=== PATIENT | female | born 1980 | race Caucasian/White ===

== ENCOUNTER 2024-04-17 10:25 | Outpatient (OUT) | payer MEDICARE, SELFPAY ==
--- NOTE | 2024-04-17 | CONS_ITS ---
CONSULTATION DATE: 04/17/2024 CHIEF COMPLAINT: Includes pain in multiple joints; however, she reports most of her pain appears to be in her shoulders bilaterally, markedly worse on the right than the left side, and right wrist pain, despite having undergone right wrist fusion HISTORY OF PRESENT ILLNESS: She rates the pain as between 5-7/10 pain, which she has had for many. Seems to increase with activities such as lifting maneuvers, pushing/pulling maneuvers, as well as cervical extension. She denies any change in bowel or bladder habits or new sensorimotor changes in her upper or lower extremities. CURRENT MEDICATION: Includes Kennedy 10 mg q.i.d. p.r.n., gabapentin 600 mg t.i.d., Topamax 200 b.i.d., Zanaflex 4 mg q. 8 hours. Her KAIT on today?s visit was 43. EXAMINATION: Notable for patient having no clinical radiculopathy or myelopathy involving her upper extremities. However, patient had positive bilateral empty can sign, markedly more significant on the right than the left side. Limited range of motion to shoulder abduction, again limited movement on the right more than the left side, and pain with right shoulder extension, internal rotation and abduction or ?back scratch test?. IMPRESSION: Our impression is patient appears to have chronic pain secondary to rotator cuff strain, impingement type syndrome shoulder bilaterally, right worse than left. RECOMMENDATIONS: I recommend an x-ray of her shoulders bilaterally, MRI of her shoulders bilaterally, physical therapy. I increased the gabapentin from 600 t.i.d. to q.i.d. I am decreasing Kennedy to 10 mg t.i.d. Will continue to wean the Kennedy as tolerated by the patient. I have asked her to maintain her current dose of Topamax and Zanaflex for the time being. Will see the patient back in the office after she undergoes imaging studies. As part of providing excellent, safe, comprehensive care, the following was completed at our patient's visit: 1. A medication reconciliation and review to ensure accurate knowledge of current/active medications, including asking our patients to inform us about any [id number] medications or herbal remedies/nutritional supplements/alternative remedies. 2. A review to specifically ensure our patients have had annual screening for: elevated body mass index (BMI, see intake chart for exact total), tobacco use, screening for depression, and screening for unhealthy alcohol use. When screening is concerning, patients are provided with education and the specific recommendation to discuss the concerning health issue and treatment options with their primary care provider. KATHIA
== END 2024-04-17 10:26 | disposition home or self-care (01) ==
PROVIDERS: PCP Family Medicine; Visit Provider Anesthesiology Pain Medicine
DX: M75.42 Impingement syndrome of left shoulder (principal); M75.41 Impingement syndrome of right shoulder; S46.012A Strain of muscle(s) and tendon(s) of the rotator cuff of left shoulder, initial encounter; S46.011A Strain of muscle(s) and tendon(s) of the rotator cuff of right shoulder, initial encounter; G89.29 Other chronic pain
CPT/HCPCS: G0463

== ENCOUNTER 2024-06-22 09:46 | Outpatient (OUT) | payer MEDICARE, SELFPAY ==
--- NOTE | 2024-06-22 09:53 | MR_ITS ---
[place] [id number] Patient Name: DEMAR BASURTO MRN: [id number] date: 1980 Sex: F Assigned Patient Location: MRI Current Patient Location: MRI Accession/Order Number: [id number] Exam Date: 06/22/2024 10:00 Report Date: 06/24/2024 07:00 At the request of: OZIE SANTANA Procedure: MR shoulder LT wo con EXAMINATION: MR shoulder LT wo con HISTORY: Bilateral Shoulder Pain COMPARISON: No relevant comparison available. TECHNIQUE: A variety of imaging planes and parameters were utilized for visualization of suspected pathology. Imaging was performed without or with contrast as indicated by examination type. FINDINGS: ROTATOR CUFF REGION CUFF TENDONS: Tear of the supraspinous tendon with what appears to be 5 mm separation. CUFF MUSCLES: Edema versus blood products within the subscapularis muscle at the musculotendinous junction without appreciable tear of the tendon. DELTOID: Normal. No significant atrophy or tear. LONG BICEPS TENDON: Normal. No abnormal signal, attrition, or tear. LABRUM/BICEPS ANCHOR SUPERIOR: No visible labral tear or biceps anchor pathology. ANTERIOR/INFERIOR: No visible tear or attrition. POSTERIOR: No posterior labrum abnormality. CAPSULE Normal. No visible capsular laxity or thickening. AC JOINT REGION AC JOINT: Joint space narrowing and large undersurface osteophytes indenting the supraspinatus muscle at the musculotendinous junction. AC LIGAMENTS: Normal acromioclavicular ligament. CC LIGAMENTS: Normal coracoclavicular ligaments. ACROMION: Normal horizontal (Type I) configuration. SUBACROMIAL BURSA: Normal. No significant effusion. HYALINE CARTILAGE: Narrowing of the glenohumeral joints likely due to cartilage thinning. OTHER BONES: Normal proximal humerus, glenoid, and coracoid. OTHER OBSERVATIONS: Negative. No other significant findings or glenohumeral effusion. MR/MR shoulder LT wo con IMPRESSION: 1. Appearance suggests full-thickness tear and 5 mm separation of the supraspinatus tendon. No fluid within the subacromial bursa suggesting this may be long-standing. 2. Degenerative changes of acromioclavicular joint with large undersurface osteophyte which would contribute to the above findings. 3. Suspect strain of the subscapularis muscle at the musculotendinous junction without evidence of edema versus intramuscular blood products. Unremarkable tendon. 4. Cartilage thinning of the glenohumeral joint. Electronically authenticated by: ASHLEIGH YIN Date: 06/24/2024 07:00
--- NOTE | 2024-06-22 09:53 | MR_ITS ---
[place] [id number] Patient Name: DEMAR BASURTO MRN: [id number] date: 1980 Sex: F Assigned Patient Location: MRI Current Patient Location: Accession/Order Number: [id number] Exam Date: 06/22/2024 10:00 Report Date: 06/24/2024 06:47 At the request of: ZOIE SANTANA Procedure: MR shoulder RT wo con EXAMINATION: MR shoulder RT wo con HISTORY: Bilateral Shoulder Pain COMPARISON: No relevant comparison available. TECHNIQUE: A variety of imaging planes and parameters were utilized for visualization of suspected pathology. Imaging was performed without or with contrast as indicated by examination type. FINDINGS: ROTATOR CUFF REGION CUFF TENDONS: Increased T2 signal within supraspinatus tendon without appreciable full-thickness tear. CUFF MUSCLES: Normal appearing muscles. DELTOID: Normal. No significant atrophy or tear. LONG BICEPS TENDON: Normal. No abnormal signal, attrition, or tear. LABRUM/BICEPS ANCHOR SUPERIOR: Suspected tear of the superior and anterior labrum. ANTERIOR/INFERIOR: No visible tear or attrition. POSTERIOR: No posterior labrum abnormality. CAPSULE Normal. No visible capsular laxity or thickening. AC JOINT REGION AC JOINT: Mild osteoarthropathy with mild narrowing of the underlying coracoacromial arch. AC LIGAMENTS: Normal acromioclavicular ligament. CC LIGAMENTS: Normal coracoclavicular ligaments. ACROMION: Normal horizontal (Type I) configuration. SUBACROMIAL BURSA: Small amount of fluid within bursa. HYALINE CARTILAGE: Normal. No visible cartilage narrowing or focal defect. OTHER BONES: Normal proximal humerus, glenoid, and coracoid. OTHER OBSERVATIONS: Negative. No other significant findings or glenohumeral effusion. MR/MR shoulder RT wo con IMPRESSION: 1. Abnormal T2 signal within the supraspinatus tendon suggestive of moderate to high-grade strain. No appreciable full-thickness tear, however, there is fluid within the subacromial bursa which would suggest an occult tear. 2. Suspected tear of the superior and anterior labrum. 3. Mild to moderate degenerative changes of acromioclavicular joints slightly narrowing the coracoacromial arch. Electronically authenticated by: ASHLEIGH YIN Date: 06/24/2024 06:47
== END 2024-06-22 09:47 | disposition home or self-care (01) ==
LOC: MRI 09:49
PROVIDERS: PCP Family Medicine; Visit Provider Anesthesiology Pain Medicine
DX: M25.511 Pain in right shoulder (principal); M25.512 Pain in left shoulder; S46.812A Strain of other muscles, fascia and tendons at shoulder and upper arm level, left arm, initial encounter
CPT/HCPCS: 73221

== ENCOUNTER 2024-07-03 12:25 | Outpatient (OUT) | payer MEDICARE, SELFPAY ==
--- NOTE | 2024-07-03 | CONS_ITS ---
CONSULTATION DATE: 07/03/2024 TO: Robson Robin D.O. CHIEF COMPLAINT: Includes severe bilateral shoulder pain. HISTORY: She rates the pain as being 4-5/10 pain, deep aching in character with a sharp component, increased with activities such as lifting maneuvers, pushing/pulling maneuvers. She feels most comfortable in the semi-recumbent position. Denies any change in bowel and bladder habits or new sensorimotor changes in the upper extremities. CURRENT MEDICATION: Includes gabapentin 600 mg q.i.d., Perham 10 mg t.i.d. with no evidence of acceleration of the use of medication, as well as she does report improvement of symptomatology with the use of Perham. She is also on Zanaflex 4 mg t.i.d. and Topamax 200 b.i.d. Her KAIT on today?s visit is 48%. EXAMINATION: Notable for patient having pain and reduced range of motion to shoulder extension, internal rotation and adduction bilaterally. She also has positive bilateral empty can sign. She has associated myofascial spasm and myalgia of the trapezius and levator scapula occurring bilaterally. IMPRESSION: Our impression is patient with chronic pain secondary to bilateral rotator cuff tear. RECOMMENDATIONS: I have asked her to decrease the use of Perham from 10 mg t.i.d. to 10 t.i.d. p.r.n. and not for around the clock use. I have instructed her to have 75 pills to last her one month?s time. I have increased her Zanaflex 4 mg pills, 1-2 up to t.i.d. as tolerated. Patient does report having Narcan at home immediately available. As part of providing excellent, safe, comprehensive care, the following was completed at our patient's visit: 1. A medication reconciliation and review to ensure accurate knowledge of current/active medications, including asking our patients to inform us about any [id number] medications or herbal remedies/nutritional supplements/alternative remedies. 2. A review to specifically ensure our patients have had annual screening for: elevated body mass index (BMI, see intake chart for exact total), tobacco use, screening for depression, and screening for unhealthy alcohol use. When screening is concerning, patients are provided with education and the specific recommendation to discuss the concerning health issue and treatment options with their primary care provider. KATHIA
--- OUTSIDE RECORDS SUMMARY | 2024-07-03 12:40 | XMS_ITS | CCD ---
Author Organization [facility] Care Team Providers Care Financial Services Consultant Name Role Phone BRETT PEDROZA Unavailable Unavaila ble Reyna Bah Unavailable Saad Vo Unavailable Reyna Bah Primary Care Provider Reyna Bah Unavailable Reyna Bah Primary Care Provider Reyna Bah Primary Care Provider [phone] Reyna Bah Primary Care Provider DR REYNA BAH Primary Care Unavailable KARIE, DR ALEN Matta Attending Unavailnaeem TIWARI, DR ALEN Matta Admitting Unavailnaeem LOPEZ, DR ZHANG Consulting Unavailable Reyna Bah DO Primary Care Provider [phone] ZAPANTA, JOVITA Referring Unavailable ZAPANTA, JOVITA Attending Unavailable REYNA BAH Primary Care Unavailable Reyna Bah Primary Care Provider SHILPI STRONG Attending Unavailable REYNA BAH Referring Unavailable REYNA BAH Primary Care Unavailable SHILPI STRONG Referring Unavailable REYNA BAH Primary Care Unavailable REYNA BAH Primary Care Unavailable LAKSHMIPATHY, NARENDRANATH Referring Unava ilable LAKSHMIPATHY, NARENDRANATH Referring Unava ilable REYNA BAH Primary Care Unavailable LAKSHMIPATHY, NARENDRANATH Referring Unava ilable REYNA BAH R Primary Care Unavailable LAKSHMIPATHY, NARENDRANATH Referring Unava ilable REYNA BAH Primary Care Unavailable GENEVIEVE LOO Attending Unavailable KUNS, REYNA R Referring Unavailable KUNS, REYNA R Primary Care Unavailable LAKSHMIPATHY, NARENDRANATH Referring Unava ilable KUNS, REYNA R Primary Care Unavailable GENEVIEVE LOO Attending Unavailable KUNS, REYNA R Referring Unavailable KUNS, REYNA R Primary Care Unavailable Kuns, Reyna Admitting Unavailable Kuns, Reyna Attending Unavailable Kuns, Reyna Primary Care Unavailable Tristian, Joaquin Attending Unavailab le Tristian, Joaquin Admitting Unavailab le Kuns, Reyna Primary Care Unavailable KUNS, REYNA DAHIANA Primary Care Unavailable KUNS, REYNA DAHIANA Primary Care Unavailable AL-ASHKALA, FEYROUZ Referring Unavailable KUNS, REYNA DAHIANA Primary Care Unavailable AL-ASHKAR, FEYROUZ Attending Unavailable SATHISH, SUDIPA D Attending Unavailable KUNS, REYNA DAHIANA Primary Care Unavailable KUNS, REYNA DAHIANA Primary Care Unavailable AL-NABIL, FEYROUZ Attending Unavailable KUNS, REYNA DAHIANA Primary Care Unavailable SATHISH, SUDIPA D Attending Unavailable Allergies Allergy Classification Reported Allergen(s) Allergy Type Date of Onset Reaction(s) Facility (20 sources) Bacitracin; Translations: [BACITRACIN] Drug Allergy 0 [facility] Other (20 sources) Doxycycline; Translations: [DOXYCYCLINE] Drug Allergy 0 Rash, Itching, Hives [facility] Other (20 sources) traMADol; Translations: [TRAMADOL] Drug Allergy 7 Reading Room [facility] Other (20 sources) Vancomycin; Translations: [VANCOMYCIN] Drug Allergy 2 Hives, Itching, Swelling [facility] (20 sources) Cephalexin; Translations: [CEPHALEXIN] Drug Allergy 5 Itching, rash [facility] Work Phone: (20 sources) ferrous sulfate; Translations: [FERROUS SULFATE] Drug Allergy 6 Anaphylaxis, Vomiting [facility] (20 sources) inFLIXimab; Translations: [INFLIXIMAB] Drug Allergy 4 Other: See Comments [facility] (20 sources) traMADol; Translations: [TRAMADOL HCL] Drug Allergy 7 Hives [facility] Work Phone: (19 sources) Cephalexin; Translations: [Keflex] Drug Allergy 5 rash [facility] Repository (1 source) Bacitracin Drug Allergy 5 [facility] Rep[facility] (1 source) Doxycycline Drug Allergy [facility] Rep[facility] (1 source) traMADol Drug Allergy 5 [facility] Rep[facility] (1 source) Bacitracin Drug Allergy 4 [facility] Repository (1 source) Cephalexin Drug Allergy 4 [facility] Rep[facility] (1 source) Chlorhexidine Drug Allergy 8 [facility] Rep[facility] (1 source) Doxycycline Drug Allergy 4 [facility] Rep[facility] (1 source) Sodium ferric gluconate complex Drug Allergy 8 [facility] Repository (1 source) Sucrose Drug Allergy 7 [facility] Repository (1 source) traMADol Drug Allergy 4 [facility] Repository Medications Current Medications Medication Drug Class(es) Dates Sig (Normalized) Sig (Original) acetaminophen 325 mg / HYDROcodone bitartrate 5 mg oral tablet (20 sources) Opioid Agonist HYDROcodone-acet aminop hen (NORCO) 5-325 mg per tablet Take by mouth every 8 hours as needed. Active HYDROcodone-acet aminophen (NORCO) 5-325 mg per tablet Take by mouth every 6 hours as needed. Active take 1 tablet by sai th every six hours take 1 tablet by sai th three times daily HYDROcodone-acetaminophen (NORCO) 10-325 mg per tablet Take 1 tablet by mouth 3 (three) times a day. 0 Active take 1 tablet by sai th every six hours as needed Megargel 5-325 MG 1 tablet as needed Orally every 6 hrs Active Comment on above: Take by mouth every 6 hours as needed. Aimovig 140 MG/ML (16 sources) inject 1 mL by subcutaneous injection every month Aimovig 140 MG/ML 1 ml Subcutaneous monthly Active Aimovig 140 MG/M L 1 ml Subcutaneous Active azithromycin 250 mg oral tab let (17 sources) Macrolide Antimicrobial Start: 01-18-2023 Start: 11-30-2022 Zithromax Z-Pa k 250 MG as directed Orally Nov, Active Start: 12-28-2021 Zithromax Z-Pa k 250 MG 2 tablet on the first day, then 1 tablet daily for 4 days Orally Once a day for 5 day(s) Dec, Active Start: 08-01-2021 Zithromax Z-Pa k 250 MG 2 tablet on the first day, then 1 tablet daily for 4 days Orally Once a day for 5 day(s) Jul, Active betamethasone 0.5 mg/ml / clotrimazole 10 mg/ml topical cream (5 sources) Azole Antifungal, Corticosteroid Start: 01-18-2023 ciclopirox 7.7 mg/ml topical cream (20 sources) Start: 02-10-2022 Start: 07-16-2021 Ciclopirox 8 % 1 application Externally Once a day Jul, Not-Taking clotrimazole 10 mg oral loze nge (18 sources) Azole Antifungal Start: 04-07-2023 Start: 06-24-2022 Start: 05-28-2021 clotrimazole ( MYCELEX) 10 mg nicole Dissolve 1 tablet (10 mg total) in the mouth. 0 05/28/2021 Active 1 ml erenumab-aooe 140 mg/ml auto-injector (20 sources) Start: 02-22-2024 End: 06-04-2024 inject 1 mL by subcutaneous injection every month erenumab-aooe (AIMOVIG AUTOINJECTOR) 140 mg/mL auto-injector Indications: Intractable chronic migraine without aura and without status migrainosus Inject 1 mL under the skin once every month. Do not shake. 1 mL 06/04/2024 Active Start: 05-28-2021 erenumab-aooe (AIMOVIG AUTOINJECTOR) 70 mg/mL auto-injector Inject 140 mg under the skin. 0 05/28/2021 Active Start: 10-14-2020 End: 11-26-2022 inject 1 mL by subcutaneous injection every month erenumab-aooe (AIMOVIG AUTOINJECTOR) 140 mg/mL auto-injector Inject 1 mL subcutaneously once every month. 1 Pen 5 10/14/2020 01/06/2022 Discontinued Comment on above: Inject 1 mL subcutan eously once every month. ergocalciferol 1.25 mg oral capsule (20 sources) Provitamin D2 Compound Start: take 1 capsule by mouth every week at mealtime ergocalciferol 50,000 unit capsule (VITAMIN D2, DRISDOL) Indications: Vitamin D deficiency Take 1 capsule by mouth one time a week. with a meal and obtain blood test for vitamin D 25-OH as advised. 12 capsule 1 10/27/2022 Active Start: 06-01-2019 End: 10-27-2022 take 1 capsule by mouth two times weekly at mealtime ergocalciferol 50,000 unit capsule (VITAMIN D2, DRISDOL) Indications: Vitamin D deficiency Take 1 capsule by mouth two times a week. with a meal 12 capsule 1 07/09/2020 12/08/2021 Discontinued Comment on above: Take 1 capsule by mo uth two times a week. with a meal and obtain blood test for vitamin D 25-OH as advised. Take 1 capsule by mo uth one time a week. with a meal and obtain blood test for vitamin D 25-OH as advised. 0.5 ml etanercept 50 mg/ml prefilled syringe (20 sources) Tumor Necrosis Factor Eliseo Start: 01-31-20 inject 25 mg by subcutaneous injection two times weekly etanercept (ENBREL) 25 mg/0.5 mL (0.5) Indications: BRISA (juvenile idiopathic arthritis) (HCC) , Inflammatory polyarthropathy (HCC) Inject 25mg (1 syringe) subcutaneously two times a week. Hold during infections 12 mL 3 01/31/2024 Active Start: 03-09-2022 End: 01-31-2024 inject 0.5 mL by subcutaneous injection two times weekly etanercept (ENBREL) 25 mg/0.5 mL injection Indications: BRISA (juvenile idiopathic arthritis) (HCC) , Inflammatory polyarthropathy (HCC) Inject 0.5 mL subcutaneously two times a week. Hold during infections 12 mL 3 01/31/2024 Active Start: 02-26-2021 End: 10-27-2022 inject 0.5 mL by subcutaneous injection two times weekly etanercept (ENBREL) 25 mg/0.5 mL soln Indications: BRISA (juvenile idiopathic arthritis) (HCC) Inject 0.5 mL (25 mg dose) subcutaneously two times a week. 8 mL 3 02/26/2021 03/09/2022 Discontinued Start: 12-08-2020 End: 07-15-2021 etanercept (ENBREL) 25 mg (1 mL) injection Indications: BRISA (juvenile idiopathic arthritis) (HCC) , Inflammatory arthropathy Inject 1 syringe (25mg) subcutaneously two times a week as instructed; Hold during infections 8 Each 11 12/08/2020 07/15/2021 Discontinued (Changing Therapy/Dosage Form) Enbrel 25 MG/0.5 ML as directed Subcutaneous twice per week Not-Taking Enbrel 50 MG/ML as directed Subcutaneous Active Comment on above: Inject 0.5 mL (25 mg dose) subcutaneously two times a week. Inject 1 syringe (25 mg dose) subcutaneously two times a week. fluconazole 100 mg oral tablet (1 source) Azole Antifungal Start: 12-06-19 End: 12-15-19 take 1 tablet by mouth once daily Diflucan 100 mg oral tablet ; 1 tab(s) orally once a day Quantity: 10 Refills: 0 Ordered: 05-Dec-2021 Saad Vo Start: 05-Dec-2021 End: 14-Dec-2021 Generic Substitution Allowed Comments: Do not take this drug if you are .Finish all this medication unless otherwise directed by prescriber. Comment on above: Do not take this lebron g if you are .Finish all this medication unless otherwise directed by prescriber. folic acid 1 mg oral tablet (20 sources) Start: 07-09-20 End: 10-27-19 23 take 1 tablet by mouth once daily folic acid 1 mg tablet Indications: Encounter for monitoring of methotrexate therapy Take 1 tablet by mouth once daily. 100 tablet 3 10/27/2022 Active Comment on above: Take 1 tablet by sai once daily. furosemide 40 mg oral tablet (3 sources) Loop Diuretic Start: 02-07-20 End: 09-20-19 24 take 1 tablet by mouth once daily as needed furosemide (LASIX) 40 mg tablet TAKE ONE TABLET BY MOUTH DAILY NEEDED FOR SWELLING 30 tablet 0 09/20/2023 Active gabapentin 400 mg oral capsule (20 sources) Anti-epileptic Agent Start: 06-01-20 18 gabapentin (NEURONTIN) 400 mg capsule Take 1 capsule (400 mg total) by mouth in the morning and 1 capsule (400 mg total) at noon and 1 capsule (400 mg total) in the evening and 1 capsule (400 mg total) before bedtime. 0 02/10/2018 Active gabapentin (NEUR ONTIN) 300 mg capsule Take 400 mg by mouth four times daily. Active take 1 capsule by mouth twice da la gabapentin (NEURONTIN) 300 mg capsule Take 300 mg by mouth twice daily. 0 Active Comment on above: Take 300 mg by mouth twice daily. methylPREDNISolone 4 mg oral tablet (2 sources) Corticosteroid Start: 023 Medrol 4 MG as directed Orally Nov, Active 24 hr metoprolol succinate 25 mg extended release oral tablet (20 sources) beta-Adrenergic Eliseo Start: 022 take 1 tablet by mouth once daily metoprolol succinate XL (TOPROL XL) 25 mg 24 hr tablet Indications: Inappropriate sinus tachycardia Take 1 tablet (25 mg total) by mouth daily. 90 tablet 3 11/13/2021 Active Start: 05-25-2019 End: 01-06-2022 take 2 tablets by mouth once daily metoprolol succinate ER (TOPROL XL) 50 mg 24 hr tablet Take 2 tablets by mouth once daily. 05/25/2019 01/06/2022 Discontinued (Discontinued by Patient) take 1 tablet by [facility] every twenty-four hours Metoprolol Tartrate 100 MG 1 tablet with food Orally once a day Not-Taking Comment on above: Take 2 tablets by mo [facility] once daily. mupirocin 0.02 mg/mg topical ointment (8 sources) RNA Synthetase Inhibitor Antibacterial Start: 04-28-2023 Start: 11-16-2022 Mupirocin 2 % 1 application Externally three times a day Nov, Active naratriptan 2.5 mg oral tablet (20 sources) Serotonin-1b and Serotonin-1d Receptor Agonist Start: 01-06-2022 End: 06-04-2024 naratriptan (AMERGE) 2.5 mg tablet Indications: Intractable chronic migraine without aura and without status migrainosus Take 1 tablet (2.5 mg) by mouth as needed for migraine headache (see administration instructions). TAKE ONE(1) TABLET AT THE ONSET OF HEADACHE. MAY REPEAT DOSE AFTER 4 HOURS. NO MORE THAN 2 TABS IN 24 HRS. 9 tablet 11 06/04/2024 Active Comment on above: Take 1 tablet by sai th as needed for migraine headache (see administration instructions). TAKE ONE(1) TABLET AT THE ONSET OF HEADACHE; IF HEADACHE RETURNS OR DOES NOT FULLY RESOLVE, THE DOSE MAY BE REPEATED AFTER 4 HOURS; DO NOT EXCEED FIVE(5) MG IN 24 HOURS. ondansetron 4 mg oral tablet (20 sources) Serotonin-3 Receptor Antagonist Start: 05-28-2021 take 1 tablet by mouth every six hours as needed Start: 05-28-2021 take 1 tablet by sai th every twenty-four hours Ondansetron HCl 4 MG 1 tablet Orally Once a day for 30 day(s) Aug, Active pantoprazole 40 mg delayed release oral tablet (20 sources) Proton Pump Inhibitor take 1 tablet by mouth twice daily pantoprazole DR (PROTONIX) 40 mg tablet Take 40 mg by mouth twice daily. Active Comment on above: Take 40 mg by mouth twice daily. rivaroxaban 10 mg oral tablet (20 sources) Factor Xa Inhibitor Start: take 1 tablet by mouth once daily XARELTO 10 mg tablet Indications: History of DVT (deep vein thrombosis) , May-Thurner syndrome TAKE ONE TABLET BY MOUTH DAILY 90 tablet 3 02/01/2023 Active Start: 12-14-2017 XARELTO 20 mg tablet 1 12/14/2017 Active sulfamethoxazole 800 mg / trimethoprim 160 mg oral tablet (20 sources) Dihydrofolate Reductase Inhibitor Antibacterial, Sulfonamide Antimicrobial Start: 08-18-2021 End: 12-14-2021 take 2 tablets by mouth twice daily Bactrim DS 800 mg-160 mg oral tablet ; 2 tab(s) orally 2 times a day Quantity: 40 Refills: 0 Ordered: 05-Dec-2021 Saad Vo Start: 05-Dec-2021 End: 14-Dec-2021 Generic Substitution Allowed Comments: Avoid prolonged or excessive exposure to direct and/or artificial sunlight while taking this medication.Finish all this medication unless otherwise directed by prescriber.Medication should be taken with plenty of water. Comment on above: Avoid prolonged or e xcessive exposure to direct and/or artificial sunlight while taking this medication.Finish all this medication unless otherwise directed by prescriber.Medication should be taken with plenty of water. Take 1 tablet by sai th twice daily. Syringe with Needle, Disp, (BD TUBERCULIN SYRINGE) 1 mL 27 x 1/2 (20 sources) Start: 10-28-2022 Syringe with Needle, Disp, (BD TUBERCULIN SYRINGE) 1 mL 27 x 1/2 Indications: Encounter for monitoring of etanercept therapy use to draw up & inject enbrel 8 Each 12 10/28/2022 Active Start: 07-15-2021 End: 10-28-2022 Syringe with Needle, Disp, ( BD TUBERCULIN SYRINGE) 1 mL 27 x 1/2 use to draw up & inject enbrel 8 Each 3 07/15/2021 10/28/2022 Discontinued Start: 07-15-2021 Syringe with N eedle, Disp, (BD TUBERCULIN SYRINGE) 1 mL 27 x 1/2 use to draw up & inject enbrel 8 Each 3 07/15/2021 Active Start: 02-27-2021 End: 07-15-2021 Syringe with Needle, Disp, ( BD TUBERCULIN SYRINGE) 1 mL 27 x 1/2 use to draw up & inject enbrel 8 Each 3 02/27/2021 07/15/2021 Discontinued Comment on above: use to draw up & inj ect enbrel terbinafine 250 mg oral tablet (5 sources) Allylamine Antifungal Start: 2 take 1 tablet by mouth every twenty-four hours Terbinafine HCl 250 MG 1 tablet Orally Once a day for 5 days Feb, Active tiZANidine 4 mg oral tablet (20 sources) Central alpha-2 Adrenergic Agonist Start: 4 End: take 1 tablet by mouth every eight hours as needed tiZANidine (ZANAFLEX) 4 mg tablet Indications: Cervicogenic headache , Intractable chronic migraine without aura and without status migrainosus TAKE 0.5 TO ONE TABLET BY MOUTH EVERY 8 HOURS NEEDED. 90 tablet 5 06/04/2024 Active Start: 05-29-2021 End: 02-22-2024 take 1 tablet by mouth three times daily as needed tiZANidine (ZANAFLEX) 4 mg tablet Indications: Cervicogenic headache TAKE ONE TO TWO TABLETS BY MOUTH EVERY 8 HOURS NEEDED. Up to 3 times a day. 180 tablet 5 01/05/2022 07/09/2022 Discontinued Start: 03-27-2020 tiZANidine (ZA NAFLEX) 4 mg tablet Taking 2 tablets three times a day as needed 0 03/27/2020 Active take 1 tablet by sai th every twelve hours Zanaflex 4 MG 1 tablet as needed Orally bid Active Comment on above: TAKE ONE TO TWO TABL ETS BY MOUTH EVERY 8 HOURS NEEDED. Up to 3 times a day. topiramate 200 mg oral tablet (20 sources) Start: 02-22-2024 End: 06-04-2024 take 1 tablet by mouth twice daily topiramate (TOPAMAX) 200 mg tablet Indications: Cervicogenic headache Take 1 tablet by mouth two times a day. 60 tablet 5 06/04/2024 Active Start: 02-08-2024 End: 02-22-2024 topiramate (TOPAMAX) 200 mg tablet Indications: Cervicogenic headache Take 1 tablet in the AM, 0.5 tablets in the afternoon, and 1 tablet at bedtime for 2 weeks, then take 1 tablet twice daily 67 tablet 3 02/22/2024 Active Start: 09-01-2012 End: 02-04-2024 take 1 tablet by mouth three times daily topiramate (TOPAMAX) 200 mg tablet TAKE ONE TABLET BY MOUTH THREE TIMES A DAY 90 tablet 2 05/07/2021 07/15/2021 Discontinued Comment on above: Take 1 tablet by sai three times daily. Completed/Discontinued Medications Medication Drug Class(es) Dates Sig (Normalized) Sig (Original) acetaminophen 325 mg oral tablet (6 sources) Start: 11-19-2021 End: 01-06-2022 take 3 tablets by mouth every six hours as needed acetaminophen (TYLENOL) 325 mg tablet Take 3 tablets by mouth every 6 hours as needed for pain. Take Tylenol (acetaminophen) for pain and take it simultaneously with oxycodone every 6 hours. After 3 hours of these medications can also take Toradol tablet every 6 hours and intercalate with tylenol+oxycodone to provide pain control every 3 hours. 90 tablet 11/19/2021 01/06/2022 Discontinued (Course of therapy completed) Comment on above: Take 3 tablets by mo [facility] every 6 hours as needed for pain. Take Tylenol (acetaminophen) for pain and take it simultaneously with oxycodone every 6 hours. After 3 hours of these medications can also take Toradol tablet every 6 hours and intercalate with tylenol+oxycodone to provide pain control every 3 hours. [id number] 200 actuat albuterol 0.09 mg/actuat metered dose inhaler (11 sources) beta2-Adrenergic Agonist Start: 08-01-2021 take 1 puff(s) by inhalation every four hours as needed Ventolin HFA 108 (90 Base) MCG/ACT 1 puff as needed Inhalation every 4 hrs Jul, Not-Taking Albuterol Sulfate (2.5 MG/ 3 ML) 2.5 MG/3ML 0.083% Nebulization Solution (11 sources) Start: 08-04-2021 Albuterol Sulfate (2.5 MG/ 3 ML) 2.5 MG/3ML 0.083% Nebulization Solution 3ml Inhalation 4 times a day Jul, Not-Taking Start: 08-04-2021 Albuterol Sulf ate (2.5 MG/ 3 ML) 2.5 MG/3ML 0.083% Nebulization Solution 3ml Inhalation 4 times a day Jul, Active aspirin 81 mg delayed release oral tablet (20 sources) Platelet Aggregation Inhibitor, Nonsteroidal Anti-inflammatory Drug End: 01-06-2022 take 1 tablet by mouth once daily aspirin, enteric coated (ASPIRIN, ENTERIC COATED) 81 mg EC tablet Take 81 mg by mouth once daily. 01/06/2022 Discontinued (Discontinued by another Health Care Provider) take 1 tablet by mouth once destinee y Aspirin 81 MG 1 tablet Orally Once a day Active Comment on above: Take 81 mg by mouth once daily. Calcium Carbonate (13 sources) Tums Not-Taking Tums Active clindamycin 300 mg oral capsule (1 source) Lincosamide Antibacterial Start: 12-01-2021 End: 12-08-2021 take 1 capsule by mouth every eight hours clindamycin (CLEOCIN) 300 mg capsule Take 1 capsule by mouth every 8 hours for 7 days. 21 capsule 12/01/2021 12/08/2021 efinaconazole 100 mg/ml topical solution (20 sources) Azole Antifungal Start: 10-01-2021 End: 06-04-2024 efinaconazole (JUBLIA) 10 % [place] Apply to affected area once daily. 4 mL 2 10/01/2021 06/04/2024 Discontinued Comment on above: Apply to affected ar ea once daily. eletriptan 40 mg oral tablet (6 sources) Serotonin-1b and Serotonin-1d Receptor Agonist Start: 07-15-2021 End: 01-06-2022 take 1 tablet by mouth every two hours as needed eletriptan (RELPAX) 40 mg tablet Indications: Cervicogenic headache Take 1 tablet by mouth as needed. may repeat in 2 hours if necessary 12 tablet 5 07/15/2021 01/06/2022 Discontinued (Side Effects) Comment on above: Take 1 tablet by sai as needed. may repeat in 2 hours if necessary ketorolac tromethamine 10 mg oral tablet (20 sources) Nonsteroidal Anti-inflammatory Drug, Cyclooxygenase Inhibitor Start: 12-01-2021 End: 01-06-2022 take 1 tablet by mouth every six hours as needed keTORolac (TORADOL) 10 mg tablet Take 1 tablet by mouth every 6 hours as needed for pain (moderate pain). Take 3 hours after tylenol every 6 hours 20 tablet 12/01/2021 01/06/2022 Discontinued (Course of therapy completed) Start: 03-06-2020 Toradol per 15 mg Feb, 2 cc Start: 12-19-2012 Toradol per 15 mg Dec, 2ml Comment on above: Take 1 tablet by sai every 6 hours as needed for pain (moderate pain). Take 3 hours after tylenol every 6 hours methotrexate 2.5 mg oral tablet (20 sources) Folate Analog Metabolic Inhibitor Start: 0 End: 3 take 4 tablets by mouth every week methotrexate 2.5 mg tablet Indications: BRISA (juvenile idiopathic arthritis) (HCC) , Inflammatory arthropathy take 4 tablets by mouth ONCE EACH WEEK AND HOLD DURING INFECTIONS 48 tablet 1 07/09/2020 12/08/2021 Discontinued Methotrexate 2.5 MG as directed Orally Active Comment on above: take 4 tablets by mo [facility] ONCE EACH WEEK AND HOLD DURING INFECTIONS oxyCODONE hydrochloride 5 mg oral tablet (6 sources) Opioid Agonist Start: End: take 1 tablet by mouth every six hours as needed for pain oxyCODONE IR (ROXICODONE) 5 mg immediate release tablet Indications: Postoperative pain Take 1 tablet by mouth every 6 hours as needed for pain. Take simultaneously with tylenol 21 tablet 11/19/2021 01/06/2022 Discontinued (Course of therapy completed) Comment on above: Take 1 tablet by sai th every 6 hours as needed for pain. Take simultaneously with tylenol rizatriptan 10 mg oral tablet (1 source) Serotonin-1b and Serotonin-1d Receptor Agonist Start: End: take 1 tablet by mouth every two hours as needed for headache rizatriptan (MAXALT) 10 mg tablet Take 1 tablet by mouth as needed for Migraine Headache (see administration instructions). May repeat in 2 hours if needed 10 tablet 5 10/14/2020 07/15/2021 Discontinued sucralfate 1000 mg oral tablet (13 sources) Aluminum Complex Start: take 1 tablet by mouth every twelve hours Sucralfate 1 GM 1 tablet on an empty stomach Orally Twice a day Jul, Not-Taking Triamcinolone (20 sources) Corticosteroid Start: KENALOG - 10 mg Apr, 40 mg Problems Active Problems Problem Classification Problem Date Documented Da te Episodic/Chronic Adjustment disorders (1 source) Adjustment disorder with depressed mood; Translations: [Adjustment disorder with depressed mood] Onset: 4 Chronic Administrative/social admission (6 sources) Follow-up status; Translations: [Person consulting for explanation of examination or test findings] Episodic Allergic reactions (20 sources) Eczema; Translations: [Dermatitis, unspecified] Episodic Anxiety disorders (2 sources) Posttraumatic stress disorder; Translations: [Post-traumatic stress disorder, unspecified] Onset: 9 10-30-2018 Chronic Cardiac dysrhythmias (2 sources) Inappropriate sinus tachycardia; Translations: [Inappropriate sinus tachycardia] Onset: 1 11-13-2021 Chronic Coagulation and hemorrhagic disorders (20 sources) Disorder of hemostatic system; Translations: [Coagulation defect, unspecified] 09-07-2021 Chronic Complications of surgical procedures or medical care (20 sources) Difficult intubation; Translations: [Failed or difficult intubation, initial encounter] 11-19-2021 Episodic Deficiency and other anemia (2 sources) Iron deficiency anemia due to blood loss; Translations: [Iron deficiency anemia secondary to blood loss (chronic)] Onset: 0 Resolved: 1 01-09-2021 Chronic Deficiency and other anemia (20 sources) Iron deficiency anemia; Translations: [Iron deficiency anemia, unspecified] Episodic Disorders of lipid metabolism (20 sources) Hyperlipidemia; Translations: [Hyperlipidemia, unspecified] Onset: 1 Resolved: 1 Chronic Esophageal disorders (20 sources) Gastroesophageal reflux disease; Translations: [Gastro-esophageal reflux disease without esophagitis] Onset: 1 Resolved: 2 07-14-2015 Chronic Fluid and electrolyte disorders (1 source) Hypokalemia; Translations: [Hypokalemia] Onset: 8 Episodic Headache; including migraine (20 sources) Migraine; Translations: [Migraine, unspecified, not intractable, without status migrainosus] 07-14-2015 Chronic Headache; including migraine (12 sources) Cervicogenic headache; Translations: [Cervicogenic headache] Episodic Immunity disorders (20 sources) Patient immunocompromised; Translations: [Immunodeficiency, unspecified] Chronic Immunizations and screening for infectious disease (20 sources) Culture positive for methicillin resistant Staphylococcus aureus; Translations: [Carrier or suspected carrier of Methicillin resistant Staphylococcus aureus] Onset: 1 Resolved: 1 Episodic Lymphadenitis (12 sources) Lymphadenopathy; Translations: [Enlarged lymph nodes, unspecified] Episodic Menstrual disorders (20 sources) Menometrorrhagia; Translations: [Excessive and frequent menstruation with irregular cycle] Chronic Mycoses (3 sources) Tinea unguium; Translations: [Pityriasis versicolor] Onset: 1 Resolved: 2 Episodic Nutritional deficiencies (20 sources) Vitamin D deficiency; Translations: [Vitamin D deficiency, unspecified] Onset: 8 12-20-2017 Chronic Other aftercare (20 sources) Taking high risk medication; Translations: [Other long term care phlebotomist (current) drug therapy] Episodic Other aftercare (8 sources) Patient encounter status; Translations: [Encounter for therapeutic drug level monitoring] Episodic Other aftercare (1 source) Long-term current use of drug therapy; Translations: [Encounter for therapeutic drug level monitoring] 05-23-2024 Episodic Other aftercare (1 source) Encounter for therapeutic drug level monitoring; Translations: [Encounter for monitoring of etanercept therapy] Onset: 4 Episodic Other and unspecified benign neoplasm (20 sources) History of polyp of colon; Translations: [Personal history of colonic polyps] Episodic Other connective tissue disease (20 sources) History of implantation of joint prosthesis into wrist joint; Translations: [Presence of unspecified artificial wrist joint] Onset: 5 09-09-2015 Chronic Other connective tissue disease (1 source) Presence of unspecified artificial wrist joint; Translations: [PRESENCE UNS ARTIFICIAL WRIST JOINT] Onset: 3 Chronic Other connective tissue disease (4 sources) Pain in finger of right hand; Translations: [Pain in right finger(s)] 03-31-2022 Episodic Other female genital disorders (20 sources) Dysfunctional uterine bleeding; Translations: [Other specified abnormal uterine and vaginal bleeding] Chronic Other gastrointestinal disorders (20 sources) Dysphagia; Translations: [Dysphagia, unspecified] Episodic Other injuries and conditions due to external causes (20 sources) Injury of ulnar nerve at wrist and hand level; Translations: [Injury of ulnar nerve at wrist and hand level of unspecified arm, initial encounter] 05-30-2019 Episodic Other liver diseases (20 sources) Elevated liver enzymes level; Translations: [Abnormal levels of other serum enzymes] 05-23-2024 Episodic Other lower respiratory disease (20 sources) Multiple nodules of lung; Translations: [Other nonspecific abnormal finding of lung field] 12-14-2016 Episodic Other lower respiratory disease (1 source) Snoring; Translations: [Snoring] Episodic Other nervous system disorders (20 sources) 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; Translations: [Lesion of ulnar nerve, right upper limb] Onset: 6 09-02-2016 Chronic Other non-traumatic joint disorders (1 source) Pain in left shoulder; Translations: [Pain in left shoulder] Onset: 4 Episodic Other non-traumatic joint disorders (1 source) Pain in right shoulder; Translations: [Pain in right shoulder] Onset: 4 Episodic Other nutritional; endocrine; and metabolic disorders (20 sources) Obese class I; Translations: [Obesity, unspecified] Onset: 8 12-20-2017 Chronic Other screening for suspected conditions (not mental disorders or infectious disease) (20 sources) Mammography abnormal; Translations: [Other abnormal and inconclusive findings on diagnostic imaging of breast] Episodic Other skin disorders (4 sources) Disorder of the skin and subcutaneous tissue, unspecified; Translations: [DISORDER SKIN AND SUBQ TISSUE UNS] Onset: 3 Episodic Other upper respiratory infections (7 sources) Acute pharyngitis, unspecified; Translations: [Pain in throat] Episodic Pneumonia (except that caused by tuberculosis or sexually transmitted disease) (20 sources) Infective pneumonia; Translations: [Pneumonia, unspecified organism] Onset: 1 Resolved: 1 Episodic Residual codes; unclassified (3 sources) Postoperative state; Translations: [Other specified postprocedural states] Episodic Residual codes; unclassified (1 source) Insomnia; Translations: [Insomnia, unspecified] Episodic Residual codes; unclassified (1 source) Middle insomnia; Translations: [Insomnia, unspecified] Episodic Residual codes; unclassified (1 source) Family history of other diseases of the musculoskeletal system and connective tissue; Translations: [Family history of other diseases of the musculoskeletal system and connective tissue] Onset: 4 Episodic Residual codes; unclassified (1 source) Pain; Translations: [Pain, unspecified] 06-10-2021 Episodic Rheumatoid arthritis and related disease (20 sources) Juvenile idiopathic arthritis; 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, unspecified site] Onset: 0 Resolved: 1 08-20-2010 Chronic Skin and subcutaneous tissue infections (11 sources) Cellulitis; Translations: [Cellulitis and abscess of unspecified sites] 12-05-2021 Episodic Spondylosis; intervertebral disc disorders; other back problems (20 sources) Neck pain; Translations: [Cervicalgia] Onset: 1 Resolved: 1 Episodic Thyroid disorders (20 sources) Thyroid nodule; Translations: [Nontoxic single thyroid nodule] 09-07-2021 Chronic Unclassified (2 sources) POSS INFECTED SURGICAL SITE 12-05-2021 Comment on above: POSS INFECTED SURGIC AL SITE Unclassified (1 source) history of blood clots Onset: 4 Unclassified (1 source) Encounter for monitoring of etanercept therapy; Translations: [Encounter for monitoring of etanercept therapy] Onset: 4 Viral infection (6 sources) Other specified viral diseases; Translations: [RSV infection] Episodic Past or Other Problems Problem Classification Problem Date Documented Da te Episodic/Chronic Cardiac dysrhythmias (4 sources) Palpitations; Translations: [Tachycardia, unspecified] Onset: 02-16-2018 Resolved: 11-13-2021 Episodic Diabetes mellitus without complication (1 source) Hyperglycemia, unspecified; Translations: [Hyperglycemia, unspecified] Onset: 10-06-2023 Episodic Gastrointestinal hemorrhage (1 source) Melena Onset: 07-16-2021 Resolved: 07-16-2021 Episodic Joint disorders and dislocations; trauma-related (20 sources) Tear of lateral meniscus of knee; Translations: [Complex tear of lateral meniscus, current injury, left knee, initial encounter] Onset: 01-17-2018 01-17-2018 Episodic Nonspecific chest pain (3 sources) Other chest pain; Translations: [Chest pain] Onset: 02-16-2018 Resolved: 11-13-2021 11-13-2021 Episodic Osteoarthritis (20 sources) Localized, primary osteoarthritis of the wrist; Translations: [Primary osteoarthritis, unspecified wrist] Onset: 07-03-2015 Resolved: 09-09-2015 09-09-2015 Chronic Other acquired deformities (20 sources) [place]-neck deformity of finger of right hand; Translations: [[place]-neck deformity of right finger(s)] Onset: 06-12-2019 06-12-2019 Episodic Other acquired deformities (20 sources) Boutonniere deformity of finger of right hand; Translations: [Boutonniere deformity of right finger(s)] Onset: 06-12-2019 06-12-2019 Episodic Other acquired deformities (1 source) [place]-neck deformity of right finger(s) Onset: 11-11-2021 Resolved: 11-11-2021 Episodic Other aftercare (2 sources) Other prison (current) drug therapy; Translations: [[facility] CURRENT DRUG [facility]ERAPY] Onset: 10-25-2022 Episodic Other connective tissue disease (20 sources) Pain in limb; Translations: [Pain in unspecified limb] Onset: 10-26-2007 10-26-2007 Episodic Other connective tissue disease (20 sources) Pain in right hand; Translations: [Pain in right hand] Onset: 10-28-2015 06-12-2019 Episodic Other connective tissue disease (20 sources) Biceps tendinitis; Translations: [Bicipital tendinitis, unspecified shoulder] Onset: 01-04-2011 Resolved: 09-09-2015 09-09-2015 Episodic Other connective tissue disease (20 sources) Triggering of digit; Translations: [Trigger finger, right ring finger] Onset: 10-14-2015 Resolved: 01-06-2016 01-06-2016 Episodic Other diseases of veins and lymphatics (20 sources) Iliac vein compression syndrome; Translations: [Compression of vein] Onset: 01-06-2016 01-06-2016 Episodic Other diseases of veins and lymphatics (2 sources) Compression of vein; Translations: [Compression of vein] Onset: 11-13-2021 Episodic Other gastrointestinal disorders (2 sources) Malabsorption - iron; Translations: [Intestinal malabsorption, unspecified] Onset: 07-08-2020 Resolved: 01-09-2021 01-09-2021 Chronic Other gastrointestinal disorders (2 sources) Dysphagia, unspecified Onset: 07-28-2021 Resolved: 08-20-2021 Episodic Other hematologic conditions (20 sources) H/O: blood disorder; Translations: [Personal history of diseases of the blood and blood-forming organs and certain disorders involving the immune mechanism] Onset: 12-12-2015 12-14-2016 Episodic Other liver diseases (2 sources) Abnormal levels of other serum enzymes; Translations: [Abnormal levels of other serum enzymes] Onset: 10-06-2023 Episodic Other lower respiratory disease (1 source) Hypoxemia Onset: 07-16-2021 Resolved: 07-16-2021 Episodic Other lower respiratory disease (1 source) Shortness of breath Onset: 07-16-2021 Resolved: 07-16-2021 Episodic Other lower respiratory disease (2 sources) Dyspnea; Translations: [Shortness of breath] Onset: 07-21-2021 Resolved: 11-13-2021 11-13-2021 Episodic Other non-traumatic joint disorders (20 sources) 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; Translations: [Other specified joint disorders, left hip] Onset: 07-20-2012 07-20-2012 Episodic Other non-traumatic joint disorders (1 source) Pain in left ankle and joints of left foot; Translations: [Acute left ankle pain] Onset: 08-30-2023 Episodic Other nutritional; endocrine; and metabolic disorders (2 sources) History of iron deficiency; Translations: [Personal history of other endocrine, nutritional and metabolic disease] Onset: 01-09-2021 01-09-2021 Episodic Other nutritional; endocrine; and metabolic disorders (1 source) Personal history of other endocrine, nutritional and metabolic disease; Translations: [Personal history of other endocrine, nutritional and metabolic disease] Onset: 01-09-2021 Episodic Other skin disorders (20 sources) Eruption; Translations: [Rash and other nonspecific skin eruption] Onset: 01-31-2013 01-31-2013 Episodic Other skin disorders (1 source) Disorder of pigmentation, unspecified Onset: 07-16-2021 Resolved: 07-16-2021 Episodic Other upper respiratory disease (1 source) Nasal congestion Onset: 09-15-2021 Resolved: 09-15-2021 Episodic Phlebitis; thrombophlebitis and thromboembolism (20 sources) Deep venous thrombosis; Translations: [Acute embolism and thrombosis of unspecified deep veins of unspecified lower extremity] Onset: 09-09-2017 Resolved: 07-16-2021 Episodic Residual codes; unclassified (20 sources) History of colonoscopy; Translations: [Other specified postprocedural states] Onset: 03-14-2013 03-14-2013 Episodic Residual codes; unclassified (20 sources) H/O: blood transfusion; Translations: [Personal history of other medical treatment] Onset: 12-12-2015 12-14-2016 Episodic Residual codes; unclassified (2 sources) Localized edema; Translations: [Localized edema] Onset: 11-09-2018 11-09-2018 Episodic Residual codes; unclassified (2 sources) Edema, generalized; Translations: [Generalized edema] Onset: 05-01-2018 Resolved: 11-13-2021 11-13-2021 Episodic Unclassified (2 sources) Cough R05.9 Onset: 09-15-2021 Resolved: 09-15-2021 Results Test Name Value Interpretation Reference Range Facility CBC AND AUTO DIFFon 06-11-20 24 ABSOLUTE BASOPHIL 0.2 X10E9/L Normal 0.0-0.2 [facility] Comment on above: Performed By: #### 4 8066-5, CBCA, CMP, FEPR, 2276-4 #### [facility] ([id number]) [address], [address] [place] [address] ABSOLUTE NEUTROPHIL 5.6 X10E9/L Normal 1.5-6.6 [facility] Comment on above: Performed By: #### 4 8066-5, CBCA, CMP, FEPR, 4 #### [facility] ([id number]) [address] [address] Basophils/100 WBC (Bld) 2.0 % Normal [facility] Comment on above: Performed By: #### 4 8066-5, CBCA, CMP, FEPR, 2275-4 #### [facility] ([id number]) [address] [address] Eosinophils (Bld) [#/Vol] 0.4 10*3/uL Normal 0.0-0.4 [facility] Comment on above: Performed By: #### 4 8066-5, CBCA, CMP, FEPR, 2275-12 #### [facility] ([id number]) [address] [address] Eosinophils/100 WBC (Bld) 4.6 % Normal [facility] Comment on above: Performed By: #### 4 8066-5, CBCA, CMP, FEPR, 4 #### [facility] ([id number]) [address] [address] Erythrocyte distribution width (RBC) [Ratio] 13.9 % Normal 11.5-15.0 [facility] Comment on above: Performed By: #### 4 8066-5, CBCA, CMP, FEPR, 2275- #### [facility] ([id number]) [address] [address] Hematocrit (Bld) [Volume fraction] 47.1 % High 35-47 [facility] Comment on above: Performed By: #### 4 8066-5, CBCA, CMP, FEPR, 2275-12 #### [facility] ([id number]) [address] [address] Hemoglobin (Bld) [Mass/Vol] 15.5 g/dL Normal 11.7-15.5 [facility] Comment on above: Performed By: #### 4 8066-5, CBCA, CMP, FEPR, 2275-4 #### [facility] ([id number]) [address] [address] Lymphocytes (Bld) [#/Vol] 2.7 10*3/uL Normal 1.0-3.5 [facility] Comment on above: Performed By: #### 4 8066-5, CBCA, CMP, FEPR, 4 #### [facility] ([id number]) [address] [address] Lymphocytes/100 WBC (Bld) 28.2 % Normal [facility] Comment on above: Performed By: #### 4 8066-5, CBCA, CMP, FEPR, 2275-4 #### [facility] ([id number]) [address] [address] MCH (RBC) [Entitic mass] 28.2 pg Normal 27-34 [facility] Comment on above: Performed By: #### 4 8066-5, CBCA, CMP, FEPR, 4 #### [facility] ([id number]) [address] [place] [address] MCHC (RBC) [Mass/Vol] 32.9 g/dL Normal 32-36 [facility] Comment on above: Performed By: #### 4 8066-5, CBCA, CMP, FEPR, 2275-4 #### [facility] ([id number]) [address] [place] [address] MCV (RBC) [Entitic vol] 86 fL Normal 80-100 [facility] Comment on above: Performed By: #### 4 8066-5, CBCA, CMP, FEPR, 2276-4 #### [facility] ([id number]) [address], [address] [place] [address] Monocytes (Bld) [#/Vol] 0.6 10*3/uL Normal 0-0.9 [facility] Comment on above: Performed By: #### 4 8066-5, CBCA, CMP, FEPR, 2276-4 #### [facility] ([id number]) [address], [address] [place] [address] Monocytes/100 WBC (Bld) 6.5 % Normal [facility] Comment on above: Performed By: #### 4 8066-5, CBCA, CMP, FEPR, 2276-4 #### [facility] ([id number]) [address], [address] [place] [address] Neutrophils/100 WBC (Bld) 58.7 % Normal [facility] Comment on above: Performed By: #### 4 8066-5, CBCA, CMP, FEPR, 2276-4 #### [facility] ([id number]) [address], [address] [place] [address] Platelet mean volume (Bld) [Entitic vol] 7.1 fL Normal 7-12 [facility] Comment on above: Performed By: #### 4 8066-5, CBCA, CMP, FEPR, 2276-4 #### [facility] ([id number]) [address], [address] [place] [address] Platelets (Bld) [#/Vol] 499 10*3/uL High 150-450 [facility] Comment on above: Performed By: #### 4 8066-5, CBCA, CMP, FEPR, 2276-4 #### [facility] ([id number]) [address], [address] [place] [address] RBC COUNT 5.49 X10E12/L High 3.80-5.20 [facility] Comment on above: Performed By: #### 4 8066-5, CBCA, CMP, FEPR, 2276-4 #### [facility] ([id number]) [address], [address] [place] [address] WBC (Bld) [#/Vol] 9.5 10*3/uL Normal 4.0-11.0 [facility] Comment on above: Performed By: #### 4 8066-5, CBCA, CMP, FEPR, 6-4 #### [facility] ([id number]) [address], [address] [place] [address] COMPREHENSIVE METABOLIC PANE Shane 06-11-2024 Albumin [Mass/Vol] 4.8 g/dL Normal 3.2-5.3 [facility] Comment on above: Performed By: #### 4 8066-5, CBCA, CMP, FEPR, 6-4 #### [facility] ([id number]) [address], [address] [place] [address] ALP [Catalytic activity/Vol] 69 U/L Normal 39-130 [facility] Comment on above: Performed By: #### 4 8066-5, CBCA, CMP, FEPR, 6-4 #### [facility] ([id number]) [address], [address] [place] [address] ALT [Catalytic activity/Vol] 28 U/L Normal 0-31 [facility] Comment on above: Performed By: #### 4 8066-5, CBCA, CMP, FEPR, 6-4 #### [facility] ([id number]) [address], [address] [place] [address] Anion gap [Moles/Vol] 15 mmol/L Normal 5-15 [facility] Comment on above: Performed By: #### 4 8066-5, CBCA, CMP, FEPR, 2275-4 #### [facility] ([id number]) [address], [address] [place] [address] AST [Catalytic activity/Vol] 22 U/L Normal 0-41 [facility] Comment on above: Performed By: #### 4 8066-5, CBCA, CMP, FEPR, 2275-4 #### [facility] ([id number]) [address], [address] [place] [address] Bilirubin [Mass/Vol] 0.3 mg/dL Normal 0.3-1.2 [facility] Comment on above: Performed By: #### 4 8066-5, CBCA, CMP, FEPR, 2275-4 #### [facility] ([id number]) [address], [address] [place] [address] Calcium [Mass/Vol] 10.2 mg/dL Normal 8.5-10.5 [facility] Comment on above: Performed By: #### 4 8066-5, CBCA, CMP, FEPR, 2275-4 #### [facility] ([id number]) [address], [address] [place] [address] Chloride [Moles/Vol] 107 mmol/L Normal 98-109 [facility] Comment on above: Performed By: #### 4 8066-5, CBCA, CMP, FEPR, 2275-4 #### [facility] ([id number]) [address], [address] [place] [address] CO2 [Moles/Vol] 17 mmol/L Low 22-32 [facility] Comment on above: Performed By: #### 4 8066-5, CBCA, CMP, FEPR, 2275-4 #### [facility] ([id number]) [address], [address] [place] [address] Creatinine [Mass/Vol] 0.58 mg/dL Normal 0.40-1.00 [facility] Comment on above: Result Comment: METH OD TRACEABLE TO IDMS STANDARD Performed By: #### 4 8066-5, CBCA, CMP, FEPR, 6-4 #### [facility] ([id number]) [address], [address] [place] [address] eGFR (CKD-EPI) NON-RACE DEPENDENT >90 Normal >59 [facility] Comment on above: Result Comment: Reported eGFR is based on the CKD-EPI 2020 equation that does not use a race coefficient. Performed By: #### 4 8066-5, CBCA, CMP, FEPR, 6-4 #### [facility] ([id number]) [address], [address] [place] [address] Glucose [Mass/Vol] 109 mg/dL High 65-99 [facility] Comment on above: Performed By: #### 4 8066-5, CBCA, CMP, FEPR, 2275-4 #### [facility] ([id number]) [address], [address] [place] [address] Potassium [Moles/Vol] 4.1 mmol/L Normal 3.5-5.0 [facility] Comment on above: Performed By: #### 4 8066-5, CBCA, CMP, FEPR, 6-4 #### [facility] ([id number]) [address], [address] [place] [address] Protein [Mass/Vol] 8.4 g/dL High 6.0-8.0 [facility] Comment on above: Performed By: #### 4 8066-5, CBCA, CMP, FEPR, 6-4 #### [facility] ([id number]) [address], [address] [place] [address] Sodium [Moles/Vol] 139 mmol/L Normal 134-146 [facility] Comment on above: Performed By: #### 4 8066-5, CBCA, CMP, FEPR, 2275-4 #### [facility] ([id number]) [address], [address] [place] [address] Urea nitrogen [Mass/Vol] 13 mg/dL Normal 5-23 [facility] Comment on above: Performed By: #### 4 8066-5, CBCA, CMP, FEPR, 2275-4 #### [facility] ([id number]) [address], [address] [address] FERRITINon 06-11-2024 Ferritin [Mass/Vol] 55 ng/mL Normal 11-307 [facility] Comment on above: Performed By: #### 4 8066-5, CBCA, CMP, FEPR, 2275-4 #### [facility] ([id number]) [address] [address] Fibrin D-dimer DDU (PPP) [Ma ss/Vol]on 06-11-2024 D DIMER 270 ng/mL DDU High <255 [facility] Comment on above: Result Comment: Results >=255ng/mL DDU: Results may be indicative of the presence of VTE. The use of the Wells score and further diagnostic tests should be considered. Elevated D-Dimer levels can also be associated with DIC, neoplasm, , trauma and liver disease. Elevated levels of rheumatoid factor may lead to an overestimation of the D-Dimer level. Performed By: #### 4 8066-5, CBCA, CMP, FEPR, 2275-4 #### [facility] ([id number]) [address], [address] [place] [address] IRON PROFILEon 06-11-2024 Iron [Mass/Vol] 81 ug/dL Normal 50-170 [facility] Comment on above: Performed By: #### 4 8066-5, CBCA, CMP, FEPR, 2275-4 #### [facility] ([id number]) [address] [address] [place] [address] IRON BINDING 410 ug/dL Normal 250-425 [facility] Comment on above: Performed By: #### 4 8066-5, CBCA, CMP, FEPR, 2276-4 #### [facility] ([id number]) [address], [address] [place] [address] IRON SATURATION 20 % SATURATION Normal 15-50 [facility] Comment on above: Performed By: #### 4 8066-5, CBCA, CMP, FEPR, 2276-4 #### [facility] ([id number]) [address], [address] [place] [address] XR SHOULDER LT MIN 2 VWSon 0 05-03-2024 XR SHOULDER LT MIN 2 VWS XR SHOULDER LT MIN 2 VWS History: Pain Exam/Technique: AP Grashey and scapular Y views of the left shoulder were obtained. Comparison: 09/15/2021 Findings: There are osteoarthritic changes in the acromioclavicular joint. There is no evidence for an acute osseous abnormality. No dislocation is demonstrated. 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 Otherwise normal left shoulder. Finalized by Solomon Thao MD on 05/03/2024 12:44 PM Normal [facility] XR SHOULDER RT MIN 2 VWSon 0 05-03-2024 XR SHOULDER RT MIN 2 VWS XR SHOULDER RT MIN 2 VWS History: Pain Exam/Technique: AP Grashey and scapular Y views of the right shoulder were obtained. Comparison: 09/15/2021 Findings: There is no evidence for an acute osseous abnormalities. No significant degenerative changes are seen. No dislocation is demonstrated. IMPRESSION: Normal right shoulder. Finalized by Solomon Thao MD on 05/03/2024 12:31 PM Normal [facility]) DEMAR BALL ([id number]) 1980 F Date Time Provider Department 02/08/24 [facility] [place] During your visit today, we recorded the following information about you: Sweetie Duarte 02/08/2024 3:23 PM Signed Demar is calling Samy Mansfield MD today to request appointment with Dr. Bernal. No appointments with Dr. Mansfield until 09/2024. Patient has been identified by name and birthdate. Duration of symptoms: N/A Person calling: self Call patient at: on cell [phone] (home) [phone] (cell) Was an appointment scheduled: No Closing statement: Results or non-symptom based questions: Thank you for calling [facility], your call will be returned within the next business day. Perla Cornejo LPN 02/09/2024 10:22 AM Signed May check with BOOKB[employer]ER CHIEF Diana Maier 02/09/2024 1:[address] Mansfield and Chelsea Allison I spoke with Ms. Ball and she declined scheduling an appointment with anyone but Dr. Mansfiedl. She stated she needs to see you right away. I'm unaware of this patients typical demeanor, etc, but she seemed very off to me. She told me her son was recently diagnosed with ALS and she needs to speak with you about a lot of issues going on with her at this time. Are one of you or our clinical team able to reach out to her for a well-check call? I'm concerned about her mental and physical well-being after our conversation. Her speech seemed slurred and she seemed to have a lack of energy, emotion, etc. Almost lethargic like? Please advise as to how you would like to proceed. Thank you, Diana ALMENDAREZ February 09, 2024 1:33 PM Samy Mansfield MD 02/09/2024 2:17 PM Signed Agree with having Rheum Nurse call patient to ensure she is well. I hope she is well. She may need to see her Primary care physician. In terms of ALS, this is not in my field of expertise. If she has questions on that, would recommend discussing with Neurology. In terms of her BRISA/RA follow up, if I have no openings, please advise patient that I recommend she schedules with one of our Rheum BOOKBINDER CHIEF or PA for now, since I am fully booked. If her RA is fine, she can wait till her apt with me. Please offer 04/03/2024 apt with me at 11:40 am at [place]. thank you kindly, Diana Hicks 02/09/2024 2:37 PM Signed Ms. Ball has been scheduled as requested for 04/03/24. I spoke with patient and she is aware of all of the appointment details. She shared with me her son is 12 years old and needs to be lifted at times with his recent diagnosis of ALS. She stated this is making her arthritis flare up more often. I let her know one of our nurses will be calling to speak with her. She stated understanding and thanked me. Diana ALMENDAREZ February 09, 2024 2:35 PM Luci Ho, RN 02/10/2024 3:51 PM Signed Called and spoke at length with Demar. She did say that she was happy with her appointment with Dr Mansfield in March. She just did not want to wait till June to see her. She stated that she was sorry that she missed her previous appointment and explained she was at the hospital with her son. Reminded patient that Chelsea Mackey CNP was available if needed to be seen before her appointment with Dr Mansfield. She denied need at this time but will call or message if that changes. Reassurance and support given. Samy Mansfield MD 02/13/2024 8:05 AM Signed Thank you very much for calling and your kind support to patient. She has been through a lot and we are here for her if there is anything we can do to help her. Allergies As of Date: 02/08/2024 Noted Allergy Reaction VANCOMYCIN 12/07/2021 4 - Hives 9 - Itching 7 - Swelling BACITRACIN 03/03/2010 4 - Hives DOXYCYCLINE 06/26/2010 2 - Rash 9 - Itching FERROUS SULFATE 01/06/2016 10 - Anaphylaxis 11 - Vomiting Comments: Reaction happened with IV iron KEFLEX (CEPHALEXIN) 08/04/2015 9 - Itching REMICADE (INFLIXIMAB) 05/15/2014 14 - Other: See Comments Comments: Confusion, hypotension 10/20/2015 Patient states that she did have this reaction but that she has had this medication since and has not suffered any allergy ULTRAM (TRAMADOL HCL) 03/16/2007 4 - Hives Date Reviewed: 08/30/2023 Reviewed by: Bryon Sandoval MA - Fully Assessed Reason for Visit: Appointment [[id number]] Prescriptions as of 02/13/2024 - topiramate (TOPAMAX) 200 mg tablet Take 1 tablet by mouth three times a day. - etanercept (ENBREL) 25 mg/0.5 mL (0.5) Inject 25mg (1 syringe) subcutaneously two times a week. Hold during infections - tiZANidine (ZANAFLEX) 4 mg tablet TAKE ONE TO TWO TABLETS BY MOUTH EVERY 8 HOURS NEEDED. Up to 3 times a day. - naratriptan (AMERGE) 2.5 mg tablet Take 1 tablet by mouth as needed for migraine headache (see administration instructions). TAKE ONE(1) TABLET AT THE ONSET OF HEADACHE; IF H (more content not included)... Normal [facility] Lab Reporton 12-20-2023 Report Normal [facility] Comment on above: Performed By: #### R GSPAR #### Performed at [facility], [address] [place] [address] A1C with Estimated Average [facility] 10-06-2023 Glucose [Mass/Vol] 131 mg/dL Normal [facility] Comment on above: Order Comment: Reaso n for Exam Hyperglycemia Result Comment: PERF ORMED BY: [place] [address] PATHOLOGIST NUT DEHYDRATOR OPERATOR FLASH KRUSE M.D. Performed By: #### A 1C WT eA, TSH3, LIPID, CMP #### [address] HbA1c (Bld) [Mass fraction] 6.2 % High 4.3-5.6 [facility] Comment on above: Order Comment: Reaso n for Exam Hyperglycemia Result Comment: Incr eased risk for diabetes: 5.7 - 6.4 diabetes: >6.4 glycemic control for adults with diabetes: <7.0 Performed By: #### A 1C WT eA, TSH3, LIPID, CMP #### [address] Complete Blood Count Auto Di ffon 10-06-2023 Basophils (Bld) [#/Vol] 0.1 10*3/uL Normal 0.0-0.2 [facility] Comment on above: Order Comment: Reaso n for Exam Hyperlipidemia, unspecified hyperlipidemia type;Elevated jazmín Result Comment: PERF ORMED BY: [place] [address] PATHOLOGIST NUT DEHYDRATOR OPERATOR FLASH KRUSE M.D. Performed By: #### C BC #### [address] Basophils/100 WBC (Bld) 1.0 % Normal . [facility] Comment on above: Order Comment: Reaso n for Exam Hyperlipidemia, unspecified hyperlipidemia type;Elevated jazmín Performed By: #### C BC #### [address] Eosinophils (Bld) [#/Vol] 0.2 10*3/uL Normal 0.0-0.45 [facility] Comment on above: Order Comment: Reaso n for Exam Hyperlipidemia, unspecified hyperlipidemia type;Elevated jazmín Performed By: #### C BC #### [address] Eosinophils/100 WBC (Bld) 2.1 % Normal . [facility] Comment on above: Order Comment: Reaso n for Exam Hyperlipidemia, unspecified hyperlipidemia type;Elevated jazmín Performed By: #### C BC #### [address] Erythrocyte distribution width (RBC) [Ratio] 13.7 % Normal 11.9-15.3 [facility] Comment on above: Order Comment: Reaso n for Exam Hyperlipidemia, unspecified hyperlipidemia type;Elevated jazmín Performed By: #### C BC #### [address] Hematocrit (Bld) [Volume fraction] 43.6 % Normal 34.0-46.4 [facility] Comment on above: Order Comment: Reaso n for Exam Hyperlipidemia, unspecified hyperlipidemia type;Elevated jazmín Performed By: #### C BC #### [address] Hemoglobin (Bld) [Mass/Vol] 14.6 g/dL Normal 11.8-15.4 [facility] Comment on above: Order Comment: Reaso n for Exam Hyperlipidemia, unspecified hyperlipidemia type;Elevated jazmín Performed By: #### C BC #### [address] Lymphocytes (Bld) [#/Vol] 2.7 10*3/uL Normal 1.00-4.8 [facility] Comment on above: Order Comment: Reaso n for Exam Hyperlipidemia, unspecified hyperlipidemia type;Elevated jazmín Performed By: #### C BC #### [address] Lymphocytes/100 WBC (Bld) 24.9 % Normal . [facility] Comment on above: Order Comment: Reaso n for Exam Hyperlipidemia, unspecified hyperlipidemia type;Elevated jazmín Performed By: #### C BC #### [address] MCH (RBC) [Entitic mass] 28.1 pg Normal 24.7-34.3 [facility] Comment on above: Order Comment: Reaso n for Exam Hyperlipidemia, unspecified hyperlipidemia type;Elevated jazmín Performed By: #### C BC #### [address] MCV (RBC) [Entitic vol] 83.7 fL Normal 80-100 [facility] Comment on above: Order Comment: Reaso n for Exam Hyperlipidemia, unspecified hyperlipidemia type;Elevated jazmín Performed By: #### C BC #### [address] Mean Corpuscular HGB Conc 33.5 g/dL Normal 32.0-35.0 [facility] Comment on above: Order Comment: Reaso n for Exam Hyperlipidemia, unspecified hyperlipidemia type;Elevated jazmín Performed By: #### C BC #### [place] [address] [place] Monocytes (Bld) [#/Vol] 0.7 10*3/uL Normal 0.0-0.8 [facility] Comment on above: Order Comment: Reaso n for Exam Hyperlipidemia, unspecified hyperlipidemia type;Elevated jazmín Performed By: #### C BC #### [address] Monocytes/100 WBC (Bld) 6.3 % Normal . [facility] Comment on above: Order Comment: Reaso n for Exam Hyperlipidemia, unspecified hyperlipidemia type;Elevated jazmín Performed By: #### C BC #### [address] Neutrophils (Bld) [#/Vol] 7.1 10*3/uL Normal 1.8-7.7 [facility] Comment on above: Order Comment: Reaso n for Exam Hyperlipidemia, unspecified hyperlipidemia type;Elevated jazmín Performed By: #### C BC #### [address] Neutrophils/100 WBC (Bld) 65.7 % Normal . [facility] Comment on above: Order Comment: Reaso n for Exam Hyperlipidemia, unspecified hyperlipidemia type;Elevated jazmín Performed By: #### C BC #### [place] [address] [place] NRBC% 0.1 /100{WBC} Normal 0-0.5 [facility] Comment on above: Order Comment: Reaso n for Exam Hyperlipidemia, unspecified hyperlipidemia type;Elevated jazmín Performed By: #### C BC #### [address] Platelet mean volume (Bld) [Entitic vol] 6.8 fL Normal 6.3-10.7 [facility] Comment on above: Order Comment: Reaso n for Exam Hyperlipidemia, unspecified hyperlipidemia type;Elevated jazmín Performed By: #### C BC #### [place] [id number] [place] Platelets (Bld) [#/Vol] 494 10*3/uL High 150-450 [facility] Comment on above: Order Comment: Reaso n for Exam Hyperlipidemia, unspecified hyperlipidemia type;Elevated jazmín Performed By: #### C BC #### [facility] [address] RBC (Bld) [#/Vol] 5.21 10*6/uL High 3.60-5.00 [facility] Comment on above: Order Comment: Reaso n for Exam Hyperlipidemia, unspecified hyperlipidemia type;Elevated jazmín Performed By: #### C BC #### [facility] [address] WBC (Bld) [#/Vol] 10.9 10*3/uL Normal 3.8-11.6 [facility] Comment on above: Order Comment: Reaso n for Exam Hyperlipidemia, unspecified hyperlipidemia type;Elevated jazmín Performed By: #### C BC #### [address] Comprehensive Metabolic Pane shane 10-06-2023 Albumin [Mass/Vol] 4.7 g/dL Normal 3.5-5.7 [facility] Comment on above: Order Comment: Reaso n for Exam Elevated liver enzymes;High risk medication use;Hyperlipidem Reason for Exam Hyperlipidemia, unspecified hyperlipidemia type;Elevated jazmín Performed By: #### A 1C WT eA, TSH3, LIPID, CMP #### [facility] [address] Albumin/Globulin [Mass ratio] 1.3 {ratio} Normal [facility] Comment on above: Order Comment: Reaso n for Exam Elevated liver enzymes;High risk medication use;Hyperlipidem Reason for Exam Hyperlipidemia, unspecified hyperlipidemia type;Elevated jazmín Performed By: #### A 1C WTH eA, TSH3, LIPID, CMP #### [facility] [address] ALP [Catalytic activity/Vol] 76 U/L Normal 34-104 [facility] Comment on above: Order Comment: Reaso n for Exam Elevated liver enzymes;High risk medication use;Hyperlipidem Reason for Exam Hyperlipidemia, unspecified hyperlipidemia type;Elevated jazmín Performed By: #### A 1C WTH eA, TSH3, LIPID, CMP #### [facility] [address] [place] [address] [place] ALT [Catalytic activity/Vol] 64 U/L High 7-52 [facility] Comment on above: Order Comment: Reaso n for Exam Elevated liver enzymes;High risk medication use;Hyperlipidem Reason for Exam Hyperlipidemia, unspecified hyperlipidemia type;Elevated jazmín Performed By: #### A 1C WTH eA, TSH3, LIPID, CMP #### [facility] [address] [place] [id number] [place] Anion gap [Moles/Vol] 15.4 mmol/L High 6.0-15.0 [facility] Comment on above: Order Comment: Reaso n for Exam Elevated liver enzymes;High risk medication use;Hyperlipidem Reason for Exam Hyperlipidemia, unspecified hyperlipidemia type;Elevated jazmín Performed By: #### A 1C WTH eA, TSH3, LIPID, CMP #### [facility] [address] [place] [id number] [place] AST [Catalytic activity/Vol] 44 U/L High 13-39 [facility] Comment on above: Order Comment: Reaso n for Exam Elevated liver enzymes;High risk medication use;Hyperlipidem Reason for Exam Hyperlipidemia, unspecified hyperlipidemia type;Elevated jazmín Performed By: #### A 1C WTH eA, TSH3, LIPID, CMP #### [facility] [address] [place] [id number] [place] Bilirubin [Mass/Vol] 0.5 mg/dL Normal 0.3-1.0 [facility] Comment on above: Order Comment: Reaso n for Exam Elevated liver enzymes;High risk medication use;Hyperlipidem Reason for Exam Hyperlipidemia, unspecified hyperlipidemia type;Elevated jazmín Performed By: #### A 1C WTH eA, TSH3, LIPID, CMP #### [facility] [address] [place] [id number] [place] Calcium [Mass/Vol] 10.0 mg/dL Normal 8.6-10.3 [facility] Comment on above: Order Comment: Reaso n for Exam Elevated liver enzymes;High risk medication use;Hyperlipidem Reason for Exam Hyperlipidemia, unspecified hyperlipidemia type;Elevated jazmín Performed By: #### A 1C WT eA, TSH3, LIPID, CMP #### [facility] [address] Chloride [Moles/Vol] 106 mmol/L Normal 98-107 [facility] Comment on above: Order Comment: Reaso n for Exam Elevated liver enzymes;High risk medication use;Hyperlipidem Reason for Exam Hyperlipidemia, unspecified hyperlipidemia type;Elevated jazmín Performed By: #### A 1C WTH eA, TSH3, LIPID, CMP #### [facility] [address] CO2 [Moles/Vol] 22.6 mmol/L Normal 21.0-31.0 [facility] Comment on above: Order Comment: Reaso n for Exam Elevated liver enzymes;High risk medication use;Hyperlipidem Reason for Exam Hyperlipidemia, unspecified hyperlipidemia type;Elevated jazmín Performed By: #### A 1C WT eA, TSH3, LIPID, CMP #### [address] Creatinine [Mass/Vol] 0.49 mg/dL Low 0.60-1.20 [facility] Comment on above: Order Comment: Reaso n for Exam Elevated liver enzymes;High risk medication use;Hyperlipidem Reason for Exam Hyperlipidemia, unspecified hyperlipidemia type;Elevated jazmín Performed By: #### A 1C WT eA, TSH3, LIPID, CMP #### [address] GFR/1.73 sq M.predicted MDRD (S/P/Bld) [Vol rate/Area] mL/min/{1.73_m2} Normal [facility] Comment on above: Order Comment: Reaso n for Exam Elevated liver enzymes;High risk medication use;Hyperlipidem Reason for Exam Hyperlipidemia, unspecified hyperlipidemia type;Elevated jazmín Performed By: #### A 1C WTH eA, TSH3, LIPID, CMP #### [address] Globulin (S) [Mass/Vol] 3.5 g/dL Normal [facility] Comment on above: Order Comment: Reaso n for Exam Elevated liver enzymes;High risk medication use;Hyperlipidem Reason for Exam Hyperlipidemia, unspecified hyperlipidemia type;Elevated jazmín Performed By: #### A 1C WTH eA, TSH3, LIPID, CMP #### [facility] [address] Glucose [Mass/Vol] 105 mg/dL High 70-100 [facility] Comment on above: Order Comment: Reaso n for Exam Elevated liver enzymes;High risk medication use;Hyperlipidem Reason for Exam Hyperlipidemia, unspecified hyperlipidemia type;Elevated jazmní Result Comment: [facility] Glucose Reference Range is dependent on time and content of last meal. Glucose of more than 200 mg/dL in a nonstressed, ambulatory subject supports the diagnosis of Diabetes Mellitus. ADA recommended reference range Performed By: #### A 1C WTH eA, TSH3, LIPID, CMP #### [facility] [address] [place] [address] [place] Potassium [Moles/Vol] 4.0 mmol/L Normal 3.5-5.1 [facility] Comment on above: Order Comment: Reaso n for Exam Elevated liver enzymes;High risk medication use;Hyperlipidem Reason for Exam Hyperlipidemia, unspecified hyperlipidemia type;Elevated jazmín Performed By: #### A 1C WTH eA, TSH3, LIPID, CMP #### [facility] [address] Protein [Mass/Vol] 8.2 g/dL Normal 6.4-8.9 [facility] Comment on above: Order Comment: Reaso n for Exam Elevated liver enzymes;High risk medication use;Hyperlipidem Reason for Exam Hyperlipidemia, unspecified hyperlipidemia type;Elevated jazmín Performed By: #### A 1C WTH eA, TSH3, LIPID, CMP #### [facility] [address] [place] [id number] [place] Sodium [Moles/Vol] 140 mmol/L Normal 136-145 [facility] Comment on above: Order Comment: Reaso n for Exam Elevated liver enzymes;High risk medication use;Hyperlipidem Reason for Exam Hyperlipidemia, unspecified hyperlipidemia type;Elevated jamzín Performed By: #### A 1C WTH eA, TSH3, LIPID, CMP #### [facility] [address] [place] [id number] [facility] [[email or web address]] Urea nitrogen [Mass/Vol] 15 mg/dL Normal 7-25 [facility] Comment on above: Order Comment: Reaso n for Exam Elevated liver enzymes;High risk medication use;Hyperlipidem Reason for Exam Hyperlipidemia, unspecified hyperlipidemia type;Elevated jazmín Performed By: #### A 1C WTH eA, TSH3, LIPID, CMP #### [facility] [address] Lipid Panelon 10-06-2023 Cholesterol [Mass/Vol] 139 mg/dL Low 140-200 [facility] Comment on above: Order Comment: Reaso n for Exam Elevated liver enzymes;High risk medication use;Hyperlipidem Reason for Exam Hyperlipidemia, unspecified hyperlipidemia type;Elevated jazmín Result Comment: Chol less than 200 mg/dl low risk Chol 201-239 mg/dl borderline risk Chol 240 mg/dl and greater high risk Performed By: #### A 1C WT eA, TSH3, LIPID, CMP #### [address] Cholesterol in HDL [Mass/Vol] 49 mg/dL Normal 23-92 [facility] Comment on above: Order Comment: Reaso n for Exam Elevated liver enzymes;High risk medication use;Hyperlipidem Reason for Exam Hyperlipidemia, unspecified hyperlipidemia type;Elevated jazmín Result Comment: HDL CHOL ATP-III CLASSIFICATION Cardiovascular Risk HDL > or equal to 60 mg/dL LOW HDL < 40 mg/dL HIGH Performed By: #### A 1C WT eA, TSH3, LIPID, CMP #### [facility] [address] Cholesterol.total/ Cholesterol in HDL [Mass ratio] 2.8 {ratio} Normal <5.0 [facility] Comment on above: Order Comment: Reaso n for Exam Elevated liver enzymes;High risk medication use;Hyperlipidem Reason for Exam Hyperlipidemia, unspecified hyperlipidemia type;Elevated jazmín Performed By: #### A 1C WTH eA, TSH3, LIPID, CMP #### [facility] [address] [place] [id number] [facility] [[email or web address]] LDL Cholesterol,Calcul ated 77 mg/dL Normal 0-100 [facility] Comment on above: Order Comment: Reaso n for Exam Elevated liver enzymes;High risk medication use;Hyperlipidem Reason for Exam Hyperlipidemia, unspecified hyperlipidemia type;Elevated jazmín Result Comment: LDL ATP III CLASSIFICATION LDL less than 100 mg/dL Optimal LDL 100-129 mg/dL Near or above optimal LDL 130-159 mg/dL Borderline high LDL 160-189 mg/dL High LDL greater than 189 mg/dL Very high Performed By: #### A 1C WT eA, TSH3, LIPID, CMP #### [facility] [address] Triglyceride w/Reflex 66 mg/dL Normal 0-149 [facility] Comment on above: Order Comment: Reaso n for Exam Elevated liver enzymes;High risk medication use;Hyperlipidem Reason for Exam Hyperlipidemia, unspecified hyperlipidemia type;Elevated jazmín Result Comment: TRIG ATP III CLASSIFICATION TRIG less than 150 mg/dL Normal TRIG 150-199 mg/dL Borderline high TRIG 200-500 mg/dL High TRIG greater than 500 mg/dL Very high Standard traceable to the Center for Disease Conrtrol and Prevention (CDC) test method. Performed By: #### A 1C [facility] eA, TSH3, LIPID, CMP #### [facility] [address] VLDL CHOLESTEROL 13 mg/dL Normal [facility] Comment on above: Order Comment: Reaso n for Exam Elevated liver enzymes;High risk medication use;Hyperlipidem Reason for Exam Hyperlipidemia, unspecified hyperlipidemia type;Elevated jazmín Performed By: #### A 1C [facility] eA, TSH3, LIPID, CMP #### [facility] [address] Thyroid Stimulating Hormoneo n 10-06-2023 TSH Qn 0.94 m[IU]/L Normal 0.45-5.[address] [facility] Comment on above: Order Comment: Reaso n for Exam Elevated liver enzymes;High risk medication use;Hyperlipidem Reason for Exam Hyperlipidemia, unspecified hyperlipidemia type;Elevated jazmín Result Comment: PERF ORMED BY: [place] [address] PATHOLOGIST NUT DEHYDRATOR OPERATOR FLASH KRUSE M.D. Performed By: #### A 1C [facility] eA, TSH3, LIPID, CMP #### [facility] [address] [place] 08-30-2023 CNOV Office Visit (KRISTOPHER ) DEMAR BALL ([id number]) 1980 F Date Time Provider Department 08/30/23 10:00 AM SAMY MANSFIELD During your visit today, we recorded the following information about you: Pulse Blood pressure Weight 78/minute 138/78 91.6 kg Samy Mansfield MD 09/10/2023 8:09 PM Signed FOLLOW UP VISIT Ms. Demar Ball is a very nice 43 year old female seen for BRISA. Additional details per last visit note HISTORY REVIEWED (electronic chart updated): CC: left ankle pain since michael inj by Pain Mgt Subjective: Sates her foot was not hurting before the injections States her Pain Mgt made me chose a joint that was hurting the most and she chose her ankle, left States he gave her one injection, 08/17/2023 and states the pain has been worse since the injection. States it hurts going down the steps and walking. States cannot walk on it without pain States it is not swollen at all We have advised her to f/u with her Pain Mgt specialist who performed the procedure. States she called and spoke to his audio visual secretary and states they did not address that. No erythema, swelling Denies infections or fevers States doing well States the scalp abscess has healed and hair is growing back. She had elevated liver transaminases at time was on antibiotics, denies being on methotrexate at the time. Denies alcohol consumption We called and advised her to hold her methotrexate, but she was not taking. She has been taking methotrexate and Enbrel Well tolerated Denies current fevers or infections Vitamin D: states has been taking 5000 international units once daily with meals Answers submitted by the patient for this visit: Review of Systems Rheumatology (Submitted on 12/14/2022) Fever : No Recent Unintentional Weight Change: No Eye Pain: No Eye Redness: No Vision Disturbance: No Eye Dryness: No Nose Bleeds: No Sores in your Mouth: No Trouble Swallowing: No Dry Mouth: No Chest Pain: No Leg Swelling: No A Cough: Yes- as above Blood when you Cough: No Shortness of Breath: No Heartburn: No Abdominal Pain: No Diarrhea: No Black Tarry Stools: No Blood in Urine: No Pain or Burning with Urination: No Joint Pain or Stiffness: Yes- hands little bit Muscle Weakness: No Joint Swelling: No Morning Stiffness in Joints: No A Rash: No Skin Color Changes: No Hair Loss: No Nail Changes: No Headaches: No Numbness: No Memory Loss: No Swollen Glands: No Previously 10/27/2022 About a wk ago, had a swelling in the scalp and had horrible headache and states this goose egg appeared , states few days later it opened up like a bloody sore and drained clear went to ER and was told she has an abscess States the bed sheet was yellow; They cultured it, results in process. Had low grade fever . She is not aware of any triggering factors. is staying at the [facility] and may have bumped her head on a board, but does not recall. She also had a hair cut on Tuesday prior to that. She washed her hair and her daughter str'nd for her with a flat iron. She was prescribed antibiotics States she feels achy a little all over , the head ache is much better; Overall better since was started on Bactrim Denies fevers currently She held her methotrexate and Enbrel States will be on antibiotics for 10 days She has an apt with her PCP tomorrow. 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 She was advised that she needs to have it immobilized for 12 wks, till 02/19/2022. States had edema after surgery, feels had fluid retention States her wt has been stable otherwise Advised can resume Enbrel and methotrexate once cleared by her surgeon Vitamin D: 1000 international units once daily with meals Has not had 50,000 international units for some time. I have ordered vitamin D and we faxed orders She will get it done tomorrow at her local hospital S/p hysterectomy, without ooph She does not know if she is menopausal States the rt hand infection is better, since on antibiotics and swelling has gone down States her BRISA has been ok States the left hand is a little bit swollen because it has been doing everything (more content not included)... Normal [facility] XR ANKLE 3V AP/LAT/OBL LTon 08-30-2023 XR ANKLE 3V AP/LAT/OBL LT * * *Final Report* * * DATE OF EXAM: Aug 30 2023 12:16PM [id number] [id number] - XR ANKLE 3V AP/LAT/OBL LT / PROCEDURE REASON: Acute left ankle pain * * * * Physician Interpretation * * * * Left ankle radiographs HISTORY: Acute left ankle pain TECHNIQUE: 3 views of the left ankle COMPARISON: 01/19/2019 FINDINGS: No acute fracture, erosions or avascular necrosis. Mild tibiotalar osteophytes. Subtalar joint space narrowing and osteophytes and moderate dorsal osteophytes at the talonavicular joint. IMPRESSION: 1. No acute osseous abnormality 2. Degenerative changes about the left ankle is slightly progressed since the prior exam Medical Billing Associate: [facility] Transcribe Date/Time: Aug 30 2023 1:56P Dictated by : CHIDI SINGH MD This examination was interpreted and the report reviewed and electronically signed by: CHIDI SINGH MD on Aug 30 2023 1:58PM EST [id number] Normal [facility] Eloise 08-25-2023 CNPN Telephone (MAGALIEULN) DEMAR BALL ([id number]) 1980 F Date Time Provider Department 08/25/23 SAMY MANSFIELD During your visit today, we recorded the following information about you: Jolynn Grace RN 08/25/2023 8:46 AM Signed Patient calling in with update. States she got a steroid injection in the left ankle over a week ago through pain mgmt team in [place]. States that ever since getting this, she has had a terrible flareup of arthritis in that ankle joint. Pain level currently 7/10-constant dull ache but stepping on it make it much worse. She is asking for recommendations or if something can be called in for her. Please advise. Last VV- 12/14/22 Next VV- 02/03/24 Pharmacy- [facility] in [facility] Quita Brooks MA 08/25/2023 9:16 AM Signed Spoke with patient advised her to contact Dr Kendrick whom injected her ankle -- since she is having a possible reaction amongst other possible reasons for her worsening of pain - she states that she has some swelling and redness at injection site -- advised pt that she needs to contact him now and inform him that she is having a possible reaction to the injection she received . Pt states that she has received several injections in other joints with him in the past -- had a reaction to the elbow in the past . Pt states that he was supposed to inject her shoulder and decided to inject her ankle , she states that he injected too much in the joint and she advised him to stop, however he continued to inject the steroid. Advised her that she needs to contact him and staff due to possible reaction , ankle needs to assessed - pt verbalized understanding will call his office now. instructed pt to follow up with our office once she follows up with him - pt wants a sooner appt with Dr. Mansfield -scheduled for VV 02/03/24 Diana Maier 08/25/2023 9:27 AM Signed Ms. Ball has been scheduled for a sooner appointment as requested for this coming 08/30/23. I spoke with patient and she is aware of all of the appointment details. She stated she is very thankful for this timely appointment. Diana Calvillo PSS August 25, 2023 9:27 AM Allergies As of Date: 08/25/2023 Noted Allergy Reaction VANCOMYCIN 12/07/2021 4 - Hives 9 - Itching 7 - Swelling BACITRACIN 03/03/2010 4 - Hives DOXYCYCLINE 06/26/2010 2 - Rash 9 - Itching FERROUS SULFATE 01/06/2016 10 - Anaphylaxis 11 - Vomiting Comments: Reaction happened with IV iron KEFLEX (CEPHALEXIN) 08/04/2015 9 - Itching REMICADE (INFLIXIMAB) 05/15/2014 14 - Other: See Comments Comments: Confusion, hypotension 10/20/2015 Patient states that she did have this reaction but that she has had this medication since and has not suffered any allergy ULTRAM (TRAMADOL HCL) 03/16/2007 4 - Hives Date Reviewed: 03/09/2023 Reviewed by: Yamileth Veloz LPN - Fully Assessed Reason for Visit: Patient Question [1477] Prescriptions as of 08/25/2023 - erenumab-aooe (AIMOVIG AUTOINJECTOR) 140 mg/mL auto-injector Inject 1 mL subcutaneously once every month. - tiZANidine (ZANAFLEX) 4 mg tablet TAKE ONE TO TWO TABLETS BY MOUTH EVERY 8 HOURS NEEDED. Up to 3 times a day. - naratriptan (AMERGE) 2.5 mg tablet Take 1 tablet by mouth as needed for migraine headache (see administration instructions). TAKE ONE(1) TABLET AT THE ONSET OF HEADACHE; IF HEADACHE RETURNS OR DOES NOT FULLY RESOLVE, THE DOSE MAY BE REPEATED AFTER 4 HOURS; DO NOT EXCEED FIVE(5) MG IN 24 HOURS. - topiramate (TOPAMAX) 200 mg tablet Take 1 tablet by mouth three times daily. - sulfamethoxazole-trimethopri m (BACTRIM DS) 800-160 mg per tablet Take 1 tablet by mouth twice daily. - Syringe with Needle, Disp, (BD TUBERCULIN SYRINGE) 1 mL 27 x 1/2 use to draw up AND inject enbrel - folic acid 1 mg tablet Take 1 tablet by mouth once daily. - ergocalciferol 50,000 unit capsule (VITAMIN D2, DRISDOL) Take 1 capsule by mouth one time a week. with a meal and obtain blood test for vitamin D 25-OH as advised. - etanercept (ENBREL) 25 mg/0.5 mL injection Inject 1 syringe (25 mg dose) subcutaneously two times a week. - efinaconazole (JUBLIA) 10 % [place] Apply to affected area once daily. - Needle, Disp, 27 G (BD DISPOSABLE NEEDLES) 27 gauge x 1/2 ndle use to draw up AND inject enbrel - HYDROcodone-acetaminophen (NORCO) 5-325 mg per tablet Take by mouth every 6 hours as needed. - XARELTO 20 mg tablet - gabapentin (NEURONTIN) 300 mg capsule Take 300 mg by mouth twice daily. - pantoprazole DR (PROTONIX) 40 mg tablet Take 40 mg by mouth twice daily. Meds Comments as of 12/14/2016: Cleocin- for current dental infection/abcess - will be finished on 12/20/16- having tooth pulled at that time. Kinjal León, ENVIRONMENTAL LAW PROFESSOR 12/14/2016 Problem List As Of Date 08/25/2023 Noted Resolved PAIN IN LIMB [M79.609] 10/26/2007 BRISA (juvenile idiopathic arthritis) [M (more content not included)... Normal [facility] COVID + FLU Quick Testingon 01-18-2023 SARS-CoV-2 (COVID-19) RNA BRIAN+probe Ql (Unsp spec) Negative [employer] Other COVID + FLU Quick Testing Negative [employer] Other Quick Strepon 01-18-2023 S. pyogenes Org specific cx Ql (Throat) Negative [employer] Other Quick Strep [employer] Other XR chest 2V*on 12-02-2022 XR chest 2V* [employer] Other CULTURE WOUNDon 10-27-2022 CULTURE WOUND Culture Observations : METHICILLIN RESISTANT STAPH AUREUS ISOLATED. PLEASE FOLLOW APPROPRIATE ISOLATION PROCEDURES. Culture Observations: AGNES TO FOLLOW. Isolate 1 Staphylococcus aureus Heavy growth of Isolate 2 Streptococcus agalactiae Heavy growth of ORGANISM 1 Staphylococcus aureus ANTIBIOTIC M.I.C RX STATUS Beta-Lactamase Pos POS P Cefoxitin Screen Pos POS P Benzylpenicillin >=0.5 R P Oxacillin >=4 R P Ciprofloxacin >=8 R P Levofloxacin >=8 R P Inducible Clindamycin Resistance Pos POS P Erythromycin >=8 R P Clindamycin <=0.25 R P Quinupristin/Dalfopristin <=0.25 S P Linezolid 1 S P Vancomycin <=0.5 S P Tetracycline <=1 S P Rifampicin <=0.5 S P Trimethoprim/Sulfamethoxazol e <=10 S P Normal [facility] Comment on above: Performed By: #### W OUNDCX #### [facility] [address] [place] [address] Dr. Savana Lovelace XR Finger - right AP and Lat eral and obliqueon 03-31-2022 IMPRESSION: 1. Stable postsurgical changes of the proximal interphalangeal joint of the RIGHT second digit. Medical Billing Associate: [facility] Transcribe Date/Time: Mar 31 2022 12:49P Dictated by : MARYANN CUELLAR MD This examination was interpreted and the report reviewed and electronically signed by: MARYANN CUELLAR MD on Mar 31 2022 12:51PM EST [email or web address]_NOT_US E_DIVISION OF RADIOLOGY * * *Final Report* * * DATE OF EXAM: Mar 31 2022 10:46AM STX [id number] - XR DIGIT 3V FRONTAL/LAT/OBL RT / PROCEDURE REASON: Pain of finger of right hand * * * * Physician Interpretation * * * * RIGHT finger x-rays: HISTORY: Pain TECHNIQUE: 4 views of the RIGHT index finger are reviewed. COMPARISON: 02/02/2022 RESULT: There has been little significant interval change. The patient is status post K wire and cerclage wire arthrodesis of the proximal interphalangeal joint of the second digit. No definite bridging bone is demonstrated. Fusion hardware appears intact. Previous arthrodesis of the RIGHT carpus and the RIGHT first interphalangeal joint are again noted. ZZZ_DO_NOT_US E_DIVISION OF RADIOLOGY Provider, Tan Georgeellie [facility] - 03/31/2022 * * *Final Report* * * DATE OF EXAM: Mar 31 2022 10:46AM STX [id number] - XR DIGIT 3V FRONTAL/LAT/OBL RT / PROCEDURE REASON: Pain of finger of right hand * * * * Physician Interpretation * * * * RIGHT finger x-rays: HISTORY: Pain TECHNIQUE: 4 views of the RIGHT index finger are reviewed. COMPARISON: 02/02/2022 RESULT: There has been little significant interval change. The patient is status post K wire and cerclage wire arthrodesis of the proximal interphalangeal joint of the second digit. No definite bridging bone is demonstrated. Fusion hardware appears intact. Previous arthrodesis of the RIGHT carpus and the RIGHT first interphalangeal joint are again noted. IMPRESSION IMPRESSION: 1. Stable postsurgical changes of the proximal interphalangeal joint of the RIGHT second digit. Medical Billing Associate: [facility] Transcribe Date/Time: Mar 31 2022 12:49P Dictated by : MARYANN CUELLAR MD This examination was interpreted and the report reviewed and electronically signed by: MARYANN CUELLAR MD on Mar 31 2022 12:51PM EST [facility] Radiology Study observation (narrative) [facility] XR Finger - right AP and Lat eral and obliqueOrdered By: Cc Provider on 03-31-2022 [facility] XR Finger - right AP and Lat eral and obliqueon 02-02-2022 IMPRESSION: 1. Postsurgical changes at the index finger at the proximal interphalangeal joint appears relatively unchanged 2. Soft tissue swelling of the index finger slightly less prominent than on the prior study Medical Billing Associate: [facility] Transcribe Date/Time: Feb 02 2022 4:05P Dictated by : CHIDI SINGH MD This examination was interpreted and the report reviewed and electronically signed by: CHIDI SINGH MD on Feb 02 2022 4:07PM EST ZZZ_DO_NOT_US E_DIVISION OF RADIOLOGY * * *Final Report* * * DATE OF EXAM: Feb 02 2022 10:51AM STX [id number] - XR DIGIT 3V FRONTAL/LAT/OBL RT / PROCEDURE REASON: Pain of finger of right hand * * * * Physician Interpretation * * * * Right index finger radiographs HISTORY: Finger pain TECHNIQUE: 3 views of the right index finger COMPARISON: 12/22/2021 FINDINGS: Soft tissue swelling is noted at the index finger. There is prior surgery with K wires and cerclage wire about the proximal interphalangeal joint. Joint space remains visible with no bone fusion. Slight joint space narrowing is noted at the distal interphalangeal joint. Minimal osteophytes noted at the metacarpophalangeal joint. Chronic postsurgical changes noted about the wrist with fixation hardware and screw across the interphalangeal joint of the thumb. ZZZ_DO_NOT_US E_DIVISION OF RADIOLOGY Provider, [facility] Jcarlos Bronson [facility] - 02/02/2022 * * *Final Report* * * DATE OF EXAM: Feb 02 2022 10:51AM STX [id number] - XR DIGIT 3V FRONTAL/LAT/OBL RT / PROCEDURE REASON: Pain of finger of right hand * * * * Physician Interpretation * * * * Right index finger radiographs HISTORY: Finger pain TECHNIQUE: 3 views of the right index finger COMPARISON: 12/22/2021 FINDINGS: Soft tissue swelling is noted at the index finger. There is prior surgery with K wires and cerclage wire about the proximal interphalangeal joint. Joint space remains visible with no bone fusion. Slight joint space narrowing is noted at the distal interphalangeal joint. Minimal osteophytes noted at the metacarpophalangeal joint. Chronic postsurgical changes noted about the wrist with fixation hardware and screw across the interphalangeal joint of the thumb. IMPRESSION IMPRESSION: 1. Postsurgical changes at the index finger at the proximal interphalangeal joint appears relatively unchanged 2. Soft tissue swelling of the index finger slightly less prominent than on the prior study Medical Billing Associate: [facility] Transcribe Date/Time: Feb 02 2022 4:05P Dictated by : CHIDI SINGH MD This examination was interpreted and the report reviewed and electronically signed by: CHIDI SINGH MD on Feb 02 2022 4:07PM EST [facility] Radiology Study observation (narrative) [facility] XR Finger - right AP and Lat eral and obliqueOrdered By: Ccf Provider on 02-02-2022 [facility] XR Finger - right AP and Lat eral and obliqueon 12-22-2021 IMPRESSION: Postoperative changes of second PIP, first IP, and wrist arthrodeses, as detailed in the result. Medical Billing Associate: PSCGladis Transcribe Date/Time: Dec 22 2021 11:40A Dictated by : TRINITY RIVAS MD This examination was interpreted and the report reviewed and electronically signed by: TRINITY RIVAS MD on Dec 22 2021 11:46AM EST ZZZ_DO_NOT_US E_DIVISION OF RADIOLOGY * * *Final Report* * * DATE OF EXAM: Dec 22 2021 11:07AM STX [id number] - XR DIGIT 3V FRONTAL/LAT/OBL RT / PROCEDURE REASON: Pain of finger of right hand * * * * Physician Interpretation * * * * HISTORY: Pain of finger of right hand . S/P INDEX FINGER FUSION TECHNIQUE: XR DIGIT 3V FRONTAL/LAT/OBL RT Laterality: RIGHT Number of different views (projections): 3 COMPARISON: 12/01/2021 RESULT: Again seen are postoperative changes of right second PIP arthrodesis with K wires and cerclage wire. Hardware is intact and similar to prior. Second DIP joint space remains visualized without evidence of osseous fusion. Alignment and positioning are unchanged. Slight flexion deformity about the second PIP joint. Again seen are postoperative changes of first IP joint arthrodesis with retrograde screw and solid osseous fusion. Hardware is intact. Tiny first CMC and MCP joint osteophytes. Partially imaged postoperative changes of right wrist arthrodesis with dorsal plate and screw device and apparent solid osseous fusion, similar to prior. Distal ulna resection. Osteopenia. No acute fracture or dislocation. Soft tissue swelling about the index finger, hand, and wrist. ZZZ_DO_NOT_US E_DIVISION OF RADIOLOGY Provider, [facility] - 12/23/2021 * * *Final Report* * * DATE OF EXAM: Dec 22 2021 11:07AM STX 5319 - XR DIGIT 3V FRONTAL/LAT/OBL RT / PROCEDURE REASON: Pain of finger of right hand * * * * Physician Interpretation * * * * HISTORY: Pain of finger of right hand . S/P INDEX FINGER FUSION TECHNIQUE: XR DIGIT 3V FRONTAL/LAT/OBL RT Laterality: RIGHT Number of different views (projections): 3 COMPARISON: 12/01/2021 RESULT: Again seen are postoperative changes of right second PIP arthrodesis with K wires and cerclage wire. Hardware is intact and similar to prior. Second DIP joint space remains visualized without evidence of osseous fusion. Alignment and positioning are unchanged. Slight flexion deformity about the second PIP joint. Again seen are postoperative changes of first IP joint arthrodesis with retrograde screw and solid osseous fusion. Hardware is intact. Tiny first CMC and MCP joint osteophytes. Partially imaged postoperative changes of right wrist arthrodesis with dorsal plate and screw device and apparent solid osseous fusion, similar to prior. Distal ulna resection. Osteopenia. No acute fracture or dislocation. Soft tissue swelling about the index finger, hand, and wrist. IMPRESSION IMPRESSION: Postoperative changes of second PIP, first IP, and wrist arthrodeses, as detailed in the result. Medical Billing Associate: [facility] Transcribe Date/Time: Dec 22 2021 11:40A Dictated by : TRINITY RIVAS MD This examination was interpreted and the report reviewed and electronically signed by: TRINITY RIVAS MD on Dec 22 2021 11:46AM EST [facility] Radiology Study observation (narrative) [facility] XR Finger - right AP and Lat eral and obliqueOrdered By: Ccf Provider on 12-22-2021 [facility] CBC AND DIFFERENTIALon 12-05 % AUTOMATED IMMATURE GRAN 0.9 % Normal 0.0 - 0.9 [facility] Comment on above: Result Comment: Kate ture Granulocyte Count (IG) includes promyelocytes, myelocytes and metamyelocytes but does not include bands. Percent differential counts (%) should be interpreted in the context of the absolute cell counts (cells/L). Performed By: #### C BCDF #### [address] [address] Basophils (Bld) [#/Vol] 0.07 10*3/uL Normal 0.00 - 0.10 [facility] Comment on above: Performed By: #### C BCDF #### [address] [address] Basophils/100 WBC (Bld) 1.0 % Normal 0.0 - 2.0 [facility] Comment on above: Performed By: #### C BCDF #### [address] [address] Eosinophils (Bld) [#/Vol] 0.43 10*3/uL Normal 0.00 - 0.70 [facility] Comment on above: Performed By: #### C BCDF #### [address] [address] Eosinophils/100 WBC (Bld) 6.3 % Normal 0.0 - 6.0 [facility] Comment on above: Performed By: #### C BCDF #### [address] [address] Erythrocyte distribution width (RBC) [Ratio] 13.2 % Normal 11.5 - 14.5 [facility] Comment on above: Performed By: #### C BCDF #### [address] [address] Hematocrit (Bld) [Volume fraction] 41.9 % Normal 36.0 - 46.0 [facility] Comment on above: Performed By: #### C BCDF #### [address] [address] Hemoglobin (Bld) [Mass/Vol] 13.5 g/dL Normal 12.0 - 16.0 [facility] Comment on above: Performed By: #### C BCDF #### [address] [address] Lymphocytes (Bld) [#/Vol] 2.03 10*3/uL Normal 1.20 - 4.80 [facility] Comment on above: Performed By: #### C BCDF #### [address] [address] Lymphocytes/100 WBC (Bld) 29.9 % Normal 13.0 - 44.0 [facility] Comment on above: Performed By: #### C BCDF #### [address] [address] MCHC (RBC) [Mass/Vol] 32.2 g/dL Normal 32.0 - 36.0 [facility] Comment on above: Performed By: #### C BCDF #### [address] [address] MCV (RBC) [Entitic vol] 88 fL Normal 80 - 100 [facility] Comment on above: Performed By: #### C BCDF #### [address] [address] Monocytes (Bld) [#/Vol] 0.46 10*3/uL Normal 0.10 - 1.00 [facility] Comment on above: Performed By: #### C BCDF #### [address] [address] Monocytes/100 WBC (Bld) 6.8 % Normal 2.0 - 10.0 [facility] Comment on above: Performed By: #### C BCDF #### [address] [address] Neutrophils (Bld) [#/Vol] 3.73 10*3/uL Normal 1.20 - 7.70 [facility] Comment on above: Performed By: #### C BCDF #### [address] [address] Neutrophils/100 WBC (Bld) 55.1 % Normal 40.0 - 80.0 [facility] Comment on above: Performed By: #### C BCDF #### [address] [address] NUCLEATED RBC 0.0 /100 WBC Normal 0.0 - 0.0 [facility] Comment on above: Performed By: #### C BCDF #### [address] [address] Platelets (Bld) [#/Vol] 323 10*3/uL Normal 150 - 450 [facility] Comment on above: Performed By: #### C BCDF #### [address] [address] RBC 4.76 x10E12/L Normal 4.00 - 5.20 [facility] Comment on above: Performed By: #### C BCDF #### [address] [address] WBC (Bld) [#/Vol] 6.8 10*3/uL Normal 4.4 - 11.3 [facility] Comment on above: Performed By: #### C BCDF #### [address] [address] COMPREHENSIVE PANELon 2021 Albumin [Mass/Vol] 4.3 g/dL Normal 3.4 - 5.0 [facility] Comment on above: Performed By: #### C MP #### [address] [address] ALP [Catalytic activity/Vol] 65 U/L Normal 33 - 110 [facility] Comment on above: Performed By: #### C MP #### [address] [address] ALT [Catalytic activity/Vol] 32 U/L Normal 7 - 45 [facility] Comment on above: Result Comment: Ofelia ents treated with Sulfasalazine may generate falsely decreased results for ALT. Performed By: #### C MP #### [address] [address] Anion gap [Moles/Vol] 12 mmol/L Normal 10 - 20 [facility] Comment on above: Performed By: #### C MP #### [address] [address] AST [Catalytic activity/Vol] 23 U/L Normal 9 - 39 [facility] Comment on above: Performed By: #### C MP #### [address] [address] Bilirubin [Mass/Vol] 0.3 mg/dL Normal 0.0 - 1.2 [facility] Comment on above: Performed By: #### C MP #### [address] [address] Calcium [Mass/Vol] 9.0 mg/dL Normal 8.6 - 10.3 [facility] Comment on above: Performed By: #### C MP #### [address] [address] Chloride [Moles/Vol] 110 mmol/L High 98 - 107 [facility] Comment on above: Performed By: #### C MP #### [address] [address] Creatinine [Mass/Vol] 0.57 mg/dL Normal 0.50 - 1.05 [facility] Comment on above: Performed By: #### C MP #### [address] [address] eGFR FEMALE >90 Normal >90 [facility] Comment on above: Result Comment: CALC ULATIONS OF ESTIMATED GFR ARE PERFORMED USING THE 2020 CKD-EPI STUDY REFIT EQUATION WITHOUT THE RACE VARIABLE FOR THE IDMS-TRACEABLE CREATININE METHODS. https://jasn.asnjournals.org/content/early//ASN.[email or web address] 8 Performed By: #### C MP #### [address] [address] Glucose [Mass/Vol] 110 mg/dL High 74 - 99 [facility] Comment on above: Performed By: #### C MP #### [address] [address] HCO3 (Bld) [Moles/Vol] 20 mmol/L Low 21 - 32 [facility] Comment on above: Performed By: #### C MP #### [address] [address] Potassium [Moles/Vol] 3.6 mmol/L Normal 3.5 - 5.3 [facility] Comment on above: Performed By: #### C MP #### [address] [address] Protein [Mass/Vol] 7.1 g/dL Normal 6.4 - 8.2 [facility] Comment on above: Performed By: #### C MP #### [address] [address] Sodium [Moles/Vol] 138 mmol/L Normal 136 - 145 [facility] Comment on above: Performed By: #### C MP #### [address] [place] [address] Urea nitrogen [Mass/Vol] 14 mg/dL Normal 6 - 23 [facility] Comment on above: Performed By: #### C MP #### [address] [place] [address] LACTATEon 12-05-2021 Lactate [Moles/Vol] 1.1 mmol/L Normal 0.4 - 2.0 [facility] Comment on above: Result Comment: Aminata puncture immediately after or during the administration of Metamizole may lead to falsely low results. Testing should be performed immediately prior to Metamizole dosing. Performed By: #### L ACT #### [address] [place] [address] Provider Note - ED v3on 11-11 Provider Note - ED v3 Provider Note: Chart Review: ED NOTES ED NOTES: HPI: Patient is a 41-year-old female who presents to the ED for concern of infection at a surgical site. Patient had fusion of her second digit on her right hand due to a swan deformity. Surgery was completed on November 19. Patient was given clindamycin prophylactically after the surgery. She noticed worsening of redness and swelling around the finger as well as pain. When the resident remove the stitches she said yellow purulent fluid came out. She saw the resident on Tuesday of this week. They prescribed her another dose of clindamycin. Patient says since starting the clindamycin she continues to have worsening pain swelling and redness of that area. She says it also feels warm to the touch. Patient is concerned as she is also had MRSA infections in the past. the original surgery was done by Dr. Marinelli [facility]. - Allergies: Doxycycline, tramadol, bacitracin - Medications: Megargel, Eliquis, DMARD, Methotrexate - PMH: DVT, RA, MRSA infections - PSH: bone transplant right wrist, fusion of the first and second digit right hand, hysterectomy - FM: reviewed and noncontributory -Social History: patient denies alcohol, tobacco, recreational drugs ROS: - Constitutional: Denies fever, chills - Neuro: numbness of the finger, denies tingling, weakness, headache - HEENT: Denies sore throat, change in vision, change in taste - Cardio: Denies chest pain, palpitations - Pulm: Denies shortness of breath, cough - GI: Denies abdominal pain, N/V/D/C - : Denies change in urination - MSK: redness, swelling, heat, tenderness to palpation of the second digit right hand - Skin: signs of infection - Endocrine: Denies appetite change, weight change - Heme: on blood thinner -- Physical Exam: Vitals: I have reviewed the triage vital signs - General: WDWN, alert adult in no acute distress - Neuro: A&O to person, place, time. Moves all extremities. Face is symmetric and expressive. no sensation distal to the surgical site on that second digit right hand - HENT: Normocephalic, atraumatic. Hearing grossly intact. Oral mucosa membranes moist with no visible lesions. - Cardio: RRR, S1/S2, no murmurs/rubs, radial pulses 2+ bilaterally, cap refill 1 second - Pulm: CTA bilaterally, no wheezes, rales, ronchi, no conversational dyspnea - GI/: obese, non tender, soft - Extremities: no lower extremity edema - Skin: 2 cm surgical scar over the DIP on the second digit right hand, erythema, no fluctuance, tenderness to palpation - Psych: mood, affect and interaction is appropriate to the setting. -- MDM / ED Course: patient is a 41-year-old female who presents to the ED for possible infection of a surgical site. Patient's surgical site does look to be erythematous no fluctuance at this time or any purulent drainage. Patient has been on clindamycin for antibiotic treatment. Patient has had MRSA infections before. Lab work-up for possible infection ordered including lactate and x-ray of the hand. Labs shows normal white count with a negative lactate. X-ray shows extensive tissue swelling indicative of cellulitis but no evidence of osteo but that is skewed by the hardware in the finger. Patient will be started on Bactrim. First dose of Bactrim will be given here in the ED and 1 dose of vancomycin IV. Patient has a follow-up appointment with her surgeon on Tuesday. Continue the Bactrim antibiotics and can keep her follow-up appointment with him. Patient is not septic at this time and does not require admission for IV antibiotics. Case discussed with attending, Demar Armstrong DO EM Resident, PGY-1 HISTORY OF PRESENTING ILLNESS DEMAR is a 41 year old Female and was seen by me at 05-Dec-2021 16:09 for a chief complaint of wound check . Triage Information: Most recent Vital Sign Value Date Temp (F): 99.3 12-05-2021 16:06 Temp (C): 37.4 12-05-2021 16:06 Heart Rate (beats/min): 118 12-05-2021 16:06 Respirations (breaths/min): 20 12-05-2021 16:06 SpO2 (%): 98 12-05-2021 16:06 BP Systolic (mm Hg): 134 12-05-2021 16:06 BP Diastolic (mm Hg): 60 12-05-2021 16:06 PAST MEDICAL HISTORY ALLERGIES/INTOLERANCES: Allergy Allergen: doxycycline Type: Drug Reaction: Rash Allergen: vancomycin Type: Drug Reaction: Rash (Moderate) Itching (Severe) Swelling/Edema (Mild) Hives/Urticaria (Moderate) Allergen: tramadol Type: Drug Reaction: Unknown Allergen: bacitracin Type: Drug Reaction: Unknown HEALTH HISTORY: No documented data. OUTPATIENT MEDICATIONS: Home Medications Review Status for Reconciliation: Not Done Med Status: Patient Currently Takes Medications Drug Name: Bactrim DS 800 mg-160 mg oral tablet I (more content not included)... Normal [facility] Risk Screen - Adult Emergenc yon 12-05-2021 Risk Screen - Adult Emergency Preferred Language: Preferred Language: Preferred Language for Discussing Health Care (patient/designee)Mauritanian Advanced Directives: Advance Directive/DNRno Family Violence Adult: Abuse Screen: Are you or have you been threatened or abused physically, emotionally, or sexually by anyoneno Learning Assessment (Patient): Learning Assessment (Patient): Patient is Able to be Assessed for Learningyes Factors Influencing Readiness to Learnpain Factors that Impact Ability to Learnnone Devices/Methods Used to Communicatenone Learning Preferencesverbal instruction Cultural Considerationsnone Developmental Considerationsnone Spiritism Considerationsnone Learning Assessment (Other Learner): Learning Assessment (Other Learner): Other learner availableno Pressure Injury/TB/Substance: Pressure Injury: Do you have a coughno Smoking Statusnever smoker Alcohol Usedenies Drug Usedenies Drug 2 Usedenies Admission Risk Screen: Significant IndicatorsComplete CAGE: CAGE: Is this an injured patient [place] a Tra[place] Center [place]/[place] no Electronic Signatures: Batsheva Kovacs (WES) (Signed 05-Dec-2021 16:16) Authored: Preferred Language, Advanced Directives, Family Violence Adult, Learning Assessment (Patient), Learning Assessment (Other Learner), Pressure Injury/TB/Substance, Pressure Injury, CAGE Last Updated: 05-Dec-2021 16:16 by Batsheva Kovacs) Normal [facility] Triage - EDon 12-05-2021 Triage - ED Quick Triage: Are You no Have You Given In The Last 6 Weeksno Are You Currently Breastfeedingno Chart Review: ARRIVAL INFORMATION Mode of Arrival: private vehicle CHIEF COMPLAINT DEMAR BALL is a Female patient with a chief complaint of wound check. Triage Date/Time: 05-Dec-2021 16:06 TAMAR: 3V Pain Rating (0-10): 4 = Moderate Vital Signs: Temperature: 99.3F ( 37.4C) taken temporal Blood Pressure: 134/60 Mean: Heart Rate: 118 Respiratory Rate: 20 Pulse Oximetry: 98% Height: 5 feet 5.00 inches. 165.1 CM Weight: 198.4 pounds. Calculated 90.0 kg. Calculated BMI (kg/m2): 33.017 Calculated BSA (m2) 2.03 Jessica Coma Scale: Best Eye Response: (E4) spontaneous Best Motor Response: (M6) obeys commands Best Verbal Response: (V5) oriented Jessica Score: 15 Allergies: yes Patient has homicidal thoughts: no Risk Screens Suicide Risk Screen In the Past Month: Have you wished you were or wished you could go to sleep and not wake up no In the Past Month: Have you had any actual thoughts of killing yourself no In Your Lifetime: Have you ever done anything, started to do anything, or prepared to do anything to end your life no Interventions: [place] Fall Interventions: LOW INTERVENTIONS: *patient oriented to surroundings and call system, * patient/family falls education completed and documented, *patients fall status communicated during bedside handoff, *whiteboard updated, *mode of toileting discussed with patient, *bed in low position with brakes locked, *call light in reach, * non-skid footwear TRAVEL HISTORY Travel History Coronavirus Screening: no exposure or symptoms Travel Exposure History: NO travel to International locations in the past 30 days PAIN Pain Scale Used: JULIÁN Pain Rating (0-10): 4 = Moderate Past Medical History: Past Medical History Reviewedyes Electronic Signatures: Batsheva Kovacs (WES) (Signed 05-Dec-2021 16:10) Entered: Risk Screens, Pain, Travel History, Chart Review, Scores, Past Medical History Authored: Quick Triage, Risk Screens, Pain, Travel History, Chart Review, Scores, Past Medical History Last Updated: 05-Dec-2021 16:10 by Batsheva Kovacs) [facility] XR Finger - right AP and Lat eral and obliqueon 12-02-2021 IMPRESSION: Postoperative changes, with interval second PIP joint arthrodesis as detailed in the result. Medical Billing Associate: PSCB Transcribe Date/Time: Dec 02 2021 8:49A Dictated by : TRINITY RIVAS MD This examination was interpreted and the report reviewed and electronically signed by: TRINITY RIVAS MD on Dec 02 2021 8:54AM [facility] DIVISION OF RADIOLOGY * * *Final Report* * * DATE OF EXAM: Dec 01 2021 12:45PM STX 5319 - XR DIGIT 3V FRONTAL/LAT/OBL RT / PROCEDURE REASON: Pain of finger of right hand * * * * Physician Interpretation * * * * HISTORY: Pain of finger of right hand . post op follow up right index TECHNIQUE: XR DIGIT 3V FRONTAL/LAT/OBL RT Laterality: RIGHT Number of different views (projections): 3 COMPARISON: Right digit radiographs 06/10/2021 RESULT: Interval postoperative changes of right second PIP joint arthrodesis with two longitudinally oriented K wires and adjacent cerclage wires involving the second proximal middle phalanges. Joint line remain subtly visualized on oblique view, with equivocal osseous fusion centrally. Hardware is intact. Slight flexion deformity at the second PIP joint. Soft tissue swelling about the index finger. Osteopenia. No visualized acute fracture or dislocation. Again seen are postoperative changes of first IP joint arthrodesis with longitudinally oriented retrograde partially threaded screw, which is intact, and with solid osseous fusion. Tiny first and second MCP joint, and first CMC joint osteophytes. Also again seen are postoperative changes of right wrist arthrodesis with dorsal plate and screw device, and the included hardware appears intact and similar to prior, with solid osseous fusion again noted. No other significant abnormality. DIVISION OF RADIOLOGY Provider, [facility] - 12/02/2021 * * *Final Report* * * DATE OF EXAM: Dec 01 2021 12:45PM STX 5319 - XR DIGIT 3V FRONTAL/LAT/OBL RT / PROCEDURE REASON: Pain of finger of right hand * * * * Physician Interpretation * * * * HISTORY: Pain of finger of right hand . post op follow up right index TECHNIQUE: XR DIGIT 3V FRONTAL/LAT/OBL RT Laterality: RIGHT Number of different views (projections): 3 COMPARISON: Right digit radiographs 06/10/2021 RESULT: Interval postoperative changes of right second PIP joint arthrodesis with two longitudinally oriented K wires and adjacent cerclage wires involving the second proximal middle phalanges. Joint line remain subtly visualized on oblique view, with equivocal osseous fusion centrally. Hardware is intact. Slight flexion deformity at the second PIP joint. Soft tissue swelling about the index finger. Osteopenia. No visualized acute fracture or dislocation. Again seen are postoperative changes of first IP joint arthrodesis with longitudinally oriented retrograde partially threaded screw, which is intact, and with solid osseous fusion. Tiny first and second MCP joint, and first CMC joint osteophytes. Also again seen are postoperative changes of right wrist arthrodesis with dorsal plate and screw device, and the included hardware appears intact and similar to prior, with solid osseous fusion again noted. No other significant abnormality. IMPRESSION IMPRESSION: Postoperative changes, with interval second PIP joint arthrodesis as detailed in the result. Medical Billing Associate: PSCB Transcribe Date/Time: Dec 02 2021 8:49A Dictated by : TRINITY RIVAS MD This examination was interpreted and the report reviewed and electronically signed by: TRINITY RIVAS MD on Dec 02 2021 8:54AM EST [facility] XR Finger - right AP and Lat eral and obliqueOrdered By: [facility] Provider on 12-02-2021 [facility] XR Finger - right AP and Lat eral and obliqueon 12-01-2021 Radiology Study observation (narrative) [facility] ANES POSTPROC EVALon 022 ANES POSTPROC EVAL HNO ID: [id number] Author: John Vasquez MD Service: ? Author Type: Physician Type: Anesthesia Postprocedure Evaluation Filed: 11/19/2021 11:48 AM Note Text: POST ANESTHESIA EVALUATION NOTE : 1980 Procedure Summary Date: 11/19/21 Room / Location: OR03 / AV OR Anesthesia Start: 732 Anesthesia Stop: 940 Procedure: ARTHRODESIS INTERPHALANGEAL JOINT (Right Hand) Diagnosis: Pain of finger of right hand Surgeons: Gustavo Blanco MD Responsible Provider: John Vasquez MD Anesthesia Type: regional, MAC ASA Status: 3 Anesthesia Type: regional, MAC Last Vitals Vitals Value Taken Time BP 115/73 11/19/21 1030 Temp 36.1 ?C (97 ?F) 11/19/21 0946 Pulse 93 11/19/21 1039 Resp 18 11/19/21 1039 SpO2 99 % 11/19/21 1039 Vitals shown include unvalidated device data. Post Anesthesia Patient Status Patient Evaluation: PACU. PACU/ICU Patient Condition: stable. Anticipated Disposition: phase 2 then home. Neurological Status: aware and responsive. Pulmonary Status: breathing comfortably on room air Airway Control: returned to baseline unsupported. Cardiovascular Status: stable. Pain Management: clinically adequate - multimodal analgesia pain management approach Postoperative Hydration: acceptable. Intraoperative Events: no significant anesthesia events Recommendation: continue current plan of care. Anesthesia Observations No Documentation SIGNATURE: John Vasquez MD PATIENT NAME: Demar Ball DATE: November 19, 2021 TIME: 11:48 AM CSN: [id number] [facility] ANES PRE-OPon 11-19-2021 ANES PRE-OP HNO ID: [id number] Author: John Vasquez MD Service: ? Author Type: Physician Type: Anesthesia Preprocedure Evaluation Filed: 11/19/2021 7:13 AM Note Text: ANESTHESIOLOGY DAY OF SURGERY NOTE : 1980 Procedure Information Date/Time: 11/19/21729 Procedure: ARTHRODESIS INTERPHALANGEAL JOINT (Right Hand) Location: AV OR03 / AV OR Surgeons: Gustavo Blanco MD Estimated body mass index is 35.07 kg/m? as calculated from the following: Height as of 06/10/21: 160 cm (5' 3 ). Weight as of this encounter: 89.8 kg (198 lb). Most recent hematocrit and potassium results: Hematocrit 45.4 11/17/2021 Potassium 3.9 11/17/2021 Relevant Problems ANESTHESIA (+) Difficult intubation CARDIO (+) May-Thurner syndrome (+) Migraines GI (+) GERD (gastroesophageal reflux disease) NEURO-PSYCH (+) History of blood clotting disorder (+) Migraines Other (+) BRISA (juvenile idiopathic arthritis) ([facility]) (+) RA (rheumatoid arthritis) ([facility]) I - PHYSICAL EVALUATION AIRWAY Patient intubated: No. Tracheostomy tube not present Mallampati: IV. TM distance: <3 FB. Neck ROM: full ROM without neurological symptoms. Mouth opening: non-adequate. Short neck: no. Thick neck: no DENTAL Dental findings: teeth intact. Additional exam findings: yes. II - ANESTHESIA PLAN ASA Score: 3 Anesthetic Plan: regional and MAC NPO Status: adequate Monitoring plan: Standard ASA. Anesthetic plan additional comments: Short tmd. Postoperative analgesic plan: parenteral or oral opioids, peripheral nerve block and multimodal analgesia. Informed Consent Anesthetic risks, benefits, alternatives, personnel and consent discussed: yes. Patient / Responsible Libertarian agrees to proceed: yes Patient / Surrogate agrees to blood products: yes DNR status not reviewed with patient and/or family prior to surgery. Significant changes in the patient condition since the History and Physical, not otherwise documented in primary service progress note: no. Potential Anesthesia issues that may suggest increased risk of complications or contraindication to planned procedure: none. Vitals Value Taken Time BP 147/89 11/19/21657 Pulse 100 11/19/21657 Resp Temp 36.7 ?C (98 ?F) 11/19/21657 SpO2 97 % 11/19/21657 Facility-Administered Medications as of 11/19/2021 Medication Dose Route Frequency - acetaminophen 1,000 mg tab(s) (TYLENOL) 1,000 mg ORAL Pre-Op Once - promethazine 12.5 mg tab(s) (PHENERGAN) 12.5 mg ORAL Pre-Op Once - scopolamine 1 mg over 3 days 1 Patch (TRANSDERM-SCOP) 1 Patch TRANSDERMAL ONCE - scopolamine - REMOVE PATCH OTHER ONCE - lidocaine 10 mg/mL (1 %) 1-2 mg injection (XYLOCAINE) 0.1-0.2 mL INTRADERMAL PRN - lactated ringers iv infusion 5-30 mL/hr INTRAVENOUS CONTINUOUS - clindamycin iv piggyback 900 mg in D5W 50 mL (CLEOCIN) 900 mg INTRAVENOUS Pre-Op Once Outpatient Medications as of 11/19/2021 Medication Sig - aspirin, enteric coated (ASPIRIN, ENTERIC COATED) 81 mg EC tablet Take 81 mg by mouth once daily. - tiZANidine (ZANAFLEX) 4 mg tablet TAKE ONE TO TWO TABLETS BY MOUTH EVERY 8 HOURS NEEDED. Up to 3 times a day. - topiramate (TOPAMAX) 200 mg tablet Take 1 tablet by mouth three times daily. - metoprolol succinate ER (TOPROL XL) 50 mg 24 hr tablet Take 2 tablets by mouth once daily. - pantoprazole DR (PROTONIX) 40 mg tablet Take 40 mg by mouth twice daily. - efinaconazole (JUBLIA) 10 % [place] Apply to affected area once daily. - eletriptan (RELPAX) 40 mg tablet Take 1 tablet by mouth as needed. may repeat in 2 hours if necessary (Patient not taking: Reported on 10/20/2021 ) - Syringe with Needle, Disp, (BD TUBERCULIN SYRINGE) 1 mL 27 x 1/2 use to draw up AND inject enbrel - Needle, Disp, 27 G (BD DISPOSABLE NEEDLES) 27 gauge x 1/2 ndle use to draw up AND inject enbrel - etanercept (ENBREL) 25 mg/0.5 mL soln Inject 0.5 mL (25 mg dose) subcutaneously two times a week. - erenumab-aooe (AIMOVIG AUTOINJECTOR) 140 mg/mL auto-injector Inject 1 mL subcutaneously once every month. - ergocalciferol 50,000 unit capsule (VITAMIN D2, DRISDOL) Take 1 capsule by mouth two times a week. with a meal - methotrexate 2.5 mg tablet take 4 tablets by mouth ONCE EACH WEEK AND HOLD DURING INFECTIONS - folic acid 1 mg tablet Take 1 tablet by mouth once daily. - HYDROcodone-acetaminophen (NORCO) 5-325 mg per tablet Take by mouth every 6 hours as needed. - XARELTO 20 mg tablet - gabapentin (NEURONTIN) 300 mg capsule Take 300 mg by mouth twice daily. I have interviewed and examined the patient. I have reviewed the medical record and/or the pre-anesthesia evaluation, pertinent labs, and test results. This contains updated information obtained within 48 hours of Surgery/Procedure. SIGNATURE: John Vasquez MD PATIENT NAME: Demar Ball DATE: November 19, 2021 TIME: 7:11 AM CSN: [id number] [facility] BRIEF OP NOTon 11-19-2021 BRIEF OP NOT HNO ID: [id number] Author: Jet Montgomery MD Service: Plastic Surgery Author Type: Resident Type: Brief Op Note Filed: 11/19/2021 9:44 AM Note Text: BRIEF OPERATIVE NOTE PLASTIC AND RECONSTRUCTIVE SURGERY LOG ID: [id number] Surgery/Procedure Date: 11/19/2021 Incision/Procedure Start Time: 8:02 AM Incision Close/Procedure End Time: 9:35 AM Surgeon(s)/Proceduralist(s) and Shoemaking Finisher(s): Surgeon(s) and Role: * Gustavo Blanco MD - Primary * Jet Montgomery MD - Resident - Assisting No Additional Staff Procedure(s): Right index PIP joint arthrodesis Implants: * No implants in log * Anesthesia: Block Regional - Extremity Upper Findings: Right index PIP arthritis Estimated Blood Loss: 5 mL IV Fluids: 700 mL crystalloid Urine Output: Not Measured Tubes/Drains: None Specimens: None Complications: None Pre-Procedure Diagnosis: Right index PIP arthritis Post-Procedure Diagnosis: Same as Preop Post-Op Plan / Disposition: Discharge home SIGNATURE: Jet Montgomery MD PATIENT NAME: Demar Ball DATE: November 19, 2021 TIME: 9:42 AM PAGER/CONTACT #: [phone] After 6PM AND on weekends, please page [phone] (Plastic Surgery on-call), otherwise contact above provider Normal [facility] NURSING PROGon 11-19-2021 NURSING PROG HNO ID: [id number] Author: Sirisha Jones RN Service: ? Author Type: Registered Nurse Type: Nursing Progress Note Filed: 11/19/2021 11:12 AM Note Text: Nursing Progress Note Patient Name: Demar Ball Patient Location: AV Surgery/AV Surgery Daily Note: Pt arrived to post op sedated, VSS. Right arm dressing D/I. Arm elevated on pillows. Cap refill to right hand < 3 seconds. 1010 - Pt waking, denies pain at this time. 1030 - Pt up to the restroom with steady gait. Pt able to void. 1045 - Discharge criteria met This note was completed by: Sirisha Schmitz [facility] OPERATIVE NOon 11-19-2021 OPERATIVE NO HNO ID: [id number] Author: Gustavo Blanco MD Service: Plastic Surgery Author Type: Physician Type: Operative Report Filed: 12/30/2021 9:15 AM Note Text: [facility] - Operative Report DEMAR BALL : 1980 AGE: 41. SEX: F PATIENT TYPE: A HOSP SVC: PLAS LOCATION: [id number] ATTENDING PHYSICIAN: Gustavo Blanco M.D.,PhD CSN NUMBER: [id number] DATE OF SURGERY/PROCEDURE: 11/19/2021 INCISION/PROCEDURE START TIME: 8:02. INCISION CLOSE/PROCEDURE END TIME: 9:35. 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 SURGEON: Gustavo Blanco M.D.,PhD GROUNDHAND: Jet Montgomery. SURGERY/PROCEDURE: Right index finger PIP joint arthrodesis, Radiesse filler injection to chin. ANESTHESIA: Sedation plus brachial plexus block. OPERATIVE INDICATION: This is a 41-year-old female with a history of severe rheumatoid arthritis. The patient developed swan-neck deformity of the right index finger and there was crepitus at the level of the joint. She was in excessive pain. Therefore, she wanted to have a fusion at the level of the PIP joint of the right index finger. She was informed about the possible risks and complications of the surgery. She wanted to go ahead with the procedure. 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 OPERATIVE FINDINGS: Microgenia with retrogenia and severe osteoarthritis of the right PIP joint of the right index finger. DESCRIPTION OF PROCEDURE: The patient was brought to the OR, placed supine on the OR table. Upon administration of sedation, the right upper extremity was prepped and draped in the usual sterile fashion. The tourniquet was inflated at 250 mmHg. The skin incision was marked and made over the PIP joint of the right index finger. The skin was divided with a #15 knife. The subcutaneous tissue was spread. The central slit was taken off the base of P2. At this point, we removed the cartilage of the PIP joint with the oscillating saw. After this was performed, the fixation was performed with two 0.035 K-wires from proximal to distal. We used also a 26- gauge wire through the dorsal cortex distally and around the piece to perform compression. After this was performed, the pins were bent back and there was stability of the joint. At this point, the tourniquet was let down, hemostasis was checked. The extensor tendon was brought together and the skin was closed with 4-0 chromic suture. At this point, we injected 1.5 mL of Radiesse filler at the level of the chin. This was performed without problems. After this was performed, a radial gutter splint was applied. The patient at this point was stable. She was then sent to the recovery in good condition. The primary surgeon completed the procedure with assistance. ESTIMATED BLOOD LOSS: Minimal. DRAINS: None. SPECIMENS: None. COMPLICATIONS: None. COUNTS: Correct at the end of the procedure. Gustavo Blanco M.D.,PhD AR:[id number] /[id number] [facility] Postoperative Documentson Postoperative Documents [id number]:127 Normal [facility] IntraOperative Documentson 1 09-15-2020 IntraOperative Documents [id number]:127 Normal [facility] Coding Summary.on 07-08-2021 Coding Summary. CD:[id number] Gh0bWw+P GhlYWQ+AI6DSQJjF12teNLukQ5QL 0uVGD7OMIPSTOGJZG9TLK9stPZ8B HxfZ0CemxXc XzjmwIHuMG20RWp0XRO1nEbfVEuw mT6uyCYoN3l6JxFpOU57mD88UFol VCYtZqX7NmVbsrihiVCs C1kjVeEdpHYsUfi+PHRhYmxlIHdp BXAsFEvcMFTtXoGjsYubKW0hVh1g ZGVyLWNvbGxhcHNlOiBj v6itTVXvBGntMT8ekKhgU8JqiSY4 PAMrg2h9Gq47gTQ+ZXBiWEL7dKmh AKxfy285JnSkk3bvRIL8 yTKyYHywQGD5H48uu1U2LBNzCXZy XGD5tQL9jQ3hxJtebbqkK6UgpSZl AjC5OCZ5hAFaiK3llCos bumpeF7vToo+A59WJJ7ETLYZLM4W Ckf9L4HxXhsuoEK+VS20TGLyHQ51 uJTdiFYuz5kpdDy9TsSq XFGdZIL2uTudRDtpg0WmLCAjR71f zBYkl5F7RUEsbCvwqHPeKtNdjGM3 zC4eXLbkenazc2dmqdef Wmkiy4lbwf53pI68E48zXTppWYCf EOU1UTKiNSPjnQtoky5lqF7lEm0+ RJgss6jpa3wanUl5KbYg VZNybxMelYtcNRQ4o3BqAl02E2De dClqh6DkEtx2kh71wAWaa2D2fVW6 AQndBIQkgS5gWBwuGgR3 PYJeGaPpvV52iAMgXVxiTj3dbXma tJajOM7ySSZdwzarBDBkmU4aSVKr aWIrvGfcUM5mUMGsmshz n490GmFjNRI5HXKjtPGoC4VwfE8g HbXjVWWvXWFnN9XlqDKbLZcxB791 WSzuJkK1QLQiouRyV6De ROLzwReaLlL9k5Z7Td0Ik1Ppzrjt HJB7UNxrWFKjPvP7BnEvEnQ8F3Aw Gsu4TUZrgMgpGW4mP8Cn KNDamevhlpxikNW8ZLCjZAIlaB17 cEHsWYbtMd3pw3D4l240PUKuWTTi zU07Oj4bgNgzKTNtxCAT oB9wqreyj7zjnulmFmFfVYBdHZb0 VTg4WKKdjZwcZlDhGUR7OnN6NLO8 jGZoeB6bzKngeapklB6f Oyc+D43ckU1dWXD4BYC2sruwHMJt flOlDL20UP37B8TaMharmUXtzMZ+ QPFuqpEkpLesNL7vIlDh e8fjc0ExAOwvX8UiWXRgGIdiHak6 VNRkPPR0yLT3pZ0wPVSfFMjhq6J7 iIQ2E9IfgbQlsa9im2if TCXxNAacN48eqKXps3T9NPCubQM9 QVNsaHoxClFrkH56Yoe+PGNvbGdy b3BdYsexu9lkj1ewqWi7 XpPmAJRdnnMurBzmCVL5k9SbMs81 L92gJZiyIKHxQBXrDPWsVGWjcErf ul5emQ9lQw4+PGNvbCB3 zPW0jE5lVYDqSeD1ZBnpZ353LhKo cFBjCpoje7njc2rysGi6QnNnQWHj phLiuEofZMW6a3EfXs71 M53nWUtlNTJwVSIsPGSdQLAvtOao vp9oeR4zUm5+LX0ve7wojz44fX65 dHI+VOYbWVW5nNvtWJwu QLVvyC4eFOovFpM5FDGgDqThoQ88 aQWeLSeiLd7llUlmcXfmXE1mWLQh oylid953BrEfz9ksNFPo pKJeIJktUOU9L44qi4M0SEPjUECz VIK9gUW5lJ2lrMqfvfjrwHUqoFxs yaBdiNtgKAcmUFfjZ028 IHRvcDsnPlBhdGllbnQgTmFtZTo8 S1KrZfb5TKHmdKvtLI0ynLJlRRfx Zu1msOpzjNxuAX9ySOVh bbxez650VlJqo6iqLAOcwFGcHSib NMJ5B78jh4A9SOIlBOXtWDE8hEN1 sQ5dnUhubagmjPSmuKmv mpWifLraPXaqASneF278VZBqgYae BfFyrvBuIUHqnEN8KU89PX18uSRj a2P5wKS7L3JsETWiasol fpkgjHV6MSPdRCTfuG10Wx7srMuk Zt5zSZPnPTK8MRKxsSAhO0UckA9x XgUmSZKkNPQiW0TbmCDi EXurG328XJluEiA6PWLogjVnJ8Dv RPVocUhfFiP2g2N6Bl3DA1W2WH41 JM26eLJlg8H0jRK7P6Di ZMYxiaemqlsthEV7QZJzALSxvN36 Zk4dkWvpBb7mYWUuLNA9DQAqqPHl O8ZtqD7nAqAzIWDlGUOg K9NpbCQtMOpkF708KCukSsR3IDSy cxDqH4XrUQJhuJwmReT3w8Y0Ft8Z BGe2VF94GA60nFZgk3N0 iEN2W4MpINCbgfaictuckMC9WNIk OOStxC00Nd7lkLoqKc8yPOFvQEO8 OWWioBTuX3RlsP4vUfCz LKTkZCXtS0SouRFkUDcqQ593MNgw HqU0VBGyrcTxH2OcLJXxuDqbNcN2 g1Y5Do9HEIPwMW98LNM5 iIH8TP26CK44J4QzIqsxrRKuyCC+ PHRhYmxlIHdpZHRoPScxMDAlJyBz iRavXO4aOo0zCLKmCIWi cHqwrSOsOqSli1zbGYTeQLmmKM2c hRnvU7BciDC0BBCtr5u9Sw94M94x P0PfrGR+RFYaaCS6wWR7 gP3eWuHoAqI2XUzuR701DrDopCEq Kgecz9pit2hhdWm5JxR0QHUlwnPo fCydWWB0q2HfEd28B27l PGpnYVFuTOHlUTWsIUWkgLgbee9k nU7hDd4+XBMxbUV9kMY9xX3rSvEx BwN2CHwiI635VcHfvIBe Hwkhy9gri1psfYg3LsJhCKHrvmMg vIalTOT3u9PdNu75H8TysGumf8Hf Wsl6lw47tEFsd2A0qRM4 C7DvCSWxmhfyxPEkuSrzCK3kASHw tdlhTHCztL4iHHGvL4h5KhCcGoM6 GFolN7KrwdG8TGYksBTf CIkcIYJ8D72pk8R4BEVrEKSnWWW3 aIU6mB9pvCpeglffnANzcWyztcTx rIedKDygBTitR853METj zEdvIGUvsV5lBDIefOOwbIgnDP7w EDIiwqdpLlKWRxfPZHavK4wKCe5Y InMHOL21NE55xVUvj3Q0 vAH3K1QdRUBtgtcalezxnVY5FWPn UZLbxS08vGQwGSfoVu8jl8T6r064 SVDwFYSzjD75Oo9wqMhl HYBgxVSHpF4otyjft2vqgxfoWzAs OQCeHSk0YYc7BOHcpJisKmSoIPN5 GjK9WEK2pFXqzX1yzBlo ueopvF8yJmu+PFNnZGfnNMo5VXus dGQ+XRQqOVK0pFklHWomQJXnwZ6q VJZhK8y9KgLpKqV2OSqp N9WlSEApauxxUp82mG5oOlJyUmR0 MOnqE9QhqqA9YNCuaVUlMOydNXG3 R16na0M8GMDpWCMwIRZ5 sUY4iO2vbYmjapdjmHHriSidqgFo aMkdBXjsGHauZ469HVEhpRhzFdJj HSmbWRYnGY50LF49aKWs m7V7yLM6P5XzHRGygxjxrsimfBG0 TXPcIWNeeB81lSMaSNlnSm3ln2E7 e875SCMhDVKdeK62Jw8j jJnrKKPxeSTUcA8lbhcgf5mwujkq ZiXgENCsVTw4IUv2XJEzcEnhIgBg UET7PcU6XBC4yAAxkH2n uYpyqkvgxW9sWzc+FtDhZUenOG04 ZA96jQXwb6M9sAE2L8OpHYOkdspe gllqgHO5YKCfVOWwuW01 cAPdGTyeMz2jj5M8x507CKUkZLJi qJ43Tm1dtWvxNLHbsCISvN1bkcgw y9cynearWqMdMJOnZAt0 JZo7LTPvvUbhVcMlKVV0WhV5RKV8 wHEywA0unKnfxnjbrW5gOhg+T3V0 oTR6wFPnsEosrCT+PC90 tg91G5RzWmgvKxp0MZSgEBA4hUK4 nK2aVFBqWGmja4U2wTT9A5YlaaId xz0bg4mzALMwXSyiG26u yJQvk0H9UXArbIN5RSHloPydKxTu zI80Iuw+PRFcvRmwr0YyTdhgt8xn w4snqWc4IfKlNOHjpyQb jZatKVF2q2AjTn97X59yGLvjTISs ELYqYVKgUUSezKbdnn8duW9aVi2+ WVAcvYE9bNE1rF2uFeVk HgZ0OMbxQ913ZpRmkCAtOepvh4wt q7puhFj7LzRgBQZkahZvvEhgFFF5 n3KtCx66R3PltWedk5Nq Khn6ys46uGVrl9G5nTH7X0KbLIGw rieweHCifBqoDX2yRZMfdzavCSBf yH1xIRAoN5x8DoKpFpN0 SNnxB2HhjhV9FUBwqUKkQSMajJXD iO5pohkoj1deugujEyMjHTQnWAr0 RNj0SLRcsXesUgDeKYP2 MjI3HDI4tBKibA1dqEydabefkW3o Oyc+KTj6n6hkfCVaWA6lpVJ4XA58 FV31cTSmk1X2hZL5Z6Yg LJIgsctgndlgdOJ3FZKvZRXgjY95 Iv7yqFdvLk3uIWAlWTN1MNUpgIUv J6GxcU1kJzLxGWMuZAHp H5KgnHHzNVveS893IDkgOcT8SEQw arTwJ7YuMNBeiFvcMqS9a4T3Tn9Z PU67VY11SL57qCFwg2U9 eFV7X6ZdFNTpuvirchvefHR2LDKj EUXlgI93Fp8vpCtzSg8fUKZvLHC8 MWDkfUMtN9KxqD3qKwJx VDNcSLDwA6SdpLOtWUhzQ979TDjl IfR5YHZebgBgG8AjLTMwmPiqXbF2 a1W0Hv7EKc05XA80KA38 qSZbo9C8wOK4D9WxYYVyhhishadu gRL6BKZhGERsjI59Hu3kmGepIv5g XCSmPDP9IDWpmRKhS5Mr qF7vCaXvYMFpPZNpY6ZbsLUmIIlk G129QHvkYyD7ISHefaTqV3PnRITt lXcbHnU2e0Z2Dw8CPJqu fee9Y3JiUnosyGX+NA36QKHtFD48 aTHjhXRng6prbKi3IyLrVQGlLRW7 sXksWJdvh3MoPQFrC07h bGFw (more content not included)... Normal [facility] [place] 07-06-2021 Consent [id number]:127 Normal [facility] Discharge Instructionson Discharge Instructions [id number]#[id number]:127 Normal [facility] IntraOperative Documentson 1 IntraOperative Documents [id number]#1.00CD:127 Normal [facility] IntraOperative Documents [id number]#[id number]:127 Normal [facility] Main OR Intraoperative Recor don 07-06-2021 Main OR Intraoperative Record IntraOp Document Type FT Summary Primary Physician: Slick Yeh MD Finalized Date/Time: 07/06/21 11:18:03 Pt. Name: DEMAR BALL /Sex: 1980 Female Med Rec #: [id number] Physician: Slick Yeh MD Financial #: [id number] Pt. Type: O Room/Bed: / Admit/Disch: 07/03/21 09:07:20 - 07/03/21 23:59:59 Institution: Case Times FT Entry 1 Patient Times In Room 07/03/21 11:01:00 Out Room 07/03/21 11:34:00 Procedure Times Start 07/03/21 11:12:00 Stop 07/03/21 11:30:00 Anesthesia Times Start 07/03/21 11:01:00 Stop 07/03/21 11:34:00 Time at [place] 07/03/21 11:20:00 Last Modified By: Sonia Funez RN 07/03/21 11:34:38 General Comments: 1125 Colonoscopy completed. RHRN 1127 EGD Attempted. EGD Aborted due to Airway trouble. RN 07/02/21 Chart opened to review and send charges Timo MOORE Case Attendance FT Entry 1 Entry 2 Entry 3 Case Attendee Brooklyn Aguirre MD, Slick Funez RN, Sonia Role Performed Anesthesiologist Surgeon - Primary Culinary Instructor - Primary Shoemaking Finisher Time In 07/03/21 11:01:00 07/03/21 11:01:00 07/03/21 11:01:00 Time Out 07/03/21 11:34:00 07/03/21 11:34:00 07/03/21 11:34:00 Procedure EGD AND COLONOSCOPY(.) EGD AND COLONOSCOPY(.) EGD AND COLONOSCOPY(.) Comments Last Modified By: Dee Dee HARVEY, Sonia Funez RN, Sonia Funez RN, Sonia 07/03/21 11:34:41 07/03/21 11:34:41 07/03/21 11:34:41 Entry 4 Entry 5 Case Attendee Andrew Lara Kirstyn K Role Performed Scrub - Primary Scrub - Primary Time In 07/03/21 11:01:00 07/03/21 11:01:00 Time Out 07/03/21 11:34:00 07/03/21 11:34:00 Procedure EGD AND COLONOSCOPY(.) EGD AND COLONOSCOPY(.) Comments EGD Colonoscopy Last Modified By: Sonia Funez RN, RN, Renee 07/03/21 11:36:41 07/03/21 11:34:41 Perioperative Protocols FT Pre-Care Text: Implements protective measures prior to operative or invasive procedure, confirms identity before the operative or invasive procedure, verifies operative procedure, surgical site, and laterality Entry 1 Procedure(s) EGD AND COLONOSCOPY(.) Patient Identity Birthday, ID Band Verified (select at Check, Patient least 2): Participation Consents / H and P Anesthesia Consent, Operative Site N/A Verified HandP, Surgery/Procedure Marking Verified Consent Surgical Site No Laterality Verified n/a Verified Procedure Verified Yes Correct Patient Yes Position Verified Availability Equipment, Medication Prep Dry n/a Verified (If Applicable) PreOp Antibiotic No Time Out Slick Yeh MD, Given Participants Sonia Funez RN, Stahon CAA, Katharine E., Miles, Kirstyn K Time Out Complete 07/03/21 11:04:00 Outcomes Met? Yes Last Modified By: Sonia Funez RN 07/03/21 11:04:47 Post-Care Text: The patient is free from signs and symptoms of injury caused by extraneous objects Allergy Information FT Pre-Care Text: Verifies allergies Entry 1 Allergies Reviewed? Yes Allergies Reviewed Self/Patient With Outcomes Met? Yes Last Modified By: Sonia Funez RN 07/03/21 07:44:42 Post-Care Text: The patient received appropriate medication(s) safely administered during the perioperative period Surgical Procedures FT Entry 1 Procedure Description Procedure EGD AND COLONOSCOPY Modifiers . Surgeon Description EGD Colonoscopy Primary Procedure Yes Primary Surgeon Slick Yeh MD Start 07/03/21 11:12:00 Stop 07/03/21 11:30:00 Anesthesia Type General Surgical Service General Wound Class 2 - Clean-Contaminated Last Modified By: Sonia Funez RN 07/03/21 11:34:54 General Case Data FT Pre-Care Text: Classifies surgical wound, implements aseptic technique, initiates traffic control Entry 1 Case Information OR ENDO 1 FT Case Level Level 2 Wound Class 2 - Clean-Contaminated Specialty General ASA Class 2 Preop Diagnosis RECTAL BLEEDING, HX OF Postop Same As Preop No COLON POLYPS, GERD Postop Diagnosis Normal colonoscopy Outcomes Met? Yes Last Modified By: Sonia Funez RN 07/03/21 11:35:46 Post-Care Text: The patient is free from signs and symptoms of infection Skin Assessment (Pre Procedure) FT Pre-Care Text: Implements protective measures to prevent skin/ tissue injury due to thermal or mechanical sources Evaluates for signs and symptoms of physical injury to skin and tissue Entry 1 Skin Integrity Dry, Warm Skin Abnormality No Outcomes Met? Yes Last Modified By: Sonia Funez RN 07/03/21 07:45:04 Post-Care Text: The patient is free from signs and symptoms of injury caused by extraneous objects Patient Positioning FT Pre-Care Text: Identifies physical alterations that require additional precautions for procedure-specific positioning, verifies presence of prosthetics or corrective devices, positions the patient, evaluates the patient for signs and symptoms of injury as a result of positioning Entry 1 Procedure EGD AND COLONOSCOPY(.) Body P (more content not included)... Normal [facility] Main OR PACU I Recordon 06-13 Main OR PACU I Record PACU Phase I Document Type FT Summary Primary Physician: Slick Yeh MD Finalized Date/Time: 07/06/21 10:52:01 Pt. Name: DEMAR BALL/Sex: 1980 Female Med Rec #: [id number] Physician: Slick Yeh MD Financial #: [id number] Pt. Type: O Room/Bed: / Admit/Disch: 07/03/21 09:07:20 - 07/03/21 23:59:59 Institution: Case Times PACU I FT Pre-Care Text: Identifies barriers to communication and implements measures to provide psychological support Develops individualized plan of care, and ensures continuity of care Maintains patient's dignity and privacy, and maintains patient confidentiality Identifies and reports philosophical, cultural, and spiritual beliefs and values Identifies individual values and wishes concerning care Implements aseptic technique, and administers prescribed antibiotic therapy and immunizing agents as ordered Evaluates postoperative tissue perfusion Implements thermoregulation measures, and monitors body temperature Evaluates postoperative respiratory status Evaluates postoperative cardiac status Evaluates postoperative neurological status Assesses pain control, collaborated in initiating patient-controlled analgesia and implements alternative methods of pain control Verifies allergies, administers prescribed medications and solutions, evaluates response to medications Entry 1 In PACU I 07/03/21 11:36:00 Discharge from PACU 07/03/21 12:06:00 I Outcomes Met? Yes Last Modified By: ORTIZ BOLAÑOS RN 07/03/21 12:10:35 Post-Care Text: The patient demonstrates knowledge of the expected response to the operative or invasive procedure The patient's care is consistent with the individualized perioperative plan of care The patient's right to privacy is maintained The patient's value system, lifestyle, ethnicity, and culture are considered, respected, and incorporated into the perioperative plan of care The patient participates in decisions affecting his or her perioperative plan of care The patient is free from signs and symptoms of infection The patient has wound/tissue perfusion consistent with or improved from baseline levels established preoperatively The patient is at or returning to normothermia at the conclusion of the immediate postoperative period The patient's respiratory function is consistent with or improved from baseline levels established preoperatively The patient's cardiovascular status is consistent with or improved from baseline levels established preoperatively The patient's cardiovascular status is consistent with or improved from baseline levels established preoperatively The patient demonstrates and/or reports adequate pain control throughout the perioperative period The patient received appropriate medication(s), safely administered during the perioperative period Acuity Level PACU I FT Entry 1 Start Time 07/03/21 11:36:00 Stop Time 07/03/21 12:06:00 Acuity Level Acuity Level I Last Modified By: ORTIZ BOLAÑOS RN 07/03/21 12:10:44 Finalized By: Radha Westfall RN Document Signatures Signed By: Radha Westfall RN 07/06/21 10:52 [facility] H&P Updateon 07-03-2021 H&P Update CD:[id number] amowPms0ustl9hVT9lVoDoxsTuDG stPv1ex2okXX40ol1jVfDjAg0+Cj nvVZ3HJQtWCVRg yV4eXDJGWraEVyNoOQ9gRePHOv3I NHLlFKsMAMmrBK9vLNV2cuhghR0o RD7uWZKwpNOqOh8lm4j9 SnhrBj1dAp4GUh88bWYaoXXqUZYV Y3wczO0iHY9brYDlO5NgREViQy6N TZb0sMtbtM9fihY6Wev4 vHH7Ma81a4pmicIza1GtVcE2TLlj dLw7oClaNWdtmU8xJdYiKNNUzG0p tXolXJ1xjH5yygBsaHkv biI+IolyNPRoLhl4qUKaDY89T9Qo iEomTea2iXY3JUJgkMWvTLRarFx1 PSJYLVVBLUNvbXBhdGli eONxJFUdzjIurhD7FhdMCOTaWyEg Wnm0X6cbVOO+Zxava5U1Dhv0LRa2 QWW9hYsrDDHhn417LFAy bVlqrQrbiQWwj25lRQHjlAZmGgCt h204JRGsjhT7XPatqKndXbm4fRMc uTDkg5brzGg8PqIuBYIl FbjXGEHvfFwst0QxHcmTTEiql6wo aaEoyCaqVWG5b7IbRGymRYTpTVR7 NiUiIC8+CgkJPGNvbCB2 CSjaK535DcBmiUDmd3twwVs9WnX9 WQSvCb0QALfyP84eC6IyuDO+Cgk8 dGJvZHk+CgkJPHRyPgoJ NGi0oGEzt1E5nCO2KlXtjaYcx0m7 BYwmUYR8BdU0PXB6yGIuoM4lgXfn ihbemK4wTmB+CgkJCTxk nAShA2squ5S2XwXbh8TtjAaagiSu QDUlXtIhc3giUiyoXMWalO8pFGD3 VkEoRMZtuIPyFXJbRL7d hxWqxOZmNKFpUpDuR2Zmz46ii9Pc GPJOB4aEJzCxLYN3WH7tYkMmDY7h R4XiKWUdTFTaKXMpFjXc QUOlJk3xCMW2HWEbEuCvMYU8HKG5 RJVjc1R0zXU8QzHlGYIimtk9DBOs eDsiPjxzcGFuIGNsYXNz WXLnNFNoL1Cok64phLGpmSY7Tq54 t9XjifWsbTqsMV7xXs7frO96DYzn lPA7UHSalXK0UFPjyNUh AUAki0HeuTtjaravxW6hYLXkyX5m OyI+IKahzQ2lxACxdrHlXFt2j4mi XGehIOUdKSLgLE9jaJGw Ondsr6Dznz6HTAvDBIRhpxViwBGr mb4aUZRgrXAqd737TZ11FbCmYRqw k19dPBR6DNPBOElqFUVi NeSnznGomzJ2qBDvXWWQQ8ZzE12D JTUdXHN3bcKrAWSnccUjcKZtGH2i AHOuRDQ5QhjwPrHcBe77 ANUgWKiiPWPbPAG9HQX5INhGUQg7 QsLtGE6vYne6HtFcFfM0JGN8APSt TUCwGd17ZgMiHZj9QIdj OCA5LyMkHUU+IcmNWTavoXScD2ic t1L1NgMhEI1pS40hoPWeuUa3YO8a WNZiAaAjswLmujY6bJUt AKCYUYJDHAGVP57AMITnXPWpIrOs jSp5zGlrPSCmNrWmJRnpwpSlrFq3 PCKtoP4qGTZtAqDgSE2v P7TqOyb7PLD8FCUlIrIeRQF9BW84 KoX3PLVoSWT3U0AtJRZ5YnD+CgkJ RDmedSExK0tmt2T4FwMm X89rzN8rZK98CgCzFFbmvrVmvRe8 VJc9rDetQW2wauVmsAv2txIhUtNh LI3hFnJ8CKV1UuHjLQR0 SqBaXAGoMh6sRyJ9ZZIiBED3UZH7 MqL0QGL+CizYVMnevVSjA8wtr4F3 ImRkZnJlZXRleHQgZGRy ZU8ltjLblTHuCNMnFrK3stLex7R8 tI4dz2O4eHG5VeDdsK3vnWdlmOSz iGR4Ke93PyLiY7CrOu5l A7UiZAHqIxSaDUBfUC9kEgPeDOV6 VQG1KYusKorwsPEiXTWbLPLfWZGr zL9gt7Fijl7bfSJfKYMd jVZiCwluMJ5oU9QkPrT1uXM4VFXr HHHzzVdefmElr2HcxpYvqjEdDAvf bWluZWQsIGFwcHJvcHJp RZBdMLZqsvWkeRDclaIaRWJ4qixw ifezDAXMVCLfh5vmrd6jV13wjNu7 C5GyCJ6+EO3poAI+CgkJ FBruOVw1GsbCJXx2I9Nxha8MKDrQ UU9ppWX+SiiCMLerZLy5FxaBCUq6 V7QqKviFHDp3eCXql6U2 qTV8RfJepaFjg2u9GBqxVWL7CtA3 SXM3ySOjnS2siVbkfjiceW9kSxU+ UbtZLYlpxYXwN8rwv8I7 LrNer2LxwDbuasTcWQQhAcCra4vd BkpsTEDtzI4uUMP4ZoGkQIUhtDNy BBHeCZ8qbgCtaFWgVYAs LsWoS7Lsr64nj0JaGXOJF1uQWsEw FDD1OG39YmXiOX4tAzBdBzZuGcUd ZDS2SSSuKFS5MG7jDZJo GOBmIrMxOBZ9GOT1UcMxa0J9rNW4 ZkLaGHClpcd9SJJrmFjmUujwsBEl VEZhLVGmQFJfAMOdV7Gr u74scRUyyAL9Cq83t2RnjgYmzAdo LR7hVo7bwI84SLqdnXV8JAVxxLT4 FWJiwYBvMOGct9HuvVxc qxrypQ5lCECyoC9nZqV+UHJvYmxl yTACrYY2A1Sbm2KkONNtbKZvkPYC gOP3b8K3YM2cpTXtYuwe w7Gihr4WVBgFCVFgoyPugLMokk9u XFAzmUKbl755RL66XcIfPZtli268 KH08wPivUD6hGHMYJigU EYYbVTPsAkKvUlNpTO3kSYH0vWA6 QcOdMqF4K1I4NNEhWMUyGCX7BC6O BExcGST1XaXdK6RFLNQ6 JeKqwNL9Uu2aPrP0PLTlUq5oFFmi NKFyOkcaGXWdIX2qByu3IGW1BTy4 IeezGenZMUo7KSp2IIWa DFGdSZKvMWjvd2GmUZJmCTBoYO1l heAkhELxIXRjIwV8eyDnq6F1kJ7j o3L5iRP7SsXsoM4lkOuz oBUueKQ4Ct23AAY4FTZsGU02J8Ah ZZQpHlBhPNB5QE1uHBStUyK6TfU4 DDKxJFU7bSejYHSfLJQa jR2aqCAdaPqlPLNjSlQabP7adhF1 XZP7DqC9faChmDFGj7Q6eSVdtHI8 eQ1hFf44g4TstvTlfStm JL8teYG0tQ0pGORebhO7eD6zLfL6 pkEgqpcdogZ2Ui9LdrlxfM2hXO8d jRIbObeZXLo5RQr1ZMFh YXNzPSJkZGVtcmNvbnRlbnRpdGVt KLIekxLgp0IbUtbzKbArNHqqu390 EN31sTbmTS8dUOEOZarA HDXyONGrGtFlyDi6vVngMLG8BUI8 NQG2JmZrwHI1Td7nFGG3ZpL9HF4h ZDceSLD0XoLtTJkgIv21 WQL3YKl0Sle5SlAgMAV1eEqeWZOw VKVqjB7amORmpEwsBMRlKhQ+QW50 tDNvIFz2zYU3ESM4U7Tx yb4LMpuJUJckyDAoL8ggv6Z2KgYg YN6sP32mlFCbfLk7AT6jAVNlOG0p dmFibGUiIGRkOmNvbnRl xiY7fIAaKIRPUd4RIMSBBiQoXYB5 LQ35vIN6vDS9Uhn6FrgrGyp2SvIm EX2qMuunTol2LhL2CPrp CXLeWZXiFD90NdHcTPY2NHbpNxOs JATlJLCtp9Q1sGJ0Bb5yfxmnip3u GSH8XqFqEG96Ld4PSYDC NJsnRSJ8jz9qk62ngMEwLVStEUYo Atv6oUFcnFMkOWFpPLfgMVj1WqzE YRxYJQPdjbUkhVMayp2v DAXzyGNud686LM36cKUxwEZyRKQj bI62JTRuNPUiZZP6W42wyQTbzDS9 wKB1GhRQW6NYHA5BGtUc NUrjuqOmzAohSZ5oUOskGpx9RoPs JMwyZEIyQwN6WHHsTTCtCSjnBu59 NTVkLWJmOGMtNmJiYjdh VxK5E7QcUrEgrLefIR9dtSDwT4em TPqeHfX7HRVyqHggSmsbu7Tgqzdh c2XhL85ys75wsE2sgCRp QT8iyDQ+UorDNIe2LYm5BDKuDIOw PSJkZGVtcmNvbnRlbnRpdGVtIGRk rjEan2VqYvfvHiXeMTlt f263JC82yPsbDD8gCHTHHziXMIKu ELBpOjRccWy2kRtqODB6WUq1CJs6 UyBmpGG9Cc42GRR6Lro6 Jd2dTwQiMTWbGMGlUxKjKj6gWJLx ShUbQPEkDhGaWJX1kNfvZNZyPXAy kG8kgFGhzHvfBCRcLgJ+ PJowpL0rsHEqYbRLRiXso6CdoQ21 BGLmFCg3qpIlhUE4ZG0ymMC+CgoJ BEq2IQw8PQVfZQVcXTZm ZGVtcmNvbnRlbnRpdGVtIGRkcmVt t4XoBfadVaLaMEbaf660CR08rBpu OZ7kHVYHSztUNKDtCSDq IoJhbTu5nSwqPGF0EEj7ZBHeHODr yPP1My9mFZCjLOV4JK4mDrp6WSX3 XHYaALLsWI7fHsSaPKZz KAg2Y3IkRMT6zJvqVBIcPFJocA7i bGVmdDogMWVtOyI+SXJvbiBkZWZp S4ddwoT3URYsLJ1cOSed PMx0QqoLONnNTZNbatJecDAqnf0q VIUvuXDjc163FG23wJAzuPBjDUGo nM83GORxEJEwCUS9T33s zLBjcVV3fUF0TxKBM2PSSC2SItYy BAsdyjVtvIkjHY0bHOp0Zcl6Rbyg UYifSZWmZAm9LSM7CMVb NxQvMY36XVTpUQCbXYfbMwiyBJVb VPQ6MTM5KwLmpGqmOU1tjKZaT9vd VHhoIzX3DZIuiJnxBt4n hP8FyEFysjAeWML1yvPzp64nVC0j aXY+OioOTFl1UIs9AOMzFLGsWRMk ZGVtcmNvbnRlbnRpdGVt KVWqdfAeh6WhIiocDzSiPHnyu934 UK56oWvxOU7pXSKKFzkNUPIzQZOp KjArxLt7tVrrIEA5PSp7 O (more content not included)... Normal [facility] Inpatient Patient Summaryon 07-03-2021 Inpatient Patient Summary [place] [id number] [facility] Clinical Discharge Instructions PERSON INFORMATION Name: [facility] Admitting Physician: Slick Yeh MD Attending Physician: Slick Yeh MD PCP: REYNA BAH DO Discharge Diagnosis: Comment: PATIENT EDUCATION INFORMATION Instructions: Colonoscopy, Adult, Care After Medication Leaflets: Follow up: With: Address: When: Slick Yeh [address] [place], [place] [id number] [phone] [employer] (1) In 5 years 07/03/2026 MEDICATION LIST Medications to Continue with No Changes Other Medications acetaminophen-hydrocodone (Megargel 325 mg-5 mg oral tablet) 1 Tablets By Mouth every 6 hours as needed pain. albuterol (albuterol HFA 90 mcg/inh MDI) 2 Puffs Inhalation every 4 hours as needed Shortness of breath or wheezing. aspirin (aspirin 81 mg Oral EC Tab) 1 Tablets By Mouth every day. clotrimazole (clotrimazole 10 mg Yuliya) 1 Lozenges By Mouth every 2 hours. erenumab (Aimovig SureClick 70 mg/mL subcutaneous solution) 140 Milligram Subcutaneous once a month. ergocalciferol (Vitamin D 50,000 intl units (1.25 mg) oral capsule) 1 Capsules By Mouth 2 times a week. etanercept (Enbrel SureClick 50 mg/mL subcutaneous solution) fluconazole 200 Milligram By Mouth every day. as needed for thrush. fluconazole (Diflucan 100 mg Tab) as needed Other (see comment)., prn thrush folic acid (folic acid 1 mg Tab) 1 Tablets By Mouth every day. gabapentin (gabapentin 400 mg Cap) 1 Capsules By Mouth 4 times a day. methotrexate (methotrexate 2.5 mg Tab) 1 Tablets By Mouth every 7 days. ondansetron (Zofran 4 mg Tab) 1 Tablets By Mouth every day as needed Nausea/Vomiting. rivaroxaban (Xarelto 10 mg oral tablet) 1 Tablets By Mouth every day. rivaroxaban (Xarelto 20 mg oral tablet) 1 Tablets By Mouth every day. tizanidine (Zanaflex 4 mg oral capsule) 1 Capsules By Mouth every day as needed Spasm. tizanidine (Zanaflex 4 mg oral capsule) 1 Capsules By Mouth 3 times a day. topiramate (Topamax 200 mg Tab) 1 Tablets By Mouth 3 times a day. Comment: Normal [facility] Main OR Preoperative Recordo n 07-03-2021 Main OR Preoperative Record Holding Area Document Type FT Summary Primary Physician: Slick Yeh MD Finalized Date/Time: 07/03/21 09:46:43 Pt. Name: VIOLETDanielDEMAR/Sex: 1980 Female Med Rec #: [id number] Physician: Slick Yeh MD Financial #: [id number] Pt. Type: O Room/Bed: / Admit/Disch: 07/03/21 09:07:20 - Institution: Case Times Holding FT Pre-Care Text: Verifies consent for planned procedure, identifies individual values and wishes concerning care, includes family members in perioperative teaching Secures patient's records' belongings, and valuables, maintains patient's dignity and privacy, and maintains patient confidentiality Entry 1 In Holding 07/03/21 09:12:00 Outcomes Met? Yes Last Modified By: Jeni Tineo RN 07/03/21 09:12:56 Post-Care Text: The patient participates in decisions affecting his or her perioperative plan of care The patient's right to privacy is maintained Surgery Checklist FT Entry 1 Patient Birthday, ID Band Procedure History and Physical, Identification: Check, Patient Verification: Surgical Consent, With Participation Patient NPO after Midnight: Yes Results Reviewed n/a Comments: Personal Items: Jewelry Personal Items Ring, watch, metal to Comment: jaw, L groin, R wrist Pain Comment: 01/19 generalized Availability Equipment Verified: Does Patient Smoke No Patient states Yes Comment - Adult Mom postop adult Supervision supervision available Case Cancelled in No Holding Area see comments below for reason Last Modified By: Jeni Tineo RN 07/03/21 09:22:32 General Comments: Pt completed prep yesterday and remained nPO since midnight/[id number] Finalized By: Jeni Tineo RN Document Signatures Signed By: Jeni Tineo RN 07/03/21 09:46 Normal [facility] Monitor Recordon 07-03-2021 Monitor Record [id number]#[id number]:127 Normal [facility] Monitor Record [id number]#[id number]:127 [facility] Center Operative Reporton Operative Report Patient: DEB BALL Age: 41 years Sex: Female : 1980 Associated Diagnoses: None Author: Slick Yeh MD Pre-Procedure Procedure Date 07/03/2021 11:36:00 . Procedure Type: Colonoscopy. Procedure provider Performed by Slick Yeh MD. Current history and physical EGD - Esophagogastroduodenoscopy ([id number]) on 07/13/2017 at 37 Years. Colonoscopy ([id number]) on 09/12/2015 at 35 Years. Arthroscopy of hip ([id number]) on 12/11/2013 at 33 Years. Comments: 05/28/2021 14:18 Misty Henao LPN left Arthroscopy of hip ([id number]) on 11/05/2013 at 33 Years. Comments: 05/28/2021 14:18 Misty Henao LPN right done at [facility] Colonoscopy ([id number]) on 06/12/2012 at 31 Years. Hysterectomy ([id number]). Bunionectomy (66051145). Comments: 06/03/2021 12:34 Becky Falcon 8 mariposa hammertoeectomy Arthroplasty of the hip ([id number]). Comments: 05/28/2021 14:02 Misty Henao LPN bilateral Correction of hammer toe (063859060). Comments: 05/28/2021 14:02 Misty Henao LPN x 8 Fusion of joint ([id number]). Comments: 05/28/2021 14:03 Misty Henao LPN right wrist Cholecystectomy (46715672). Mandible (585438224). Cystoscopy (64799623). Tubal ligation (284132584). section (89116999). Rhinoplasty (6080968022). Pisiform bone of hand ([id number]). Comments: 05/28/2021 14:23 Misty Henao LPN right wrist Procedure on wrist ([id number]). Comments: 06/03/2021 12:36 Becky Falcon partial fusion, pisifleorm, Arthroscopy of hip (926618159). Hand ([id number]). Comments: 06/03/2021 12:40 Becky Falcon x 2. Past Medical History Resolved Diverticulosis ([id number] [id number]): Resolved. mass on the thyroid: Resolved. Arthritis (716.90): Resolved. Fatty liver ([id number]): Resolved.. Family History Breast cancer Aunt Hypertension Mother Diabetes mellitus type 2 Mother Osteoporosis Grandparent Heart disease Grandparent HTN Grandparent . Procedure History EGD - Esophagogastroduodenoscopy ([id number]) on 07/13/2017 at 37 Years. Colonoscopy ([id number]) on 09/12/2015 at 35 Years. Arthroscopy of hip ([id number]) on 12/11/2013 at 33 Years. Comments: 05/28/2021 14:18 Josephine Henao LPNa N left Arthroscopy of hip ([id number]) on 11/05/2013 at 33 Years. Comments: 05/28/2021 14:18 AYSE Calloway LPN Misty Ferguson right done at [facility] Colonoscopy ([id number]) on 06/12/2012 at 31 Years. Hysterectomy ([id number]). Bunionectomy ([id number]). Comments: 06/03/2021 12:34 Becky Falcon 8 mariposa hammertoeectomy Arthroplasty of the hip (104551389). Comments: 05/28/2021 14:02 Misty Henao LPN bilateral Correction of hammer toe (368925539). Comments: 05/28/2021 14:02 Misty Henao LPN x 8 Fusion of joint ([id number]). Comments: 05/28/2021 14:03 Misty Henao LPN right wrist Cholecystectomy (79831756). Mandible (791462215). Cystoscopy (33702169). Tubal ligation (049303983). section (73325302). Rhinoplasty (4853553267). Pisiform bone of hand ([id number]). Comments: 05/28/2021 14:23 Misty Henao LPN right wrist Procedure on wrist ([id number]). Comments: 06/03/2021 12:36 Becky Falcon partial fusion, pisifleorm, Arthroscopy of hip (561365400). Hand (353310960). Comments: 06/03/2021 12:40 Becky Falcon x 2. Colorectal neoplasm risk assessment High risk History of colon adenoma Personal history. . . Informed Consent After discussing the rationale, risks and benefits, and alternatives to this procedure, the patient provided signed consent for the procedure. Pre-procedure diagnosis: Rectal bleeding. Surveillance. Medications (Selected) Inpatient Medications Ordered Lactated Ringers IV Radha 1000 mL 1,000 mL: 1,000 mL, IV, 100 mL/hr, Routine, Start date 07/03/21 8:39:00 EDT, 10 hour(s), Total volume (mL): 1,000, 92.2 kg, 2.03, m2 Sodium Chloride 0.9% IV Radha 1000 mL 1,000 mL: 1,000 mL, IV, 20 mL/hr, Routine, Start date 07/03/21 9:11:00 EDT, 50 hour(s), Total volume (mL): 1,000, 92.2 kg, 2.03, m2 Documented Medications Documented Aimovig SureClick 70 mg/mL subcutaneous solution: 140 mg, SubCutaneous, qMonth, Refills(s) 0 Diflucan 100 mg Tab: See Instructions, PRN Other (see comment), Refills(s) 0 Enbrel SureClick 50 mg/mL subcutaneous solution: Refills(s) 0, Arthritis Megargel 325 mg-5 mg oral tablet: 1 tab(s), Oral, q6hr pain, Refill(s) 0 Topamax 200 mg Tab: 200 mg = 1 tab(s), Oral, TID, Refills(s) 0, Headache Vitamin D 50,000 intl units (1.25 mg) oral capsule: 50,000 International_Unit = 1 cap(s), Oral, 2x/Wk, Prophylaxis Xarelto 10 mg oral tablet: 10 mg = 1 tab(s), Oral, Daily, Refills(s) 0, Blood Thinner Xarelto 20 mg oral tablet: 20 mg = 1 tab(s), Oral, Daily, Refills(s) 0, Blood Thinner Zanaflex 4 m (more content not included)... Normal [facility] Comment on above: Result Comment: Elec tronically Signed By: Slick Yeh MD\.br\Date and Time Signed: 07/03/21 11:39 EDT Outpatient Surgery Discharge Instructionon 07-03-2021 Outpatient Surgery Discharge Instruction [address] [address] Patient Discharge Instructions PERSON INFORMATION Name: DEMAR BALL Date of : 1980 Current Date: 07/03/2021 11:35:58 PHYSICIANS Admitting Physician: Slick Yeh MD Discharge Diagnosis: DEMAR BALL has been given the following list of follow-up instructions, prescriptions, and patient education materials: PATIENT FOLLOW-UP INFORMATION Diet: Regular Discharge Activity: Resume normal activities in 24 hours, Expect mild pain, Expect minimal amount of drainage and/or bleeding Discharge Restrictions: No driving for 24 hrs, Do not make important decisions for 24 hours, Do not drink alcoholic beverages for 24 hours Call Your Doctor For: Persistent or heavy bleeding, Temperature above 101.5 degrees, Redness, swelling, or pus at operative site, Severe pain at the operative site, Persistent vomiting IF UNABLE TO CONTACT YOUR PHYSICIAN AND YOU FEEL IT IS AN EMERGENCY, GO TO THE NEAREST EMERGENCY ROOM OR CALL 911 QUIN[address] Jennings SHANNON M, have received the attached patient education materials/instructions and have verbalized understanding: May we do a follow up call? Yes No I was present when discharge instructions were given __ Patient Signature Date Clinican/Nurse Signature Date Follow up: With: Address: When: Slick Yeh [address] [place] [address], [address] [address] [phone] Business (1) In 5 years 07/03/2026 Pharmacy Information: You may receive a survey from [employer] asking you to rate your care experience. Your feedback is important and will help us understand what we do well and how we can improve the quality of care we provide to you, your loved ones and our community. It?s an honor to serve you. Thank you for choosing [facility] HERE ARE THE MEDICATION CHANGES THAT OCCURRED DURING YOUR HOSPITAL STAY Medications to Continue with No Changes Other Medications acetaminophen-hydrocodone (Megargel 325 mg-5 mg oral tablet) 1 Tablets By Mouth every 6 hours as needed pain. albuterol (albuterol HFA 90 mcg/inh MDI) 2 Puffs Inhalation every 4 hours as needed Shortness of breath or wheezing. aspirin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 Lung Nodules History of Blood Clotting Disorder Transfusion History Obesity, Class I, BMI 30-34.9 E66.9 Vitamin D Deficiency Complex Tear of Lat Mensc, Current Injury, Left Knee, Init Ra (Rheumatoid Arthritis) ([facility]) Injury of Ulnar Nerve At Wrist PAST MEDICAL HISTORY Diagnosis Date - Abnormal heart rhythm 2005 Normal sinus tachycardia- was on atenolol,no longer taking - Clotting disorder (HCC) NTHFR clotting disorder - Difficult airway for intubation - Entrapment of right ulnar nerve - GERD (gastroesophageal reflux disease) - GI bleed 2012 Internal hemorrhoids - History of blood clotting disorder 12/2015 [facility]-Dr. Solomon Serrano- clot abdomen to hip- hositalized, had clot busting surgery with filter/then removed - Injury of ulnar nerve at wrist - Lung nodules Dr. Pike - Migraines - Neuropathy (HCC) - Polyarticular juvenile idiopathic arthritis (HCC) - RA (rheumatoid arthritis) (HCC) right wrist - Thyroid nodule Biopsy done approx 2012 - Transfusion history 12/2015 after surgery for clot in abdomen/hip PAST SURGICAL HISTORY Procedure Laterality Date - BIOPSY THYROID - COLONOSCOPY Polypectomy - PAST SURGICAL HISTORY OF Uterine septum removed - PAST SURGICAL HISTORY OF [place] teeth extraction - PAST SURGICAL HISTORY OF 03/2015 Nasal fracture repair - PAST SURGICAL HISTORY OF Bunionectomy x2 - PAST SURGICAL HISTORY OF 1998 Jaw surgery with manipulation - PAST SURGICAL HISTORY OF Right wrist surgery x2, partial fusion and repair - PAST SURGICAL HISTORY OF 2012 Arthroscopy on bilateral hips - 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 Serrano - [facility] - PAST SURGICAL HISTORY OF [place] - PAST SURGICAL HISTORY OF [facility] - TUBAL LIGATION HX 03/15/2011 FAMILY HISTORY Problem Relation Age of Onset - Diabetes Mother - Hypertension Mother - Hypertension Father Social History: Social History Tobacco Use - Smoking status: Never Smoker - Smokeless tobacco: Never Used Substance Use Topics - Alcohol use: No - Drug use: No No current facility-administered medications on file prior to encounter. Current Outpatient Medications on File Prior to Encounter: methotrexate 2.5 mg tablet take 4 tablets by mouth ONCE EACH WEEK AND HOLD DURING INFECTIONS (Patient not taking: Reported on 05/25/2019) erenumab-aooe 70 mg/mL AutoInjector Inject 70 mg subcutaneously every 4 weeks. diclofenac sodium (VOLTAREN) 1 % topical gel Apply 2 g to affected area four times daily. folic acid 1 mg tablet take 1 tablet by mouth once daily etanercept (ENBREL) 25 mg (1 mL) injection Inject 25 mg subcutaneously twice a week. as instructed; Hold during infections (Patient not taking: Reported on 05/25/2019 ) ferrous sulfate 325 mg (65 mg iron) EC tablet Take 325 mg by mouth. HYDROcodone-Acetaminophen (NORCO) 10-325 mg per tablet prescribed by Dr. Stone, Neurologist XARELTO 20 mg tablet gabapentin (NEURONTIN) 300 mg capsule Take 300 mg by mouth twice daily. zolpidem (AMBIEN) 10 mg tab Take 1 tablet by mouth at bedtime as needed. FOR INSOMNIA pantoprazole DR (PROTONIX) 40 mg tablet Take 40 mg by mouth twice daily. promethazine (PHENERGAN) 25 mg tablet Take 25 mg by mouth every 8 hours as needed for Nausea/Vomiting. OXcarbazepine (TRILEPTAL) 150 mg tablet Take 150 mg by mouth three times daily. topiramate (TOPAMAX) 50 mg tablet Take 200 mg by mouth three times daily. Current Facility-Administered Medications Medication Dose Route Frequency Provider Last Rate Last Dose - clindamycin iv piggyback 600 mg in D5W 50 mL (CLEOCIN) 600 mg INTRAVENOUS ONCE Scott Tapia) Pitcher - HYDROcodone 5 mg - acetaminophen 325 mg tablet (NORCO) 1-2 tablet ORAL q 6 H PRN Scott Tapia) Pitcher Allergies: ALLERGIES Allergen Reactions - Bacitracin Hives - Doxycycline Rash, Itching - Ferrous Sulfate Anaphylaxis, Vomiting Reaction happened with IV iron - Keflex [Cephalexin] Itching - Remicade [Inflixima* Other: See Comments Confusion, hypotension 10/20/2015 Patient states that she did have this reaction but that she has had this medication since and has not suffered any allergy - Ultram [Tramadol Hc* Hives DOS EXAM: Adequate NPO status: Yes Anesthetic risks, benefits, alternatives, personnel and consent discussed: Yes Patient agrees to proceed: Yes Previous Anesthesia: No history of adverse event. Airway Assessment: MP 2; Neck ROM: Full ROM without neurologic symptoms; Airway Evaluation: No significant abnormalities Symptoms of Sleep Apnea: None Dentition: Teeth intact Additional Physical Exam: Lungs: Patient health status unchanged since recent history and physical. See history and physical for exam findings. Cardiac: Patient health status unchanged since recent history and physical. See history and physical for exam findings. Additional Pertinent Findings: N/A Blood Products: Not anticipated for this procedure. Anesthetic Plan: General, Standard ASA Monitors and Block with Sedation Pain Management Plan: Parenteral or Oral ASA Class: 3 Other Medical Problems: None Chronic Beta Eliseo medication administered within 24 hours: Yes I have interviewed and examined the patient. I have reviewed the medical record and/or the pre-anesthesia evaluation, pertinent labs, and test results. Significant changes in the patient's condition since the History and Physical, not otherwise documented in primary service progress notes: No This contains updated information obtained within 48 hours of Surgery/Procedure. SIGNATURE: Nakul Almendarez MD PATIENT NAME: Dmear Ball DATE: June 04, 2019 TIME: 6:50 AM CSN: [id number] [facility] BRIEF OP NOTon 06-04-2019 BRIEF OP NOT HNO ID: [id number] Author: Scott Tapia) Elena Service: ? Author Type: Physician Type: Brief Op Note Filed: 06/04/2019 9:37 AM Note Text: BRIEF OP NOTE LOG ID: [id number] Surgery/Procedure Date: 06/04/2019 Incision/Procedure Start Time: 8:26 AM Incision Close/Procedure End Time: 9:27 AM Surgeon(s)/Proceduralist(s) and Shoemaking Finisher(s): Surgeon(s) and Role: * Ilia Cannon - Primary * Scott Tapia) Elena - Fellow Procedure(s): Right hand thumb IP joint arthrodesis, index finger PIP volar plate plication Anesthesia: Monitored Anesthesia Care Findings: See OP report Estimated Blood Loss: 3 mls Specimens: None Complications: None Pre-Op/Pre-Procedure Diagnosis: Rheumatoid arthritis involving right thumb IP joint and index finger PIP joints Post-Op/Post-Procedure Diagnosis: Rheumatoid arthritis involving right wrist, unspecified rheumatoid factor presence ([facility]) [M06.9]Injury of ulnar nerve at wrist, unspecified laterality, initial encounter [S64.00XA] SIGNATURE: Scott Parker MD PATIENT NAME: Demar Ball DATE: June 04, 2019 TIME: 9:37 AM PAGER/CONTACT #: [facility] NURSING PROGon 06-04-2019 NURSING PROG HNO ID: [id number] Author: Jerri WorthingtonRn) WES Flores Service: ? Author Type: Registered Nurse Type: Nursing Progress Note Filed: 06/07/2019 3:30 PM Note Text: Using ice and pain meds for pain as needed. No questions or concerns. Normal [facility] OPERATIVE NOon 06-04-2019 OPERATIVE NO HNO ID: [id number] Author: Ilia Cannon Service: Hand Surgery Author Type: Physician Type: Operative Report Filed: 06/05/2019 11:01 AM Note Text: [facility] - Operative Report DEMAR BALL : 1980 AGE: 38. SEX: F PATIENT TYPE: A HOSP SVC: OROR LOCATION: [facility] ATTENDING PHYSICIAN: Ilia Cannon MD CSN NUMBER: [id number] DATE OF SURGERY/PROCEDURE: 06/04/2019 INCISION/PROCEDURE START TIME: 8:26 AM INCISION CLOSE/PROCEDURE END TIME: 9:27 AM PREOPERATIVE DIAGNOSIS: 1. Right hand Boutonniere thumb deformity. 2. Right hand swan-neck deformity, index finger. 3. Rheumatoid arthritis. POSTOPERATIVE DIAGNOSIS: 1. Right hand Boutonniere thumb deformity. 2. Right hand swan-neck deformity, index finger. 3. Rheumatoid arthritis. SURGEON: Ilia Cannon MD GROUNDHAND: Dr. Scott Dubon. SURGERY/PROCEDURE: 1. Right thumb IP joint arthrodesis. 2. Right index finger swan-neck correction with volar capsulodesis, PIP joint. ANESTHESIA: Regional block and MAC. ESTIMATED BLOOD LOSS: None. SPECIMENS: None. DESCRIPTION OF PROCEDURE: This patient was brought to the operating room, placed on the table in supine position, underwent supraclavicular block. No complication. Arm was prepped and draped in usual manner. Tourniquet elevated to 250 mmHg. An H incision was made over the IP joint of the thumb. Skin flaps were elevated. A tenotomy made. Joint hyperflexed. The oscillating saw used to freshen up the articular surfaces. Interfragmentary screw, headless utilized under fluoroscopic guidance to get excellent fixation. Wounds were well irrigated. Closed with interrupted 4-0 Prolene sutures for skin, tendon, and capsule repair. The index finger was approached through a volar Aarti incision. Skin flaps were elevated. There was attritional loss of the cruciate pulleys over the volar PIP joints. Window was made in these and the FDP and FDS tendons were subluxated. The volar plate was incised with a distally based central flap. This was advanced proximally and sewn to the checkrein ligaments on either side with 4-0 Ethibond suture creating a 25-degree flexion deformity. Wounds were well irrigated. Closed with interrupted 4-0 Prolene sutures. The wounds were dressed with Xeroform, sterile gauze, plaster reinforced, extension block splint of the index and long finger at the PIP joint of about 30 degrees and thumb spica splint component. Patient returned to recovery room in good condition. The operation performed by myself and my office clerk assistant with my direct supervision and assistance throughout. Ilia Cannon MD PE:[id number] /[id number] cc: [facility] NURSING PROGon 05-31-2019 NURSING PROG HNO ID: [id number] Author: Erica (Rn) WES Berry Service: ? Author Type: Registered Nurse Type: Nursing Progress Note Filed: 05/31/2019 3:38 PM Note Text: PACC Nurse Progress Note History AND Physical: PACC Visit Date: 05/30/19 Original HANDP Date: N/A ED visit Date: N/A Outside HANDP Scanned Date: N/A Labs Within Last 6 Months: CBC: Date 05/30/19-(Platelets-452) BMP/CMP: Date 05/30/19-within acceptable limits PT, PTT: Date 05/30/19-within normal limits Imaging Within Last 12 Months: Chest X-ray- done 10/12/18-see care eveywhere S-ipp-sezbjibaz hand Date of test: 11/21/18 See chart Cardiac Testing: EKG in last 12 Months: 09/30/18, Comment: external EKG scanned in chart ECHO Date:09/11/18, Comment: (LV-normal, LVEF-55-60%)-see care everywhere under other tests Last Menstrual Period: LMP Date: N/A Postmenopausal >1yr: Yes, S/P Hysterectomy: Yes BMI Percentile (PEDS): N/A Risk Assessment: N/A Anesthesia Review: N/A Narrative: Per HPI: Rheumatoid arthritis; GERD; Migraines; 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 Strong Pre-op Considerations: Anticoagulation: Per vascular-Dr. Strong-telephone encounter: 05/03/19-hold her rRvaroxaban for 2 days prior to her surgery. Expected last dose- 06/01/19. She will then plan to resume rivaroxaban 24 hr after the surgery Chart Check: COMPLETED Erica Berry RN May 31, 2019 3:25 PM [facility] HOSPon 05-11-2019 HOSP Patient:Lara Ball on M MRN: Height:5' 3.5 (1.613 m) Weight:175 lb (79.379 kg) Outpatient Medications as of 06/04/19: HYDROcodone-Acetaminophen (NORCO) 10-325 mg per tablet ergocalciferol 50,000 unit capsule (VITAMIN D2, DRISDOL) metoprolol succinate ER (TOPROL XL) 50 mg 24 hr tablet erenumab-aooe 140 mg/mL subcutaneous auto-injector (AIMOVIG) methotrexate 2.5 mg tablet erenumab-aooe 70 mg/mL AutoInjector diclofenac sodium (VOLTAREN) 1 % topical gel folic acid 1 mg tablet etanercept (ENBREL) 25 mg (1 mL) injection ferrous sulfate 325 mg (65 mg iron) EC tablet XARELTO 20 mg tablet gabapentin (NEURONTIN) 300 mg capsule zolpidem (AMBIEN) [address] (PROTONIX) 40 mg tablet promethazine (PHENERGAN) 25 mg tablet OXcarbazepine (TRILEPTAL) 150 mg tablet topiramate (TOPAMAX) 50 mg tablet Admission/Clinic Administered Medications as of 06/04/19: lactated ringers infusion HYDROcodone 5 mg - acetaminophen 325 mg tablet (NORCO) clindamycin iv piggyback 900 mg in D5W 50 mL (CLEOCIN) Problem List: Pain in limb [M79.609] BRISA (juvenile idiopathic arthritis) (HCC) [M08.90] Femoroacetabular impingement of left hip [M25.852] Rash [R21] H/O colonoscopy with polypectomy [Z98.890, Z86.010] Thyroid nodule [E04.1] Clotting disorder (HCC) [D68.9] GERD (gastroesophageal reflux disease) [K21.9] Migraines [G43.909] Difficult airway for intubation [T88.4XXA] 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] 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] 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1] Lung nodules [R91.8] History of blood clotting disorder [Z86.2] Transfusion history [Z92.89] Obesity, Class I, BMI 30-34.9 E66.9 [E66.9] Vitamin D deficiency [E55.9] Complex tear of lat mensc, current injury, left knee, init [S83.272A] RA (rheumatoid arthritis) ([facility]) [M06.9] Injury of ulnar nerve at wrist [S64.00XA] Allergies: Bacitracin Doxycycline Ferrous Sulfate Keflex [Cephalexin] Remicade [Infliximab] Ultram [Tramadol Hcl] Date Verified: 06/04/19 Lab Values Lab Value Units Date High Low POTA* 4.3 mmol/L 05/30/2019 5.1 3.7 BRENNEN* 41.4 % 05/30/2019 46.0 36.0 Progress Notes ([facility]): Domingo Italia PSS 05/30/2019 4:22 PM Signed Patient states she has received three missed calls from office. She was returning the call. Thank you. Sai Love 06/01/2019 9:55 AM Signed ORTHO CARE COORDINATION QUICK NOTE Patient has been identified by name and date of : Yes I wanted to see if she would change her surgery date but no need thanks Sai Love Progress Notes [facility] Harper Ponce APRN.CLERICAL METHODS ANALYST 05/30/2019 12:27 PM Signed HISTORY AND PHYSICAL EXAMINATION SERVICE DATE: 05/30/2019 SERVICE TIME: 11:04 AM PRIMARY CARE PHYSICIAN: Reyna Bah DO REASON FOR VISIT: Demar Ball is a 38 year old female who is scheduled for ARTHRODESIS, INTERPHALANGEAL JOINT, WITH INTERNAL FIXATION Right:REPAIR AND RECONSTRUCTION, FINGER, VOLAR PLATE, INTERPHALANGEAL JOINT Right at the request of Dr. Ilia Cannon for consultation. My final recommendation will be communicated back to the requesting physician by way of shared medical record or letter. 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 She cannot extend the thumb, or right index finger.On pain scale, 3/10 aching pain HPI: H/O 38 year old female stated she cannot extent her right thumb or right index finger.This has gone on for the last year. On pain scale, 3/[address] Cannon. After exam, Xray Right Hand, Dx with Rheumatoid Arhtritis Involving Right Wrist:Injury Ulnar Nerve Left Wrist PAST MEDICAL HISTORY Diagnosis Date - Abnormal heart rhythm 2005 Normal sinus tachycardia- was on atenolol,no longer taking - Clotting disorder (HCC) NTHFR clotting disorder - Difficult airway for intubation - Entrapment of right ulnar nerve - GERD (gastroesophageal reflux disease) - GI bleed 2012 Internal hemorrhoids - History of blood clotting disorder 12/2015 [place]-Dr. Solomon Serrano- clot abdomen to hip- hositalized, had clot busting surgery with filter/then removed - Injury of ulnar nerve at wrist - Lung nodules Dr. Pike - Migraines - Neuropathy (HCC) - Polyarticular juvenile idiopathic arthritis (HCC) - RA (rheumatoid arthritis) (HCC) right wrist - Thyroid nodule Biopsy done approx 2012 - Transfusion history 12/2015 after surgery for clot in abdomen/hip PAST SURGICAL HISTORY Procedure Laterality Date - BIOPSY THYROID - COLONOSCOPY Polypectomy - PAST SURGICAL HISTORY OF Uterine septum removed - PAST SURGICAL HISTORY OF [place] teeth extraction - PAST SURGICAL HISTORY OF 03/2015 Nasal fracture repair - PAST SURGICAL HISTORY OF Bunionectomy x2 - PAST SURGICAL HISTORY OF 1998 Jaw surgery with manipulation - PAST SURGICAL HISTORY OF Right wrist surgery x2, partial fusion and repair - PAST SURGICAL HISTORY OF 2012 Arthroscopy on bilateral hips - 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 Serrano - [facility] - TUBAL LIGATION HX 03/15/2011 FAMILY HISTORY Problem Relation Age of Onset - Diabetes Mother - Hypertension Mother - Hypertension Father SOCIAL HISTORY: Social History Socioeconomic History Marital status: Spouse name: Not on file Number of children: Not on file Years of education: Not on file Highest education level: Not on file Occupational History Not on file Social Needs Financial resource strain: Not on file Food insecurity: Worry: Not on file Inability: Not on file Transportation needs: Medical: Not on file Non-medical: Not on file Tobacco Use Smoking status: Never Smoker Smokeless tobacco: Never Used Substance and Sexual Activity Alcohol use: No Drug use: No Sexual activity: Not on file Lifestyle Physical activity: Days per week: Not on file Minutes per session: Not on file Stress: Not on file Relationships Social connections: Talks on phone: Not on file Gets together: Not on file Attends amish service: Not on file Active member of club or organization: Not on file Attends meetings of clubs or organizations: Not on file Relationship status: Not on file Intimate partner violence: Fear of current or ex partner: Not on file Emotionally abused: Not on file Physically abused: Not on file Forced sexual activity: Not on file Other Topics Concerns: Not on file Social History Narrative Not on file Prior to Admission medications as of 05/30/19 1114 Medication Sig Last Dose Taking metoprolol succinate ER (TOPROL XL) 50 mg 24 hr tablet Take 2 tablets by mouth once daily. Yes erenumab-aooe 140 mg/mL subcutaneous auto-injector (AIMOVIG) Inject 1 Syringe subcutaneously once every month. Yes diclofenac sodium (VOLTAREN) 1 % topical gel Apply 2 g to affected area four times daily. Yes folic acid 1 mg tablet take 1 tablet by mouth once daily Yes ferrous sulfate 325 mg (65 mg iron) EC tablet Take 325 mg by mouth. Yes HYDROcodone-Acetaminophen (NORCO) 10-325 mg per tablet prescribed by Dr. Stone, Neurologist Yes XARELTO 20 mg tablet Yes gabapentin (NEURONTIN) 300 mg capsule Take 300 mg by mouth twice daily. Yes zolpidem (AMBIEN) 10 mg tab Take 1 tablet by mouth at bedtime as needed. FOR INSOMNIA Yes pantoprazole DR (PROTONIX) 40 mg tablet Take 40 mg by mouth twice daily. Yes OXcarbazepine (TRILEPTAL) 150 mg tablet Take 150 mg by mouth three times daily. Yes topiramate (TOPAMAX) 50 mg tablet Take 200 mg by mouth three times daily. Yes methotrexate 2.5 mg tablet take 4 tablets by mouth ONCE EACH WEEK AND HOLD DURING INFECTIONS Patient not taking: Reported on 05/25/2019 05/09/2019 erenumab-aooe 70 mg/mL AutoInjector Inject 70 mg subcutaneously every 4 weeks. Not Taking etanercept (ENBREL) 25 mg (1 mL) injection Inject 25 mg subcutaneously twice a week. as instructed; Hold during infections Patient not taking: Reported on 05/25/2019 promethazine (PHENERGAN) 25 mg tablet Take 25 mg by mouth every 8 hours as needed for Nausea/Vomiting. Medication Comments documented by Kijnal León on 12/14/2016 at 1116. Cleocin- for current dental infection/abcess - will be finished on 12/20/16- having tooth pulled at that time. Kinjal León CNP 12/14/2016 ALLERGIES Allergen Reactions - Bacitracin Hives - Doxycycline Rash, Itching - Ferrous Sulfate Anaphylaxis, Vomiting Reaction happened with IV iron - Keflex [Cephalexin] Itching - Remicade [Inflixima* Other: See Comments Confusion, hypotension 10/20/2015 Patient states that she did have this reaction but that she has had this medication since and has not suffered any allergy - Ultram [Tramadol Hc* Hives REVIEW OF SYSTEMS: PAIN ASSESSMENT: General: No weight loss, malaise or fevers. BMI 30.5 Neuro: No history of TIA's, stroke, CLERICAL METHODS ANALYST tumor, impaired sensorium, hemiplegia, paraplegia or quadraplegia. No neurological symptoms or problems., numbness/ tingling both hands often /migraines occasionally Respiratory: No history of current cough or dyspnea, or pneumonia in the past 6 weeks. No history of respiratory/pulmonary symptoms or problems., H/O Lung Nodule monitored Cardiovascular: No history of HTN requiring medication, no history of angina, CHF, [place], cardiac surgery or stents. Denies rest pain, gangrene or revascularization/amputation for PVD. 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 : N/A, Patient's last menstrual period was 11/30/2016 (approximate). DEENA Endocrine: No history of diabetes. Has not taken steroids within the past 30 days. 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 Has not lost 10% of body wt in 6 months. No history of oncological symptoms or problems. Psych: No history of psychiatric symptoms or problems. Musculoskeletal: Rheumatoid Arthritis; on injections H/O Juvenile Idiopathic Arthritis Chronic joint pain all jonts Skin: Negative for lesions, rash and itching. Objective PHYSICAL EXAM: VITALS: BP 106/73 Pulse 98 Temp (Src) 98.2 (Temporal) Resp 18 Ht 5' 3.5 (1.61m) Wt 175 lb (79.4kg) SpO2 99% LMP 11/30/2016 BMI 30.51 kg/(m2). General: Alert and oriented Skin: Normal color, no rash, no lesions. HEENT: EOM, pupils equal, round and reactive.partial upper denture Cardiovascular: Normal S1 AND S2, no rubs, murmurs or gallops. No JVD. Pulse regular. Lungs: Normal breath sounds, no wheezes or crackles. Abdomen: Soft, non-tender, no rigidity., DEENA, Lap Genesis scars intact Extremities: No deformity, no edema or tenderness, no joint swelling or clubbing. Neurological: Normal cognition and motor skills. Pulses: Carotid and radial pulses normal +2. Diagnostic tests reviewed for today's visit: Lab Value Units Date High Low HB 12.8 g/dL 01/03/2019 15.5 11.5 HCT 38.7 % 01/03/2019 46.0 36.0 WBC 8.28 k/uL 01/03/2019 11.00 3.70 PLT 408 k/uL 01/03/2019 400 150 NA 136 mmol/L 01/03/2019 144 136 K 3.2 mmol/L 01/03/2019 5.1 3.7 GLUC 109 mg/dL 01/03/2019 99 74 BUN 18 mg/dL 01/03/2019 21 7 CREAT 0.57 mg/dL 01/03/2019 0.96 0.58 PTSEC No results within date range. INR No results within date range. APTT No results within date range. ALT 26 U/L 01/03/2019 38 7 AST 21 U/L 01/03/2019 35 13 TBILI 0.2 mg/dL 01/03/2019 1.3 0.2 TSH No results within date range. Lab Value Units Date High Low HCGQT No results within date range. UHCG No results within date range. HCG, BODY* No results within date range. Lab Value Units Date High Low ABORHD No results within date range. ABSCREEN No results within date range. No results found for: HBA1C Most recent labs Most recent EKG: of 09/30/18 Scanned in [facility] with read Sinus Tachycardia:Abnormal R WaveProgression,Early Transition :Otherwise Normal EKG Most recent Echo Most recent stress test ECHO results in Care Everywhere of 08/24/18 ventricular end-diastolic dimension. Normal left ventricular wall thickness. The estimated left ventricular ejection fraction is 55 - 60%. Normal left ventricular ejection fraction. No regional wall motion abnormalities. ? Normal size right ventricle. Normal right ventricular systolic function. ? Left atrium is normal in size. Right atrium is normal in size. Intact atrial septum. ? The mitral valve leaflets appear to be thickened. No mitral valve stenosis. No mitral regurgitation. ? The tricuspid valve structure is normal. No tricuspid valve stenosis. No tricuspid valve regurgitation. ? The aortic valve is normal in structure and function. No aortic stenosis. No aortic valve regurgitation. Stress Test results of 08/24/18 in Care Everywhere There is no ST segment deviation noted during stress. There were no arrhythmias during stress. ? Overall, the patient's functional capacity was average. The stress ECG was negative. ? The calculated Cobb Treadmill Score of 6.5 represents a low risk only with regards to the exercise findings. Assessment/Plan BRISA (juvenile idiopathic arthritis) Assessment: is on injections for control, ,moniotred Per PCP corrina stable Thyroid nodule Assessment: Biopsy done in 2012,monitored Per PCP ,stable Clotting disorder (HCC) Assessment: has NTHFR monitored Per PCPcorrina stable GERD (gastroesophageal reflux disease) Assessment: On med for control,currenlty stable Lung nodules Assessment: monitored per PCP Obesity, Class I, BMI 30-34.9 E66.9 Assessment: BMI 30.5 METS: Participate in moderate recreational activities, such as golf, bowling, dancing, doubles tennis, or throwing a baseball or football (6.00 METs) Patient denies any chest pain or undue shortness of breath with the above physical activity. ASA Class: 3 ANESTHESIA FINDINGS: Intubation History: No history of difficult intubation Significant Anesthesia Considerations: Postop nausea/vomiting Airway Exam: General: Normal appearance and BMI 30.5 Mallampati Score is CLASS II ULBT: Class I - Lower incisors can bite the upper lip above the jackie line Neck: Normal appearance and function, Distance from hyoid to mentum during neck extension is at least 3 finger breaths Mouth: Normal tongue size Dentition: Partial Upper denture Airway History: No abnormal airway history STOP BANG Score: Criteria: Neck circumference > 15.75 inches Score = 1 PLAN This patient is optimally prepared for surgery pending LABS and labs ordered per surgeon CBCD, BMP .and PT,PTT CONSULTS: Patient does not require consults for optimization at this time. The Following Tests/Procedures Have Been Initiated: Orders Placed This Encounter PROTHROMBIN TIME/PT ACTIVATED PTT Lab tersts ordered per surgeon (CBCD Planned Anesthetic: Per anesthesia choice Instructions Given to Patient: Instructions located in the after visit summary. Patient given verbal and written preop instructions and voices comprehension and compliance. SIGNATURE: Harper Ponce APRN.JIMMY PATIENT NAME: Demar Ball DATE: May 30, 2019 TIME: 11:04 AM PAGER/CONTACT #: Nel Cochran LPN, MOR 05/30/2019 11:18 AM Signed Advance Directives discussed with patient: patient declined at this time no info given. Nel Cochran LPN May 30, 2019 11:17 AM Harper Ponce APRN.JIMMY 05/30/2019 11:42 AM Signed PATIENT PREOPERATIVE INSTRUCTIONS Ilia Cannon MD has scheduled you for your procedure at this surgery center: [facility]: [phone] --[phone] [place] [address]. Please read below carefully for your personalized instructions. Blood Thinning Medications: - Stop NSAIDS (Ibuprofen, Advil, Aleve, Motrin, Celebrex, Mobic, etc.) 7 days before surgery, as directed by your surgeon. - Stop Aspirin 7 days before surgery, as directed by your surgeon. - Stop Vitamin E, ALL multi-vitamins, herbals and dietary supplements 7 days before surgery. - You may take Tylenol (Acetaminophen) or any of your pain medications that do not contain aspirin or NSAIDS as needed. PATIENT INSTRUCTED TO STOP XERALTO 06/02/19 FOR PRE OP Dietary Restrictions: - No solid food after midnight. - You may have clear liquids (water, clear juices such as apple juice or gatorade, carbonated beverages, clear tea, black coffee, jello) until 2 hours before scheduled arrival at facility. Medications: Approved medications to take the morning of surgery with a sip of water: METOPROLOL, GABAPANTIN PROTONIX - Please continue your current pain medications. - No diabetic medication the morning of surgery. If you start any new medications after today's visit, please contact the surgeon's office. Important Reminders: - If you use CPAP/BIPAP, bring the machine with you to the surgery center. - Candy, mints, and tobacco products are NOT permitted the morning of surgery. - Hearing aids, dentures and glasses may be worn the morning of surgery. - NO jewelry, body piercings, makeup, hairpins or contacts are to be worn the day of surgery. If you develop symptoms such as a fever, cold, or flu, or have other changes to your health within TWO DAYS of scheduled surgery or the morning of surgery, please contact the surgery center above. Personal Belongings: -Please have photo ID and insurance cards. -If you do not have a copy of advance directives on file with us, please bring a copy with you on the day of surgery. - Leave ALL valuables and money at home or with family members. For Outpatient Procedures: - YOU MUST HAVE A RESPONSIBLE FRUIT TRIMMER TAKE YOU HOME. A BEHAVIORAL HEALTH THERAPIST OR LINOTYPE MECHANIC CANNOT BE MADE A RESPONSIBLE FRUIT TRIMMER. - We recommend that a responsible person stays with you overnight to take care of you. - You cannot stay in a hotel alone after outpatient surgery. You will not be permitted to have your surgery, if you do not have someone to take care of you. Arrival Time for Surgery: - The Surgery Center or hospital where you are having surgery will call the afternoon before surgery (or Tuesday for Tuesday surgery) with a scheduled arrival time. - If you have not heard by 4 pm, please contact the surgery center above. Please be aware that emergency situations arise, which may delay or change your surgical time. If this happens, we will notify you as soon as possible and regret any inconvenience. Harper Ponce APRN.CLERICAL METHODS ANALYST Nel Cochran LPN, MANAGER OF HEALTH 05/30/2019 11:50 AM Signed Waiting for EKG from Dr Ball office Harper Ponce APRN.CLERICAL METHODS ANALYST 05/30/2019 12:20 PM Written Assessment: is on injections for control, ,moniotred Per PCP corrina APRN.CLERICAL METHODS ANALYST 05/30/2019 12:21 PM Written Assessment: Biopsy done in 2012,monitored Per PCP shakeel APRN.CLERICAL METHODS ANALYST 05/30/2019 12:22 PM Written Assessment: has NTHFR monitored Per PCPcorrina APRN.CLERICAL METHODS ANALYST 05/30/2019 12:22 PM Written Assessment: On med for control,corrina Ponce APRN.CNS 05/30/2019 12:23 PM Written Assessment: monitored per PCP Harper Ponce APRN.CLERICAL METHODS ANALYST 05/30/2019 12:23 PM Written Assessment: BMI 30.5 [facility] CBC with Diffon 02-17-2018 Abs. Basophil 0.10 k/uL Normal 0.0-0.2 [facility] Comment on above: Result Comment: Perf ormed at [facility] [address] [place] [address] Performed By: #### C DP, DIME, CP, MG, TROPI, TSH ####[facility] [place] [phone] Abs.Neutrophil (Seg) 4.10 k/uL Normal 2.5-7.0 [facility] Comment on above: Performed By: #### C DP, DIME, CP, MG, TROPI, TSH ####[facility] [place] [address] Auto Diff Performed YES [facility] Comment on above: Performed By: #### C DP, DIME, CP, MG, TROPI, TSH ####[facility] [place] [address] Basophils/100 WBC Auto (Bld) 1 % Normal 0-2 [facility] Comment on above: Performed By: #### C DP, DIME, CP, MG, TROPI, TSH ####[place] [address] [place] [address] Eosinophils 0.10 10*3/uL Normal 0.0-0.4 [facility] Comment on above: Performed By: #### C DP, DIME, CP, MG, TROPI, TSH ####[place] [address] [place] [address] Eosinophils/100 leukocytes 2 % Normal 0-5 [facility] Comment on above: Performed By: #### C DP, DIME, CP, MG, TROPI, TSH ####[place] [address] [place] [address] [address] Erythrocyte distribution width Auto Ratio (RBC) 17.8 % High 12.1-15.2 [facility] Comment on above: Performed By: #### C DP, DIME, CP, MG, TROPI, TSH ####[place] [address] [place] [address] Erythrocytes (RBC) 5.09 10*6/uL Normal 4.0-5.2 [facility] Comment on above: Performed By: #### C DP, DIME, CP, MG, TROPI, TSH ####[place] [address] [place] [address] Hematocrit (HCT) 37.3 % Normal 36-46 [facility] Comment on above: Performed By: #### C DP, DIME, CP, MG, TROPI, TSH ####[place] [address] [place] [address] Hemoglobin mass conc (Bld) 12.0 g/dL Normal 12.0-16.0 [facility] Comment on above: Performed By: #### C DP, DIME, CP, MG, TROPI, TSH ####[place] [address] [place] [address] Lymphocytes 1.90 10*3/uL Normal 1.0-4.8 [facility] Comment on above: Performed By: #### C DP, DIME, CP, MG, TROPI, TSH ####[place] [address] [place] [address] Lymphocytes/100 leukocytes 28 % Normal 15-40 [facility] Comment on above: Performed By: #### C DP, DIME, CP, MG, TROPI, TSH ####[place] [address] [place] [address] MCH 23.6 pg Low 26-34 [facility] Comment on above: Performed By: #### C DP, DIME, CP, MG, TROPI, TSH ####[place] [address] [place] [address] MCHC mass conc (RBC) 32.3 g/dL Normal 31-37 [facility] Comment on above: Performed By: #### C DP, DIME, CP, MG, TROPI, TSH ####[address] [place] [address] MCV 73.2 fL Low 80-100 [facility] Comment on above: Performed By: #### C DP, DIME, CP, MG, TROPI, TSH ####[place] [address] [place] [address] Monocytes 0.60 10*3/uL Normal 0.0-1.0 [facility] Comment on above: Performed By: #### C DP, DIME, CP, MG, TROPI, TSH ####[facility] [place] [address] Monocytes/100 leukocytes 9 % High 4-8 [facility] Comment on above: Performed By: #### C DP, DIME, CP, MG, TROPI, TSH ####[facility] [place] [address] Neutrophil (Seg) 60 % Normal 47-75 [facility] Comment on above: Performed By: #### C DP, DIME, CP, MG, TROPI, TSH ####[facility] [place] [address] Platelets 538 10*3/uL High 140-450 [facility] Comment on above: Performed By: #### C DP, DIME, CP, MG, TROPI, TSH ####[facility] [place] [address] WBC (Leukocytes) 6.9 10*3/uL Normal 3.5-11.0 [facility] Comment on above: Performed By: #### C DP, DIME, CP, MG, TROPI, TSH ####[facility] [place] [address] CTA CHEST W CONTRASTon 02-17 CTA CHEST W CONTRAST EXAM: CTA CHEST W CONTRAST CLINICAL STATEMENT: 37-year-old female with provided history of chest pain. COMPARISON: Correlation is made with previous CTA chest 08/27/2016. TECHNIQUE: CT angiography of the pulmonary arteries following the administration of 100 mL Isovue-370 intravenous contrast. Coronal and sagittal MIP (maximum intensity projection) images were performed. Dose reduction techniques were achieved by using automated exposure control and/or adjustment of mA and/or kV according to patient size and/or use of iterative reconstruction technique. FINDINGS: There is adequate contrast opacification of the pulmonary arteries. No pulmonary embolism is identified. Heart and great vessels demonstrate an unremarkable contrasted appearance. Mediastinal and hilar structures are normal. Esophagus is normal in caliber and course. Visualized chest wall is unremarkable. Majority of the breast tissue has been excluded from the xthbb-ak-czar. Bones appear unremarkable. Lungs are free of active infiltrate. There is no pleural effusion or pneumothorax. Limited assessment of the upper abdomen is unremarkable. There has been prior cholecystectomy.IMPRESSION: Negative CTA chest. There is no evidence for pulmonary embolism. No acute process is identified at the chest.Interpreted by:RITCHIE Antonioigned by:Abhishek Franks MD02/17/18Final result Normal [facility] Comp Metabolic Profon 2017 (cont.) Normal [facility] Comment on above: Result Comment: Aver age GFR for 30-39 years old: 107 mL/min/1.73sq mChronic Kidney Disease: <60 mL/min/1.73sq mKidney failure: <15 mL/min/1.73sq meGFR calculated using average adult body mass. Additional eGFR calculator available at:[email or web address]_[email or web address] at [facility] [address] [place] [address] Performed By: #### C DP, DIME, CP, MG, TROPI, TSH ####[address] [place] [address] Alanine aminotransferase (ALT) 22 U/L Normal 5-33 [facility] Comment on above: Performed By: #### C DP, DIME, CP, MG, TROPI, TSH ####[address] [place] [address] Albumin 4.8 g/dL Normal 3.5-5.2 [facility] Comment on above: Performed By: #### C DP, DIME, CP, MG, TROPI, TSH ####[address] [place] [address] Alkaline Phos 101 U/L Normal 35-104 [facility] Comment on above: Performed By: #### C DP, DIME, CP, MG, TROPI, TSH ####[address] [place] [address] Anion gap 17 mmol/L Normal 9-17 [facility] Comment on above: Performed By: #### C DP, DIME, CP, MG, TROPI, TSH ####[facility] [facility] [place] [address] Aspartate aminotransferase (AST) 20 U/L Normal <32 [facility] Comment on above: Performed By: #### C DP, DIME, CP, MG, TROPI, TSH ####[facility] [facility] [place] [address] Bilirubin Ql (U) 0.20 mg/dL Low 0.30-1.20 [facility] Comment on above: Performed By: #### C DP, DIME, CP, MG, TROPI, TSH ####[place] [address] [place] [address] BUN/CRE Ratio 14 Normal 9-20 [facility] Comment on above: Performed By: #### C DP, DIME, CP, MG, TROPI, TSH ####[address] [place] [address] Calcium 10.3 mg/dL Normal 8.6-10.4 [facility] Comment on above: Performed By: #### C DP, DIME, CP, MG, TROPI, TSH ####[address] [place] [address] Chloride 96 mmol/L Low 98-107 [facility] Comment on above: Performed By: #### C DP, DIME, CP, MG, TROPI, TSH ####[place] [address] [facility] [place] [address] CO2 24 mmol/L Normal 20-31 [facility] Comment on above: Performed By: #### C DP, DIME, CP, MG, TROPI, TSH ####[facility] [place] [address] Creatinine 0.56 mg/dL Normal 0.50-0.90 [facility] Comment on above: Performed By: #### C DP, DIME, CP, MG, TROPI, TSH ####[facility] [place] [address] eGFR (non-black) mL/min/{1.73_m2} Normal >60 [facility] Comment on above: Performed By: #### C DP, DIME, CP, MG, TROPI, TSH ####[place] [address] [facility] [place] [address] Glucose mass conc 139 mg/dL High 70-99 [facility] Comment on above: Performed By: #### C DP, DIME, CP, MG, TROPI, TSH ####[address] [place] [address] Potassium molar conc 3.2 mmol/L Low 3.7-5.3 [facility] Comment on above: Performed By: #### C DP, DIME, CP, MG, TROPI, TSH ####[address] [place] [address] Protein 8.1 g/dL Normal 6.4-8.3 [facility] Comment on above: Performed By: #### C DP, DIME, CP, MG, TROPI, TSH ####[address] [place] [address] Sodium 137 mmol/L Normal 135-144 [facility] Comment on above: Performed By: #### C DP, DIME, CP, MG, TROPI, TSH ####[place] [address] [facility] [place] [address] Urea nitrogen 8 mg/dL Normal 6-20 [facility] Comment on above: Performed By: #### C DP, DIME, CP, MG, TROPI, TSH ####[address] [address] D-Dimer Teston 02-17-2018 D-Dimer Test 1.61 mg/L FEU High 0.00-0.50 [facility] Comment on above: Result Comment: Elev ated levels of D dimer can be seen in any state of coagulation activation including DVT, PE, arterial thrombosis, DIC, inflamatory disease, trauma, malignancy, sepsis, infection, hematoma, liver disease, post surgical state, , atherosclerosis, old age.When combined with a low clinical probability, a D dimer value of <0.50 mg/L is considered negative for DVT and PE (negative predictive value of 98%).Performed at [address] [address] ([phone] Performed By: #### C DP, DIME, CP, MG, TROPI, TSH ####[address] [address] Magnesiumon 02-17-2018 Magnesium 2.0 mg/dL Normal 1.6-2.6 [facility] Comment on above: Result Comment: Perf ormed at [facility] [address] [place] [address] ([phone] Performed By: #### C DP, DIME, CP, MG, TROPI, TSH ####[place] [id number] Thyroid Stim. Horm.on 2017 Thyroid stimulating hormone (TSH) 1.82 m[IU]/L Normal 0.30-5.00 [facility] Comment on above: Result Comment: Perf ormed at [facility] [address] [place] [address] ([phone] Performed By: #### C DP, DIME, CP, MG, TROPI, TSH ####[place] [id number] Troponinon 02-17-2018 Troponin I.cardiac mass conc Normal [facility] Comment on above: Result Comment: Refe rence Range: <0.03 Within reference range. 0.03-0.09 Possible myocardial damage.Repeat at appropriate intervals to rule out chronic elevation. >= 0.10 Indicative of myocardial damage.Patients with high levels of Biotin oral intake (i.e >5mg/day) may have falsely decreased Troponin T levels. Samples collected within 8 hours of biotin intake may require additional information for diagnosis.Performed at [facility] [address] [facility] [place] [address] Performed By: #### C DP, DIME, CP, MG, TROPI, TSH ####[place] [address] [facility] [place] [address] Troponin T.cardiac mass conc ug/L Normal <0.03 [facility] Comment on above: Result Comment: Trop onin T results cannot be compared to Troponin-I results. Performed By: #### C DP, DIME, CP, MG, TROPI, TSH ####[place] [address] [facility], [place] [phone] Urinalysis, Routineon 2018 Acetaminophen mass conc TRACE Abnormal NEG [facility] Comment on above: Performed By: #### U A ####[place] [address] [facility] [place] [address] Bilirubin (direct) Negative Normal NEG [facility] Comment on above: Performed By: #### U A ####[address] [place] [address] Comment Normal [facility] Comment on above: Result Comment: Perf ormed at [facility] [address] [facility] [place], [place] [phone] Performed By: #### U A ####[address] [place] [address] Hemoglobin mass conc (Bld) Negative Normal NEG [facility] Comment on above: Performed By: #### U A ####[facility] [place] [address] Nitrite,Ur Negative Normal NEG [facility] Comment on above: Performed By: #### U A ####[facility] [place] [address] Turbidity CLEAR Normal CLEAR [facility] Comment on above: Performed By: #### U A ####[facility] [place] [address] Urine, color YELLOW Normal YEL [facility] Comment on above: Performed By: #### U A ####[place] [address] [place] [address] Urine, glucose presence Negative Normal NEG [facility] Comment on above: Performed By: #### U A ####[place] [address] [place] [address] Urine, leukocyte esterase presence Negative Normal NEG [facility] Comment on above: Performed By: #### U A ####[place] [address] [place] [address] Urine, pH 7.0 [pH] Normal 5.0-8.0 [facility] Comment on above: Performed By: #### U A ####[place] [address] [place] [address] Urine, protein presence Negative Normal NEG [facility] Comment on above: Performed By: #### U A ####[facility] [place] [address] Urine, specific gravity 1.010 Normal 1.005-1.030 [facility] Comment on above: Performed By: #### U A ####[place] [address] [place] [address] Urobilinogen,Ur Normal Normal NORM [facility] Comment on above: Performed By: #### U A ####[facility] [facility] [place] [address] XR CHEST (2 VW)on 02-17-2018 XR CHEST (2 VW) TWO-VIEW CHESTCOMPAR KOLE: Two-view chest from 12/30/2015.REASON FOR STUDY: Chest pain and dizziness.REPORT: Trachea, mediastinum, heart size, diaphragm and bony elements are intact. The lungs show good aeration with slight chronic changes. No effusion, nodule, or pneumothorax is noted. The bony elements are unremarkable.IMPRESSION: Nonacute two-view chest.Interpreted by:fEren Dodson, DOSigned by:Efren Dodson, DO02/16/18Final result Normal [facility] CBC with Diffon 02-16-2018 Erythrocyte morphology NOT REPORTED Normal [facility] Comment on above: Performed By: #### C DP, DIME, CP, MG, TROPI, TSH ####[place] [address] [place] [address] Erythrocytes (RBC) NOT REPORTED Normal [facility] Comment on above: Performed By: #### C DP, DIME, CP, MG, TROPI, TSH ####[facility] [place] [place] [address] Granulocytes/100 WBC (Bld) NOT REPORTED Normal 0.00-0.30 [facility] Comment on above: Performed By: #### C DP, DIME, CP, MG, TROPI, TSH ####[facility] [place] [address] Immature granulocytes #/vol (Bld) NOT REPORTED Normal 0 [facility] Comment on above: Performed By: #### C DP, DIME, CP, MG, TROPI, TSH ####[facility] [place] [place] [address] Platelet mean volume (PMV) NOT REPORTED Normal 6.0-12.0 [facility] Comment on above: Performed By: #### C DP, DIME, CP, MG, TROPI, TSH ####[facility] [place] [address] Platelets NOT REPORTED Normal [facility] Comment on above: Performed By: #### C DP, DIME, CP, MG, TROPI, TSH ####[facility] [place] [address] WBC Morphology NOT REPORTED Normal [facility] Comment on above: Performed By: #### C DP, DIME, CP, MG, TROPI, TSH ####[facility] [place] [address] Comp Metabolic Profon 2017 Albumin/Globulin Ratio NOT REPORTED Normal 1.0-2.5 [facility] Comment on above: Performed By: #### C DP, DIME, CP, MG, TROPI, TSH ####[facility] [place] [address] Staging: NOT REPORTED Normal [facility] Comment on above: Performed By: #### C DP, DIME, CP, MG, TROPI, TSH ####[facility] [place] [address] ED Provider Noteon 8 HIM IP Note OR Rn Maternal Child Normal [facility] Vital Signs Date Time Vital Sign Value Performing Clinician Facility 10-06-2023 10:15-0500 Body height 160.02 cm Reyna Bah Other [facility] Other 10-06-2023 10:15-0500 Body mass index (BMI) [Ratio] 32.77 kg/m2 Reyna POPS [employer] Other [facility] Other 10-06-2023 10:15-0500 Body weight 83.92 kg Reyna Kuns Other [facility] Other 10-06-2023 10:15-0500 Diastolic blood pressure 100 mm[Hg] Reyna Kuns Other [facility] Other 10-06-2023 10:15-0500 Respiratory rate 16 /min Reyna Kuns Other [facility] Other 10-06-2023 10:15-0500 SaO2% (BldA) [Mass fraction] 96 % Reyna Kuns Other [facility] Other 10-06-2023 10:15-0500 Systolic blood pressure 126 mm[Hg] Reyna Kuns Other [facility] Other 01-18-2023 09:45-0400 Body height 160.02 cm Reyna Kuns Other [facility] Other 01-18-2023 09:45-0400 Body mass index (BMI) [Ratio] 34.89 kg/m2 Reyna Kuns Other [facility] Other 01-18-2023 09:45-0400 Body weight 89.36 kg Reyna Kuns Other [facility] Other 01-18-2023 09:45-0400 Diastolic blood pressure 82 mm[Hg] Reyna Kuns Other [facility] Other 01-18-2023 09:45-0400 Respiratory rate 18 /min Reyna Kuns Other [facility] Other 01-18-2023 09:45-0400 SaO2% (BldA) [Mass fraction] 96 % Reyna Kuns Other [facility] Other 01-18-2023 09:45-0400 Systolic blood pressure 122 mm[Hg] Reyna Kuns Other [facility] Other 11-16-2022 09:30-0500 Body height 160.02 cm Reyna Kuns Other [facility] Other 10-28-2022 13:45-0500 Body height 160.02 cm Reyna Kuns Other [facility] Other 02-10-2022 13:30-0400 Body height 160.02 cm Reyna Kuns Other [facility] Other 02-10-2022 13:30-0400 Body mass index (BMI) [Ratio] 34.01 kg/m2 Reyna Kuns Other [facility] Other 02-10-2022 13:30-0400 Body weight 87.09 kg Reyna Kuns Other [facility] Other 02-10-2022 13:30-0400 Diastolic blood pressure 80 mm[Hg] Reyna Kuns Other [facility] Other 02-10-2022 13:30-0400 Respiratory rate 18 /min Reyna Kuns Other [facility] Other 02-10-2022 13:30-0400 SaO2% (BldA) [Mass fraction] 97 % Reyna Kuns Other [facility] Other 02-10-2022 13:30-0400 Systolic blood pressure 135 mm[Hg] Reyna Kuns Other [facility] Other 12-06-2021 00:53-0400 Diastolic blood pressure 68 mm[Hg] Reyna Kuns Other Phone: [facility] 12-06-2021 00:53-0400 Heart rate 96 /min Reyna Kuns Other Phone: [facility] 12-06-2021 00:53-0400 Respiratory rate 16 /min Reyna Kuns Other Phone: [facility] 12-06-2021 00:53-0400 SaO2% (BldA) [Mass fraction] 98 % Reyna Kuns Other Phone: [facility] 12-06-2021 00:53-0400 Systolic blood pressure 146 mm[Hg] Reyna Kuns Other Phone: [facility] 12-05-2021 18:06-0400 Body height 165.1 cm Reyna Kuns Other Phone: [facility] 12-05-2021 18:06-0400 Body temperature 99.32 [degF] Reyna Kuns Other Phone: [facility] 12-05-2021 18:06-0400 Body weight 90 kg Reyna Kuns Other Phone: [facility] 11-11-2021 15:00-0500 Body height 160.02 cm Reyna Kuns Other [facility] Other 11-11-2021 15:00-0500 Body mass index (BMI) [Ratio] 35.25 kg/m2 Reyna Kuns Other [facility] Other 11-11-2021 15:00-0500 Body weight 90.27 kg Reyna Kuns Other [facility] Other 11-11-2021 15:00-0500 Diastolic blood pressure 84 mm[Hg] Reyna Kuns Other [facility] Other 11-11-2021 15:00-0500 Respiratory rate 16 /min Reyna Kuns Other [facility] Other 11-11-2021 15:00-0500 SaO2% (BldA) [Mass fraction] 98 % Reyna Kuns Other [facility] Other 11-11-2021 15:00-0500 Systolic blood pressure 104 mm[Hg] Reyna Kuns Other [facility] Other 08-20-2021 11:45-0500 Body height 160.02 cm Reyna Kuns Other [facility] Other 08-20-2021 11:45-0500 Body mass index (BMI) [Ratio] 35.42 kg/m2 Reyna Kuns Other [facility] Other 08-20-2021 11:45-0500 Body weight 90.72 kg Reyna Kuns Other [facility] Other 08-20-2021 11:45-0500 Diastolic blood pressure 96 mm[Hg] Reyna Kuns Other [facility] Other 08-20-2021 11:45-0500 Respiratory rate 16 /min Reyna Kuns Other [facility] Other 08-20-2021 11:45-0500 SaO2% (BldA) [Mass fraction] 99 % Reyna Kuns Other [facility] Other 08-20-2021 11:45-0500 Systolic blood pressure 140 mm[Hg] Reyna Kuns Other [facility] Other 07-16-2021 13:30-0400 Body height 160.02 cm Reyna Kuns Other [facility] Other 07-16-2021 13:30-0400 Body mass index (BMI) [Ratio] 36.31 kg/m2 Reyna Kuns Other [facility] Other 07-16-2021 13:30-0400 Body weight 92.99 kg Reyna Kuns Other [facility] Other 07-16-2021 13:30-0400 Diastolic blood pressure 74 mm[Hg] Reyna Kuns Other [facility] Other 07-16-2021 13:30-0400 Respiratory rate 18 /min Reyna Ejs Other [facility] Other 07-16-2021 13:30-0400 SaO2% (BldA) [Mass fraction] 98 % Reyna Ejs Other [facility] Other 07-16-2021 13:30-0400 Systolic blood pressure 122 mm[Hg] Reyna Kuns Other [facility] Other Encounters Encounter Date Encounter Type Care Provider Facility Start: 06-28-2024 End: 06-28-2024 ambulatory No Pcp [facility] Start: 06-28-2024 End: 06-28-2024 Patient encounter procedure No Pcp [facility] Appointment [facility] Start: 06-25-2024 End: 06-25-[address] [facility] Start: 06-22-2024 End: 06-22-2024 [facility] Comment on above: SPP Inflammatory Con ditions - Medication Refill (Enbrel) Start: 06-14-2024 ambulatory [facility] Start: 06-11-2024 End: 06-11-2024 ambulatory [facility] Start: 06-04-2024 End: 06-04-2024 ambulatory Richelle Atkins MD Work Phone: Neurology Comment on above: Intractable chronic migraine without aura and without status migrainosus (Primary Dx); Cervicogenic headache Start: 06-04-2024 End: 06-04-2024 Telemedicine consultation with patient Richelle Atkins MD Work Phone: Neurology Start: 05-25-2024 End: 05-25-2024 Specialty Pharmacy Gracy Osborne [facility] Comment on above: SPP Inflammatory Con ditions - Medication Refill (Enbrel) Start: 05-24-2024 End: 05-24-2024 ambulatory GENEVIEVE LOO [facility] Start: 05-23-2024 End: 05-23-2024 ambulatory REYNA BAH Facility:[facility] Start: 05-23-2024 End: 05-23-2024 Office outpatient visit 25 minutes Samy Mansfield MD Work Phone: Rheumatology Comment on above: BRISA (juvenile idiopa thic arthritis) (HCC) (Primary Dx); Seronegative rheumatoid arthritis (HCC); Inflammatory polyarthropathy (HCC); Encounter for monitoring of etanercept therapy; Vitamin D deficiency-chronic; Counseling on health promotion and disease prevention; Medication monitoring encounter; Elevated liver enzymes Start: 05-16-2024 [facility] Start: 05-02-2024 End: 05-02-2024 Specialty Pharmacy Gracy Osborne [facility] Comment on above: SPP Inflammatory Con ditions - Medication Refill (Enbrel) Start: 04-25-2024 End: 05-13-2024 ambulatory REYNA BAH [facility] Start: 04-17-2024 ambulatory Gracy Osborne [facility] Start: 04-17-2024 Follow-up encounter Gracy Osborne [facility] Comment on above: SPP Inflammatory Con ditions - Follow-up (Enbrel); Insurance Authorization ([place] Submitted) Start: 03-26-2024 ambulatory Kelsie Todd RN NURSE SENIOR WRITER Comment on above: Patient Question Start: 02-22-2024 End: 02-22-2024 ambulatory Richelle Atkins MD Work Phone: Neurology Comment on above: Intractable chronic migraine without aura and without status migrainosus (Primary Dx); Cervicogenic headache; Chronic daily headache SPP Inflammatory Con ditions - Medication Refill (Enbrel - N[facility] 01/2025) Start: 02-22-2024 End: 02-22-2024 Telemedicine consultation with patient Richelle Atkins MD Work Phone: Neurology Start: 02-08-2024 Telephone encounter Samy Cheatham MD Work Phone: Rheumatology Comment on above: Appointment Start: 02-01-2024 Specialty Pharmacy [facility] Comment on above: SPP Inflammatory Con ditions - Medication Refill (Enbrel (NCA 01/2025)) Start: 01-31-2024 Refill Samy krishna MD Work Phone: Rheumatology Comment on above: Refill Request Start: 01-05-2024 Refill [facility] Provider Neurology Comment on above: Refill Request Start: 12-20-2023 End: 12-21-20[facility] Start: 12-14-2023 Refill Rehana jon MD Work Phone: Neurology Comment on above: Refill Request Start: 10-06-2023 Office outpatient vi sit 25 minutes Reyna Bah [facility] [place] Start: 10-06-2023 End: 10-06-2023 ambulatory [address] [facility] [place] Other Start: 09-20-2023 Telephone encounter Ortiz Vizcarra RN [facility] Start: 09-02-2023 End: 09-02-2023 ambulatory REYNA BAH Facility:[facility] Start: 08-30-2023 End: 08-30-2023 ambulatory Krystal Ramos RT(R) Radiology Comment on above: Radiology XR Start: 08-30-2023 Patient encounter procedure Krystal Ramos RT(R) [facility] Start: 08-05-2023 Specialty Pharmacy [facility] Comment on above: SPP Inflammatory Con ditions - Medication Refill (Enbrel) Start: 07-19-2023 End: 07-19-2023 ambulatory Reyna Bah Other [facility] Other Start: 07-19-2023 Telephone encounter Reyna Bah [facility] Start: 07-11-2023 Specialty Pharmacy Gr[facility] Osborne [facility] Comment on above: SPP Inflammatory Con ditions - Medication Refill (Enbrel ) Start: 04-29-2023 Specialty Pharmacy [facility] Comment on above: SPP Inflammatory Con ditions - Medication Refill (Enbrel) Start: 04-28-2023 End: 04-28-2023 ambulatory Reyna Bah Other [facility] Other Start: 04-28-2023 Telephone encounter Reyna Bah [facility] Start: 04-22-2023 Refill Samy krishna MD Work Phone: Rheumatology Comment on above: Refill Request Start: 04-07-2023 End: 04-07-2023 ambulatory Reyna Bah Other [facility] Other Start: 04-07-2023 Telephone encounter Reyna Bah [facility] Start: 03-30-2023 Specialty Pharmacy [facility] Comment on above: SPP Inflammatory Con ditions - Medication Refill (Enbrel) Start: 03-09-2023 Telephone encounter Rehana Knutson MD Work Phone: Neurology Comment on above: appointment question s Start: 03-09-2023 End: 03-09-2023 ambulatory Rehana Knutson MD Work Phone: Neurology Comment on above: Intractable chronic migraine without aura and without status migrainosus (Primary Dx) Start: 03-09-2023 End: 03-09-2023 Telemedicine consultation with patient Rehana Knutson MD Work Phone: [facility] Start: 03-02-2023 Specialty Pharmacy [facility] Comment on above: SPP Inflammatory Con ditions - Medication Refill (Enbrel) Start: 01-18-2023 End: 01-18-2023 ambulatory Reyna Bah Other [facility] Other Start: 01-18-2023 Office outpatient vi sit 25 minutes Reyna Bah [facility] Start: 12-14-2022 End: 12-14-2022 ambulatory Samy Mansfield MD Work Phone: Rheumatology Comment on above: BRISA (juvenile idiopa thic arthritis) (HCC) (Primary Dx); Inflammatory polyarthropathy (HCC); Encounter for monitoring of etanercept therapy; Encounter for monitoring of methotrexate therapy Start: 12-14-2022 End: 12-14-2022 Telemedicine consultation with patient Samy Mansfield MD Work Phone: [facility] Start: 12-09-2022 Telephone encounter Samy Cheatham MD Work Phone: Internal Medicine [place] Comment on above: Outside Lab Results; Results; Medication Problem Start: 12-02-2022 End: 12-02-2022 ambulatory Reyna Bah Other [facility] Other Start: 12-02-2022 Telephone encounter Reyna Bah [facility] Start: 11-30-2022 End: 11-30-2022 ambulatory Reyna Bah Other [facility] Other Start: 11-30-2022 Telephone encounter Reyna Bah [facility] [address] Start: 11-26-2022 End: 11-26-2022 ambulatory Rehana Knutson MD Work Phone: Neurology Comment on above: Intractable chronic migraine without aura and without status migrainosus (Primary Dx); Cervicogenic headache Start: 11-26-2022 End: 11-26-2022 Telemedicine consultation with patient Rehana Knutson MD Work Phone: [facility] Start: 11-22-2022 Specialty Pharmacy Gracy Osborne [facility] Comment on above: SPP Inflammatory Con ditions - Medication Refill (Enbrel) Start: 11-16-2022 End: 11-16-2022 ambulatory Reyna Bah Other [facility] Other Start: 11-16-2022 Office outpatient vi sit 25 minutes Reyna Bah [facility] Start: 11-12-2022 End: 11-12-2022 ambulatory Reyna Bah Other [facility] Other Start: 11-12-2022 Telephone encounter Reyna Bah [facility] Start: 10-28-2022 Office outpatient vi sit 15 minutes Reyna Bah [facility] Start: 10-28-2022 End: 10-28-2022 Refill Samy Mansfield MD Work Phone: [facility] Comment on above: Refill Request Start: 10-27-2022 End: 10-27-2022 ambulatory Samy Mansfield MD Work Phone: Rheumatology Comment on above: BRISA (juvenile idiopa thic arthritis) (HCC) (Primary Dx); Inflammatory polyarthropathy (HCC); Encounter for monitoring of etanercept therapy; Encounter for monitoring of methotrexate therapy; Abscess of scalp, improving with Bactrim; Vitamin D deficiency-chronic; Encounter to discuss test results; Encounter for medication review and counseling; Rheumatoid arthritis involving right wrist, unspecified whether rheumatoid factor present ([facility]) Abcess Start: 10-27-2022 End: 10-27-2022 Telemedicine consultation with patient Samy Mansfield MD Work Phone: [facility] Start: 10-25-2022 Telephone encounter Samy Cheatham MD Work Phone: [address] [place] [address] Comment on above: Patient Update Start: 10-24-2022 End: 10-24-[address] REYNA BAH Facility: Start: 09-14-2022 Refill Barbi mejia SUBSTATION SUPERINTENDENT.ENVIRONMENTAL LAW PROFESSOR Work Phone: Neurology Comment on above: Refill Request Start: 09-03-2022 Specialty Pharmacy [facility] Comment on above: SPP Inflammatory Con ditions - Medication Refill (Enbrel vials) Start: 08-27-2022 End: 08-27-2022 ambulatory Reyna Bah Other [facility] Other Start: 08-27-2022 Telephone encounter Reyna Bah [facility] Start: 08-11-2022 End: 08-11-2022 ambulatory Barbi Hassan APRN.ENVIRONMENTAL LAW PROFESSOR Work Phone: [facility] [employer] [facility] Other Comment on above: Refill Request Start: 08-11-2022 Telephone encounter Reyna Bah [facility] Start: 07-13-2022 Specialty Pharmacy Gr[facility] Osborne [facility] Comment on above: SPP Inflammatory Con ditions - Medication Refill (Enbrel) Start: 07-09-2022 Refill Barbi mejia SUBSTATION SUPERINTENDENT.ENVIRONMENTAL LAW PROFESSOR Work Phone: Neurology Comment on above: Refill Request Start: 06-15-2022 Specialty Pharmacy Gr[facility] Osborne [facility] Comment on above: SPP Inflammatory Con ditions - Medication Refill (Enbrel) Start: 05-18-2022 Specialty Pharmacy Gracy Osborne [facility] Comment on above: SPP Inflammatory Con ditions - Medication Refill (Enbrel) Start: 04-26-2022 End: 04-26-2022 ambulatory Reyna Bah Other [facility] Other Start: 04-26-2022 Telephone encounter Reyna GASPAR Museum Curator Start: 04-16-2022 Specialty Pharmacy Gr[facility] Osborne [facility] Comment on above: SPP Inflammatory Con ditions - Medication Refill (Enbrel) Start: 03-31-2022 End: 03-31-2022 Patient encounter procedure Gustavo Blanco MD Work Phone: Plastic Surgery Comment on above: Post-operative state (Primary Dx) Start: 03-31-2022 End: 03-31-2022 Subsequent hospital visit by physician Angela [facility] Work Phone: Radiology Comment on above: Pain of finger of ri ght hand [M79.644] Start: 03-30-2022 Telephone encounter Chelsea powell APRN.ENVIRONMENTAL LAW PROFESSOR Work Phone: Rheumatology Comment on above: Appointment Start: 03-29-2022 End: 03-29-2022 ambulatory Chelsea Mackey APRN.ENVIRONMENTAL LAW PROFESSOR Work Phone: Rheumatology Comment on above: BRISA (juvenile idiopa thic arthritis) ([facility]) (Primary Dx); Encounter for monitoring of etanercept therapy; Encounter for monitoring of methotrexate therapy; Encounter for screening for osteoporosis; Vitamin D deficiency-chronic; Encounter to discuss test results; Encounter for medication review and counseling; Counseling on health promotion and disease prevention Start: 03-29-2022 End: 03-29-2022 Telemedicine consultation with patient Chelsea Mackey APRN.ENVIRONMENTAL LAW PROFESSOR Work Phone: [facility] Start: 03-26-2022 End: 03-26-2022 ambulatory Reyna Bah Other [facility] Other Start: 03-26-2022 Telephone encounter Reyna GASPAR Museum Curator Start: 03-12-2022 Specialty Pharmacy Gr[facility] Osborne [facility] Comment on above: SPP Inflammatory Con ditions - Medication Refill (Enbrel) Start: 03-09-2022 Refill Chelsea Mackey APRN.ENVIRONMENTAL LAW PROFESSOR Work Phone: Rheumatology Comment on above: Refill Request Start: 02-23-2022 End: 02-23-2022 Specialty Pharmacy [facility] Os[facility] Comment on above: SPP Inflammatory Con ditions - Medication Refill (Enbrel) Start: 02-23-2022 Telephone encounter Reyna Bah [facility] Start: 02-10-2022 End: 02-10-2022 ambulatory Reyna Bah Other [employer] Other Start: 02-10-2022 Office outpatient vi sit 25 minutes Reynakerri Bah [facility] Start: 02-02-2022 End: 02-02-2022 Subsequent hospital visit by physician Xr [facility] Work Phone: Radiology Comment on above: Pain of finger of ri ght hand [M79.644] Start: 02-02-2022 End: 02-02-2022 Patient encounter procedure Gustavo Blanco MD Work Phone: Plastic Surgery Comment on above: Post-operative state (Primary Dx) Start: 01-14-2022 End: 01-14-2022 ambulatory Reyna Bah Other [employer] Other Start: 01-14-2022 Telephone encounter Reyna Ejs [facility] Start: 01-12-2022 End: 01-12-2022 ambulatory Reyna Ejs Other [employer] Other Start: 01-12-2022 Telephone encounter Reyna Ejs [facility] Start: 01-06-2022 End: 01-06-2022 ambulatory Barbi Hassan APRN.ENVIRONMENTAL LAW PROFESSOR Work Phone: Neurology Comment on above: Cervicogenic headach e (Primary Dx); Intractable chronic migraine without aura and without status migrainosus; Cervicalgia; Insomnia, unspecified type; Trouble staying asleep; Snoring Start: 01-06-2022 End: 01-06-2022 Telemedicine consultation with patient Barbi Hassan APRN.ENVIRONMENTAL LAW PROFESSOR Work Phone: [facility] Start: 01-04-2022 Refill Rehana jon MD Work Phone: Neurology Comment on above: Refill Request Start: 12-28-2021 End: 12-28-2021 ambulatory [employer] [facility] Other [employer] Other Start: 12-28-2021 Telephone encounter Reyna Bah [facility] Start: 12-22-2021 End: 12-22-2021 Patient encounter procedure Gustavo Blanco MD Work Phone: Plastic Surgery Comment on above: Post-operative state (Primary Dx) Start: 12-22-2021 End: 12-22-2021 Subsequent hospital visit by physician Xr [facility] Work Phone: Radiology Comment on above: Pain of finger of ri ght hand [M79.644] Start: 12-10-2021 Telephone encounter Samy Cheatham MD Work Phone: Rheumatology Comment on above: Appointment (Follow up appointments ) Start: 12-05-2021 End: 12-06-2021 Emergency department patient visit [facility] Start: 12-01-2021 End: 12-01-2021 Subsequent hospital visit by physician Xr [facility] Work Phone: Radiology Comment on above: Pain of finger of ri ght hand [M79.644] Start: 11-14-2021 End: 11-14-2021 ambulatory Reyna Lobito Other [employer] Other Start: 11-14-2021 Telephone encounter Reyna Bah [facility] Start: 11-13-2021 Preoperative state Ortiz Parker RN [facility] Start: 11-11-2021 End: 11-11-2021 ambulatory Reyna Kuns Other [employer] Other Start: 11-11-2021 Encounter for other preprocedural examination Reyna Kuns [facility] [place] Start: 11-11-2021 Office outpatient vi sit 25 minutes Reyna Kuns [facility] [place] Start: 10-28-2021 End: 10-28-2021 ambulatory Reyna Kuns Other [employer] Other Start: 10-28-2021 Telephone encounter Reyna Kuns [facility] [place] Start: 09-15-2021 End: 09-15-2021 ambulatory Reyna Kuns Other [employer] Other Start: 09-15-2021 Telephone encounter Reyna Kuns [facility] [place] Start: 08-20-2021 End: 08-20-2021 ambulatory Reyna Kuns Other [employer] Other Start: 08-20-2021 Office outpatient vi sit 25 minutes Reyna Kuns [facility] [place] Start: 08-18-2021 End: 08-18-2021 ambulatory Reyna Kuns Other [employer] Other Start: 08-18-2021 Telephone encounter Reyna Kuns [facility] [place] Start: 08-17-2021 End: 08-17-2021 ambulatory Reyna Kuns Other [employer] Other Start: 08-17-2021 Telephone encounter Reyna Kuns [facility] Start: 08-04-2021 End: 08-04-2021 ambulatory Reyna Kuns Other [employer] Other Start: 08-04-2021 Telephone encounter Reyna Bah [facility] [place] Start: 07-28-2021 End: 07-28-2021 ambulatory Reyna Bah Other [employer] Other Start: 07-28-2021 Telephone encounter Reyna Bah [facility] Start: 07-16-2021 End: 07-16-2021 ambulatory Reyna Bah Other [employer] Other Start: 07-16-2021 Office outpatient vi sit 25 minutes Reynakerri Bah [facility] Start: 06-10-2021 End: 06-10-2021 Subsequent hospital visit by physician Xr [facility] Work Phone: Radiology Comment on above: Pain [R52] Start: 05-14-2021 Annual wellness visit Reyna dickerson Other [employer] Other Start: 02-16-2018 End: 02-17-2018 Emergency department patient visit BRETT [facility] Procedures Date Procedure Procedure Detail Performing Clinician Start: 03-31-2022 Radex fingr minimum 2 views Nedra Womack APRN.CIERRA Work Phone: Start: 02-02-2022 Radex fingr minimum 2 views Nedra Womack SUBSTATION SUPERINTENDENT.ENVIRONMENTAL LAW PROFESSOR Work Phone: Start: 01-06-2022 Adult depression screening assessment Barbi Hassan SUBSTATION SUPERINTENDENT.ENVIRONMENTAL LAW PROFESSOR Work Phone: Start: 12-22-2021 Radex fingr minimum 2 views Nedra Womack SUBSTATION SUPERINTENDENT.ENVIRONMENTAL LAW PROFESSOR Work Phone: Start: 12-08-2021 Adult depression screening assessment Gustavo Blanco MD Work Phone: Start: 12-01-2021 Radex fingr minimum 2 views Nedra Womack SUBSTATION SUPERINTENDENT.ENVIRONMENTAL LAW PROFESSOR Work Phone: Start: 06-10-2021 Radex fingr minimum 2 views Gustavo Blanco MD Work Phone: Start: 02-17-2018 Ct angiography chest w/contrast/noncontrast BRETT [facility] Start: 02-17-2018 Urnls dip stick/tablet rgnt auto w/o microscopy BRETT [facility] Start: 02-17-2018 Radiologic exam chest 2 views BRETT [facility] Start: 02-16-2018 Assay of magnesium BRETT [facility] Start: 02-16-2018 Assay of thyroid stimulating hormone tsh BRETT [facility] Start: 02-16-2018 Blood count complete auto&auto difrntl wbc BRETT [facility] Start: 02-16-2018 Comprehensive metabolic panel BRETT [facility] Start: 02-16-2018 D-DIMER, QUANTITATIVE BRETT [facility] Start: 02-16-2018 TROPONIN BRETT [facility] Start: 02-16-2018 EKG 12-LEAD BRETT [facility] Start: 09-09-2015 H/O: artificial joint Wrist joint replacement status Gustavo Blanco MD Work Phone: Plan of Treatment Date Care Activity Detail Author Start: 11-14-2024 End: 11-14-2024 ambulatory 11/14/2024 9:20 AM EST [facility] Rhe[facility]ology [address] [place] [address] Samy Mansfield MD [address] [facility] [place] [address] f/u for RA Rheumatology Comment on above: f/u for RA Start: 10-09-2024 End: 10-09-2024 Patient encounter procedure 10/09/2024 3:20 PM EST Office Visit Rheumatology [address] [place] [address] Samy Mansfield MD [address] [place] [address] Follow up apt with me: Early 2024 for BRISA. This needs to be in person visit. Ok to use office visit only slot or virtual visit slot. Rheumatology Comment on above: Follow up apt with me: Early 2024 for JI A. This needs to be in person visit. Ok to use office visit only slot or virtual visit slot. Start: 09-06-2024 End: 09-06-2024 ambulatory 09/06/2024 8:00 AM [facility] Neurology [address] [place] [address] Barbi Hassan APRN.ENVIRONMENTAL LAW PROFESSOR [address] [place] [address] Cervicogenic headache [G44.86] Neurology Comment on above: Cervicogenic headache [G44.86] Start: 07-02-2024 End: 07-02-2024 Specialty Pharmacy 07/02/2024 7:15 AM EDT Specialty Pharmacy [facility] [address] [place] [address] Pharmacist, [facility] [address] [place] [address] [place] [address] REFILL Enbrel - PAx 04/30/25 - 07/03 (Tue & Shanna) - Ready for refill? see 06/22 [facility] encounter [facility] Comment on above: REFILL Enbrel - PAx 04/30/25 - ND 07/03 ( Tue & Shanna) - Ready for refill? see 06/22 [facility] encounter Start: 06-27-2024 End: 06-27-2024 Specialty Pharmacy 06/27/2024 7:00 AM EDT Specialty Pharmacy [facility] [address] [place] [address] Pharmacist, [facility] [address] [place] [id number] REFILL Enbrel - PAx 04/30/25 - ND 07/03 (Tue & Shanna) - Ready for refill? see 06/22 [facility] encounter [facility] Comment on above: REFILL Enbrel - PAx 04/30/25 - ND 07/03 ( Tue & Shanna) - Ready for refill? see 06/22 [facility] encounter Start: 06-22-2024 End: 06-22-2024 Specialty Pharmacy 06/22/2024 7:00 AM EDT Specialty Pharmacy [facility] [address] [place] [address] Pharmacist, [facility] [address] [place] [address] [place] [address] REFILL Enbrel - PAx 04/30/25 - 07/03 (Tue & Shanna) [facility] Comment on above: REFILL Enbrel - PAx 04/30/25 - 07/03 ( Tue & Shanna) Start: 05-25-2024 End: 05-25-2024 Specialty Pharmacy 05/25/2024 7:00 AM EDT Specialty Pharmacy [facility] [address] [place] [address] Pharmacist, [facility] [address] [place] [address] [place] [address] REFILL Enbrel - PAx 04/30/25 - 06/05? (Tue & Shanna) [facility] Comment on above: REFILL Enbrel - PAx 04/30/25 - 06/05? ( Tue & Shanna) Start: 05-24-2024 End: 05-24-2024 Follow-up encounter 05/24/2024 9:00 AM EDT [facility] Neurology [address] [place] [address] Richelle Atkins MD [address] [place] [address] FOLLOW UP Neurology Comment on above: FOLLOW UP Start: 05-23-2024 End: 08-22-2024 25-hydroxyvitamin D3 [Mass/volume] in Serum or Plasma VITAMIN D 25 HYDROXY Lab Routine BRISA (juvenile idiopathic arthritis) (HCC) Seronegative rheumatoid arthritis (HCC) Inflammatory polyarthropathy (HCC) Vitamin D deficiency-chronic Medication monitoring encounter Expected: 05/23/2024, Expires: 08/22/2024 [facility] Comment on above: Expected: 05/23/2024, Expires: Start: 05-23-2024 End: 08-22-2024 C reactive protein [Mass/volume] in Serum or Plasma C-REACTIVE PROTEIN Lab Routine BRISA (juvenile idiopathic arthritis) (HCC) Seronegative rheumatoid arthritis (HCC) Inflammatory polyarthropathy (HCC) Medication monitoring encounter Expected: 05/23/2024, Expires: 08/22/2024 [facility] Comment on above: Expected: 05/23/2024, Expires: Start: 05-23-2024 End: 08-22-2024 CBC W Auto Differential panel - Blood COMPLETE BLOOD COUNT AND DIFFERENTIAL Lab Routine BRISA (juvenile idiopathic arthritis) (HCC) Seronegative rheumatoid arthritis (HCC) Inflammatory polyarthropathy (HCC) Encounter for monitoring of etanercept therapy Medication monitoring encounter Expected: 05/23/2024, Expires: 08/22/2024 [facility] Work Phone: Comment on above: Expected: 05/23/2024, Expires: Start: 05-23-2024 End: 08-22-2024 Chronic hepatitis differentiation between hepatitis B and C virus panel - Serum or Plasma HEP REMOTE PANEL BL Lab Routine BRISA (juvenile idiopathic arthritis) (HCC) Seronegative rheumatoid arthritis (HCC) Inflammatory polyarthropathy (HCC) Encounter for monitoring of etanercept therapy Medication monitoring encounter Elevated liver enzymes Expected: 05/23/2024, Expires: 08/22/2024 [facility] Comment on above: Expected: 05/23/2024, Expires: Start: 05-23-2024 End: 08-22-2024 Comprehensive metabolic 2000 panel - Serum or Plasma COMPREHENSIVE METABOLIC PANEL Lab Routine BRISA (juvenile idiopathic arthritis) (HCC) Seronegative rheumatoid arthritis (HCC) Inflammatory polyarthropathy (HCC) Encounter for monitoring of etanercept therapy Medication monitoring encounter Elevated liver enzymes Expected: 05/23/2024, Expires: 08/22/2024 [facility] Comment on above: Expected: 05/23/2024, Expires: Start: 05-13-2024 Covid-19 Vaccine () Covid-19 Vaccine () [facility] Start: 05-13-2024 Covid-19 Vaccine () Covid-19 Vaccine ( season) [facility] Start: 05-13-2024 Influenza vaccination Influenza Vaccine (#1) [facility] Start: 05-04-2024 End: 05-04-2024 Specialty Pharmacy 05/04/2024 7:00 AM EDT Specialty Pharmacy [facility] [address] [place] [address] Pharmacist, [facility] [address] [place] [address] [place] [address] REFILL Enbrel - PAx 04/30/25 - ND ? (Tue & Shanna) - full 05/02 [facility] Comment on above: REFILL Enbrel - PAx 04/30/25 - ND ? (Tue & Shanna) - full 05/02 Start: 04-19-2024 End: 04-19-2024 Specialty Pharmacy 04/19/2024 7:00 AM EDT Specialty Pharmacy [facility] [address] [place] [address] Pharmacist, [facility] [address] [place] [address] [place] [address] REFILL Enbrel - PAx 03/29/24, sub 04/17 - ND 04/24 (Tue & Shanna) [facility] Comment on above: REFILL Enbrel - PAx 03/29/24, sub 04/17 - N D 04/24 (Tue & Shanna) Start: 04-16-2024 End: 04-16-2024 Specialty Pharmacy 04/16/2024 7:00 AM EDT Specialty Pharmacy [facility] [address] [place] [address] Pharmacist, [facility] [address] [place] [address] [address] [place], [place] [id number] REFILL Enbrel - PAx 03/29/24 - ND 04/24 (Tue & Shanna) [facility] Comment on above: REFILL Enbrel - PAx 03/29/24 - ND 04/24 (T ue & Shanna) Start: 04-04-2024 Adult BMI Screening Adult BMI Screening [facility] Start: 04-04-2024 Tobacco Screening Tobacco Screening [facility] Start: 04-03-2024 End: 04-03-2024 Patient encounter procedure 04/03/2024 11:40 AM EDT Office Visit Rheumatology [address] [facility] [address] [place] [address] Samy Mansfield MD [address] [place] [address] Please offer 04/03/2024 apt with me at 11:40 am at [place]. Rheumatology Comment on above: Please offer 04/03/2024 apt with me at 11 :40 am at [place]. Start: 03-19-2024 End: 03-19-2024 Specialty Pharmacy 03/19/2024 7:00 AM EDT Specialty Pharmacy [facility] [address] [place] [address] Pharmacist, Specialty[address] [place] [address] REFILL Enbrel - PAx 03/29/24 - 03/27 (Tue & Shanna) [facility] Comment on above: REFILL Enbrel - PAx 03/29/24 - ND 03/27 (T ue & Shanna) Start: 02-22-2024 End: 02-22-2024 ambulatory 02/22/2024 9:30 AM EDT [facility] [address] [facility] [place] [id number] Richelle Atkins MD [address] [place] [phone] Re establish care. Previous pt of Neurology Comment on above: Re establish care. Previous pt of Dr.Bam vidal Start: 02-21-2024 End: 02-21-2024 Specialty Pharmacy 02/21/2024 7:00 AM EDT Specialty Pharmacy [facility] [address] [place] [address] Pharmacist, [facility] [address] [place] [address] [place] [address] REFILL -Enbrel (tues/thur) PA exp 03/29/24 [facility] Comment on above: REFILL -Enbrel (tues/thur) PA exp 4 Start: 02-03-2024 End: 02-03-2024 Follow-up encounter 02/03/2024 3:40 PM EDT [facility] Rhe[facility] [address] [address] Samy Mansfield MD [address] [facility] [address] [place], [place] [id number] Follow up apt with me 05/03/2023 at 2:40 pm for BRISA Rheumatology Comment on above: Follow up apt with me 05/03/2023 at 2:40 pm for BRISA Start: 09-23-2023 Covid-19 Vaccine ( season) Covid-19 Vaccine ( season) [facility] Start: 09-12-2023 Behavioral Health Screening Behavioral Health Screening [facility] Start: 05-13-2023 Covid-19 Vaccine ( season) Covid-19 Vaccine ( season) [facility] Start: 05-13-2023 Influenza vaccination [facility] Start: 01-06-2023 Adult depression screening assessment DEPRESSION SCREENING [facility] Start: 12-08-2022 Adult depression screening assessment DEPRESSION SCREENING [facility] Start: 09-21-2022 COVID-19 VACCINE (6 - Moderna risk series) COVID-19 VACCINE (6 - Moderna risk series) [facility] Start: 09-12-2022 DEPRESSION ASSESSMENT DEPRESSION ASSESSMENT [facility] Start: 05-13-2022 Influenza vaccination INFLUENZA (#1) [facility] Start: 05-08-2022 COVID-19 VACCINE (5 - Booster for Moderna series) COVID-19 VACCINE (5 - Booster for Moderna series) [facility] Start: 03-29-2022 End: 05-29-2022 25-hydroxyvitamin D3 [Mass/volume] in Serum or Plasma VITAMIN D 25 HYDROXY Lab Routine BRISA (juvenile idiopathic arthritis) ([facility]) Vitamin D deficiency-chronic Expected: 03/29/2022, Expires: 05/29/2022 [facility] Work Phone: Comment on above: Expected: 03/29/2022, Expires: 2 Start: 03-29-2022 End: 05-29-2022 CBC W Auto Differential panel - Blood CBC + DIFF Lab Routine BRISA (juvenile idiopathic arthritis) (HCC) Expected: 03/29/2022, Expires: 05/29/2022 [facility] Work Phone: Comment on above: Expected: 03/29/2022, Expires: 2 Start: 03-29-2022 End: 05-29-2022 Comprehensive metabolic 2000 panel - Serum or Plasma COMP METABOLIC PANEL Lab Routine BRISA (juvenile idiopathic arthritis) ([facility]) Expected: 03/29/2022, Expires: 05/29/2022 [facility] Work Phone: Comment on above: Expected: 03/29/2022, Expires: 2 Start: 03-03-2022 COVID-19 VACCINE (5 - Booster for Moderna series) COVID-19 VACCINE (5 - Booster for Moderna series) [facility] Start: 10-19-2021 COVID-19 VACCINE (4 - Booster for Moderna series) COVID-19 VACCINE (4 - Booster for Moderna series) [facility] Start: 09-12-2021 DEPRESSION ASSESSMENT DEPRESSION ASSESSMENT [facility] Start: 2020 Mammography [facility] Start: 2020 Screening for malignant neoplasm of breast Mammogram Screening [facility] Start: 2010 HPV TESTING HPV TESTING [facility] Start: 2010 Screening for malignant neoplasm of cervix HPV Testing [facility] Start: 2001 PAP TESTING PAP TESTING [facility] Start: 2001 Screening for malignant neoplasm of cervix Pap Testing [facility] Start: 1999 DTaP,Tdap and Td Vaccines (1 - Tdap) DTaP,Tdap and Td Vaccines (1 - Tdap) [facility] [employer] [facility] Start: 1999 Hepatitis B Vaccine (1 of 3 - 19+ 3-dose series) Hepatitis B Vaccine (1 of 3 - 19+ 3-dose series) [facility] Start: 1999 SHINGRIX VACCINE (1 of 2) SHINGRIX VACCINE (1 of 2) [facility] Start: 1999 Urine microalbumin profile [facility] Start: 1998 Adult BMI Follow Up Plan Adult BMI Follow Up Plan [facility] Start: 1998 Anxiety Screening Anxiety Screening [facility] Start: 1998 Depression Screening Depression Screening [facility] Start: 1998 HEPATITIS C SCREENING HEPATITIS C SCREENING [facility] Start: 1998 Hepatitis C screening Hepatitis C Screening [facility] Start: 1998 HIV SCREENING HIV SCREENING [facility] Start: 1998 HIV screening HIV Screening [facility] Start: 1992 Depression Screening Depression Screening [facility] Start: 1991 Screening for malignant neoplasm of cervix Cervical Cancer Screening [facility] Start: 1986 PNEUMOCOCCAL (1 - PCV) PNEUMOCOCCAL (1 - PCV) [facility] Start: 1986 Pneumococcal vaccination Pneumococcal Vaccine (1 - PCV) [facility] Start: 1980 HEPATITIS B (1 of 3 - 3-dose series) HEPATITIS B (1 of 3 - 3-dose series) [facility] Start: 1980 Hepatitis B Vaccine (1 of 3 - 3-dose series) Hepatitis B Vaccine (1 of 3 - 3-dose series) [facility] End: 03-31-2023 XR HAND GENERAL 3V PA/LAT/OBL RIGHT XR HAND GENERAL 3V PA/LAT/OBL RIGHT Radiology Routine Post-operative state Once per week for 10 Occurrences starting 03/31/2022 until 03/31/2023 [facility] Work Phone: Comment on above: Once per week for 10 Occurrences startin g 03/31/2022 until 03/31/2023 [facility] c [facility] Immunizations Immunization Date Immunization Notes Care Provider Barbara guerrero 07-29-2023 influenza virus vaccine, unspecified formulation Kelsie Todd RN [facility] 07-27-2022 Influenza, injectable, Madin Tammy Canine Kidney, preservative free, quadrivalent Krystal Rachel RT(R) [facility] 07-27-2022 influenza virus vaccine, unspecified formulation Gracy Osborne [facility] 01-06-2022 COVID-19 original vaccine, full dose, monovalent (MODERNA) Krystal Rachel RT(R) [facility] 07-19-2021 COVID-19 original vaccine, full dose, monovalent (MODERNA) Krystal Rachel RT(R) [facility] 07-19-2021 influenza, injectable, quadrivalent, preservative free Krystal Rachel RT(R) [facility] 12-11-2020 COVID-19 Vaccine Moderna - Documentation Purposes Only Reyna Kuns Other [facility] 11-13-2020 COVID-19 Vaccine Moderna - Documentation Purposes Only Reyna Kuns Other [facility] 07-03-2020 influenza, injectable, quadrivalent, preservative free Reyna Kuns Other [facility] 06-28-2019 influenza, injectable, quadrivalent, preservative free Reyna Kuns Other [facility] 06-12-2019 influenza, seasonal, injectable, preservative free Reyna Kuns Other [facility] 07-03-2018 influenza, injectable, quadrivalent, preservative free Reyna Kuns Other [facility] 09-22-2017 influenza, injectable, quadrivalent, contains preservative Reyna Lobito Other [facility] 07-10-2009 novel [id number], preservative-free, injectable Krystal Ramos RT(R) [facility] NEGATED: Highlighted row has not occurred! 9 influenza, seasonal, injectable Patient Objection Reynakerri Bah Other [employer] Other NEGATED: Highlighted row has not occurred! 7 influenza, injectable,quadriva lent, preservative free, pediatric Patient Objection Reyna Bah Other [employer] Other Payers Date Payer Category Payer Self-pay 2019 Medicaid [id number] 2019 Medicare [id number] 2018 Medicare ANTHEM MEDICARE ANTHEM MEDICARE ADVANTAGE [id number] 2018-Present [phone] [address] [place] [id number] 2018 Unknown [facility] ANTHEM MEDIBLUE O [id number] 2018-Present [phone] [address] [place] [address] [facility] [id number] 2014 Medicare [id number] 2008 Unknown 1980 Unknown [id number] 1980 Unknown [id number] 1980 Unknown [id number] [id number] 1980 Unknown [id number] [id number] 1980 Unknown [id number] 2.16.840.1.272769.3.579.2.1286 1980 Unknown [id number] 2.16.840.1.487926.3.579.2.1286 1980 Unknown [id number] 2.16.840.1.572284.3.579.2.1286 1980 Unknown [id number] 2.16.840.1.175471.3.579.2.1286 1980 Unknown [id number] 2.16.840.1.848435.3.579.2.1286 1980 Unknown [id number] 2.16.840.1.128485.3.579.2.1286 1980 Unknown [id number] 1959 Medicare [id number] Unknown [id number] [id number] Unknown [id number] Social History Date Type Detail Facility [employer] Other Tobacco smoking consumption unknown [facility] Start: 04-04-2023 Tobacco smoking status NHIS Never smoked tobacco [facility] Start: 12-07-2021 End: 06-04-2024 Alcohol intake Current non-drinker of alcohol (finding) [facility] Start: 1980 Sex Assigned At Not on file [facility] Start: 05-11-2021 End: 03-31-2022 Exposure to SARS-CoV-2 (event) Not sure [facility] Start: 03-31-2022 End: 01-26-2023 Sex Assigned At [facility] Start: 1980 Sex Assigned At Female [facility] Start: 02-27-2022 End: 03-09-2022 Exposure to SARS-CoV-2 (event) Unable to assess [facility] Start: 03-31-2022 End: 01-26-2023 History of Social function [facility] Adult Depression Screening Assessment 0 [facility] Start: 03-04-2022 Gender identity Identifies as female gender (finding) [facility] Start: 03-04-2022 Sexual orientation Heterosexual (finding) [facility] Start: 04-04-2023 Tobacco use and exposure Smokeless tobacco non-user [employer] (formerly [employer]) Medical Equipment Procedure Code Equipment Code Equipment Origin al Text Equipment Identifier Dates Yvj-Oj-Q-Kind Implant - [id number] Start: 07-21-2015 Comment on above: Description: CARPAL COMPONENT Fjp-Jp-D-Kind Implant - [id number]_[facility] Start: 07-21-2015 Comment on above: Description: CARPAL BALL Cge-Iw-K-Kind Implant - [id number]_[facility] Start: 07-21-2015 Comment on above: Description: CARPAL SCREW Bib-Fd-P-Kind Implant - [id number]_[facility] Start: 07-21-2015 Comment on above: Description: DISTAL RADIAL Medartis 2.2 Cannulated Compression Screw, 30mm [id number] Start: 06-04-2019 Comment on above: Description: CANNULA GRACY SCREW Radiesse Lidocai ne Injectable Implant 1.5cc [id number] Start: 11-19-2021 Screw Wrist Sbi 30mm - [id number] Start: 07-21-2015 Comment on above: Description: CARPAL SCREW Anchr Sut 2.3mm 1 2 - [id number]_[facility] Start: 11-05-2013 Comment on above: Description: OSTEORA PTOR SUTURE ANCHOR Anchr Sut 2.3mm 1 2 Ulbrd - [id number]_[facility] Start: 11-05-2013 Comment on above: Description: OSTEORA PTOR SUTURE ANCHOR Anchr Sut 2.3mm 1 2 - [id number]_[facility] Start: 01-04-2014 Comment on above: Description: OSTEORA PTOR SUTURE ANCHOR Anchr Sut 2.3mm 1 2 - [id number] Start: 01-04-2014 Comment on above: Description: OSTEORA PTOR SUTURE ANCHOR Suture Piffard 2. 3 Mm Cobraid Blue - [id number] Start: 01-04-2014 Comment on above: Description: OSTEORA PTOR SUTURE ANCHOR Suture Piffard 2. 3 Mm Cobraid Blue - [id number] Start: 01-04-2014 Comment on above: Description: OSTEORA PTOR SUTURE ANCHOR Wire Busa Yusra ner .035in Stainless Steel 4in Fixation 2 Trocar Smooth - [id number] Start: 11-19-2021 Wire Busa Yusra ner .035in Stainless Steel 4in Fixation 2 Trocar Smooth - [id number] Start: 11-19-2021 Wire Busa Yusra ner .035in Stainless Steel 4in Fixation 2 Trocar Smooth - [id number] Start: 11-19-2021 Wire Busa Yusra ner .035in Stainless Steel 4in Fixation 2 Trocar Smooth - [id number] Start: 11-19-2021 Wire Busa Yusra ner .035in Stainless Steel 4in Fixation 2 Trocar Smooth - [id number] Start: 11-19-2021 use to draw up & inject enbrel [id number] Start: 02-27-2021 End: 07-15-2021 Comment on above: use to draw up & inj ect enbrel Clinical Notes 04-23-2012 to 06-28-2024 Nayely Heredia - 06/28/2024 11:52 AM EDTPatient Richelle Potter MD - 06/04/2024 2:00 PM Jany Oconnor - 05/25/2024 11:51 AM EDTPatient InstructionsPatient Instructions Note Date & Type Note Facility 06-28-2024 Note HNO ID: [id number] Author: ?, ?, ? Service: ? Author Type: ? Type: Progress Notes Filed: 06/28/2024 11:53 Note Text: POPULATION HEALTH NAVIGATION OUTREACH Action/FYI RP Patient Outreach: Spoke with patient to schedule Provider ordered Neurology Headache follow up. Pt scheduled Neurology follow up. Reason for Outreach Care Gap/HCC or Scheduling Wellness Visits Care Gaps due: Follow-up Appointment Patient Contacted: Spoke to patient/parent/or legal guardian Patient identified by name and : Yes Care Gap/HCC/Scheduling Wellness actions taken: Patient scheduled/pended orders: Follow-up Appointment Navigation Signature: Nayely Rome Miguel Almendarez June 28, 2024 11:53 AM [facility] 06-28-2024 History of Present illness Narrative POPULATION HEALTH NAVIGATION OUTREACH Action/I RP Patient Outreach: Spoke with patient to schedule Provider ordered Neurology Headache follow up. Pt scheduled Neurology follow up. Reason for Outreach Care Gap/HCC or Scheduling Wellness Visits Care Gaps due: Follow-up Appointment Patient Contacted: Spoke to patient/parent/or legal guardian Patient identified by name and : Yes Care Gap/HCC/Scheduling Wellness actions taken: Patient scheduled/pended orders: Follow-up Appointment Navigation Signature: Nayely Almendarez June 28, 2024 11:53 AM documented in this encounter [facility] 06-28-2024 Note Patient Outreach (AC ) DEMAR BALL ([id number]) 1980 F Date Time Provider Department 06/28/24 NO PCP [facility] During your visit today, we recorded the following information about you: Miguel Almendarez Nayelyshereen Rome 06/28/2024 11:53 AM Signed POPULATION HEALTH NAVIGATION OUTREACH Action/FYI RP Patient Outreach: Spoke with patient to schedule Provider ordered Neurology Headache follow up. Pt scheduled Neurology follow up. Reason for Outreach Care Gap/HCC or Scheduling Wellness Visits Care Gaps due: Follow-up Appointment Patient Contacted: Spoke to patient/parent/or legal guardian Patient identified by name and : Yes Care Gap/HCC/Scheduling Wellness actions taken: Patient scheduled/pended orders: Follow-up Appointment Navigation Signature: Nayely Rivera Pss June 28, 2024 11:53 AM Allergies As of Date: 06/28/2024 Noted Allergy Reaction VANCOMYCIN 12/07/2021 4 - Hives 9 - Itching 7 - Swelling BACITRACIN 03/03/2010 4 - Hives DOXYCYCLINE 06/26/2010 2 - Rash 9 - Itching FERROUS SULFATE 01/06/2016 10 - Anaphylaxis 11 - Vomiting Comments: Reaction happened with IV iron KEFLEX (CEPHALEXIN) 08/04/2015 9 - Itching REMICADE (INFLIXIMAB) 05/15/2014 14 - Other: See Comments Comments: Confusion, hypotension 10/20/2015 Patient states that she did have this reaction but that she has had this medication since and has not suffered any allergy ULTRAM (TRAMADOL HCL) 03/16/2007 4 - Hives Date Reviewed: 06/04/2024 Reviewed by: Richelle Atkins MD - Fully Assessed Prescriptions as of 06/28/2024 - topiramate (TOPAMAX) 200 mg tablet Take 1 tablet by mouth two times a day. - tiZANidine (ZANAFLEX) 4 mg tablet TAKE 0.5 TO ONE TABLET BY MOUTH EVERY 8 HOURS NEEDED. - naratriptan (AMERGE) 2.5 mg tablet Take 1 tablet (2.5 mg) by mouth as needed for migraine headache (see administration instructions). TAKE ONE(1) TABLET AT THE ONSET OF HEADACHE. MAY REPEAT DOSE AFTER 4 HOURS. NO MORE THAN 2 TABS IN 24 HRS. - erenumab-aooe (AIMOVIG AUTOINJECTOR) 140 mg/mL auto-injector Inject 1 mL under the skin once every month. Do not shake. - etanercept (ENBREL) 25 mg/0.5 mL (0.5) Inject 25mg (1 syringe) subcutaneously two times a week. Hold during infections - Syringe with Needle, Disp, (BD TUBERCULIN SYRINGE) 1 mL 27 x 1/2 use to draw up AND inject enbrel - folic acid 1 mg tablet Take 1 tablet by mouth once daily. - ergocalciferol 50,000 unit capsule (VITAMIN D2, DRISDOL) Take 1 capsule by mouth one time a week. with a meal and obtain blood test for vitamin D 25-OH as advised. - Needle, Disp, 27 G (BD DISPOSABLE NEEDLES) 27 gauge x 1/2 ndle use to draw up AND inject enbrel - HYDROcodone-acetaminophen (NORCO) 5-325 mg per tablet Take by mouth every 8 hours as needed. - XARELTO 20 mg tablet - gabapentin (NEURONTIN) 400 mg capsule Take 400 mg by mouth four times daily. - pantoprazole DR (PROTONIX) 40 mg tablet Take 40 mg by mouth twice daily. Meds Comments as of 12/14/2016: Cleocin- for current dental infection/abcess - will be finished on 12/20/16- having tooth pulled at that time. 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 09/09/2015 Thyroid nodule [E04.1] Clotting disorder (HCC) [D68.9] GERD (gastroesophageal reflux disease) [K21.9] Migraines [G43.909] Difficult intubation [T88.4XXA] 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] 09/09/2015 Trigger ring finger of right hand [M65.341] 10/14/2015 01/06/2016 Right hand pain [M79.641] 10/28/2015 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] 01/06/2016 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*09/02/2016 Lung nodules [R91.8] History of blood clotting disorder [Z86.2] 12/12/2015 Transfusion history [Z92.89] 12/12/2015 Obesity, Class I, BMI 30-34.9 E66.9 [E66.811] 12/20/2017 Vitamin D deficiency [E55.9] 12/20/2017 Complex tear of lat mensc, current injury, left*01/17/2018 RA (rheumatoid arthritis) ([facility]) [M06.9] Injury of ulnar nerve at wrist [S64.00XA] [place]-neck deformity of finger of right hand [M2*06/12/2019 Boutonniere deformity of finger of right hand [*06/12/2019 Encounter Status:Closed by NAYELY HEREDIA on 06/28/24 [facility] 06-04-2024 Instructions Richelle Atkins MD - 06/04/2024 2:16 PM EDT IMPRESSION Chronic Migraine without Aura Cervicogenic Headache RECOMMENDATIONS Preventive Therapy: Restart Aimovig 140mg once monthly injection This was sent to the [facility] and requires insurance authorization Please visit [email or web address] to sign up for copay card Continue topiramate 200mg twice daily Abortive (As Needed) Therapy: Continue tizanidine 2-4mg every 8 hours as needed for muscle pain/neck pain Continue naratriptan 2.5mg as needed for severe migraine. Take 1 tablet at onset of migraine. If no improvement after 4 hours, may repeat dose. No more than 2 tablets in 24 hours and no more than 2-3 days per week or 10 days per month Follow-up: 3 months documented in this encounter [facility] 06-04-2024 History of Present illness Narrative Images from the original note were not included. [facility] [place] Patient's headache clinic evaluation was scheduled as a virtual visit using the following platform: Zoom I have communicated my name and active licensure. The patient's identity and physical location were verified at the time of this visit. Either the patient or their legal sales donor recruitment representative has been informed of the risks and benefits of -- and alternatives to -- treatment through a remote evaluation and consents to proceed with the evaluation remotely. Based on this evaluation it may be necessary for them to schedule a follow up evaluation with me or other neurologists for formal physical examination and if necessary, other studies. 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 Patient previously followed with Dr. Knutson. Patient reports worsening of migraine frequency/severity since being off Aimovig for several months. Given prior benefit without side effects, will plan to restart Aimovig. Will plan to wean topiramate dosing over time to appropriate migraine prevention dosing. PLAN: Preventive: Restart Aimovig 140mg once monthly, decrease topiramate to 200/100/200mg TID x 2 weeks, then 200mg BID Abortive: Continue tizanidine 2-4mg TID PRN, naratriptan 2.5mg PRN Next steps: Decrease topiramate further to 100mg BID. Consider Ajovy/Emgality, Qulipta. Interval History: Since last visit, patient states she never started the Aimovig due to not receiving the medication. She decreased topiramate to 200mg BID dosing. Currently reports ~22 MMD and 5 MHD. Patient has been under a lot of stress and emotional which has worsened her migraine frequency. Her son recently from [facility] on 04/09. She started to see a counselor. Migraine days per month: 22 Headache days per month: 5 Headache free days per month: 3 From Last Visit: Migraine days per month: 30 Headache days per month: 0 Headache free days per month: 0 Current Headache Regimen: Preventive: Topiramate 200mg BID, gabapentin 400mg QID Abortive: Naratriptan 2.5mg, tizanidine 2-4mg TID PRN, Megargel Prior Therapies Duration of Use Dose Side effect Analgesic Hydrocodone/Acetaminophen (Vicodin, Megargel) Anti-Convulsant Gabapentin (Neurontin) Oxcarbazepine (Trileptal) Topiramate (Topamax, Trokendi XL, Qudexy) Anti-Migraine Eletriptan (Relpax) Tired, seeing weird colors Naratriptan (Amerge) Rizatriptan (Maxalt) Side effects Blood Pressure Metoprolol (Lopressor,Toprol XL) MABs Erenumab (Aimovig) Muscle Relaxer Tizanidine (Zanaflex) HEADACHE SCORES: 11/26/2022 12/09/2023 02/22/2024 Headache Questions ER visits since last office visit: 0 0 0 Hospital stays since last office visit 0 0 0 Limited ADLs in the last month: 7 4 1 Days missed from work or school in the last month: 0 14 0 Days headache pain free in the last month: 20 11 6 Days per month with ALL of the following symptoms - decreased productivity, light sensitivity and nausea: 11 13 0 Initial improvement of headache after botox injection at last visit: Not applicable, I did not have a botox injection at my last visit Not applicable, I did not have a botox injection at my last visit Not applicable, I did not have a botox injection at my last visit PRN medication usage in the last month: 18 15 Patient impression of improvement since last visit: Minimally worse No change Minimally worse 11/26/2022 12/09/2023 02/22/2024 HIT-6 HIT-6 61 (Severe impact) 63 (Severe impact) 61 (Severe impact) 11/26/2022 12/09/2023 02/22/2024 KAY - 2/7 SCORES KAY-2 Score 0 0 0 11/26/2022 12/09/2023 02/22/2024 Migraine Specific QOL - Higher scores indicate better HRQL Role Function-Restrictive Transformed Score (range: 0-100) 60 60 77.14 Role Function-Preventive Transformed Score (range: 0-100) 60 60 75 Emotional Function Transformed Score (range: 0-100) 46.67 60 73.33 01/06/2022 11/26/2022 02/22/2024 PHQ-9 Score 3 2 3 Answers submitted by the patient for this visit: Headache Questionnaire (Submitted on 06/04/2024) How many days of work or school have you missed due to headaches in the last month? : 0 In the last month, how many headache days did you experience ALL of the following symptoms: decreased productivity, light sensitivity and nausea?: 15 How many days have you been completely free of headache pain in the last month? : 3 Physical Exam: Vital Signs: LMP 11/30/2016 (Approximate) GENERAL: well appearing, in no acute distress, alert NEUROLOGICAL: Mental Status: Alert, oriented to person, place and time, Follows commands, Speech fluent and appropriate. Cranial Nerves: EOMI, face symmetric, no dysarthria, hearing grossly intact, tongue protrudes midline Motor: Moves all extremities equally. Gait: Deferred. 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 Patient previously followed with Dr. Knutson. Patient reports worsening of migraine frequency/severity since being off Aimovig for several months. She did not restart Aimovig after last visit due to not receiving medication. Given prior benefit without side effects, will plan to restart Aimovig and continue all other medications as is. PLAN: Preventive: Restart Aimovig 140mg once monthly, continue topiramate 200mg BID Abortive: Continue tizanidine 2-4mg TID PRN, naratriptan 2.5mg PRN Next steps: Decrease topiramate further to 100mg BID. Consider Ajovy/Emgality, Qulipta. Follow-Up: 3 months We will request precertification for Calcitonin Gene Related Peptide Monoclonal Antibody, Erenumab. This patient meets ICHD-3 criteria for treatment with CGRP MAB, She has Chronic Migraine Headache (CM), Chronic Migraine without aura, without mention of intractable migraine without mention of status migrainosus which occurs at least 15 days per month for at least 4 hours per day. The FDA has approved CGRP MAB for prevention of migraine. Specifically, the patient has 22 migraines per month, lasting 4 or more hours/d associated with photophobia, phonophobia, nausea for three or more months. Medication overuse headache has been ruled out. Patient is not currently taking a Gepant for acute treatment of her migraine. The following preventative medications have been tried for 3 or more months without benefit or discontinued due and/or side effects. Anti-Convulsant Gabapentin (Neurontin) Oxcarbazepine (Trileptal) Topiramate (Topamax, Trokendi XL, Qudexy) Blood Pressure Metoprolol (Lopressor,Toprol XL) MABs Erenumab (Aimovig) The following abortive medications have been tried but require high frequency use which can lead to Medication Overuse Headache: Analgesic Hydrocodone/Acetaminophen (Vicodin, Megargel) Anti-Migraine Eletriptan (Relpax) Tired, seeing weird colors Naratriptan (Amerge) Rizatriptan (Maxalt) Side effects Total time in minutes spent with patient: 45 minutes, with more than 50% of the time spent in patient education/counselling/coordinatin g care with the patient and/or family. Medical decision making was high complexity due to patient's multiple symptoms including Headache and pain, and counseling about diet, medications, and prison implications. Richelle Atkins MD Staff Neurologist [facility] documented in this encounter [facility] 06-04-2024 Note HNO ID: [id number] Author: RICHELLE ATKINS MD Service: ? Author Type: Physician Type: Progress Notes Filed: 06/04/2024 14:36 Note Text: [facility] [place] [facility] Patient's headache clinic evaluation was scheduled as a virtual visit using the following platform: Zoom I have communicated my name and active licensure. The patient's identity and physical location were verified at the time of this visit. Either the patient or their legal sales donor recruitment representative has been informed of the risks and benefits of -- and alternatives to -- treatment through a remote evaluation and consents to proceed with the evaluation remotely. Based on this evaluation it may be necessary for them to schedule a follow up evaluation with me or other neurologists for formal physical examination and if necessary, other studies. 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 Patient previously followed with Dr. Knutson. Patient reports worsening of migraine frequency/severity since being off Aimovig for several months. Given prior benefit without side effects, will plan to restart Aimovig. Will plan to wean topiramate dosing over time to appropriate migraine prevention dosing. PLAN: Preventive: Restart Aimovig 140mg once monthly, decrease topiramate to 200/100/200mg TID x 2 weeks, then 200mg BID Abortive: Continue tizanidine 2-4mg TID PRN, naratriptan 2.5mg PRN Next steps: Decrease topiramate further to 100mg BID. Consider Ajovy/Emgality, Qulipta. Interval History: Since last visit, patient states she never started the Aimovig due to not receiving the medication. She decreased topiramate to 200mg BID dosing. Currently reports ~22 MMD and 5 MHD. Patient has been under a lot of stress and emotional which has worsened her migraine frequency. Her son recently from juvenile ALS on 04/09. She started to see a counselor. Migraine days per month: 22 Headache days per month: 5 Headache free days per month: 3 From Last Visit: Migraine days per month: 30 Headache days per month: 0 Headache free days per month: 0 Current Headache Regimen: Preventive: Topiramate 200mg BID, gabapentin 400mg QID Abortive: Naratriptan 2.5mg, tizanidine 2-4mg TID PRN, Megargel Prior Therapies Duration of Use Dose Side effect Analgesic Hydrocodone/Acetaminophen (Vicodin, Megargel) Anti-Convulsant Gabapentin (Neurontin) Oxcarbazepine (Trileptal) Topiramate (Topamax, Trokendi XL, Qudexy) Anti-Migraine Eletriptan (Relpax) Tired, seeing weird colors Naratriptan (Amerge) Rizatriptan (Maxalt) Side effects Blood Pressure Metoprolol (Lopressor,Toprol XL) MABs Erenumab (Aimovig) Muscle Relaxer Tizanidine (Zanaflex) HEADACHE SCORES: 11/26/2022 12/09/2023 02/22/2024 Headache Questions ER visits since last office visit: 0 0 0 Hospital stays since last office visit 0 0 0 Limited ADLs in the last month: 7 4 1 Days missed from work or school in the last month: 0 14 0 Days headache pain free in the last month: 20 11 6 Days per month with ALL of the following symptoms - decreased productivity, light sensitivity and nausea: 11 13 0 Initial improvement of headache after botox injection at last visit: Not applicable, I did not have a botox injection at my last visit Not applicable, I did not have a botox injection at my last visit Not applicable, I did not have a botox injection at my last visit PRN medication usage in the last month: 18 15 Patient impression of improvement since last visit: Minimally worse No change Minimally worse 11/26/2022 12/09/2023 02/22/2024 HIT-6 HIT-6 61 (Severe impact) 63 (Severe impact) 61 (Severe impact) 11/26/2022 12/09/2023 02/22/2024 KAY - 2/7 SCORES KAY-2 Score 0 0 0 11/26/2022 12/09/2023 02/22/2024 Migraine Specific QOL - Higher scores indicate better HRQL Role Function-Restrictive Transformed Score (range: 0-100) 60 60 77.14 Role Function-Preventive Transformed Score (range: 0-100) 60 60 75 Emotional Function Transformed Score (range: 0-100) 46.67 60 73.33 01/06/2022 11/26/2022 02/22/2024 PHQ-9 Score 3 2 3 Answers submitted by the patient for this visit: Headache Questionnaire (Submitted on 06/04/2024) How many days of work or school have you missed due to headaches in the last month? : 0 In the last month, how many headache days did you experience ALL of the following symptoms: decreased productivity, light sensitivity and nausea?: 15 How many days have you been completely free of headache pain in the last month? : 3 Physical Exam: Vital Signs: LMP 11/30/2016 (Approximate) GEN (more content not included)... [facility] 05-25-2024 History of Present illness Narrative [facility] Refill Assessment Medication(s): Enbrel Patient's current medication list and adherence status to current therapy were reviewed by Specialty Pharmacy clinical pharmacist to identify any new drug interactions or non-compliance to therapy. Therapy continues to be appropriate for disease, patient response, and medical condition. Verification of therapeutic benefit and effectiveness with current therapy was completed. Adverse events, barriers in adherence, and side effects were assessed and addressed if applicable. Will proceed with refill with no changes in therapy - patient progressing towards achieving therapeutic goals based on medication-specific laboratory parameters, disease state markers and outcomes. Office/provider notes have been reviewed prior to dispensing the medication. PDC 60%. Falsely lowered because patient took several months off of Enbrel. MPR since she resumed in January is 99%. Marilyn Garza, SimeonD Clinical Pharmacist, [employer] [facility] ; Pool: P [facility] [facility] Pool #: [id number] Console Operator Assessment Patient confirmed: Yes Med/dose confirmed: Yes Supplies needed: No supplies needed Missed doses: No Estimated days supply on hand: 7 Copay amount: 0 Payment confirmed: Yes Delivery method: FedEx Signature required: Waived on patient request Delivery address: [address] [place] [address] Delivery date: 05/29/24 Questions or concerns for the pharmacist?: No Did you have any side effects believed to be related to this medication, that resulted in hospitalization?: No Current Outpatient Medications on File Prior to Visit Medication Sig naratriptan (AMERGE) 2.5 mg tablet Take 1 tablet (2.5 mg) by mouth as needed for migraine headache (see administration instructions). TAKE ONE(1) TABLET AT THE ONSET OF HEADACHE. MAY REPEAT DOSE AFTER 4 HOURS. NO MORE THAN 2 TABS IN 24 HRS. tiZANidine (ZANAFLEX) 4 mg tablet TAKE 0.5 TO ONE TABLET BY MOUTH EVERY 8 HOURS NEEDED. topiramate (TOPAMAX) 200 mg tablet Take 1 tablet in the AM, 0.5 tablets in the afternoon, and 1 tablet at bedtime for 2 weeks, then take 1 tablet twice daily erenumab-aooe (AIMOVIG AUTOINJECTOR) 140 mg/mL auto-injector Inject 1 mL under the skin once every month. Do not shake. etanercept (ENBREL) 25 mg/0.5 mL (0.5) Inject 25mg (1 syringe) subcutaneously two times a week. Hold during infections Syringe with Needle, Disp, (BD TUBERCULIN SYRINGE) 1 mL 27 x 1/2 use to draw up & inject enbrel folic acid 1 mg tablet Take 1 tablet by mouth once daily. ergocalciferol 50,000 unit capsule (VITAMIN D2, DRISDOL) Take 1 capsule by mouth one time a week. with a meal and obtain blood test for vitamin D 25-OH as advised. efinaconazole (JUBLIA) 10 % charlotte Apply to affected area once daily. (Patient not taking: Reported on 02/22/2024) Needle, Disp, 27 G (BD DISPOSABLE NEEDLES) 27 gauge x 1/2 ndle use to draw up & inject enbrel HYDROcodone-acetaminophen (NORCO) 5-325 mg per tablet Take by mouth every 6 hours as needed. XARELTO 20 mg tablet gabapentin (NEURONTIN) 300 mg capsule Take 400 mg by mouth four times daily. pantoprazole DR (PROTONIX) 40 mg tablet Take 40 mg by mouth twice daily. No current facility-administered medications on file prior to visit. [facility] SPECIALTY CLINICAL ASSESSMENT - INFLAMMATORY CONDITIONS V6: Ivent complete: No Assessment to use: Refill Assessment of injection issues: Yes Infection screening, including annual TB assessment when applicable to medication: Yes Current medication list (including drug interaction assessment): Yes Experience of adverse reactions to the medication: Yes Date of influenza vaccination reminder: 06/16/2023 Date of most recent vaccination assessment: 06/16/2023 Treatment Plan Information: Enbrel Inject 1 syringe (25 mg dose) subcutaneously two times a week. Est. Tx Plan Start Date: No information available Estimated Start Date Info: Established on therapy Est. Estimated Treatment Duration: Until lack of efficacy Jany Coleman ([facility]) [facility] FAX: documented in this encounter [facility] 05-25-2024 Note HNO ID: [id number] Author: TAYLOR GARZA RPh Service: ? Author Type: ? Type: Progress Notes Filed: 05/25/2024 14:59 Note Text: [facility] Specialty Refill Assessment Medication(s): Enbrel Patient's current medication list and adherence status to current therapy were reviewed by Specialty Pharmacy clinical pharmacist to identify any new drug interactions or non-compliance to therapy. Therapy continues to be appropriate for disease, patient response, and medical condition. Verification of therapeutic benefit and effectiveness with current therapy was completed. Adverse events, barriers in adherence, and side effects were assessed and addressed if applicable. Will proceed with refill with no changes in therapy - patient progressing towards achieving therapeutic goals based on medication-specific laboratory parameters, disease state markers and outcomes. Office/provider notes have been reviewed prior to dispensing the medication. PDC 60%. Falsely lowered because patient took several months off of Enbrel. MPR since she resumed in January is 99%. Marilyn Garza, SimeonD Clinical Pharmacist, [employer] [facility] ; Pool: P [facility] Pool #: [id number] Console Operator Assessment Patient confirmed: Yes Med/dose confirmed: Yes Supplies needed: No supplies needed Missed doses: No Estimated days supply on hand: 7 Copay amount: 0 Payment confirmed: Yes Delivery method: FedEx Signature required: Waived on patient request Delivery address: [address] [place] [address] Delivery date: 05/29/24 Questions or concerns for the pharmacist?: No Did you have any side effects believed to be related to this medication, that resulted in hospitalization?: No Current Outpatient Medications on File Prior to Visit Medication Sig naratriptan (AMERGE) 2.5 mg tablet Take 1 tablet (2.5 mg) by mouth as needed for migraine headache (see administration instructions). TAKE ONE(1) TABLET AT THE ONSET OF HEADACHE. MAY REPEAT DOSE AFTER 4 HOURS. NO MORE THAN 2 TABS IN 24 HRS. tiZANidine (ZANAFLEX) 4 mg tablet TAKE 0.5 TO ONE TABLET BY MOUTH EVERY 8 HOURS NEEDED. topiramate (TOPAMAX) 200 mg tablet Take 1 tablet in the AM, 0.5 tablets in the afternoon, and 1 tablet at bedtime for 2 weeks, then take 1 tablet twice daily erenumab-aooe (AIMOVIG AUTOINJECTOR) 140 mg/mL auto-injector Inject 1 mL under the skin once every month. Do not shake. etanercept (ENBREL) 25 mg/0.5 mL (0.5) Inject 25mg (1 syringe) subcutaneously two times a week. Hold during infections Syringe with Needle, Disp, (BD TUBERCULIN SYRINGE) 1 mL 27 x 1/2 use to draw up AND inject enbrel folic acid 1 mg tablet Take 1 tablet by mouth once daily. ergocalciferol 50,000 unit capsule (VITAMIN D2, DRISDOL) Take 1 capsule by mouth one time a week. with a meal and obtain blood test for vitamin D 25-OH as advised. efinaconazole (JUBLIA) 10 % charlotte Apply to affected area once daily. (Patient not taking: Reported on 02/22/2024) Needle, Disp, 27 G (BD DISPOSABLE NEEDLES) 27 gauge x 1/2 ndle use to draw up AND inject enbrel HYDROcodone-acetaminophen (NORCO) 5-325 mg per tablet Take by mouth every 6 hours as needed. XARELTO 20 mg tablet gabapentin (NEURONTIN) 300 mg capsule Take 400 mg by mouth four times daily. pantoprazole DR (PROTONIX) 40 mg tablet Take 40 mg by mouth twice daily. No current facility-administered medications on file prior to visit. [facility] SPECIALTY CLINICAL ASSESSMENT - INFLAMMATORY CONDITIONS V6: Ivent complete: No Assessment to use: Refill Assessment of injection issues: Yes Infection screening, including annual TB assessment when applicable to medication: Yes Current medication list (including drug interaction assessment): Yes Experience of adverse reactions to the medication: Yes Date of influenza vaccination reminder: 06/16/2023 Date of most recent vaccination assessment: 06/16/2023 Treatment Plan Information: Enbrel Inject 1 syringe (25 mg dose) subcutaneously two times a week. Est. Tx Plan Start Date: No information available Estimated Start Date Info: Established on therapy Est. Estimated Treatment Duration: Until lack of efficacy Jany Coleman ([facility]) [facility] FAX: [facility] 05-23-2024 Instructions Samy Mansfield MD - 05/23/2024 9:18 PM EDT -PLEASE NOTE THAT WE REVIEW ALL YOUR TEST RESULTS AT YOUR NEXT FOLLOW UP VISIT WITH YOU. IF ANY ABNORMAL LAB REQUIRES SOONER ATTENTION, WE WILL CONTACT YOU. -If you have signed up on [employer], we will release your test results through [employer]. I wish you the best of health and wellness. -Please take care and stay safe and healthy. Consume a healthy diet, stay well hydrated, sleep well, be happy, improve stress (include meditation and regular exercise), ensure adequate vitamin D. Spend some time in nature, around trees and beck (forest bathing). Spend time outdoors next to greenery on a Carlo day to benefit from the healing benefits of the Near Infra Red light of the sun that reflects on greenery (research showing benefits to cellular healing and benefits against covid-19 infection). These have been shown to help with overall health and wellbeing, stress, inflammation and in promoting a healthy immune system. -Continuous follow up with Primary care physician, for cardiovascular disease prevention, for age appropriate cancer screening and routine health maintenance and wellness, and infection precautions and age appropriate immunization, is recommended. - It was very nice to see you today at your video visit. I am deeply sorry for the loss of your beloved son. Please accept my heartfelt condolences. My prayers and thoughts are with you and your family. I hope you will be able to read The Power of Now and The Unteathered Soul and listen to these spiritual teachers on youtube. -The Power of Now by Enma Herrera -The Unteathered Soul, by Gary Martini If you have difficulty getting the books, message me and I will send them to you. - I ordered lab work that you can complete as soon as you are able to. I asked our team to mail you the lab orders. - Please continue follow up with your Primary care physician or Dramatic Arts Historian for your liver enzymes and for monitoring for liver disease. Please remain off the methotrexate - Continue on Enbrel: 25 mg subcutaneous injection twice a week Hold Enbrel during infections - Please continue with infection precautions - You can take a magnesium supplement at bedtime. For example magnesium glycinate, one pill at bedtime. Magnesium can help relax the muscles and help with better sleep. It is also healthy for the bones and heart. - Please continue on your vitamin D supplement: 5000 international units once daily with meals. - Maintaining good vitamin D blood levels is important for bone health and overall health. Please see additional information on vitamin D below. A vitamin D blood test, called vitamin D 25-hydroxy (OH) is obtained to assess vitamin D level. If the vitamin D is low, you will need to take a vitamin D supplement. If you are already on a vitamin D supplement, then the dose will need to be adjusted. Also you multivitamin may contain vitamin D. Vitamin D is a fat soluble vitamin that requires it be taken with good fat to be absorbed. Examples of healthy fat include nuts, seeds, avocados, olives and for the most part the meal of the day. Spending up to 30 minutes in the sun during Summer and late Spring can provide natural vitamin D to the uncovered skin (arms, legs) - Your calcium can be sufficient in your diet. Healthy food that are rich in calcium include: nuts, seeds, legumes/beans, peas, dark green leafy vegetables, plant based milk Additional calcium rich foods listed below - Soaking Almonds overnight in the fridge with drinking water, can help with softening the almonds and improved absorption of the almonds. Please be careful not to break a tooth with dry raw almonds, or other hard nuts or seeds. If your lab work shows insufficient calcium or you are unable to consume sufficient foods rich in calcium, then a calcium supplement is recommended, such as calcium citrate. - You can track your nutrition and calcium intake on www.Renew Fibre This provides macro and micronutrient intake and requirements. - You can track your calcium intake on [employer] or any other calcium tracker of your choice. If you are not getting about 1200 mg of calcium daily, you will need to add a calcium supplement, such as calcium citrate to supplement you daily calcium so you can achieve your total 1200 mg daily See additional information below on calcium. - I recommend following a healthy lifestyle. You can find additional information below. I recommend this to all my patients, as I have seen convincing scientific evidence, and seen the results in my practice, of the benefits of this healthy lifestyle to overall health and wellness. I hope you will find this beneficial as well. A whole plant based diet and healthy lifestyle have been reported to be optimal for health in general, anti-inflammatory diet, prevention of common chronic diseases, healthy weight management, memory and brain healthy, bone health. - You can track your nutrition and calcium intake on www.Ren[employer] This provides macro and micronutrient intake and requirements. Recommendations for healthy lifestyle include: Healthy nutritious diet, anti-inflammatory diet, appropriate exercise, good sleep hygiene, stress management, supplementing vital deficiencies and maintaining healthy weight. with BMI that does not exceed 25 to 26 . 5 points to remember to improve your health and continue on a healthy path: 1- Optimal nutritious food, such as a Whole Plant Based diet You can watch the documentary movie that features the Whole Plant Based diet, Mancos over knives (see video online and visit website). Another movie that was recently released is: Eating You Alive (you can find it at TagCash) and The Game Changers movie Dr. Carrol Vanegas is a [facility] physician who is an expert in Whole Plant based diet. His website is [employer]. His research highlights the benefits of the Whole food plant based diet in reversing and preventing heart disease. Mrs. Vanegas (his ) has a cookbook with many recipes on whole plant based food: The Prevent and Reverse Heart Disease cookbook. You can also consider reading his son, Seven Vanegas's book: The Engine 2 cookbook Seven is a retired merry go round operator who has helped many people get healthier by following the whole food plant based diet. Dr. Ridge Spicer, has a website and free gatito to help get started on a whole plant based diet, at www.pcrHYGIEIA.org and you can log on for free for his 21-Day Kickstart with meals and recipes to follow for 21 days. There is also a free gatito for that. He has multiple free videos and YouTube, for example: https://Evident Health.be/bqiRhaoU7a8 , https://Evident Health.be/XvZKYawnu8q He has written multiple books, including Power Food for the Brain, The Cheese Trap, Dr. Ridge Spicer's Program for Reversing Diabetes, Your Body in Balance You can also watch YouTube channel : The Doc & Gas Golf Cart Repairer Dr. Slick Onofre has shown the benefit of a starch based whole food plant based diet to his Rheumatoid Arthritis patients, as well as patient with diabetes II, hypertension, obesity, multiple sclerosis, heart disease, acne, and other, his website: www.олегSafeAwakebreezy.Scaleform Dr. George Colbert is a renowned forestry scientist, who has studied and researched the benefits of the Whole plant based diet. He has also researched the adverse effects of animal proteins on health. He presents many of his research findings in his book The [place] study. Dr. John Pino has completed many research trials proving the reversal of diseases, such as heart disease and early prostate cancer, with healthy lifestyle and the Whole Plant based diet. Dr. John Pino website is: www.reyes.Scaleform His new book: Undo It, has evidence based information and guide to following this healthy lifestyle. Dr. Gary Branch has dedicated a website and additional time to reviewing all food related articles and research and presents them in his power point presentation and on his website at: nutritionfacts.org which is all free. Dr. Branch has multiple free videos and YouTube, for example https://youGame Play Network.be/aSgNkhgVtks and https://youGame Play Network.be/lXXXygDRyBU. He has written multiple books including: How Not To and How Not To Diet He is now working on his next book: How Not To Age Dr. Rea Hair (from the [facility]), has articles on the following website: App [employer]. For additional ideas on recipes, you could find additional information on practical to follow recipes by reading or watching online and YouTube such as: Gas Golf Cart Repairer AJ, Cooking With Plants, The Vegan Corner (recipes from an [place] Gas Golf Cart Repairer), The Whole Foods Plant Based Cooking Show and visiting the provided websites for additional information on the whole plant based benefit and cooking recipes. You can also consider watching the vlogs of some of the plant based Athletes such as Chan Jain Derek on [employer]. You can find very good recipes for making easy tasty whole plant based foods and for free at the following YouTube channels: - Yokasta Christine (is a nurse RN) - The Whole Food Plant Based Cooking Show - Well Your World - Chew on Vegan (is a nurse RN) -The Jaroudi Family - A Plant Based (is a nurse RN) - HealthyVeganEating - Epic Mint Leaves (simple few ingredient meals) - Broccoli Mum - PB with J - Dr. Narinder Aguilera Lifestyle Medicine (is a Manual Winder and Lifestyle Medicine Physician) -Sometimes it helps to start with a simple diet of potatoes, that Dr. Onofre calls Radha's Mini. You can learn more about that in his website: www.gomez.Scaleform This is the website for Radha's Mini pdf : https://www.[facility].com/wp-co ntent/uploads//Radha-Mini_ Website_Print_Version-1.pdf You can also read more on Dr. Onofre's website - When you goal is to lose weight, it is important to listen to your hunger cues. Don't eat until you are stuffed. As soon as you feel you are no longer hungry, stop eating. There is a Peruvian saying that says Rhonda Vela, meaning eat until you are 80% full. I say avoid eating past 80% of your stomach fullness. This originated from the city of [facility], which is one of the sites reported in the Animal Cell [employer]rapies book, one of the highest cities in the world for having the most centenarians. Remember your stomach needs space and capacity for proper digestion of your food. Like a prepared foods production team member or a asphalt blender, they have a limit for proper function, and should not be filled to the top. You can read more about that from the [facility] article Don t Eat Until You re Full ? Instead, Mind Your Rhonda Vela Point , at https://health.[facility].or g/udjr-ndo-govir-jiyrm-hwub-imjid uf-fqxr-piiz-lzko-stgng-oo-point/ Dr. Courtney Ness (a psychiatrist who suffered with lupus) has helped reverse her Systemic Lupus Erythematosus and helps many patients with their auto-immune diseases, based on her recommendations of the whole food plant based diet and the green smoothies. She has a facebook and website, and on youtube her channel is: Goodbye Lupus Some people have adverse effect or intolerance to gluten. Certain patients with auto-immune disease, including auto-immune thyroid disease, need to avoid gluten. If you suspect you are gluten sensitive or intolerant, you will need to consult with a billing clinician to have further evaluation to exclude Celiac disease. If Celiac disease is excluded, but you are gluten intolerant, then you can follow a gluten free diet. Gluten could lead to increased inflammation in the bowels and body in certain patients. Not all your food has to be organ if you cannot afford or find them. Consider organic and non-GMO products when shopping for your food, when possible. GMO are genetically modified food that may have adverse impact on our health. If you are unable to purchase organic of non-GMO, you can wash your produce with white vinegar or soak in baking soda and water (see details from Dr. Sales's website nutritionfacts.org) and rinse well with water. 2- Regular Exercise, such as beginner yoga, barber chi, stretching, cardio, gradual strengthening, pool therapy, physical therapy Come As You Are: YOGA - Gentle Yoga Anyone Can Do Anywhere www.NICE.Scaleform/y oga Also on youtube: yoga with Sia 3- Good Sleep (poor sleep impacts everything, recommended sleep is 7 to 8 hrs. a night). Certain people may need more sleep, depending on their age and other conditions. Meditation and relaxation techniques have shown to help with improving sleep. Try to be consistent with your sleep. 4- Stress management, be happy, laugh often (it is a great medicine), practice gratitude and spiritual awareness Following steps 1-3 (above) will help with this as well. You are an amazing spiritual being with infinite happiness and infinite intelligence. By calming the mind and remembering to be in the awareness of the present moment, you will be in touch with your powerful spiritual being. Meditation, practicing breathing techniques and reading the books I have listed below can help you achieve this. Find time to relax and meditate. This is important, even if you only have 10 minutes a day. You can start your day with a 10 minute meditation. Try to Meditation once daily to twice daily 10 to 15 minutes each. If you have more time you can go longer. If you are new to meditation, it is good to start with a guided meditation. There are many Apps that help with guided Meditation and several are free or have free options such as: Calm Insight Timer Meditation Stress Free Now ([facility]) There are many free youtube videos on guided meditation as well For Breathing techniques: You can watch Triston Dela Cruz and learn the breathing technique and its benefits by watching the following YouTube: https://youtu.be/7Ah2P-ULa69?si=- [email or web address]. Learning about your awareness/spiritual being, is very empowering and helps with stress, anxiety, mental clarity and wellbeing. I recommend 2 books to start learning about that from well renown spiritual teachers: -The Power of Now by Enma Herrera -The Unteathered Soul, by Gary Martini You can buy these books or borrow them from your local Library They both have many youtube videos and podcasts that you can listen to, and are free. If needed, you can work with a psychotherapist or behavioral health dramatic coach. When having a psychiatric condition, it is important to follow with a professional on the optimal management of depression, anxiety and any other psychiatric illnesses. You can discuss that further with your Primary care physician/provider. 5- Supplements Supplementing necessary vitamins and minerals, correcting any deficiencies, i.e. Vitamin D, B12, omega-3 fatty acids etc... Go natural when possible -Important notice: If you are following a Whole plant based diet, it is recommended to take Vitamin B12, sublingual, dissolve under the tongue, take once daily. Vitamin B12 is available over the counter, dose could be 2500 mcg, and can be taken once a week, and if your blood levels are low, you may need to take it once daily or a higher dose. Raw: Garlic, Cilantro, Milmay nuts, Pumpkin seeds, [place] seeds and Flax seed powder have been reported to help with certain metal detoxification such as mercury. Bowdon-3 plant based rich foods are good anti-inflammatory sources such as : mari seeds, flax seed (needs to be ground), walnuts, hemp seeds, dark green leafy vegetables. It is important to avoid refined oils as much as possible especially that many have too much omega-6 that is pro-inflammatory (lead to inflammation as well as concern for heart and vascular disease). Turmeric can be found natural, used as the spice powder or the root with your food. This is also available as a capsule. If you are on a blood thinner, you will need to discuss with your pharmacist or physician before taking Turmeric If you have gall bladder disease or gall bladder stones, it is recommended to avoid turmeric capsules. Sweet cherries (raw cleaned or frozen), Turmeric , pineapple (contains bromelain), omega-rich foods, have anti-inflammatory benefit Start reviewing the Whole Plant Based Diet, by watching Mancos over Finomial movie and then review website. There are many other resources and educational information on the Whole plant based diet on the Internet and documentaries. There are other resources for wellness that you can also benefit from, such as the [facility] Wellness website, [facility]org and includes Plant based and Mediterranean diet, yoga and meditation. Please avoid all dairy products. You could use non-dairy milk such as Flax milk, Cashew milk, Zahl milk, Rice milk, Oat milk or Hemp milk, instead. It is very important to avoid all: refined sugars (including high fructose syrup), refined carbohydrates, any artificial sweeteners and artificial preservatives, and soda and heavily processed food. Insure adequate hydration; drink at least 6 to 8 cups of water daily, certain people need less or more. - You don't have to drink smoothies, but if you have a sweet tooth or enjoy a desert or something sweet every day, a smoothie can help satisfy that and would help you avoid eating refined foods and added sugars or snacking on unhealthy foods. Also smoothies can help you get a lot of green leafy vegetables in your system, especially if you have a busy schedule and don't have time to eat a lot of greens. You can start your day with a smoothie, especially if you are busy and don't have time to eat your oatmeal or veggies and fruits in the morning. Examples of Smoothies: You can try many of the healthy natural anti-inflammatory smoothies listed below, just add the ingredients to your asphalt blender and blend: - Probably the healthiest smoothie is one that contains mostly green leafy vegetables (especially containing kale), some berries, flax seed and water. This might not automatic glove turner and former to be sweet. You can add one or two pitted dates or a frozen banana for natural sweetness. Examples of healthy green smoothies, pack your asphalt blender (at least half way to 3/) with a mix of green leafy veggies, then top your asphalt blender with fruits (such as banana or frozen millie or pineapple, peaches, apricots, apples, grapes), a tablespoon of flax or mari seeds, then add water or unsweetened coconut water and blend until smooth. You can also add turmeric in this recipe. Do not only use spinach as they tend to be high in oxalates and can be risk for kidney stones. The same with israeli chards and beet leaves. If you don't like the taste of green leafy veggies in your smoothie, start gradually with one handful and add fruits to help with the taste. Another smoothie can be: - Fresh or frozen berries (such as frozen sweet cherries, blueberries, strawberries), a peeled frozen banana, green leafy vegetables (mixed greens or kale, not just spinach), 1 tablespoon of flax seed or mari seeds or a few walnuts, for liquid you can add water or an unsweetened plant based milk (can be soy, flax milk, almond milk), blend and enjoy. For anti-inflammatory boost add: Turmeric: half a root of turmeric (1 to 2 inches) or 1/4 dried turmeric powder along with a sprinkle of black pepper. This might change the flavor. You could add a quarter or half an avocado if you like it smoother and for a low fat option and less calories you can add instead a well cooked peeled sweet potato. -Tips on smoothies: To keep your green smoothies vibrant green, and not turn brown, keep the fruits that are yellow or orange in color only. Adding a cooked sweet potato can add sweetness and smooth texture to your smoothie. Adding beets to your smoothies can add sweetness and boost your nitric oxide. Beets are healthy for the heart, and they can bring blood pressure down. Beets have been reported to help with sports performance. For extra natural plant based proteins, you can add half a block of tofu or cooked chickpeas (or cannellini beans). Black beans can be added, they will turn your smoothie darker. If you do not tolerate walnuts, you can use flax seeds, mari seeds or hemp seeds instead. If you do not like plant based milk, you can use coconut water or plain water instead. Avoid coconut milk and cream as it is high in saturated fat. You can add 1/4 to 1/2 cup of oats in your smoothies if you need more calories and need it to sustain you for longer. The dominguez with smoothies is to drink (sip) them slowly, over an hour. - Prunes have been reported to help with bone density and inflammation, and are also beneficial for the gut microbiome and constipation. -The Prune Study article: Hutchison, Aroldo KEITH, Hector NI, Erickson H, Geno KJ, Zen Owens, Rodolfo MG, Pradip CH, Bethany C. Prunes preserve hip bone mineral density in a 12-month randomized controlled trial in postmenopausal women: the Prune Study. Am J Clin Nutr. 2021 6;116(4):897-910. doi: 10.1093/ajcn/ubic367. PMID: 77717661. -Benefit to bone density and inflammation: Ed SANTANA, Hutchison, Alda CRISOSTOMO, Aroldo KEITH, Zen GAYTAN. The Role of Prunes in Modulating Inflammatory Pathways to Improve Bone Health in Postmenopausal Women. Adv Nutr. 2021Jun 13;13(5):0127-4569. doi: 10.1093/advances/wtuj323. PMID: 87043706; PMCID: [id number]. GENERAL INFORMATION ON BONE HEALTH : -Bone Density testing (DXA scan) as recommended. -Vitamin D supplementation is recommended, unless blood levels are sufficient. Recommended daily dose of 1000 to 2000 IU total a day, or the dose necessary to achieve a Vitamin D 25-OH blood level of >31 and preferably closer to 40-60 ng/mL. Vitamin D pills are available over the counter. -Recommended daily dose of calcium: 1200mg total a day in divided doses. Calcium is usually sufficient in our regular diet, also available in multivitamins. Patients on certain dietary restrictions or those unable to meet their daily calcium by diety alone, may require calcium supplements. For patient with history of calcium kidney stones, Calcium Citrate would be the recommended supplement. It is recommended to avoid caclium carbonate supplement in this case, as these may increase risk of calcium kidney stones. The after visit summary has information on dietary calcium and instructions on reading calcium label and converting the %DV to mg. When you read a food label and you see calcium reported as DV %, add a zero and this will provide you with the approximate mg value of the calcium content in this food. For example, if a glass of almond milk is labeled as 40% calcium DV, then this contains 400 mg of calcium. For additional information, please see references provided. -Regular weight-bearing and muscle-strengthening exercise -Avoidance of tobacco smoking, excessive alcohol intake and excessive caffeine intake. -Fall and fracture precautions -It is recommend to continue regular follow up visits with your dentist every 6 months, and continue with good oral hygiene. Calcium: If your diet is sufficient in Calcium rich food, you will not need calcium supplement. Calcium Citrate is the preferred calcium if you have had kidney stones. Daily recommended calcium dose: 600mg twice a day with meals. Adequate calcium ingestion is essential for maintaining healthy bones. The recommended dose daily intake of calcium varies depending on individual needs but is usually between 1200 and 1500mg daily, preferably around 1200mg a day in divided dose (not all taken at once). This is equivalent to about five 8oz glasses of milk per day. Many foods are rich in calcium and they include: - Plant based, non-dairy, calcium rich products, include nuts, almond milk, beans, lentils - Vegetables and Fruit: bok-mandel, turnips, broccoli, kale, collards, - Dairy products: milk, cheese, yogurt, ice-cream - Fish products: canned salmon, sardines and shrimp - Cereals and nuts: almonds, sesame seeds, fortified cereals and oatmeal - Other foods: fortified orange-juice, figs, soybeans, other beans and eggs. If you have a low calcium diet and cannot tolerate calcium-rich foods, many supplements are available today. Your pharmacist can help you choose the one which best suits your needs. A few tips on supplements: - They should be easy to swallow - They should dissolve easily in cup of vinegar in < 15 minutes. - Count the ELEMENTAL calcium mgs. E.g. Calcium 499mg may have only 221mg of elemental Calcium. - Calcium citrate is the calcium supplement to take if you have had kidney stones and unable to meet your calcium requirements from food/diet alone. - There is such a variety today that it is best to bring in the bottle to your doctor to show them exactly what you are taking. Lastly too much calcium can be bad for you. Recent studies show extra supplements may increase your risk of kidney stones or cause high calcium levels in some people. You should discuss how much you should be taking with your doctor before starting them. Further Information is available from the following resources: www.nof.org (National Osteoporosis Foundation) http://www.osteo.org/osteolinks.a sp National Institutes of Health: 6-344-472-BONE [facility] Calcium Information [place]: -Non-Dairy, Plant based Milk, can contain in1 glass up to 450 mg of calcium (300 to 450 mg) Exampled include Oat Milk, Flax Milk, Zahl Milk, Cashew Milk, Soy Milk, Peas Milk general health and well being Examples of Food Sources of Calcium from [facility] Food Milligrams (mg) per serving Percent DV* Soymilk, calcium-fortified, 8 ounces 299 30 [place] juice, calcium-fortified, 6 ounces 261 26 Tofu, firm, made with calcium sulfate, cup* 253 25 Tofu, soft, made with calcium sulfate, cup* 138 14 Comto-dn-oux cereal, calcium-fortified, 1 cup 100-1,000 10-100 Turnip greens, fresh, boiled, cup 99 10 Kale, raw, chopped, 1 cup 100 10 Kale, fresh, cooked, 1 cup 94 9 Taiwanese cabbage, bok mandel, raw, shredded, 1 cup 74 7 Bread, white, 1 slice 73 7 Tortilla, corn, uobvp-ao-njyp/ahuja, one 6 diameter 46 5 Tortilla, flour, arror-nd-vccd/ahuja, one 6 diameter 32 3 Bread, whole-wheat, 1 slice 30 3 Broccoli, raw, cup 21 2 * DV = Daily Value. DVs were developed by the U.S. Food and Drug Administration to help consumers compare the nutrient contents among products within the context of a total daily diet. The U.S. Department of Agriculture s (USDA s) Nutrient Database Web site lists the nutrient content of many foods and provides comprehensive list of foods containing calcium arranged by nutrient content and by food name. *Calcium content varies slightly by fat content; the more fat, the less calcium the food contains. * Calcium content is for tofu processed with a calcium salt. Tofu processed with other salts does not provide significant amounts of calcium. You could acces this information online at: http://ods.od.nih.gov/factsheets/ Calcium-HealthProfessional/ Vitamin D: Vitamin D3= cholecalciferol, available over the counter. Dose recommended 800 to 1000 iu daily with a meal; Certain patients require 5188-3985 iu daily and in patients deficient in Vitamin D, they require higher dosages. Certain patient requires higher dose, depending on their Vit D blood levels. Vitamin D is essential for calcium metabolism. It is really a hormone produced mainly in your skin after exposure to sunlight. Vitamin D helps you absorb calcium from your stomach and kidneys and incorporates it into your bones. Studies show approximately 50% of [place] men and women are vitamin D deficient in the winter. Milder cases of vitamin D are usually asymptomatic so the only way to know you have a problem is to have a blood level checked. More severe cases can cause osteomalacia (a.k.a. rickets) which can result in bone pain, weak bones and several abnormal laboratory tests and also weak muscles (a.k.a. myopathy). When this happens, your bones lose a lot of their calcium stores as the body tries to regulate the calcium required by other tissues. Prolonged deficiency can lead to severe bone disorders and fractures. Unlike calcium, dietary sources of vitamin D are rare, limited to a few fish oils particularly cod-liver oil, other fortified foods and egg yolks. and most are unhealthy. Natural source of vitamin D is through sunshine. This is usually during carlo seasons, for example a 30 minute exposure to sunshine. Some people are unable to be exposed to the sun due to skin condition. Often supplementation is needed. Many multivitamins contain some vitamin D and vitamin D alone preparations are now available in several forms. The recommended daily intake of vitamin D used to be 400 and 800 international units, however, it is now known that larger amounts are needed, as discussed above. Your doctor can prescribe prescription strength vitamin D for you if necessary, if you have marked deficiency or diseases of the liver or kidney. Supplementation in patients with severe deficiency can stabilize or improve bone mineral density and in frail elderly persons, may reduce their risk of falling. Additional Information is available from: [facility] Osteoporosis Information: [email or web address]/de partments/orthopaedics-rheumatolo gy/depts/osteoporosis-metabolic The Bone Health and Osteoporosis Foundation (formerly the National Osteoporosis Foundation) : https://www.bonehealthandosteopor osis.org International Osteoporosis Foundation: https://www.osteoporosis.foundati on http://ods.od.nih.gov/factsheets/ vitamind.asp [place] [facility]: 0-060-598-BONE [facility] Calcium Information [place]: I hope this information will help you be empowered with the awareness and knowledge to achieve the best of your health and wellbeing. At the [facility], we work as a team for your care, along with Nurse Practitioners, Physician Assistants, Nurses and Medical Assistants. It is a privilege and honor to serve you. Thank you for choosing [facility] for your healthcare. Sincerely, Samy Cano MD documented in this encounter [facility] 05-23-2024 History of Present illness Narrative Images from the original note were not included. FOLLOW UP VISIT Ms. Demar Ball is a very nice 43 year old female seen for BRISA. Additional details per last visit note HISTORY REVIEWED (electronic chart updated): May 23, 2024 visit Subjective: States last few few months has had hard time, was caring for her ill son and then lost him. Son was 13 y.o. 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 He . This has been hard for her. She is seeing a counselor for 1.5 mo and a half and has family support. States she was very close to him and they did everything together . I offered our most sincere condolences. Spent additional time at this visit with patient. She is seeing psychotherapist and PCP States he was 70 lbs and had to lift him multiple times a day. States she tore a rt RC or strained a muscle. She is working with her new Pain Mgt specialist for that. She is very pleased with her new Pain Mgt specialist. He is evaluated her RC and planning on MRI, but he needs to check with her orthop if can, due to having hardware from prior surgery. States her rt shoulder mostly, but also effected her left. States they have her do PT now States with this weather changes, has been causing jt pains. States her ankles are same. No jt swelling No reported increased am stiffness. Hands have been puffy, had to take her ring off at the , for resizing. She has been on Enbrel monotherapy Enbrel 25 mg twice a week Well tolerated Continues to have very good response. She remains off methotrexate due to elevated liver transaminases. States her Neurologist suspects was the zanaflex and has lowered her dose. States felt better at the higher dose. Advised can try magnesium supplement at bedtime. Denies current fevers or infections Vitamin D: states has been taking 5000 international units once daily with meals Answers submitted by the patient for this visit: Review of Systems Rheumatology (Submitted on 05/23/2024) Fever : No Recent unintentional weight change: No Eye pain: No Eye redness: No Vision Disturbance: No Eye Dryness: No Nosebleeds: No Sores in your mouth: No Trouble Swallowing: No Dry Mouth: No Chest pain: No Leg Swelling: No A cough: No Shortness of breath: No Pain with breathing: No Heartburn: No Abdominal pain: No Diarrhea: No Black tarry stools: No Blood in urine: No Pain or burning with urination: No Joint pain or stiffness: Yes Muscle weakness: Yes Muscle aches: Yes Joint swelling: Yes Morning Stiffness in Joints: Yes A rash: No Skin Color Changes: No Hair Loss: No Nail Changes: No Headaches: Yes Numbness: Yes Memory Loss: No Swollen Glands: No Outside records reviewed Shoulder x-rays Left sh: Exam/Technique: AP Grashey and scapular Y views of the left shoulder were obtained. Comparison: 09/15/2021 Findings: There are osteoarthritic changes in the acromioclavicular joint. There is no evidence for an acute osseous abnormality. No dislocation is demonstrated. 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 Otherwise normal left shoulder. Finalized by Solomon Thao MD on 05/03/2024 Rt sh: Exam/Technique: AP Grashey and scapular Y views of the right shoulder were obtained. Comparison: 09/15/2021 Findings: There is no evidence for an acute osseous abnormalities. No significant degenerative changes are seen. No dislocation is demonstrated. IMPRESSION: Normal right shoulder. Finalized by Solomon Thao MD on 05/03/2024 12:31 PM Previously 08/30/2023 CC: left ankle pain since michael inj by Pain Mgt Sates her foot was not hurting before the injections States her Pain Mgt made me chose a joint that was hurting the most and she chose her ankle, left States he gave her one injection, 08/17/2023 and states the pain has been worse since the injection. States it hurts going down the steps and walking. States cannot walk on it without pain States it is not swollen at all We have advised her to f/u with her Pain Mgt specialist who performed the procedure. States she called and spoke to his audio visual secretary and states they did not address that. No erythema, swelling Denies infections or fevers States doing well States the scalp abscess has healed and hair is growing back. She had elevated liver transaminases at time was on antibiotics, denies being on methotrexate at the time. Denies alcohol consumption We called and advised her to hold her methotrexate, but she was not taking. She has been taking methotrexate and Enbrel Well tolerated Denies current fevers or infections Vitamin D: has been taking 5000 international units once daily with meals Previously 10/27/2022 About a wk ago, had a swelling in the scalp and had horrible headache and states this goose egg appeared , states few days later it opened up like a bloody sore and drained clear States went to ER and was told she has an abscess States the bed sheet was yellow; They cultured it, results in process. Had low grade fever . She is not aware of any triggering factors. is staying at the [facility] and may have bumped her head on a board, but does not recall. She also had a hair cut on Tuesday prior to that. She washed her hair and her daughter str'nd for her with a flat iron. She was prescribed antibiotics States she feels achy a little all over , the head ache is much better; Overall better since was started on Bactrim Denies fevers currently She held her methotrexate and Enbrel States will be on antibiotics for 10 days She has an apt with her PCP tomorrow. 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 She was advised that she needs to have it immobilized for 12 wks, till 02/19/2022. States had edema after surgery, feels had fluid retention States her wt has been stable otherwise Advised can resume Enbrel and methotrexate once cleared by her surgeon Vitamin D: 1000 international units once daily with meals Has not had 50,000 international units for some time. I have ordered vitamin D and we faxed orders She will get it done tomorrow at her local hospital S/p hysterectomy, without ooph She does not know if she is menopausal States the rt hand infection is better, since on antibiotics and swelling has gone down States her BRISA has been ok States the left hand is a little bit swollen because it has been doing everything , has been relying on her left hand States her BRISA has been good More recently with rainy weather would hurt more States had telehealth apt with her hand surgeon, for rt index, suspected mallet finger. Wonders if could get OT as also PIP does not bend well. 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 She does not want to have surgery for that if she can help it. Has been on Enbrel, well tolerated Enbrel 25 mg SQ twice a week Has not missed it in past 3 months Continues on methotrexate 4 tbs/wk Folic acid 1 mg once daily States is able to get her medications and all are covered. She has not had covid19 Denies interim infections No fevers or chills States the rash on upper lids resolved and has not had it for a while. 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 Rosales and did not think correlation with methotrexate and Enbrel. No current rashes No flares Medications well tolerated Denies , s/p DEENA Taking vitamin D : 2000 international units once daily with meals Completed 50k course Vitamin D 25 Hydroxy (ng/mL) Date Value 05/30/2019 19.8 ] Following with Vascular specialist on Xarelto and had recent labs Labs [facility] CBC and CMP normal Prior lab work at [facility] 01/05/2020: CMP normal CBC, normal, abd eos normal CRP 1.7 mg/dL REVIEW OF SYSTEMS: as above - medical history - medications - allergies - family history - social history - radiology - tests Full details in patient's emr chart Additional pertinent test results reviewed Pertinent imaging scans/films reviewed PHYSICAL EXAM LMP 11/30/2016 (Approximate) afebrile General Appearance: WD/WN, NAD. Appropriate grooming. SKIN: no psoriasis, purpura or ulcers. No apparent rash on exam Post surgical changes rt hand, rt index wound healed, dry, no erythema. HEENT: No conjunctival injection or icterus, no oral ulcers, no thrush, throat clear, no palpable adenopathy. Oral aperture decreased since surgery. No TMJ tenderness, positive for micrognathia; Nasal bridge deformity consistent with patient's history of fracture LUNGS: CTA, Good respiratory effort. No palpable axillary lymphadenopathy HEART: RRR, - m/r/g ABD: soft, NT, I did not palpate HSM or mass EXTREMITIES: Adequate pulses b/l UE ; No clubbing, discoloration, sclerodactyly, periungual erythema, digital ulcers, nail pitting, or edema. MUSCULOSK: Multiple joint deformities No rheumatoid nodules, calcifications or tophi. S/p surgery both feet. As per previous exam: Left first IP joint surgically removed, b/l pes planus. Partial ankylosis left ankle. Left wrist ankyloses, right wrist fusion s/p surgery, scars clear LOM of multiple jts- stable Swoll JTS: 0 Tend. 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) M06.4 Inflammatory polyarthropathy (HCC) Z51.81, Z79.620 Encounter for monitoring of etanercept therapy E55.9 Vitamin D deficiency-chronic Z71.89 Counseling on health promotion and disease prevention Z51.81 Medication monitoring encounter R74.8 Elevated liver enzymes Comment: Following with Neurol/PCP/GI, her neurologist suspected from zanaflex and dose was decreased Patient with 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 Also had radiesse filler to chin (due to micrognathia) Her BRISA/RA has been in remission on Enbrel. She has had to hold due to surgery and the post surgery infection in 2021. More recently, Sep 2022 developed abscess in scalp, likely from brush or scrape, was evaluated and treated in ER, s/p I&D and on antibiotics, with good response and improvement. She has held her methotrexate and Enbrel and resumed Enbrel once cleared from infection. She has not had further infections. At today's video visit, the patient's BRISA/RA does not appear to be active I advised patient to have next apt as in person, in office. She has had history of chronic vitamin D deficiency and had not been taking sufficient vitamin D. She ran out of the 50,000 international units prescription and has only been taking 1000 international units daily. I have previously advised on maintenance therapy and discussed importance of keeping vitamin D normal. She requires 50,000 international units dosing due to chronic D deficiency, despite over the counter vitamin D higher dose. Vitamin D with food. She is not menopausal; Denies other fracture, states despite falls, would have thought she would. Received outside labs form 08/2022, and reviewed with patient. Still needs vitamin D, will be getting tomorrow at her PCP visit No reported history of osteoporosis related fractures Would recommend DXA, tyler if postmenopausal, but would be indicated due to long standing history of BRISA and is on topiramate. PLAN: [facility] on 05/23/24 COMPLETE BLOOD COUNT AND DIFFERENTIAL COMPREHENSIVE METABOLIC PANEL VITAMIN D 25 HYDROXY HEP REMOTE PANEL BL C-REACTIVE PROTEIN Labs soonest patient able to completed She would like to have the labs closer to home (lives about 1 hr away). States will have them at [facility], is just a few min from her house. Will mail orders to patient Plan as discussed above RE BRISA medications: - Enbrel 50 mg sq once a week (on 25 mg twice a week) Hold Enbrel during infections -Will remain off methotrexate, due to her abnormal liver transaminases Will continue on vitamin D supplement to maintain normal range Advised on adding magnesium supplement at bedtime, would help with muscle relaxation and bone health. Risks, benefits, alternatives, reported side effects, indication, limitations/expectation of medication(s) were discussed with patient and patient wished to proceed. Written information provided for patient review. Spent additional time discussing stress mgt and provided resources. Following a healthy lifestyle will provide optimal chance for disease remission, decreasing risk for CV disease and common chronic diseases, and overall wellbeing. I reviewed conservative care, wellness and healthy lifestyle, as well as the benefits of a whole foods plant based diet. I have had many patients experience significant relief in musculoskeletal pains and inflammatory arthropathy, by avoiding refined sugars and dairy and following whole foods plant based diet. Additional time spent with patient on healthy lifestyle, healthy food and anti-inflammatory diet (with emphasis on whole plant based diet), avoiding refined carbs/sugars and processed food, appropriate exercise (stretching, cardio and strengthening), good sleep hygiene, stress mgt, and supplementing vital deficiencies and maintaining healthy wt and healthy BMI. Additional information provided with references and educational information. Bone health recommendations provided Previously ordered DXA multiple times, not completed; Will re-order in future, will avoid overwhelming patient at this time. Bone Health Recommendations: -Bone Density is recommended after menopause and after age 55-60, sooner if patient has risk factors, sooner if on systemic steroid use of 3 months or more. -Vitamin D supplementation recommended, optimal dose is the dose necessary to achieve Vitamin D 25-OH blood level in range of 40-60 ng/mL. (Vitamin D supplement in international units, is the dose necessary to achieve a Vitamin D 25-OH blood level in range of 40-60 ng/mL). -Recommended daily dose of calcium: 1200mg total a day in divided doses. Calcium from dietary sources, if not sufficient, or if with h/o calcium nephrolithiasis would recommend Calcium Citrate supplement, as it is recommended to avoid caclium carbonate products, which as main dietary calcium source. The after visit summary has information on dietary calcium and instructions on reading calcium label and converting the %DV to mg. -Regular weight-bearing and muscle-strengthening exercise -Avoidance of tobacco smoking, excessive alcohol intake and excessive caffeine intake. -Fall and fracture precautions -Continued regular dental follow up visits and good dental/gum care Additional time spent on interpretation of test results. Available laboratories an their clinical significance were reviewed with the patient. Radiographs were reviewed at todays visit. Additional time was spent outside of the patient visit to review records. today. Assessment and plan were discussed with the patient. Additional time spent with the patient to discuss their questions. Additional time spent with the patient devoted to discussing treatment strategy, planning, implementation and preventive health and wellness recommendations. I spent a total of 35 minutes on the date of the service which included preparing to see the patient, [id number] patient care, completing clinical documentation, obtaining and/or reviewing separately obtained history, performing a medically appropriate examination, counseling and educating the patient/family/caregiver, ordering medications, tests, or procedures, communicating with other HCPs (not separately reported), independently interpreting results (not separately reported), communicating results to the patient/family/caregiver, and care coordination (not separately reported). and an additional 20 min spent for condolences and providing stress mgt and support. FU visit: early 2024 for BRISA/med monitoring, sooner if needed Portions of this note have been copied from my previous note and have been updated to reflect today's visit note May 23, 2024, all reflect my current medical decision making from date of this visit. The patient will continue following with her PCP and other Specialists for her other health problem She is seeing a counselor for bereavement -Continuous follow up with Primary care physician for cardiovascular disease prevention, for age appropriate cancer screening and routine health maintenance and wellness, and infection precautions and age appropriate immunization recommended. -I have advised on wellness and the whole plant based diet, as they have been shown to prevent and reverse hear disease, prevent and treat diabetes mellitus II, decrease risk of CV disease, diabetes, metabolic syndrome, HTN, hyperlipidemia, obesity, bone loss, certain auto-immune, inflammatory, skin disorders, certain cancers, macular degeneration, certain degenerative disorders, multiple other chronic health disorders, and be in favor of general health and wellness. Thank you for allowing me to participate in the care of your patient. 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 Pike No date: Migraines No date: Neuropathy No date: Polyarticular juvenile idiopathic arthritis (HCC) No date: RA (rheumatoid arthritis) ([facility]) Comment: right wrist No date: Thyroid nodule Comment: Biopsy done approx 12/2015: Transfusion history Comment: after surgery for clot in abdomen/hip PAST SURGICAL HISTORY No date: BIOPSY THYROID No date: COLONOSCOPY Comment: Polypectomy No date: HAND SURGERY HX; Right Comment: R 1st finger No date: PAST SURGICAL HISTORY OF Comment: Uterine septum removed No date: PAST SURGICAL HISTORY OF Comment: [place] teeth extraction 03/2015: PAST SURGICAL HISTORY OF Comment: Nasal fracture repair No date: PAST SURGICAL HISTORY OF Comment: Bunionectomy x2 1998: PAST SURGICAL HISTORY OF Comment: Jaw surgery with manipulation No date: PAST SURGICAL HISTORY OF Comment: Right wrist surgery x2, partial fusion and repair 2012: PAST SURGICAL HISTORY OF Comment: Arthroscopy on bilateral hips 12/2015: PAST SURGICAL HISTORY OF Comment: 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 Maggie Jarquin No date: PAST SURGICAL HISTORY OF Comment: DEENA No date: PAST SURGICAL HISTORY OF Comment: Lap Genesis 03/15/2011: TUBAL LIGATION HX Social History Tobacco Use Smoking status: Never Smokeless tobacco: Never Substance Use Topics Alcohol use: No Drug use: No FAMILY HISTORY Problem Relation Age of Onset Diabetes Mother Hypertension Mother Hypertension Father ALLERGIES Allergen Reactions Vancomycin Hives, Itching, Swelling Bacitracin Hives Doxycycline Rash, Itching Ferrous Sulfate Anaphylaxis, Vomiting Reaction happened with IV iron Keflex [Cephalexin] Itching Remicade [Inflixima* Other: See Comments Confusion, hypotension 10/20/2015 Patient states that she did have this reaction but that she has had this medication since and has not suffered any allergy Ultram [Tramadol Hc* Hives Current Outpatient Medications Medication Sig naratriptan (AMERGE) 2.5 mg tablet Take 1 tablet (2.5 mg) by mouth as needed for migraine headache (see administration instructions). TAKE ONE(1) TABLET AT THE ONSET OF HEADACHE. MAY REPEAT DOSE AFTER 4 HOURS. NO MORE THAN 2 TABS IN 24 HRS. tiZANidine (ZANAFLEX) 4 mg tablet TAKE 0.5 TO ONE TABLET BY MOUTH EVERY 8 HOURS NEEDED. topiramate (TOPAMAX) 200 mg tablet Take 1 tablet in the AM, 0.5 tablets in the afternoon, and 1 tablet at bedtime for 2 weeks, then take 1 tablet twice daily erenumab-aooe (AIMOVIG AUTOINJECTOR) 140 mg/mL auto-injector Inject 1 mL under the skin once every month. Do not shake. etanercept (ENBREL) 25 mg/0.5 mL (0.5) Inject 25mg (1 syringe) subcutaneously two times a week. Hold during infections Syringe with Needle, Disp, (BD TUBERCULIN SYRINGE) 1 mL 27 x 1/2 use to draw up & inject enbrel folic acid 1 mg tablet Take 1 tablet by mouth once daily. ergocalciferol 50,000 unit capsule (VITAMIN D2, DRISDOL) Take 1 capsule by mouth one time a week. with a meal and obtain blood test for vitamin D 25-OH as advised. efinaconazole (JUBLIA) 10 % [place] Apply to affected area once daily. (Patient not taking: Reported on 02/22/2024) Needle, Disp, 27 G (BD DISPOSABLE NEEDLES) 27 gauge x 1/2 ndle use to draw up & inject enbrel HYDROcodone-acetaminophen (NORCO) 5-325 mg per tablet Take by mouth every 6 hours as needed. XARELTO 20 mg tablet gabapentin (NEURONTIN) 300 mg capsule Take 400 mg by mouth four times daily. pantoprazole DR (PROTONIX) 40 mg tablet Take 40 mg by mouth twice daily. No current facility-administered medications for this visit. PERTINENT TESTS: Outside labs reviewed Latest Ref Rng & Units 12/19/2017 01/03/2019 05/30/2019 11/17/2021 CBC WBC 3.70 - 11.00 k/uL 6.98 8.28 6.85 6.42 9.88 Hemoglobin 11.5 - 15.5 g/dL 12.3 12.8 12.9 12.5 15.1 Hematocrit 36.0 - 46.0 % 39.3 38.7 41.4 41.0 45.4 Platelet Count 150 - 400 k/uL 470 408 458 452 439 Abs Neut (ANC) 1.45 - 7.50 k/uL 3.74 4.80 4.46 4.22 6.19 Abs Lymph 1.00 - 4.00 k/uL 2.43 2.16 1.69 1.42 2.57 Latest Ref Rng & Units 01/03/2019 05/30/2019 11/17/2021 12/03/2021 CMP Sodium 136 - 144 mmol/L 136 140 139 132 Sodium (POCT) 132 - 148 mmol/L 141 Potassium 3.7 - 5.1 mmol/L 3.2 4.3 4.2 3.9 Potassium (POCT) 3.5 - 5.0 mmol/L 3.8 Chloride 97 - 105 mmol/L 102 108 107 103 Chloride (POCT) 98 - 110 mmol/L 113 CO2 22 - 30 mmol/L 21 18 19 17 Glucose 74 - 99 mg/dL 109 93 95 139 Glucose (POCT) 60 - 105 mg/dL 90 BUN 7 - 21 mg/dL 18 8 8 12 Creatinine 0.58 - 0.96 mg/dL 0.57 0.59 0.58 1.09 Creatinine (POCT) 0.70 - 1.40 mg/dL 0.70 Calcium 8.5 - 10.2 mg/dL 9.5 9.3 9.3 9.8 AST 13 - 35 U/L 21 17 31 ALT 7 - 38 U/L 26 13 48 Alkaline Phosphatase 34 - 123 U/L 88 73 88 Latest Ref Rng & Units 01/03/2019 05/30/2019 CRP CRP <0.9 mg/dL 2.7 1.3 Latest Ref Rng & Units 01/03/2019 CK CK 42 - 196 U/L 171 Latest Ref Rng & Units 01/03/2019 TB Screen TB Interpretation No evidence of current or previous infection with Mycobacterium tuberculosis. TB Result Negative Negative Latest Ref Rng & Units 05/30/2019 Antibodies PT Sec 9.7 - 13.0 sec 10.5 PT INR 0.9 - 1.3 1.0 APTT 23.0 - 32.4 sec 26.0 Vitamin D 25 Hydroxy (ng/mL) Date Value 05/30/2019 19.8 ] RELEVANT OSTEOPOROSIS LABS: Calcium Date Value Ref Range Status 05/30/2019 9.3 8.5 - 10.2 mg/dL Final 05/30/2019 9.3 8.5 - 10.2 mg/dL Final 01/03/2019 9.5 8.5 - 10.2 mg/dL Final Calcium, Total Date Value Ref Range Status 11/17/2021 9.8 8.5 - 10.2 mg/dL Final Alkaline Phosphatase Date Value Ref Range Status 11/17/2021 88 34 - 123 U/L Final 05/30/2019 73 34 - 123 U/L Final 01/03/2019 88 34 - 123 U/L Final 12/19/2017 89 32 - 117 U/L Final PTH, Intact Date Value Ref Range Status 01/03/2019 39 15 - 65 pg/mL Final Vitamin D 25 Hydroxy Date Value Ref Range Status 05/30/2019 19.8 (L) 31.0 - 80.0 ng/mL Final Comment: Classification of 25 OH Vitamin D status: Insufficiency/Moderate Deficiency: < or = 30 ng/mL Sufficiency/Optimal Levels: 31 to 80 ng/mL Toxicity: > 100 ng/mL Test performed by chemiluminescent immunoassay. 01/03/2019 22.2 (L) 31.0 - 80.0 ng/mL Final Comment: Classification of 25 OH Vitamin D status: Insufficiency/Moderate Deficiency: < or = 30 ng/mL Sufficiency/Optimal Levels: 31 to 80 ng/mL Toxicity: > 100 ng/mL Test performed by chemiluminescent immunoassay. 12/19/2017 25.3 (L) 31.0 - 80.0 ng/mL Final Comment: Classification of 25 OH Vitamin D status: Insufficiency/Moderate Deficiency: < or = 30 ng/mL Sufficiency/Optimal Levels: 31 to 80 ng/mL Toxicity: > 100 ng/mL Test performed by chemiluminescent immunoassay. 11/07/2014 18.4 (L) 31.0 - 80.0 ng/mL Final Comment: Classification of 25 OH Vitamin D status: Insufficiency/Moderate Deficiency: < or = 30 ng/mL Sufficiency/Optimal Levels: 31 to 80 ng/mL Toxicity: > 100 ng/mL Test performed by chemiluminescent immunoassay. Creatinine Date Value Ref Range Status 11/17/2021 1.09 (H) 0.58 - 0.96 mg/dL Final 05/30/2019 0.59 0.58 - 0.96 mg/dL Final 05/30/2019 0.58 0.58 - 0.96 mg/dL Final Creatinine (POCT) Date Value Ref Range Status 12/03/2021 0.70 0.70 - 1.40 mg/dL Final Protein, Total Date Value Ref Range Status 11/17/2021 7.7 6.3 - 8.0 g/dL Final 05/30/2019 7.3 6.3 - 8.0 g/dL Final 01/03/2019 7.4 6.3 - 8.0 g/dL Final 12/19/2017 7.3 6.3 - 8.0 g/dL Final Albumin Date Value Ref Range Status 11/17/2021 4.5 3.9 - 4.9 g/dL Final 05/30/2019 4.4 3.9 - 4.9 g/dL Final 01/03/2019 4.5 3.9 - 4.9 g/dL Final 12/19/2017 4.5 3.9 - 4.9 g/dL Final No components found for: CTX No components found for: HOMOCYSTEINE Last XR Thoracic Spine - Impression Only No resulted procedures found. Last XR Lumbar Spine - Impression Only No resulted procedures found. Last Bone Density No resulted procedures found. Last XR Hand/Finger - Impression Only XR DIGIT GENERAL 3V FRONTAL/LAT/OBL RIGHT Collected: 03/31/2022 10:46 AM (Final result) Impression: IMPRESSION: 1. Stable postsurgical changes of the proximal interphalangeal joint of the RIGHT second digit. Medical Billing Associate: SERGEI Transcribe Date/Time: Mar 31 2022 12:49P... IMPRESSION: Unchanged right thumb IP joint effusion with intact hardware. 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 Medical Billing Associate: SERGEI Transcribe Date/Time: Oct 09 2019 11:59A Dictated by : DOMINIC MADDOX MD This examination was interpreted and the report reviewed and electronically signed by: VIKTOR SMART MD on Oct 09 2019 2:13PM EST Results-Findings * * *Final Report* * * DATE OF EXAM: Oct 09 2019 11:27AM CCX 5319 - XR DIGIT 3V FRONTAL/LAT/OBL RT / PROCEDURE REASON: multiple diagnoses * * * * Physician Interpretation * * * * EXAMINATION: XR DIGIT 3V FRONTAL/LAT/OBL RT HISTORY: POST OP RIGHT THUMB AND FOLLOW UP RIGHT 4TH FINGER . 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 TECHNIQUE: XR DIGIT 3V FRONTAL/LAT/OBL RT Laterality: RIGHT Number of different views (projections): 3 M: XB_1 COMPARISON: 07/17/2019 RESULT: No significant interval change. Status post right thumb interphalangeal joint arthrodesis without osseous fusion, at this time. Completed bony fusion of the wrist arthrodesis with bridging plate extending from the distal radius due to the midshaft of the third metacarpal. Intact hardware without periprosthetic fracture, loosening or change in alignment. Status post distal ulnar resection. Mild swan-neck deformity of the 2nd digit (index finger) similar to the 07/17/2019 exam. documented in this encounter [facility] 05-23-2024 Note HNO ID: [id number] Author: SAMY MANSFIELD MD Service: ? Author Type: Physician Type: Progress Notes Filed: 05/23/2024 21:45 Note Text: FOLLOW UP VISIT Ms. Demar Ball is a very nice 43 year old female seen for BRISA. Additional details per last visit note HISTORY REVIEWED (electronic chart updated): May 23, 2024 visit Subjective: States last few few months has had hard time, was caring for her ill son and then lost him. Son was 13 y.o. 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 He . This has been hard for her. She is seeing a counselor for 1.5 mo and a half and has family support. States she was very close to him and they did everything together . I offered our most sincere condolences. Spent additional time at this visit with patient. She is seeing psychotherapist and PCP States he was 70 lbs and had to lift him multiple times a day. States she tore a rt RC or strained a muscle. She is working with her new Pain Mgt specialist for that. She is very pleased with her new Pain Mgt specialist. He is evaluated her RC and planning on MRI, but he needs to check with her orthop if can, due to having hardware from prior surgery. States her rt shoulder mostly, but also effected her left. States they have her do PT now States with this weather changes, has been causing jt pains. States her ankles are same. No jt swelling No reported increased am stiffness. Hands have been puffy, had to take her ring off at the , for resizing. She has been on Enbrel monotherapy Enbrel 25 mg twice a week Well tolerated Continues to have very good response. She remains off methotrexate due to elevated liver transaminases. States her Neurologist suspects was the zanaflex and has lowered her dose. States felt better at the higher dose. Advised can try magnesium supplement at bedtime. Denies current fevers or infections Vitamin D: has been taking 5000 international units once daily with meals Answers submitted by the patient for this visit: Review of Systems Rheumatology (Submitted on 05/23/2024) Fever : No Recent unintentional weight change: No Eye pain: No Eye redness: No Vision Disturbance: No Eye Dryness: No Nosebleeds: No Sores in your mouth: No Trouble Swallowing: No Dry Mouth: No Chest pain: No Leg Swelling: No A cough: No Shortness of breath: No Pain with breathing: No Heartburn: No Abdominal pain: No Diarrhea: No Black tarry stools: No Blood in urine: No Pain or burning with urination: No Joint pain or stiffness: Yes Muscle weakness: Yes Muscle aches: Yes Joint swelling: Yes Morning Stiffness in Joints: Yes A rash: No Skin Color Changes: No Hair Loss: No Nail Changes: No Headaches: Yes Numbness: Yes Memory Loss: No Swollen Glands: No Outside records reviewed Shoulder x-rays Left sh: Exam/Technique: AP Grashey and scapular Y views of the left shoulder were obtained. Comparison: 09/15/2021 Findings: There are osteoarthritic changes in the acromioclavicular joint. There is no evidence for an acute osseous abnormality. No dislocation is demonstrated. 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 Otherwise normal left shoulder. Finalized by Solomon Thao MD on 05/03/2024 Rt sh: Exam/Technique: AP Grashey and scapular Y views of the right shoulder were obtained. Comparison: 09/15/2021 Findings: There is no evidence for an acute osseous abnormalities. No significant degenerative changes are seen. No dislocation is demonstrated. IMPRESSION: Normal right shoulder. Finalized by Solomon Thao MD on 05/03/2024 12:31 PM Previously 08/30/2023 CC: left ankle pain since michael inj by Pain Mgt Sates her foot was not hurting before the injections States her Pain Mgt made me chose a joint that was hurting the most and she chose her ankle, left States he gave her one injection, 08/17/2023 and states the pain has been worse since the injection. States it hurts going down the steps and walking. States cannot walk on it without pain States it is not swollen at all We have advised her to f/u with her Pain Mgt specialist who performed the procedure. States she called and spoke to his audio visual secretary and states they did not address that. No erythema, swelling Denies infections or fevers States doing well States the scalp abscess has healed and hair is growing back. She had elevated liver transaminases at time was on antibiotics, denies being on methotrexate at the time. Denies alcohol consumption We called and advised her to hold her methotrexate, but she was not taking. She has been taking methotrexate and Enbrel Well tolerated Denies current fevers o (more content not included)... [facility] 05-02-2024 Note HNO ID: [id number] Author: GRACY OSBORNE, [facility] Service: ? Author Type: ? Type: Progress Notes Filed: 05/06/2024 09:29 Note Text: [facility] Specialty Refill Assessment Medication(s): Enbrel Patient's current medication list and adherence status to current therapy were reviewed by Specialty Pharmacy clinical pharmacist to identify any new drug interactions or non-compliance to therapy. Therapy continues to be appropriate for disease, patient response, and medical condition. Verification of therapeutic benefit and effectiveness with current therapy was completed. Adverse events, barriers in adherence, and side effects were assessed and addressed if applicable. Will proceed with refill with no changes in therapy - patient progressing towards achieving therapeutic goals based on medication-specific laboratory parameters, disease state markers and outcomes. Gracy Osborne, PharmD Clinical Pharmacist [facility] Pool: [id number] Pool #: [id number] Console Operator Assessment Patient confirmed: Yes Med/dose confirmed: Yes Supplies needed: Bandages, Alcohol swabs Missed doses: No Estimated days supply on hand: 1 Next cycle/dose due: 05/08/24 Copay amount: 0 Payment confirmed: Yes Delivery method: FedEx Signature required: Waived on patient request Delivery address: [address] [place] [id number] Delivery date: 05/09/24 Questions or concerns for the pharmacist?: No Did you have any side effects believed to be related to this medication, that resulted in hospitalization?: No Current Outpatient Medications on File Prior to Visit Medication Sig naratriptan (AMERGE) 2.5 mg tablet Take 1 tablet (2.5 mg) by mouth as needed for migraine headache (see administration instructions). TAKE ONE(1) TABLET AT THE ONSET OF HEADACHE. MAY REPEAT DOSE AFTER 4 HOURS. NO MORE THAN 2 TABS IN 24 HRS. tiZANidine (ZANAFLEX) 4 mg tablet TAKE 0.5 TO ONE TABLET BY MOUTH EVERY 8 HOURS NEEDED. topiramate (TOPAMAX) 200 mg tablet Take 1 tablet in the AM, 0.5 tablets in the afternoon, and 1 tablet at bedtime for 2 weeks, then take 1 tablet twice daily erenumab-aooe (AIMOVIG AUTOINJECTOR) 140 mg/mL auto-injector Inject 1 mL under the skin once every month. Do not shake. etanercept (ENBREL) 25 mg/0.5 mL (0.5) Inject 25mg (1 syringe) subcutaneously two times a week. Hold during infections Syringe with Needle, Disp, (BD TUBERCULIN SYRINGE) 1 mL 27 x 1/2 use to draw up AND inject enbrel folic acid 1 mg tablet Take 1 tablet by mouth once daily. ergocalciferol 50,000 unit capsule (VITAMIN D2, DRISDOL) Take 1 capsule by mouth one time a week. with a meal and obtain blood test for vitamin D 25-OH as advised. efinaconazole (JUBLIA) 10 % char[place] Apply to affected area once daily. (Patient not taking: Reported on 02/22/2024) Needle, Disp, 27 G (BD DISPOSABLE NEEDLES) 27 gauge x 1/2 ndle use to draw up AND inject enbrel HYDROcodone-acetaminophen (NORCO) 5-325 mg per tablet Take by mouth every 6 hours as needed. XARELTO 20 mg tablet gabapentin (NEURONTIN) 300 mg capsule Take 400 mg by mouth four times daily. pantoprazole DR (PROTONIX) 40 mg tablet Take 40 mg by mouth twice daily. No current facility-administered medications on file prior to visit. [facility] CLINICAL ASSESSMENT - INFLAMMATORY CONDITIONS V6: Ivent complete: No Assessment to use: Refill Assessment of injection issues: Yes Infection screening, including annual TB assessment when applicable to medication: Yes Current medication list (including drug interaction assessment): Yes Experience of adverse reactions to the medication: Yes Date of influenza vaccination reminder: 06/16/2023 Date of most recent vaccination assessment: 06/16/2023 Treatment Plan Information: Enbrel Inject 1 syringe (25 mg dose) subcutaneously two times a week. Est. Tx Plan Start Date: No information available Estimated Start Date Info: Established on therapy Est. Estimated Treatment Duration: Until lack of efficacy Jany Coleman ([facility]) [facility] FAX: [facility] 04-17-2024 History of Present illness Narrative Enbrel Renewal PA was initiated and pending review. Plan Name: [employer] Plan Agent/Dominguez: CMM / [id number] Timeline: URGENT Jany Coleman ([facility]) [facility] FAX: documented in this encounter [facility] 04-17-2024 Note HNO ID: [id number] Author: ?, ?, ? Service: ? Author Type: ? Type: Progress Notes Filed: 04/17/2024 14:54 Note Text: Enbrel Renewal PA was initiated and pending review. Plan Name: [employer] Plan Agent/Dominguez: CMM / [id number] Timeline: URGENT Jany Coleman ([facility]) [facility] FAX: [facility] 04-17-2024 Note HNO ID: [id number] Author: PEGGY QUIJANO RP Service: ? Author Type: Pharmacist Type: Progress Notes Filed: 05/01/2024 12:43 Note Text: PA RENEWAL was approved with details listed below. Plan Name: [employer] Plan Agent/Dominguez: CMM [id number] Phone/ / - PA reference number: [id number] Approval Dates: Through 04/30/25 Prescriptions will now be processed through [facility] Special[facility] for determination of next steps. Peggy Quijano, PharmD Clinical Pharmacist, [employer] [facility] ; Pool: [facility] Pool #: [id number] [facility] 04-17-2024 Note HNO ID: [id number] Author: ?, ?, ? Service: ? Author Type: ? Type: Progress Notes Filed: 04/19/2024 14:18 Note Text: Enbrel Renewal PA was re-initiated and pending review. Plan Name: [employer] Plan Agent/Dominguez: CMM / [id number] Case: [id number] Timeline: URGENT Toribioanjelica Chrystaljimmie ([facility]) [facility] FAX: [facility] 03-26-2024 Telephone encounter Note Patient calling regarding needs a letter from Dr. Atkins's office. Conferenced to [facility] [place] french edge operator, Lalitha, to speak with Dr. Atkins office. [facility] 03-26-2024 Miscellaneous Notes Patient calling regarding needs a letter from Dr. Atkins's office. Conferenced to [facility] french edge operator, Lalitha, to speak with Dr. Atkins office. documented in this encounter [facility] 03-19-2024 Note HNO ID: [id number] Author: GRACY OSBORNE [facility] Service: ? Author Type: ? Type: Progress Notes Filed: 03/23/2024 18:08 Note Text: [facility] Refill Assessment Medication(s): Enbrel Patient's current medication list and adherence status to current therapy were reviewed by Specialty Pharmacy clinical pharmacist to identify any new drug interactions or non-compliance to therapy. Therapy continues to be appropriate for disease, patient response, and medical condition. Verification of therapeutic benefit and effectiveness with current therapy was completed. Adverse events, barriers in adherence, and side effects were assessed and addressed if applicable. Will proceed with refill with no changes in therapy - patient progressing towards achieving therapeutic goals based on medication-specific laboratory parameters, disease state markers and outcomes. Gracy Osborne, PharmD Clinical Pharmacist [facility] Pool: [facility] Pool #: [id number] Console Operator Assessment Patient confirmed: Yes Med/dose confirmed: Yes Supplies needed: No supplies needed Missed doses: No Estimated days supply on hand: (PT unsure how much she has on hand) Next cycle/dose due: 03/20/24 Copay amount: 0 Payment confirmed: Yes Delivery method: FedEx Signature required: Waived on patient request Delivery address: [address] [place] [id number] Delivery date: 03/27/24 Questions or concerns for the pharmacist?: No Did you have any side effects believed to be related to this medication, that resulted in hospitalization?: No Current Outpatient Medications on File Prior to Visit Medication Sig naratriptan (AMERGE) 2.5 mg tablet Take 1 tablet (2.5 mg) by mouth as needed for migraine headache (see administration instructions). TAKE ONE(1) TABLET AT THE ONSET OF HEADACHE. MAY REPEAT DOSE AFTER 4 HOURS. NO MORE THAN 2 TABS IN 24 HRS. tiZANidine (ZANAFLEX) 4 mg tablet TAKE 0.5 TO ONE TABLET BY MOUTH EVERY 8 HOURS NEEDED. topiramate (TOPAMAX) 200 mg tablet Take 1 tablet in the AM, 0.5 tablets in the afternoon, and 1 tablet at bedtime for 2 weeks, then take 1 tablet twice daily erenumab-aooe (AIMOVIG AUTOINJECTOR) 140 mg/mL auto-injector Inject 1 mL under the skin once every month. Do not shake. etanercept (ENBREL) 25 mg/0.5 mL (0.5) Inject 25mg (1 syringe) subcutaneously two times a week. Hold during infections Syringe with Needle, Disp, (BD TUBERCULIN SYRINGE) 1 mL 27 x 1/2 use to draw up AND inject enbrel folic acid 1 mg tablet Take 1 tablet by mouth once daily. ergocalciferol 50,000 unit capsule (VITAMIN D2, DRISDOL) Take 1 capsule by mouth one time a week. with a meal and obtain blood test for vitamin D 25-OH as advised. efinaconazole (JUBLIA) 10 % [place] Apply to affected area once daily. (Patient not taking: Reported on 02/22/2024) Needle, Disp, 27 G (BD DISPOSABLE NEEDLES) 27 gauge x 1/2 ndle use to draw up AND inject enbrel HYDROcodone-acetaminophen (NORCO) 5-325 mg per tablet Take by mouth every 6 hours as needed. XARELTO 20 mg tablet gabapentin (NEURONTIN) 300 mg capsule Take 400 mg by mouth four times daily. pantoprazole DR (PROTONIX) 40 mg tablet Take 40 mg by mouth twice daily. No current facility-administered medications on file prior to visit. [facility] Visit Assessment - Inflammatory Conditions: Ivent complete: No Assessment to use: Refill Vaccination Assessment: Date of influenza vaccination reminder: 06/16/2023 Date of most recent vaccination assessment: 06/16/2023 Treatment Plan Information: Treatment Plan Information: Enbrel Inject 1 syringe (25 mg dose) subcutaneously two times a week. Estimated Start Date Info: Established on therapy Estimated Treatment Duration: Until lack of efficacy Refill Assessment: Concurrent med therapy and DMARD screening: Yes Assessment of injection issues: Yes Screening for infection: Yes Adverse reactions and mitigation: Yes COPD monitoring (Orencia): N/A Assessment of efficacy: Yes Jany Coleman ([employer]) [facility] FAX: [facility] 02-22-2024 History of Present illness Narrative [facility] Special[facility] Refill Assessment Medication(s): Enbrel Patient's current medication list and adherence status to current therapy were reviewed by Specialty Pharmacy clinical pharmacist to identify any new drug interactions or non-compliance to therapy. Therapy continues to be appropriate for disease, patient response, and medical condition. Verification of therapeutic benefit and effectiveness with current therapy was completed. Adverse events, barriers in adherence, and side effects were assessed and addressed if applicable. Will proceed with refill with no changes in therapy - patient progressing towards achieving therapeutic goals based on medication-specific laboratory parameters, disease state markers and outcomes. Gracy Osborne, PharmD Clinical Pharmacist [facility] Pool: [facility] Pool #: [id number] Console Operator Assessment Patient confirmed: Yes Med/dose confirmed: Yes Supplies needed: Alcohol swabs Missed doses: No Estimated days supply on hand: 1 Next cycle/dose due: 02/23/24 Copay amount: 0 Payment confirmed: Yes Delivery method: FedEx Signature required: Waived on patient request Delivery address: [address] [place] [address] Delivery date: 02/24/24 Questions or concerns for the pharmacist?: No Current Outpatient Medications on File Prior to Visit Medication Sig naratriptan (AMERGE) 2.5 mg tablet Take 1 tablet (2.5 mg) by mouth as needed for migraine headache (see administration instructions). TAKE ONE(1) TABLET AT THE ONSET OF HEADACHE. MAY REPEAT DOSE AFTER 4 HOURS. NO MORE THAN 2 TABS IN 24 HRS. tiZANidine (ZANAFLEX) 4 mg tablet TAKE 0.5 TO ONE TABLET BY MOUTH EVERY 8 HOURS NEEDED. topiramate (TOPAMAX) 200 mg tablet Take 1 tablet in the AM, 0.5 tablets in the afternoon, and 1 tablet at bedtime for 2 weeks, then take 1 tablet twice daily erenumab-aooe (AIMOVIG AUTOINJECTOR) 140 mg/mL auto-injector Inject 1 mL under the skin once every month. Do not shake. etanercept (ENBREL) 25 mg/0.5 mL (0.5) Inject 25mg (1 syringe) subcutaneously two times a week. Hold during infections Syringe with Needle, Disp, (BD TUBERCULIN SYRINGE) 1 mL 27 x 1/2 use to draw up & inject enbrel folic acid 1 mg tablet Take 1 tablet by mouth once daily. ergocalciferol 50,000 unit capsule (VITAMIN D2, DRISDOL) Take 1 capsule by mouth one time a week. with a meal and obtain blood test for vitamin D 25-OH as advised. efinaconazole (JUBLIA) 10 % [place] Apply to affected area once daily. (Patient not taking: Reported on 02/22/2024) Needle, Disp, 27 G (BD DISPOSABLE NEEDLES) 27 gauge x 1/2 ndle use to draw up & inject enbrel HYDROcodone-acetaminophen (NORCO) 5-325 mg per tablet Take by mouth every 6 hours as needed. XARELTO 20 mg tablet gabapentin (NEURONTIN) 300 mg capsule Take 400 mg by mouth four times daily. pantoprazole DR (PROTONIX) 40 mg tablet Take 40 mg by mouth twice daily. No current facility-administered medications on file prior to visit. [facility] Visit Assessment - Inflammatory Conditions: Ivent complete: No Assessment to use: Refill Vaccination Assessment: Date of influenza vaccination reminder: 06/16/2023 Date of most recent vaccination assessment: 06/16/2023 Treatment Plan Information: Treatment Plan Information: Enbrel Inject 1 syringe (25 mg dose) subcutaneously two times a week. Estimated Start Date Info: Established on therapy Estimated Treatment Duration: Until lack of efficacy Refill Assessment: Concurrent med therapy and DMARD screening: Yes Assessment of injection issues: Yes Screening for infection: Yes Adverse reactions and mitigation: Yes COPD monitoring (Orencia): N/A Assessment of efficacy: Yes Jany Coleman ([facility]) [facility] FAX: documented in this encounter [facility] 02-22-2024 Note HNO ID: [id number] Author: GRACY OSBORNE [facility] Service: ? Author Type: ? Type: Progress Notes Filed: 02/22/2024 17:58 Note Text: [facility] Refill Assessment Medication(s): Enbrel Patient's current medication list and adherence status to current therapy were reviewed by Specialty Pharmacy clinical pharmacist to identify any new drug interactions or non-compliance to therapy. Therapy continues to be appropriate for disease, patient response, and medical condition. Verification of therapeutic benefit and effectiveness with current therapy was completed. Adverse events, barriers in adherence, and side effects were assessed and addressed if applicable. Will proceed with refill with no changes in therapy - patient progressing towards achieving therapeutic goals based on medication-specific laboratory parameters, disease state markers and outcomes. Gracy Osborne, PharmD Clinical Pharmacist [facility] Pool: [facility] Pool #: [id number] Console Operator Assessment Patient confirmed: Yes Med/dose confirmed: Yes Supplies needed: Alcohol swabs Missed doses: No Estimated days supply on hand: 1 Next cycle/dose due: 02/23/24 Copay amount: 0 Payment confirmed: Yes Delivery method: FedEx Signature required: Waived on patient request Delivery address: [address] [place] [id number] Delivery date: 02/24/24 Questions or concerns for the pharmacist?: No Current Outpatient Medications on File Prior to Visit Medication Sig naratriptan (AMERGE) 2.5 mg tablet Take 1 tablet (2.5 mg) by mouth as needed for migraine headache (see administration instructions). TAKE ONE(1) TABLET AT THE ONSET OF HEADACHE. MAY REPEAT DOSE AFTER 4 HOURS. NO MORE THAN 2 TABS IN 24 HRS. tiZANidine (ZANAFLEX) 4 mg tablet TAKE 0.5 TO ONE TABLET BY MOUTH EVERY 8 HOURS NEEDED. topiramate (TOPAMAX) 200 mg tablet Take 1 tablet in the AM, 0.5 tablets in the afternoon, and 1 tablet at bedtime for 2 weeks, then take 1 tablet twice daily erenumab-aooe (AIMOVIG AUTOINJECTOR) 140 mg/mL auto-injector Inject 1 mL under the skin once every month. Do not shake. etanercept (ENBREL) 25 mg/0.5 mL (0.5) Inject 25mg (1 syringe) subcutaneously two times a week. Hold during infections Syringe with Needle, Disp, (BD TUBERCULIN SYRINGE) 1 mL 27 x 1/2 use to draw up AND inject enbrel folic acid 1 mg tablet Take 1 tablet by mouth once daily. ergocalciferol 50,000 unit capsule (VITAMIN D2, DRISDOL) Take 1 capsule by mouth one time a week. with a meal and obtain blood test for vitamin D 25-OH as advised. efinaconazole (JUBLIA) 10 % [place] Apply to affected area once daily. (Patient not taking: Reported on 02/22/2024) Needle, Disp, 27 G (BD DISPOSABLE NEEDLES) 27 gauge x 1/2 ndle use to draw up AND inject enbrel HYDROcodone-acetaminophen (NORCO) 5-325 mg per tablet Take by mouth every 6 hours as needed. XARELTO 20 mg tablet gabapentin (NEURONTIN) 300 mg capsule Take 400 mg by mouth four times daily. pantoprazole DR (PROTONIX) 40 mg tablet Take 40 mg by mouth twice daily. No current facility-administered medications on file prior to visit. [facility] Visit Assessment - Inflammatory Conditions: Ivent complete: No Assessment to use: Refill Vaccination Assessment: Date of influenza vaccination reminder: 06/16/2023 Date of most recent vaccination assessment: 06/16/2023 Treatment Plan Information: Treatment Plan Information: Enbrel Inject 1 syringe (25 mg dose) subcutaneously two times a week. Estimated Start Date Info: Established on therapy Estimated Treatment Duration: Until lack of efficacy Refill Assessment: Concurrent med therapy and DMARD screening: Yes Assessment of injection issues: Yes Screening for infection: Yes Adverse reactions and mitigation: Yes COPD monitoring (Orencia): N/A Assessment of efficacy: Yes Jany Coleman ([facility]) [facility] FAX: [facility] 02-22-2024 Instructions Rcihelle Atkins MD - 02/22/2024 9:55 AM EDT IMPRESSION Chronic Migraine without Aura Cervicogenic Headache RECOMMENDATIONS Preventive Therapy: Restart Aimovig 140mg once monthly injection This was sent to the [facility] and requires insurance authorization Please visit [email or web address] to sign up for copay card Decrease topiramate to 200mg in the morning, 100mg in the afternoon, and 200mg at bedtime for 2 weeks, then 200mg twice daily Abortive (As Needed) Therapy: Take tizanidine 2-4mg every 8 hours as needed for muscle pain/neck pain Continue naratriptan 2.5mh as needed for severe migraine. Take 1 tablet at onset of migraine. If no improvement after 4 hours, may repeat dose. No more than 2 tablets in 24 hours and no more than 2-3 days per week or 10 days per month Follow-up: 3 months documented in this encounter [facility] 02-22-2024 History of Present illness Narrative Images from the original note were not included. [facility] Patient's headache clinic evaluation was scheduled as a virtual visit using the following platform: Zoom I have communicated my name and active licensure. The patient's identity and physical location were verified at the time of this visit. Either the patient or their legal sales donor recruitment representative has been informed of the risks and benefits of -- and alternatives to -- treatment through a remote evaluation and consents to proceed with the evaluation remotely. Based on this evaluation it may be necessary for them to schedule a follow up evaluation with me or other neurologists for formal physical examination and if necessary, other studies. CC: Headache follow-up Follow-up Visit Last visit: 11/26/[address] 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 Patient previously followed with Dr. Knutson. Interval History: Since last visit, patient reports her migraines have worsened in frequency/severity to currently 30 MMD. She has been off Aimovig; last Aimovig injection was several months ago. She reports it was helping significantly and denies any side effects including constipation. She is still on topiramate 200mg TID and gabapentin 400mg QID, denies side effects. Patient has been under a lot of stress recently. Son was recently hospitalized and diagnosed with juvenile ALS which has been progressing quickly. He is going on his [employer] trip to [place], [place] next week. Headache 1 This is the current headache. Diagnosis: Chronic Migraine Headache (CM) Location: bilateral, occipital and temporal Quality/Description: piercing/stabbing Associated Symptoms: Photophobia: yes Phonophobia: yes Nausea: yes Vomiting: no Other symptoms: neck pain Worse with activity: yes Number of migraine headache days/month: 30 Migraine headache severity: 610 Number of headache free days/month: 0 Duration of headaches with treatment: 12 hours Triggers: stress Most common time of day for headache to begin: afternoon Aura: none Days missed from work or school in the last month: 0 days From Last Visit: Migraine days per month: 30 Headache days per month: 0 Headache free days per month: 0 Current Headache Regimen: Preventive: Aimovig 140mg once monthly, topiramate 200mg TID, gabapentin 400mg QID Abortive: Naratriptan 2.5mg, tizanidine 4mg TID PRN, [place] Prior Therapies Duration of Use Dose Side effect Analgesic Hydrocodone/Acetaminophen (Vicodin, Megargel) Anti-Convulsant Gabapentin (Neurontin) Oxcarbazepine (Trileptal) Topiramate (Topamax, Trokendi XL, Qudexy) Anti-Migraine Eletriptan (Relpax) Tired, seeing weird colors Naratriptan (Amerge) Rizatriptan (Maxalt) Side effects Blood Pressure Metoprolol (Lopressor,Toprol XL) MABs Erenumab (Aimovig) Muscle Relaxer Tizanidine (Zanaflex) HEADACHE SCORES: 11/26/2022 12/09/2023 02/22/2024 Headache Questions ER visits since last office visit: 0 0 0 Hospital stays since last office visit 0 0 0 Limited ADLs in the last month: 7 4 1 Days missed from work or school in the last month: 0 14 0 Days headache pain free in the last month: 20 11 6 Days per month with ALL of the following symptoms - decreased productivity, light sensitivity and nausea: 11 13 0 Initial improvement of headache after botox injection at last visit: Not applicable, I did not have a botox injection at my last visit Not applicable, I did not have a botox injection at my last visit Not applicable, I did not have a botox injection at my last visit PRN medication usage in the last month: 18 15 Patient impression of improvement since last visit: Minimally worse No change Minimally worse 11/26/2022 12/09/2023 02/22/2024 HIT-6 HIT-6 61 (Severe impact) 63 (Severe impact) 61 (Severe impact) 11/26/2022 12/09/2023 02/22/2024 KAY - 2/7 SCORES KAY-2 Score 0 0 0 11/26/2022 12/09/2023 02/22/2024 Migraine Specific QOL - Higher scores indicate better HRQL Role Function-Restrictive Transformed Score (range: 0-100) 60 60 77.14 Role Function-Preventive Transformed Score (range: 0-100) 60 60 75 Emotional Function Transformed Score (range: 0-100) 46.67 60 73.33 01/06/2022 11/26/2022 02/22/2024 PHQ-9 Score 3 2 3 Answers submitted by the patient for this visit: Headache Questionnaire (Submitted on 02/22/2024) How many days of work or school have you missed due to headaches in the last month? : 0 In the last month, how many headache days did you experience ALL of the following symptoms: decreased productivity, light sensitivity and nausea?: 0 How many days have you been completely free of headache pain in the last month? : 6 Physical Exam: Vital Signs: LMP 11/30/2016 (Approximate) GENERAL: well appearing, in no acute distress, alert NEUROLOGICAL: Mental Status: Alert, oriented to person, place and time, Follows commands, Speech fluent and appropriate. Cranial Nerves: EOMI, face symmetric, no dysarthria, hearing grossly intact, tongue protrudes midline Motor: Moves all extremities equally. Gait: Deferred. 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 Patient previously followed with Dr. Knutson. Patient reports worsening of migraine frequency/severity since being off Aimovig for several months. Given prior benefit without side effects, will plan to restart Aimovig. Will plan to wean topiramate dosing over time to appropriate migraine prevention dosing. PLAN: Preventive: Restart Aimovig 140mg once monthly, decrease topiramate to 200/100/200mg TID x 2 weeks, then 200mg BID Abortive: Continue tizanidine 2-4mg TID PRN, naratriptan 2.5mg PRN Next steps: Decrease topiramate further to 100mg BID. Consider Ajovy/Emgality, Qulipta. Follow-Up: 3 months We will request precertification for Calcitonin Gene Related Peptide Monoclonal Antibody, Erenumab. This patient meets ICHD-3 criteria for treatment with CGRP MAB, She has Chronic Migraine Headache (CM), Chronic Migraine without aura, without mention of intractable migraine without mention of status migrainosus which occurs at least 15 days per month for at least 4 hours per day. The FDA has approved CGRP MAB for prevention of migraine. Specifically, the patient has 30 migraines per month, lasting 4 or more hours/d associated with photophobia, phonophobia, nausea for three or more months. Medication overuse headache has been ruled out. Patient is not currently taking a Gepant for acute treatment of her migraine. The following preventative medications have been tried for 3 or more months without benefit or discontinued due and/or side effects. Anti-Convulsant Gabapentin (Neurontin) Oxcarbazepine (Trileptal) Topiramate (Topamax, Trokendi XL, Qudexy) Blood Pressure Metoprolol (Lopressor,Toprol XL) MABs Erenumab (Aimovig) The following abortive medications have been tried but require high frequency use which can lead to Medication Overuse Headache: Analgesic Hydrocodone/Acetaminophen (Vicodin, Megargel) Anti-Migraine Eletriptan (Relpax) Tired, seeing weird colors Naratriptan (Amerge) Rizatriptan (Maxalt) Side effects Total time in minutes spent with patient: 45 minutes, with more than 50% of the time spent in patient education/counselling/coordinatin g care with the patient and/or family. Medical decision making was high complexity due to patient's multiple symptoms including Headache and pain, and counseling about diet, medications, and long term care phlebotomist implications. Richelle Atkins MD Staff Neurologist [facility] documented in this encounter [facility] 02-22-2024 Note HNO ID: [id number] Author: RICHELLE ATKINS MD Service: ? Author Type: Physician Type: Progress Notes Filed: 02/22/2024 10:08 Note Text: [facility] [place] Patient's headache clinic evaluation was scheduled as a virtual visit using the following platform: Zoom I have communicated my name and active licensure. The patient's identity and physical location were verified at the time of this visit. Either the patient or their legal sales donor recruitment representative has been informed of the risks and benefits of -- and alternatives to -- treatment through a remote evaluation and consents to proceed with the evaluation remotely. Based on this evaluation it may be necessary for them to schedule a follow up evaluation with me or other neurologists for formal physical examination and if necessary, other studies. CC: Headache follow-up Follow-up Visit Last visit: 11/26/[address] 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 Patient previously followed with Dr. Knutson. Interval History: Since last visit, patient reports her migraines have worsened in frequency/severity to currently 30 MMD. She has been off Aimovig; last Aimovig injection was several months ago. She reports it was helping significantly and denies any side effects including constipation. She is still on topiramate 200mg TID and gabapentin 400mg QID, denies side effects. Patient has been under a lot of stress recently. Son was recently hospitalized and diagnosed with juvenile ALS which has been progressing quickly. He is going on his [employer] trip to [place], [place] next week. Headache 1 This is the current headache. Diagnosis: Chronic Migraine Headache (CM) Location: bilateral, occipital and temporal Quality/Description: piercing/stabbing Associated Symptoms: Photophobia: yes Phonophobia: yes Nausea: yes Vomiting: no Other symptoms: neck pain Worse with activity: yes Number of migraine headache days/month: 30 Migraine headache severity: 6/10 Number of headache free days/month: 0 Duration of headaches with treatment: 12 hours Triggers: stress Most common time of day for headache to begin: afternoon Aura: none Days missed from work or school in the last month: 0 days From Last Visit: Migraine days per month: 30 Headache days per month: 0 Headache free days per month: 0 Current Headache Regimen: Preventive: Aimovig 140mg once monthly, topiramate 200mg TID, gabapentin 400mg QID Abortive: Naratriptan 2.5mg, tizanidine 4mg TID PRN, Megargel Prior Therapies Duration of Use Dose Side effect Analgesic Hydrocodone/Acetaminophen (Vicodin, Megargel) Anti-Convulsant Gabapentin (Neurontin) Oxcarbazepine (Trileptal) Topiramate (Topamax, Trokendi XL, Qudexy) Anti-Migraine Eletriptan (Relpax) Tired, seeing weird colors Naratriptan (Amerge) Rizatriptan (Maxalt) Side effects Blood Pressure Metoprolol (Lopressor,Toprol XL) MABs Erenumab (Aimovig) Muscle Relaxer Tizanidine (Zanaflex) HEADACHE SCORES: 11/26/2022 12/09/2023 02/22/2024 Headache Questions ER visits since last office visit: 0 0 0 Hospital stays since last office visit 0 0 0 Limited ADLs in the last month: 7 4 1 Days missed from work or school in the last month: 0 14 0 Days headache pain free in the last month: 20 11 6 Days per month with ALL of the following symptoms - decreased productivity, light sensitivity and nausea: 11 13 0 Initial improvement of headache after botox injection at last visit: Not applicable, I did not have a botox injection at my last visit Not applicable, I did not have a botox injection at my last visit Not applicable, I did not have a botox injection at my last visit PRN medication usage in the last month: 18 15 Patient impression of improvement since last visit: Minimally worse No change Minimally worse 11/26/2022 12/09/2023 02/22/2024 HIT-6 HIT-6 61 (Severe impact) 63 (Severe impact) 61 (Severe impact) 11/26/2022 12/09/2023 02/22/2024 KAY - 2/7 SCORES KAY-2 Score 0 0 0 11/26/2022 12/09/2023 02/22/2024 Migraine Specific QOL - Higher scores indicate better HRQL Role Function-Restrictive Transformed Score (range: 0-100) 60 60 77.14 Role Function-Preventive Transformed Score (range: 0-100) 60 60 75 Emotional Function Transformed Score (range: 0-100) 46.67 60 73.33 01/06/2022 11/26/2022 02/22/2024 PHQ-9 Score 3 2 3 Answers submitted by the patient for this visit: Headache Questionnaire (Submitted on 02/22/2024) How many days of work or school have you missed due to headaches in the last month? : 0 In the last month, how many headache days did you experience ALL of the following symptoms: decreased productivity, light (more content not included)... [facility] 02-10-2024 Telephone encounter Note Called and spoke at length with Demar. She did say that she was happy with her appointment with Dr Mansfield in March. She just did not want to wait till June to see her. She stated that she was sorry that she missed her previous appointment and explained she was at the hospital with her son. Reminded patient that Chelsea Mackey CNP was available if needed to be seen before her appointment with Dr Mansfield. She denied need at this time but will call or message if that changes. Reassurance and support given. [facility] 02-10-2024 Miscellaneous Notes Called and spoke at length with Demar. She did say that she was happy with her appointment with Dr Mansfield in March. She just did not want to wait till June to see her. She stated that she was sorry that she missed her previous appointment and explained she was at the hospital with her son. Reminded patient that Chelsea Mackey CNP was available if needed to be seen before her appointment with Dr Mansfield. She denied need at this time but will call or message if that changes. Reassurance and support given. Ms. Ball has been scheduled as requested for 04/03/24. I spoke with patient and she is aware of all of the appointment details. She shared with me her son is 12 years old and needs to be lifted at times with his recent diagnosis of ALS. She stated this is making her arthritis flare up more often. I let her know one of our nurses will be calling to speak with her. She stated understanding and thanked me. Diana ALMENDAREZ February 09, 2024 2:35 PM Agree with having Rheum Nurse call patient to ensure she is well. I hope she is well. She may need to see her Primary care physician. In terms of ALS, this is not in my field of expertise. If she has questions on that, would recommend discussing with Neurology. In terms of her BRISA/RA follow up, if I have no openings, please advise patient that I recommend she schedules with one of our Rheum [employer] CHIEF or PA for now, since I am fully booked. If her RA is fine, she can wait till her apt with me. Please offer 04/03/2024 apt with me at 11:40 am at [place]. thank you kindly, fa Hi Dr. Mansfield and Chelsea Allison I spoke with Ms. Ball and she declined scheduling an appointment with anyone but Dr. Mansfield. She stated she needs to see you right away. I'm unaware of this patients typical demeanor, etc, but she seemed very off to me. She told me her son was recently diagnosed with ALS and she needs to speak with you about a lot of issues going on with her at this time. Are one of you or our clinical team able to reach out to her for a well-check call? I'm concerned about her mental and physical well-being after our conversation. Her speech seemed slurred and she seemed to have a lack of energy, emotion, etc. Almost lethargic like? Please advise as to how you would like to proceed. Thank you, Diana ALMENDAREZ February 09, 2024 1:33 PM May check with [employer] Demar is calling Samy Mansfield MD today to request appointment with Dr. Bernal. No appointments with Dr. Mansfield until 09/2024. Patient has been identified by name and birthdate. Duration of symptoms: N/A Person calling: self Call patient at: on cell [phone] (home) [phone] (cell) Was an appointment scheduled: No Closing statement: Results or non-symptom based questions: Thank you for calling [facility], your call will be returned within the next business day. Sweetie Wyatt Pss documented in this encounter [facility] 02-09-2024 Telephone encounter Note Ms. Ball has been scheduled as requested for 04/03/24. I spoke with patient and she is aware of all of the appointment details. She shared with me her son is 12 years old and needs to be lifted at times with his recent diagnosis of ALS. She stated this is making her arthritis flare up more often. I let her know one of our nurses will be calling to speak with her. She stated understanding and thanked me. Diana ALMENDAREZ February 09, 2024 2:35 PM [facility] 02-09-2024 Telephone encounter Note Agree with having Rheum Nurse call patient to ensure she is well. I hope she is well. She may need to see her Primary care physician. In terms of ALS, this is not in my field of expertise. If she has questions on that, would recommend discussing with Neurology. In terms of her BRISA/RA follow up, if I have no openings, please advise patient that I recommend she schedules with one of our Rheum [employer] CHIEF or PA for now, since I am fully booked. If her RA is fine, she can wait till her apt with me. Please offer 04/03/2024 apt with me at 11:40 am at [place]. thank you kindly, fa [facility] 02-09-2024 Telephone encounter Note Hi Dr. Mansfield and Chelsea Allison I spoke with Ms. Ball and she declined scheduling an appointment with anyone but Dr. Mansfield. She stated she needs to see you right away. I'm unaware of this patients typical demeanor, etc, but she seemed very off to me. She told me her son was recently diagnosed with ALS and she needs to speak with you about a lot of issues going on with her at this time. Are one of you or our clinical team able to reach out to her for a well-check call? I'm concerned about her mental and physical well-being after our conversation. Her speech seemed slurred and she seemed to have a lack of energy, emotion, etc. Almost lethargic like? Please advise as to how you would like to proceed. Thank you, Diana ALMENDAREZ February 09, 2024 1:33 PM [facility] 02-09-2024 Telephone encounter Note May check with [employer] [facility] 02-08-2024 Telephone encounter Note Demar is calling Samy Mansfield MD today to request appointment with Dr. Bernal. No appointments with Dr. Mansfield until 09/2024. Patient has been identified by name and birthdate. Duration of symptoms: N/A Person calling: self Call patient at: on cell [phone] (home) [phone] (cell) Was an appointment scheduled: No Closing statement: Results or non-symptom based questions: Thank you for calling [facility], your call will be returned within the next business day. Sweetie Almendarez [facility] 02-01-2024 History of Present illness Narrative [facility] Refill Assessment Medication(s): Enbrel Patient's current medication list and adherence status to current therapy were reviewed by Specialty Pharmacy clinical pharmacist to identify any new drug interactions or non-compliance to therapy. Therapy continues to be appropriate for disease, patient response, and medical condition. Verification of therapeutic benefit and effectiveness with current therapy was completed. Adverse events, barriers in adherence, and side effects were assessed and addressed if applicable. Will proceed with refill with no changes in therapy - patient progressing towards achieving therapeutic goals based on medication-specific laboratory parameters, disease state markers and outcomes. Date of Demar Ball's last Rheumatology office visit: 08/30/2023 Next appointment date: 02/03/2024 Last labs: 11/02/2023 Last TB test: TB Result Date Value Ref Range Status 01/03/2019 Negative Negative Final Gracy Osborne, PharmD Clinical Pharmacist [facility] Pool: P [facility] Pool #: [id number] Console Operator Assessment Patient confirmed: Yes Med/dose confirmed: Yes Supplies needed: Alcohol swabs, Bandages Missed doses: No Estimated days supply on hand: (PT unsure how much she has left but knows she is running out) Copay amount: 0 Payment confirmed: Yes Delivery method: FedEx Signature required: Waived on patient request Delivery address: [address] [place] [id number] Delivery date: 02/03/24 Questions or concerns for the pharmacist?: No Current Outpatient Medications on File Prior to Visit Medication Sig etanercept (ENBREL) 25 mg/0.5 mL (0.5) Inject 25mg (1 syringe) subcutaneously two times a week. Hold during infections topiramate (TOPAMAX) 200 mg tablet Take 1 tablet by mouth three times a day. tiZANidine (ZANAFLEX) 4 mg tablet TAKE ONE TO TWO TABLETS BY MOUTH EVERY 8 HOURS NEEDED. Up to 3 times a day. naratriptan (AMERGE) 2.5 mg tablet Take 1 tablet by mouth as needed for migraine headache (see administration instructions). TAKE ONE(1) TABLET AT THE ONSET OF HEADACHE; IF HEADACHE RETURNS OR DOES NOT FULLY RESOLVE, THE DOSE MAY BE REPEATED AFTER 4 HOURS; DO NOT EXCEED FIVE(5) MG IN 24 HOURS. Syringe with Needle, Disp, (BD TUBERCULIN SYRINGE) 1 mL 27 x 1/2 use to draw up & inject enbrel folic acid 1 mg tablet Take 1 tablet by mouth once daily. ergocalciferol 50,000 unit capsule (VITAMIN D2, DRISDOL) Take 1 capsule by mouth one time a week. with a meal and obtain blood test for vitamin D 25-OH as advised. efinaconazole (JUBLIA) 10 % [place] Apply to affected area once daily. Needle, Disp, 27 G (BD DISPOSABLE NEEDLES) 27 gauge x 1/2 ndle use to draw up & inject enbrel HYDROcodone-acetaminophen (NORCO) 5-325 mg per tablet Take by mouth every 6 hours as needed. XARELTO 20 mg tablet gabapentin (NEURONTIN) 300 mg capsule Take 300 mg by mouth twice daily. pantoprazole DR (PROTONIX) 40 mg tablet Take 40 mg by mouth twice daily. No current facility-administered medications on file prior to visit. [facility] Visit Assessment - Inflammatory Conditions: Ivent complete: No Assessment to use: Refill Vaccination Assessment: Date of influenza vaccination reminder: 06/16/2023 Date of most recent vaccination assessment: 06/16/2023 Treatment Plan Information: Treatment Plan Information: Enbrel Inject 1 syringe (25 mg dose) subcutaneously two times a week. Estimated Start Date Info: Established on therapy Estimated Treatment Duration: Until lack of efficacy Refill Assessment: Concurrent med therapy and DMARD screening: Yes Assessment of injection issues: Yes Screening for infection: Yes Adverse reactions and mitigation: Yes COPD monitoring (Orencia): N/A Assessment of efficacy: Yes Jany Coleman ([facility]) [facility] FAX: documented in this encounter [facility] 02-01-2024 Note HNO ID: [id number] Author: GRACY OSBORNE RPh Service: ? Author Type: ? Type: Progress Notes Filed: 02/01/2024 15:04 Note Text: [facility] Refill Assessment Medication(s): Enbrel Patient's current medication list and adherence status to current therapy were reviewed by Specialty Pharmacy clinical pharmacist to identify any new drug interactions or non-compliance to therapy. Therapy continues to be appropriate for disease, patient response, and medical condition. Verification of therapeutic benefit and effectiveness with current therapy was completed. Adverse events, barriers in adherence, and side effects were assessed and addressed if applicable. Will proceed with refill with no changes in therapy - patient progressing towards achieving therapeutic goals based on medication-specific laboratory parameters, disease state markers and outcomes. Date of Demar Ball's last Rheumatology office visit: 08/30/2023 Next appointment date: 02/03/2024 Last labs: 11/02/2023 Last TB test: TB Result Date Value Ref Range Status 01/03/2019 Negative Negative Final Gracy Osborne PharmD Clinical Pharmacist [facility] Pool: P [facility] Pool #: [id number] Console Operator Assessment Patient confirmed: Yes Med/dose confirmed: Yes Supplies needed: Alcohol swabs, Bandages Missed doses: No Estimated days supply on hand: (PT unsure how much she has left but knows she is running out) Copay amount: 0 Payment confirmed: Yes Delivery method: FedEx Signature required: Waived on patient request Delivery address: [address] [place] [address] Delivery date: 02/03/24 Questions or concerns for the pharmacist?: No Current Outpatient Medications on File Prior to Visit Medication Sig etanercept (ENBREL) 25 mg/0.5 mL (0.5) Inject 25mg (1 syringe) subcutaneously two times a week. Hold during infections topiramate (TOPAMAX) 200 mg tablet Take 1 tablet by mouth three times a day. tiZANidine (ZANAFLEX) 4 mg tablet TAKE ONE TO TWO TABLETS BY MOUTH EVERY 8 HOURS NEEDED. Up to 3 times a day. naratriptan (AMERGE) 2.5 mg tablet Take 1 tablet by mouth as needed for migraine headache (see administration instructions). TAKE ONE(1) TABLET AT THE ONSET OF HEADACHE; IF HEADACHE RETURNS OR DOES NOT FULLY RESOLVE, THE DOSE MAY BE REPEATED AFTER 4 HOURS; DO NOT EXCEED FIVE(5) MG IN 24 HOURS. Syringe with Needle, Disp, (BD TUBERCULIN SYRINGE) 1 mL 27 x 1/2 use to draw up AND inject enbrel folic acid 1 mg tablet Take 1 tablet by mouth once daily. ergocalciferol 50,000 unit capsule (VITAMIN D2, DRISDOL) Take 1 capsule by mouth one time a week. with a meal and obtain blood test for vitamin D 25-OH as advised. efinaconazole (JUBLIA) 10 % [place] Apply to affected area once daily. Needle, Disp, 27 G (BD DISPOSABLE NEEDLES) 27 gauge x 1/2 ndle use to draw up AND inject enbrel HYDROcodone-acetaminophen (NORCO) 5-325 mg per tablet Take by mouth every 6 hours as needed. XARELTO 20 mg tablet gabapentin (NEURONTIN) 300 mg capsule Take 300 mg by mouth twice daily. pantoprazole DR (PROTONIX) 40 mg tablet Take 40 mg by mouth twice daily. No current facility-administered medications on file prior to visit. [facility] Visit Assessment - Inflammatory Conditions: Ivent complete: No Assessment to use: Refill Vaccination Assessment: Date of influenza vaccination reminder: 06/16/2023 Date of most recent vaccination assessment: 06/16/2023 Treatment Plan Information: Treatment Plan Information: Enbrel Inject 1 syringe (25 mg dose) subcutaneously two times a week. Estimated Start Date Info: Established on therapy Estimated Treatment Duration: Until lack of efficacy Refill Assessment: Concurrent med therapy and DMARD screening: Yes Assessment of injection issues: Yes Screening for infection: Yes Adverse reactions and mitigation: Yes COPD monitoring (Orencia): N/A Assessment of efficacy: Yes Jany Coleman ([facility]) [facility] FAX: [facility] 01-31-2024 Telephone encounter Note Patient needs refill of Enbrel Date of Demar Ball's last Rheumatology office visit: 08/30/2023 Next appointment date: 02/03/2024 Last labs: 11/02/2023 Last TB test: TB Result Date Value Ref Range Status 01/03/2019 Negative Negative Final Requested Prescriptions Pending Prescriptions Disp Refills etanercept (ENBREL) 25 mg/0.5 mL injection 12 mL 3 Sig: Inject 1 syringe (25 mg dose) subcutaneously two times a week. Patient prefers: [facility] Gracy Osborne PharmD Clinical Pharmacist [facility] Pool: [facility] Pool #: [id number] [facility] 01-31-2024 Miscellaneous Notes Patient needs refill of Enbrel Date of Demar Ball's last Rheumatology office visit: 08/30/2023 Next appointment date: 02/03/2024 Last labs: 11/02/2023 Last TB test: TB Result Date Value Ref Range Status 01/03/2019 Negative Negative Final Requested Prescriptions Pending Prescriptions Disp Refills etanercept (ENBREL) 25 mg/0.5 mL injection 12 mL 3 Sig: Inject 1 syringe (25 mg dose) subcutaneously two times a week. Patient prefers: [facility] Gracy Osborne PharmD Clinical Pharmacist [facility] Pool: [facility] Pool #: [id number] documented in this encounter [facility] 01-05-2024 Telephone encounter Note Patient last seen Dr. Knutson, 03/09/2023. [facility] 01-05-2024 Miscellaneous Notes Patient last seen Dr. Knutson, 03/09/2023. From: Demar Ball To: Office of Rehana Knutson MD Sent: 01/04/2024 9:39 PM EDT Subject: Medication Renewal Request Refills have been requested for the following medications: topiramate (TOPAMAX) 200 mg tablet [Rehana Knutosn MD] Preferred pharmacy: [facility] [id number] [place] [address] [address] [place] [phone] [place], [place] [id number] Delivery method: Pickup Medicat ion renewals requested in this message routed separately: tiZANidine (ZANAFLEX) 4 mg tablet [Barbi Hassan] documented in this encounter [facility] 01-05-2024 Telephone encounter Note Patient last seen Dr. Knutson, 03/09/2023. [facility] 01-05-2024 Miscellaneous Notes Patient last seen Dr. Knutson, 03/09/2023. From: Demar Ball To: Office of Barbi Hassan Sent: 01/04/2024 9:39 PM EDT Subject: Medication Renewal Request Refills have been requested for the following medications: tiZANidine (ZANAFLEX) 4 mg tablet [Barbi Hassan] Preferred pharmacy: [facility] [address] [place] [id number] [phone] [address] Delivery method: Pickup Medicati on renewals requested in this message routed separately: topiramate (TOPAMAX) 200 mg tablet [Rehana Knutson MD] documented in this encounter [facility] 01-05-2024 Telephone encounter Note From: Demar Ball To: Office of Barbi Hassan Sent: 01/04/2024 9:39 PM EDT Subject: Medication Renewal Request Refills have been requested for the following medications: tiZANidine (ZANAFLEX) 4 mg tablet [Barbi Natalie] Preferred pharmacy: [facility] [address] [place] [id number] [address] [facility] [phone] [place], [place] [id number] Delivery method: Pickup Medicati on renewals requested in this message routed separately: topiramate (TOPAMAX) 200 mg tablet [Rehana Knutson MD] [facility] 01-05-2024 Telephone encounter Note From: Demar Ball To: Office of Rehana Knutson MD Sent: 01/04/2024 9:39 PM EDT Subject: Medication Renewal Request Refills have been requested for the following medications: topiramate (TOPAMAX) 200 mg tablet [Rehana Knutson MD] Preferred pharmacy: [facility] [id number] [place] [address] [address] [id number] Delivery method: Pickup Medicat ion renewals requested in this message routed separately: tiZANidine (ZANAFLEX) 4 mg tablet [Barbi Hassan] [facility] 12-14-2023 Miscellaneous Notes The following approved medication requests have been transmitted electronically. Requested Prescriptions Signed Prescriptions Disp Refills tiZANidine (ZANAFLEX) 4 mg tablet 180 tablet 0 Sig: TAKE ONE TO TWO TABLETS BY MOUTH EVERY 8 HOURS NEEDED. Up to 3 times a day. Authorizing Provider: BARBI HASSAN APRN.CNP December 14, 2023 2:46 PM Physician: Zenia Call from patient requesting refill. Please E-Scribe Last office visit 03/09/23 with Zenia virtual Next office visit 01/02/24 with Bucky guerrero Requested Prescriptions Pending Prescriptions Disp Refills tiZANidine (ZANAFLEX) 4 mg tablet 180 tablet 11 Sig: TAKE ONE TO TWO TABLETS BY MOUTH EVERY 8 HOURS NEEDED. Up to 3 times a day. Pharmacy Name: [facility] From: Demar Ball To: Office of Rehana Knutson MD Sent: 12/10/2023 12:15 PM EDT Subject: Medication Renewal Request Refills have been requested for the following medications: tiZANidine (ZANAFLEX) 4 mg tablet [Rehana Knutson MD] Preferred pharmacy: [facility] [id number] [place] [address] [address] [phone] [place] [address] Delivery method: Pickup documented in this encounter [facility] 10-06-2023 Evaluation note Encounter Date Diagnosis Assessment Notes Sep, Rheumatoid arthritis, unspecified (ICD-10 - M06.9) Patient is to follow-up with her pyrometer operator as scheduled, she is to continue to take her anti-inflammatorie s as prescribed by pyrometer operator. Discussed with her she has intermittent anterior chest pain probably costochondritis from her underlying arthritis. His signs or symptoms worsen she is to go immediately into the emergency room. Sep, Elevated liver enzymes (ICD-10 - R74.8) Patient does have a history of elevated liver enzymes, blood work ordered for recheck. appMobi Other [id number] Miscellaneous Notes* Telephone Encounter - Ortiz Vargas RN - 09/20/2023 2:24 PM EST Pt called requesting a refill on her lasix stating her legs are so swollen she can't see her feet. I sent request to Dr. Strong and recommended that if pt condition gets worse to consider going to ER. documented in this encounterWhite [facility]arma[facility]24 Telephone encounter Note* Telephone Encounter - Ortiz Vargas RN - 09/20/2023 2:24 PM EST Pt called requesting a refill on her lasix stating her legs are so swollen she can't see her feet. I sent request to Dr. Strong and recommended that if pt condition gets worse to consider going to ER. [facility] Cosyforyou [id number] NoteHNO ID: [id number] Author: Mela Ha Service: ? Author Type: ? Type: Progress Notes Filed: 09/01/2023 3:45 PM Note Text: POPULATION HEALTH NAVIGATION OUTREACH Action/FYI Pt scheduled Patient Identified by Name and : YES, via phone Outreach Outcome/Action Spoke to patient / parent / legal guardian: Patient scheduled Did you use a PCP flex slot to schedule this appointment? No Reason for Outreach Care Gap or Scheduling/Wellness visits Payer: Payor: [employer] AND [employer] / Plan: [employer] HMO / Product Type: HMO / Care Gap Reviewed:: Specialty Scheduling Reminder: Reminder note to check Health Maintenance for items below Health Maintenance items due: Hepatitis B Vaccine(1 of 3 - 3-dose series) Never done Hepatitis C Screening Never done HIV Screening Never done DTaP,Tdap,Td Vaccine(1 - Tdap) Never done Shingrix Vaccine(1 of 2) Never done Pap Testing Never done HPV Testing Never done Mammogram Screening Never done Depression Assessment Never done Navigation Signature: Mela Ha September 01, 2023 3:44 [facility]12-21-2023 NotePatient Outreach ([facility]) DEMAR BALL ([id number]) 1980 F Date Time Provider Department 09/01/23 PCP (HISTORICAL) [facility] During your visit today, we recorded the following information about you: Mela Ha 09/01/2023 3:45 PM Signed POPULATION HEALTH NAVIGATION OUTREACH Action/FYI Pt scheduled Patient Identified by Name and : YES, via phone Outreach Outcome/Action Spoke to patient / parent / legal guardian: Patient scheduled Did you use a PCP flex slot to schedule this appointment? No Reason for Outreach Care Gap or Scheduling/Wellness visits Payer: Payor: [employer] / Plan: [employer] RONALDROSANAGERARDO HMO / Product Type: HMO / Care Gap Reviewed:: Specialty Scheduling Reminder: Reminder note to check Health Maintenance for items below Health Maintenance items due: Hepatitis B Vaccine(1 of 3 - 3-dose series) Never done Hepatitis C Screening Never done HIV Screening Never done DTaP,Tdap,Td Vaccine(1 - Tdap) Never done Shingrix Vaccine(1 of 2) Never done Pap Testing Never done HPV Testing Never done Mammogram Screening Never done Depression Assessment Never done Navigation Signature: Mela Ericsofi September 01, 2023 3:44 PM Allergies As of Date: 09/01/2023 Noted Allergy Reaction VANCOMYCIN 12/07/2021 4 - Hives 9 - Itching 7 - Swelling BACITRACIN 03/03/2010 4 - Hives DOXYCYCLINE 06/26/2010 2 - Rash 9 - Itching FERROUS SULFATE 01/06/2016 10 - Anaphylaxis 11 - Vomiting Comments: Reaction happened with IV iron KEFLEX (CEPHALEXIN) 08/04/2015 9 - Itching REMICADE (INFLIXIMAB) 05/15/2014 14 - Other: See Comments Comments: Confusion, hypotension 10/20/2015 Patient states that she did have this reaction but that she has had this medication since and has not suffered any allergy ULTRAM (TRAMADOL HCL) 03/16/2007 4 - Hives Date Reviewed: 08/30/2023 Reviewed by: Bryon Sandoval MA - Fully Assessed Prescriptions as of 09/01/2023 - tiZANidine (ZANAFLEX) 4 mg tablet TAKE ONE TO TWO TABLETS BY MOUTH EVERY 8 HOURS NEEDED. Up to 3 times a day. - naratriptan (AMERGE) 2.5 mg tablet Take 1 tablet by mouth as needed for migraine headache (see administration instructions). TAKE ONE(1) TABLET AT THE ONSET OF HEADACHE; IF HEADACHE RETURNS OR DOES NOT FULLY RESOLVE, THE DOSE MAY BE REPEATED AFTER 4 HOURS; DO NOT EXCEED FIVE(5) MG IN 24 HOURS. - topiramate (TOPAMAX) 200 mg tablet Take 1 tablet by mouth three times daily. - Syringe with Needle, Disp, (BD TUBERCULIN SYRINGE) 1 mL 27 x 1/2 use to draw up AND inject enbrel - folic acid 1 mg tablet Take 1 tablet by mouth once daily. - ergocalciferol 50,000 unit capsule (VITAMIN D2, DRISDOL) Take 1 capsule by mouth one time a week. with a meal and obtain blood test for vitamin D 25-OH as advised. - etanercept (ENBREL) 25 mg/0.5 mL injection Inject 1 syringe (25 mg dose) subcutaneously two times a week. - efinaconazole (JUBLIA) 10 % [place] Apply to affected area once daily. - Needle, Disp, 27 G (BD DISPOSABLE NEEDLES) 27 gauge x 1/2 ndle use to draw up AND inject enbrel - HYDROcodone-acetaminophen (NORCO) 5-325 mg per tablet Take by mouth every 6 hours as needed. - XARELTO 20 mg tablet - gabapentin (NEURONTIN) 300 mg capsule Take 300 mg by mouth twice daily. - pantoprazole DR (PROTONIX) 40 mg tablet Take 40 mg by mouth twice daily. Meds Comments as of 12/14/2016: Cleocin- for current dental infection/abcess - will be finished on 12/20/16- having tooth pulled at that time. 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 09/09/2015 Thyroid nodule [E04.1] Clotting disorder (HCC) [D68.9] GERD (gastroesophageal reflux disease) [K21.9] Migraines [G43.909] Difficult intubation [T88.4XXA] 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] 09/09/2015 Trigger ring finger of right hand [M65.341] 10/14/2015 01/06/2016 Right hand pain [M79.641] 10/28/2015 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] 01/06/2016 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*09/02/2016 Lung nodules [R91.8] History of blood clotting disorder [Z86.2] 12/12/2015 Transfusion history [Z92.89] 12/12/2015 Obesity, Class I, BMI 30-34.9 E66.9 [E66.9] 12/20/2017 Vitamin D deficiency [E55.9] 12/20/2017 Complex tear of lat mensc, current injury, left*01/17/2018 RA (rheumatoid arthritis) (HCC) [M06.9] Injury of ulnar nerve at wrist [S64.00XA] [place]-neck deformity of finger of right hand [M2*06/12/2019 Boutonniere deformity of finger of right hand [* (more content not included)...[facility]12-19-2023 NoteHNO ID: [id number] Author: Krystal Ramos RT(Jeri) Service: ? Author Type: Technologist Type: Progress Notes Filed: 08/30/2023 12:17 PM Note Text: Radiology Service Progress Note PATIENT NAME: Demar Ball DATE OF SERVICE: August 30, 2023 TIME: 12:17 PM PATIENT IDENTITY VERIFICATION COMPLETED USING TWO (2) IDENTIFIERS: Name and Date of confirmed by patient verbally. FALL SCREENING: Has the patient had 2 falls in the last year or 1 fall with injury or currently using an Ambulatory Assistive Device (Walker, Cane, Wheelchair, Crutches, etc.)? No PATIENT GENDER DATA: Female. status: : No status: NO. PATIENT RELEVANT IMPLANT DATA REVIEWED: Not Applicable RADIOLOGY DEPARTMENT: General X-ray: Exam(s) Completed: Lower Extremity X-Ray(s): Ankle, Left PERIPHERAL IV DATA: Not applicable SIGNED BY: RT Diamond(Jeri) August 30, 2023 12:17 [facility]12-19-2023 History of Present illness Narrative* Krystal Ramos RT(R) - 08/30/2023 12:17 PM EST Radiology Service Progress Note PATIENT NAME: Demar Ball DATE OF SERVICE: August 30, 2023 TIME: 12:17 PM PATIENT IDENTITY VERIFICATION COMPLETED USING TWO (2) IDENTIFIERS: Name and Date of confirmedby patient verbally. FALL SCREENING: Has the patient had 2 falls in the last year or 1 fall with injury or currently using an Ambulatory Assistive Device (Walker, Cane, Wheelchair, Crutches, etc.)? No PATIENT GENDER DATA: Female. status: : No status: NO. PATIENT RELEVANT IMPLANT DATA REVIEWED: Not Applicable RADIOLOGY DEPARTMENT: General X-ray: Exam(s) Completed: Lower Extremity X- Ray(s): Ankle, Left PERIPHERAL IV DATA: Not applicable SIGNED BY: RT Diamond(R) August 30, 2023 12:17 PM documented in this encounterSy[facility] Center12-19-2023 NoteHNO ID: [id number] Author: Samy Mansfield MD Service: ? Author Type: Physician Type: Progress Notes Filed: 09/10/2023 8:09 PM Note Text: FOLLOW UP VISIT Ms. Demar Ball is a very nice 43 year old female seen for BRISA. Additional details per last visit note HISTORY REVIEWED (electronic chart updated): CC: left ankle pain since michael inj by Pain Mgt Subjective: Sates her foot was not hurting before the injections States her Pain Mgt made me chose a joint that was hurting the most and she chose her ankle, left States he gave her one injection, 08/17/2023 and states the pain has been worse since the injection. States it hurts going down the steps and walking. States cannot walk on it without pain States it is not swollen at all We have advised her to f/u with her Pain Mgt specialist who performed the procedure. States she called and spoke to his audio visual secretary and states they did not address that. No erythema, swelling Denies infections or fevers States doing well States the scalp abscess has healed and hair is growing back. She had elevated liver transaminases at time was on antibiotics, denies being on methotrexate at the time. Denies alcohol consumption We called and advised her to hold her methotrexate, but she was not taking. She has been taking methotrexate and Enbrel Well tolerated Denies current fevers or infections Vitamin D: has been taking 5000 international units once daily with meals Answers submitted by the patient for this visit: Review of Systems Rheumatology (Submitted on 12/14/2022) Fever : No Recent Unintentional Weight Change: No Eye Pain: No Eye Redness: No Vision Disturbance: No Eye Dryness: No Nose Bleeds: No Sores in your Mouth: No Trouble Swallowing: No Dry Mouth: No Chest Pain: No Leg Swelling: No A Cough: Yes- as above Blood when you Cough: No Shortness of Breath: No Heartburn: No Abdominal Pain: No Diarrhea: No Black Tarry Stools: No Blood in Urine: No Pain or Burning with Urination: No Joint Pain or Stiffness: Yes- hands little bit Muscle Weakness: No Joint Swelling: No Morning Stiffness in Joints: No A Rash: No Skin Color Changes: No Hair Loss: No Nail Changes: No Headaches: No Numbness: No Memory Loss: No Swollen Glands: No Previously 10/27/2022 About a wk ago, had a swelling in the scalp and had horrible headache and states this goose egg appeared , states few days later it opened up like a bloody sore and drained clear went to ER and was told she has an abscess States the bed sheet was yellow; They cultured it, results in process. Had low grade fever . She is not aware of any triggering factors. is staying at the [facility] and may have bumped her head on a board, but does not recall. She also had a hair cut on Tuesday prior to that. She washed her hair and her daughter str'nd for her with a flat iron. She was prescribed antibiotics States she feels achy a little all over , the head ache is much better; Overall better since was started on Bactrim Denies fevers currently She held her methotrexate and Enbrel States will be on antibiotics for 10 days She has an apt with her PCP tomorrow. 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 She was advised that she needs to have it immobilized for 12 wks, till 02/19/2022. States had edema after surgery, feels had fluid retention States her wt has been stable otherwise Advised can resume Enbrel and methotrexate once cleared by her surgeon Vitamin D: 1000 international units once daily with meals Has not had 50,000 international units for some time. I have ordered vitamin D and we faxed orders She will get it done tomorrow at her local hospital S/p hysterectomy, without ooph She does not know if she is menopausal States the rt hand infection is better, since on antibiotics and swelling has gone down States her BRISA has been ok States the left hand is a little bit swollen because it has been doing everything , has been relying on her left hand States her BRISA has been good More recently with rainy weather would hurt more States had telehealth apt with her hand surgeon, for rt index, suspected mallet finger. Wonders if could (more content not included)...[facility] 08-05-2023 NoteHNO ID: [id number] Author: Haydee (Vubiquity)Sherley Service: ? Author Type: ? Type: Progress Notes Filed: 08/19/2023 10:36 AM Note Text: Unable to reach patient for refill of Enbrel after 4 call attempts. Pt last refilled medication on 07/20/23. Will schedule future follow-up in 2 weeks from today's date. Office will be updated if future attempts are unsuccessful. Sherley Hubbard (Vubiquity)[facility]11-24-2023 NoteHNO ID: [id number] Author: Haydee WorthingtonVubiquitySherley Jones Service: ? Author Type: ? Type: Progress Notes Filed: 09/02/2023 12:15 PM Note Text: [facility] Discontinuation Assessment: Disease group: Inflammatory Medication: ENBREL SUBCUTANEOUS Discontinue reason: Unable to reach patient Sherley WorthingtonVubiquity)[facility]11-07-2023 Evaluation note* Encounter Date Diagnosis Assessment Notes Treatment Notes Treatment Clinical Notes Jul, GERD (gastroesophageal reflux disease) (ICD-10 - K21.9) [employer] Other 10-30-2023 History of Present illness Narrative* Sherley Hubbard (Pharmacy Tech) - 07/11/2023 10:06 AM EDT [facility] Refill Assessment Medication(s): Enbrel Patient's current medication list and adherence status to current therapy were reviewed by Specialty Pharmacy clinical pharmacist to identify any new drug interactions or non-compliance to therapy. Therapy continues to be appropriate for disease, patient response, and medical condition. Verification of therapeutic benefit and effectiveness with current therapy was completed. Adverse events, barriers in adherence, and side effects were assessed and addressed if applicable. Will proceed with refill with no changes in therapy - patient progressing towards achieving therapeutic goals based on medication- specific laboratory parameters, disease state markers and outcomes. Console Operator Assessment Patient confirmed: Yes Med/dose confirmed: Yes Supplies needed: No supplies needed Missed doses: No Estimated days supply on hand: 10 Next cycle/dose due: 07/12/23 Copay amount: 0 Payment confirmed: Yes Delivery method: FedEx Signature required: Waived on patient request Delivery address: [address] [place] [address] Delivery date: 07/20/23 Questions or concerns for the pharmacist?: No [facility] Visit Assessment - Inflammatory Conditions: Assessment to use: Refill Vaccination Assessment: Date of influenza vaccination reminder: 06/16/2023 Date of most recent vaccination assessment: 06/16/2023 Sherley WorthingtonVubiquity) documented in this encounterSycamore Medical Center10-30-2023 NoteHNO ID: [id number] Author: Haydee WorthingtonVubiquitySherley Jones Service: ? Author Type: ? Type: Progress Notes Filed: 07/16/2023 11:28 AM Note Text: [facility] Refill Assessment Medication(s): Enbrel Patient's current medication list and adherence status to current therapy were reviewed by Specialty Pharmacy clinical pharmacist to identify any new drug interactions or non-compliance to therapy. Therapy continues to be appropriate for disease, patient response, and medical condition. Verification of therapeutic benefit and effectiveness with current therapy was completed. Adverse events, barriers in adherence, and side effects were assessed and addressed if applicable. Will proceed with refill with no changes in therapy - patient progressing towards achieving therapeutic goals based on medication-specific laboratory parameters, disease state markers and outcomes. 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 Patient confirmed: Yes Med/dose confirmed: Yes Supplies needed: No supplies needed Missed doses: No Estimated days supply on hand: 10 Next cycle/dose due: 07/12/23 Copay amount: 0 Payment confirmed: Yes Delivery method: FedEx Signature required: Waived on patient request Delivery address: [address] [place] [address] Delivery date: 07/20/23 Questions or concerns for the pharmacist?: No [facility] Visit Assessment - Inflammatory Conditions: Ivent complete: No Assessment to use: Refill Vaccination Assessment: Date of influenza vaccination reminder: 06/16/2023 Date of most recent vaccination assessment: 06/16/2023 Treatment Plan Information: Treatment Plan Information: Enbrel Inject 1 syringe (25 mg dose) subcutaneously two times a week. Estimated Start Date Info: Established on therapy Estimated Treatment Duration: Until lack of efficacy Refill Assessment: Concurrent med therapy and DMARD screening: Yes Assessment of injection issues: Yes Screening for infection: Yes Adverse reactions and mitigation: Yes COPD monitoring (Orencia): N/A Assessment of efficacy: Yes Sherley Hubbard (Melt House Drag Operator)[facility]08-11-2023 Miscellaneous Notes* Telephone Encounter - Quita Brooks MA - 04/22/2023 8:07 AM EDT Samy Mansfield MD 12/09/2022 5:57 PM Elevated LFT's from 11/2022 labs MTX was discontinued on 12/09/22 documented in this encounterSycamore Medical Center06-28-2023 History of Present illness Narrative* Yamileth Veloz - 03/09/2023 9:14 AM EDT Call to patient . Patient has been identified by name and date of : Did prescreening questions but patient missed appointment due to taking son to camp. Advised patient I will let Dr. Knutson know and if we are able to fit her in schedule later today we will , otherwise patient will need to reschedule. Dex Veloz LPN * Rehana Knutson MD - 03/09/2023 8:30 AM EDT called patient and left message on her voice mail She will need to reschedule documented in this encounterSycamore Medical Center06-28-2023 Miscellaneous Notes* Telephone Encounter - Yamileth Veloz - 03/09/2023 8:32 AM EDT Tried to reach patient to do prescreening questions for virtual visit this morning. Unable to connect. Fast busy signal on both attempts to reach. Dex Veloz LPN documented in this encounterSycamore Medical Center06-21-2023 History of Present illness Narrative* Sherley Hubbard (Melt House Drag Operator) - 03/02/2023 10:26 AM EDT [facility] Refill Assessment Medication(s): Enbrel Patient's current medication list and adherence status to current therapy were reviewed by Specialty Pharmacy clinical pharmacist to identify any new drug interactions or non-compliance to therapy. Therapy continues to be appropriate for disease, patient response, and medical condition. Verification of therapeutic benefit and effectiveness with current therapy was completed. Adverse events, barriers in adherence, and side effects were assessed and addressed if applicable. Will proceed with refill with no changes in therapy - patient progressing towards achieving therapeutic goals based on medication- specific laboratory parameters, disease state markers and outcomes. Console Operator Assessment Patient confirmed: Yes Med/dose confirmed: Yes Supplies needed: No supplies needed Missed doses: No Estimated days supply on hand: 7 Next cycle/dose due: 03/03/23 Copay amount: 0 Payment confirmed: Yes Delivery method: FedEx Signature required: Waived on patient request Delivery address: [address] [place] [id number] Delivery date: 03/08/23 Questions or concerns for the pharmacist?: No [facility] Visit Assessment - Inflammatory Conditions: Assessment to use: Refill Vaccination Assessment: Date of influenza vaccination reminder: 05/18/2022 Date of most recent vaccination assessment: 05/18/2022 Sherley Hubbard (Vubiquity) documented in this encounterSycamore Medical Center05-09-2023 Evaluation note* Encounter Date Diagnosis Assessment Notes Treatment Notes Treatment Clinical Notes January, Sore throat (ICD-10 - J02.9) In house testing obtained today due to complaints of sore throat and nasal drainage . January, MRSA (methicillin resistant staph aureus) culture positive (ICD-10 - Z22.322) ER visit [facility] 08/05/2021 Wound culture obtained 10/27/22 noting MRSA, pt has completed appropriate antibiotics.Absces s of scalp has resolved. January, Abscess (ICD-10 - L02.91) Scalp abscess has resolved upon examination, Due to complaints of hair loss around the abscess I did provide the above topical cream that may help stimulate hair growth. January, Rheumatoid arthritis, unspecified (ICD-10 - M06.9) The patient is on permanent disability and has disability forms to be updated every couple of years. I am in agreement with completing the forms she has brought in today. 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 Discussion was had this is a viral infection and may take some time to resolve. I did provide the above antibiotic to treat symptoms. I did encouraged pt to increase fluid intake, throat lozenges or gargle with mouth wash as needed. Pt is to also take OTC pain medication and fever reducers as needed. January, GERD (gastroesophageal reflux disease) (ICD-10 - K21.9) Pt is to continue with the above medication and we will continue to monitor. [employer] Other 04-12-2023 Instructions* Patient Instructions* Samy Mansfield MD - 12/22/2022 6:44 PM EDT -PLEASE NOTE THAT WE REVIEW ALL YOUR TEST RESULTS AT YOUR NEXT FOLLOW UP VISIT WITH YOU. IF ANY ABNORMAL LAB REQUIRES SOONER ATTENTION, WE WILL CONTACT YOU. -If you have signed up on [employer], we will release your test results through [employer]. I wish you the best of health and wellness. -Please take care and stay safe and healthy. Consume a healthy diet, stay well hydrated, sleep well, be happy, improve stress (include meditation and regular exercise), ensure adequate vitamin D. Spend some time in nature, around trees and beck (forest bathing). Spend time outdoors next to greenery on a Carlo day to benefit from the healing benefits of the Near Infra Red light of the sun that reflects on greenery (research showing benefits to cellular healing and benefits against covid-19 infection). These have been shown to help with overall health and wellbeing, stress, inflammation and in promoting a healthy immune system. -Continuous follow up with Primary care physician, for cardiovascular disease prevention, for age appropriate cancer screening and routine health maintenance and wellness, and infection precautions and age appropriate immunization, is recommended. Please follow up with your Primary care physician and discuss rechecking your liver enzymes and close monitoring. - Please continue with infection precautions Hold Enbrel during infections You can resume the Enbrel, once you are cleared from your infection - Enbrel: 25 mg subcutaneous injection twice a week Please remain off methotrexate for now If your BRISA flares, you can resume the methotrexate, but only if your liver enzymes are normal - Methotrexate: 4 pills one a week - You will need Folic acid: 1 mg daily, if back on methotrexate Continue on your vitamin D supplement - Maintaining good vitamin D blood levels is important for bone health and overall health. Please see additional information on vitamin D below. A vitamin D blood test, called vitamin D 25-hydroxy (OH) is obtained to assess vitamin D level. If the vitamin D is low, you will need to take a vitamin D supplement. If you are already on a vitamin D supplement, then the dose will need to be adjusted. Also you multivitamin may contain vitamin D. Vitamin D is a fat soluble vitamin that requires it be taken with good fat to be absorbed. Examplesof healthy fat include nuts, seeds, avocados, olives and for the most part the meal of the day. Spending up to 30 minutes in the sun during Summer and late Spring can provide natural vitamin D tothe uncovered skin (arms, legs) - Your calcium can be sufficient in your diet. Healthy food that are rich in calcium include: nuts, seeds, legumes/beans, peas, dark green leafy vegetables, plant based milk Additional calcium rich foods listed below - Soaking Almonds overnight in the fridge with drinking water, can help with softening the almonds and improved absorption of the almonds. Please be careful not to break a tooth with dry raw almonds,or other hard nuts or seeds. If your lab work shows insufficient calcium or you are unable to consume sufficient foods rich in calcium, then a calcium supplement is recommended, such as calcium citrate. - You can track your nutrition and calcium intake on [email or web address].[email or web address] This provides macro and micronutrient intake and requirements. - You can track your calcium intake on Renew [employer] or any other calcium tracker of your choice. If you are not getting about 1200 mg of calcium daily, you will need to add a calcium supplement, such as calcium citrate to supplement you daily calcium so you can achieve your total 1200 mg daily See additional information below on calcium. A large randomized controlled study, the VITAL trial, showed that the consumption of vitamin D and omega-3 supplements can lead to decreased risk of auto-immune disease, by 30% or more, especially ifthe vitamin D blood level improves to the 40's range. Citation of the vitamin D study: Michel Eaton, Mahad NR, Adalberto EK, Steven S, Mahamed J, Abigail V, Jim G, Erickson IM, Yas JE, Malu KH. Vitamin D and marine omega 3 fatty acid supplementation andincident autoimmune disease: VITAL randomized controlled trial. [facility]. 2021Oct 07;376:[id number]. doi: 1 0.1136/[id number]. PMID: 93118849; PMCID: [id number]. In this study they used: 1) Vitamin D 2000 international units once daily with meals. You may need more if your blood level of vitamin D is not up to the 40 range 2) Bowdon-3 1000 mg once daily I recommend plant based omega-3 (over fish oil), which is algal oil. -Vitamin D and Bowdon-3 have been reported to help with inflammation and auto- immune disease and Turmeric with inflammation. You can also take Turmeric 500 to 1000 mg twice daily with meals (with black pepper) This has been reported to help with osteoarthroses and inflammatory arthropathy Turmeric is available in pill form or liquid and can be taken up to 2000 mg twice daily. Make sure there is black pepper in your meal when you take the turmeric so that it works better The black pepper could be present in the pill or can be with your meal. Those who have gallbladder or gall stone disease or on blood thinners or , cannot take it. - I recommend following a healthy lifestyle. You can find additional information below. I recommend this to all my patients, as I have seen convincing scientific evidence, and seen the results in my practice, of the benefits of this healthy lifestyle to overall health and wellness. I hope you will find this beneficial as well. A whole plant based diet and healthy lifestyle have been reported to be optimal for health in general, anti-inflammatory diet, prevention of common chronic diseases, healthy weight management, memoryand brain healthy, bone health. - You can track your nutrition and calcium intake on www.vWiseometer.com This provides macro and micronutrient intake and requirements. Recommendations for healthy lifestyle include: Healthy nutritious diet, anti-inflammatory diet, appropriate exercise, good sleep hygiene, stress management, supplementing vital deficiencies and maintaining healthy weight. with BMI that does not exceed 25 to 26 . 5 points to remember to improve your health and continue on a healthy path: 1- Optimal nutritious food, such as a Whole Plant Based diet You can watch the documentary movie that features the Whole Plant Based diet, Mancos over knives (see video online and visit website). Another movie that was recently released is: Eating You Alive (you can find it at Sigasi.Scaleform) and The Game Changers movie Dr. Carrol Vanegas is a [facility] physician who is an expert in Whole Plant based diet. His website is [employer]. His research highlights the benefits of the Whole food plant based diet in reversing and preventing heart disease. Mrs. Vanegas (his ) has a cookbook with many recipes on whole plant based food: The Prevent and Reverse Heart Disease cookbook. You can also consider reading his son, Seven Vanegas's book: The Engine 2 cookbook Seven is a retired merry go round operator who has helped many people get healthier by following the whole food plantbased diet. Dr. Ridge Spicer, has a website and free gatito to help get started on a whole plant based diet, at www.[email or web address] and you can log on for free for his 21-Day Kickstart with meals and recipes to follow for21 days. There is also a free gatito for that. He has multiple free videos and YouTube, for example: ht tps://[email or web address]/[email or web address] , [email or web address] He has written multiple books, including Power Food for the Brain, The Cheese Trap, Dr. Ridge Spicer's Program for Reversing Diabetes, Your Body in Balance Dr. Slick Onofre has shown the benefit of a starch based whole food plant based diet to his Rheumatoid Arthritis patients, as well as patient with diabetes II, hypertension, obesity, multiple sclerosis, heart disease, acne, and other, his website: www.gomez.[email or web address] Dr. George Colbert is a renowned forestry scientist, who has studied and researched the benefits of the Whole plant based diet. He has also researched the adverse effects of animal proteins on health. He presents many of his research findings in his book The [place] study. Dr. John Pino has completed many research trials proving the reversal of diseases, such as heart disease and early prostate cancer, with healthy lifestyle and the Whole Plant based diet. Dr. John Pino website is: www.[email or web address] His new book: Undo It, has evidence based information and guide to following this healthy lifestyle. Dr. Gary Branch has dedicated a website and additional time to reviewing all food related articles and research and presents them in his power point presentation and on his website at: nutritionfacts.org which is all free. Dr. Branch has multiple free videos and YouTube, for example https://youtu.be/aSgNkhgVtks and [email or web address]://[email or web address] [email or web address]/lXXXygDRyBU. He has written multiple books including: How Not To and How Not To Diet He is now working on his next book: How Not To Age Dr. Rea Hair (from the [facility]), has articles on the following website: App [employer]. For additional ideas on recipes, you could find additional information on practical to follow recipes by reading or watching online and YouTube such as: Gas Golf Cart Repairer AJ, Cooking With Plants, The Vegan Corner(recipes from an [place] Gas Golf Cart Repairer), The Whole Foods Plant Based Cooking Show and visiting the provided websites for additional information on the whole plant based benefit and cooking recipes. You can also consider watching the vlogs of some of the plant based Athletes such as Alex Islas, Chan Willis, Brian on [employer]. You can find very good recipes for making easy tasty whole plant based foods and for free at the following YouTube channels: - Yokasta Christine (is a nurse RN) - The Whole Food Plant Based Cooking Show - Well Your World - Chew on Vegan (is a nurse RN) -The Gillian Family - A Plant Based (is a nurse RN) - Epic Mint Leaves - Broccoli Mum Dr. Courtney Ness (a psychiatrist who suffered with lupus) has helped reverse her Systemic Lupus Erythematosus and helps many patients with their auto-immune diseases, based on her recommendations of the whole food plant based diet and the green smoothies. She has a facebook and website, and on youtube her channel is: Goodbye Lupus Some people have adverse effect or intolerance to gluten. Certain patients with auto-immune disease, including auto-immune thyroid disease, need to avoid gluten. If you suspect you are gluten sensitive or intolerant, you will need to consult with a billing clinician to have further evaluation to exclude Celiac disease. If Celiac disease is excluded, but you are gluten intolerant, then you can follow a gluten free diet. Gluten could lead to increased inflammation in the bowels and body in certain patients. Not all your food has to be organ if you cannot afford or find them. Consider organic and non-GMO products when shopping for your food, when possible. GMO are genetically modified food that may have adverse impact on our health. If you are unable to purchase organic of non-GMO, you can wash your produce with white vinegar or soak in baking soda and water (see details from Dr. Sales's website nutritionfacts.org) and rinse well with water. 2- Regular Exercise, such as beginner yoga, barber chi, stretching, cardio, gradual strengthening, pool therapy, physical therapy Come As You Are: YOGA - Gentle Yoga Anyone Can Do Anywhere www.[email or web address] [email or web address]/yoga Also on youtube: yoga with Sia 3- Good Sleep (poor sleep impacts everything, recommended sleep is 7.5 to 8 hrs. a night). Certain people need less or more sleep. Meditation and relaxation techniques have shown to help with improving sleep. 4- Stress management, staying positive, be happy, laugh often (it is a great medicine) Find time to relax and meditate if possible. Following steps 1-3 will help with this as well. In psychiatric disorders, it is important to follow with a professional on the optimal management of depression, anxiety or psychiatric illness 5- Supplements Supplementing necessary vitamins and minerals, correcting any deficiencies, i.e. Vitamin D, B12, omega-3 fatty acids etc... Go natural when possible -Important notice: If you are following a Whole plant based diet, it is recommended to take [id number], sublingual, dissolve under the tongue, take once daily. Vitamin B12 is available over the counter, dose could be 2500 mcg, and can be taken once a week, and if your blood levels are low, you mayneed to take it once daily or a higher dose. Raw: Garlic, Cilantro, Milmay nuts, Pumpkin seeds, [place] seeds and Flax seed powder have been reported to help with certain metal detoxification such as mercury. Bowdon-3 plant based rich foods are good anti-inflammatory sources such as : mair seeds, flax seed (needs to be ground), walnuts, hemp seeds, dark green leafy vegetables. It is important to avoid refined oils as much as possible especially that many have too much omega-6 that is pro-inflammatory (lead to inflammation as well as concern for heart and vascular disease). Turmeric can be found natural, used as the spice powder or the root with your food. This is also available as a capsule. If you are on a blood thinner, you will need to discuss with your pharmacist or physician before taking Turmeric If you have gall bladder disease or gall bladder stones, it is recommended to avoid turmeric capsules. Sweet cherries (raw cleaned or frozen), Turmeric , pineapple (contains bromelain), omega-rich foods, have anti-inflammatory benefit Start reviewing the Whole Plant Based Diet, by watching Mancos over Finomial movie and then review website. There are many other resources and educational information on the Whole plant based diet on the Internet and documentaries. There are other resources for wellness that you can also benefit from, such as the [facility] website, [facility]org and includes Plant based and Mediterranean diet, yoga and meditation. Please avoid all dairy products. You could use non-dairy milk such as Flax milk, Cashew milk, Zahl milk, Rice milk, Oat milk or Hemp milk, instead. It is very important to avoid all: refined sugars (including high fructose syrup), refined carbohydrates, any artificial sweeteners and artificial preservatives, and soda and heavily processed food. Insure adequate hydration; drink at least 6 to 8 cups of water daily, certain people need less or more. - You don't have to drink smoothies, but if you have a sweet tooth or enjoy a desert or something sweet every day, a smoothie can help satisfy that and would help you avoid eating refined foods and added sugars or snacking on unhealthy foods. Also smoothies can help you get a lot of green leafy vegetables in your system, especially if you have a busy schedule and don't have time to eat a lot of greens. You can start your day with a smoothie, especially if you are busy and don't have time to eat your oatmeal or veggies and fruits in the morning. Examples of Smoothies: You can try many of the healthy natural anti-inflammatory smoothies listed below, just add the ingredients to your asphalt blender and blend: - Probably the healthiest smoothie is one that contains mostly green leafy vegetables (especially containing kale), some berries, flax seed and water. This might not automatic glove turner and former to be sweet. You can addone or two pitted dates or a frozen banana for natural sweetness. Examples of healthy green smoothies, pack your asphalt blender (at least half way to 3/4) with a mix of green leafy veggies, then top your asphalt blender with fruits (such as banana or frozen millie or pineapple, peaches, apricots, apples, grapes), a tablespoon of flax or mari seeds, then add water or unsweetened coconut water and blend until smooth. You can also add turmeric in this recipe. Do not only use spinach as they tend to be high in oxalates and can be risk for kidney stones. The same with israeli chards and beet leaves. If you don't like the taste of green leafy veggies in your smoothie, start gradually with one handful and add fruits to help with the taste. Another smoothie can be: - Fresh or frozen berries (such as frozen sweet cherries, blueberries, strawberries), a peeled frozen banana, green leafy vegetables (mixed greens or kale, not just spinach), 1 tablespoon of flax seed or mari seeds or a few walnuts, for liquid you can add water or an unsweetened plant based milk (can be soy, flax milk, almond milk), blend and enjoy. For anti-inflammatory boost add: Turmeric: half a root of turmeric (1 to 2 inches) or 1/4 dried turmeric powder along with a sprinkle of black pepper. This might change the flavor. You could add a quarter or half an avocado if you like it smoother and for a low fat option and less calories you can add instead a well cooked peeled sweet potato. -Tips on smoothies: To keep your green smoothies vibrant green, and not turn brown, keep the fruits that are yellow or orange in color only. Adding a cooked sweet potato can add sweetness and smooth texture to your smoothie. Adding beets to your smoothies can add sweetness and boost your nitric oxide. Beets are healthy forthe heart, and they can bring blood pressure down. Beets have been reported to help with sports performance. For extra natural plant based proteins, you can add half a block of tofu or cooked chickpeas (or cannellini beans). Black beans can be added, they will turn your smoothie darker. If you do not tolerate walnuts, you can use flax seeds, mari seeds or hemp seeds instead. If you do not like plant based milk, you can use coconut water or plain water instead. Avoid coconut milk and cream as it is high in saturated fat. You can add 1/4 to 1/2 cup of oats in your smoothies if you need more calories and need it to sustain you for longer. The dominguez with smoothies is to drink (sip) them slowly, over an hour. GENERAL INFORMATION ON BONE HEALTH : -Bone Density testing (DXA scan) as recommended. -Vitamin D supplementation is recommended, unless blood levels are sufficient. Recommended daily dose of 1000 to 2000 IU total a day, or the dose necessary to achieve a Vitamin D25-OH blood level of >31 and preferably closer to 40-60 ng/mL. Vitamin D pills are available over the counter. -Recommended daily dose of calcium: 1200mg total a day in divided doses. Calcium is usually sufficient in our regular diet, also available in multivitamins. Patients on certain dietary restrictions or those unable to meet their daily calcium by diety alone, may require calcium supplements. For patient with history of calcium kidney stones, Calcium Citrate would be the recommended supplement. It is recommended to avoid caclium carbonate supplement in this case, as these may increase risk of calcium kidney stones. The after visit summary has information on dietary calcium and instructions on reading calcium label and converting the %DV to mg. When you read a food label and you see calcium reported as DV %, add a zero and this will provide you with the approximate mg value of the calcium content in this food. For example, if a glass of almond milk is labeled as 40% calcium DV, then this contains 400 mg of calcium. For additional information, please see references provided. -Regular weight-bearing and muscle-strengthening exercise -Avoidance of tobacco smoking, excessive alcohol intake and excessive caffeine intake. -Fall and fracture precautions -It is recommend to continue regular follow up visits with your dentist every 6 months, and continue with good oral hygiene. Calcium: If your diet is sufficient in Calcium rich food, you will not need calcium supplement. Calcium Citrate is the preferred calcium if you have had kidney stones. Daily recommended calcium dose: 600mg twice a day with meals. Adequate calcium ingestion is essential for maintaining healthy bones. The recommended dose daily intake of calcium varies depending on individual needs but is usually between 1200 and 1500mg daily, preferably around 1200mg a day in divided dose (not all taken at once). This is equivalent to about five 8oz glasses of milk per day. Many foods are rich in calcium and they include: - Plant based, non-dairy, calcium rich products, include nuts, almond milk, beans, lentils - Vegetables and Fruit: bok-mandel, turnips, broccoli, kale, collards, - Dairy products: milk, cheese, yogurt, ice-cream - Fish products: canned salmon, sardines and shrimp - Cereals and nuts: almonds, sesame seeds, fortified cereals and oatmeal - Other foods: fortified orange-juice, figs, soybeans, other beans and eggs. If you have a low calcium diet and cannot tolerate calcium-rich foods, many supplements are available today. Your pharmacist can help you choose the one which best suits your needs. A few tips on supplements: - They should be easy to swallow - They should dissolve easily in cup of vinegar in < 15 minutes. - Count the ELEMENTAL calcium mgs. E.g. Calcium 499mg may have only 221mg of elemental Calcium. - Calcium citrate is the calcium supplement to take if you have had kidney stones and unable to meet your calcium requirements from food/diet alone. - There is such a variety today that it is best to bring in the bottle to your doctor to show them exactly what you are taking. Lastly too much calcium can be bad for you. Recent studies show extra supplements may increase yourrisk of kidney stones or cause high calcium levels in some people. You should discuss how much you should be taking with your doctor before starting them. Further Information is available from the following resources: www.nof.org (National Osteoporosis Foundation) http://www.osteo.org/osteolinks.asp National Institutes of Health: 5-271-779-BONE The Calcium Information [place]: -Non-Dairy, Plant based Milk, can contain in1 glass up to 450 mg of calcium (300 to 450 mg) Exampled include Oat Milk, Flax Milk, Zahl Milk, Cashew Milk, Soy Milk, Peas Milk general health and well being Examples of Food Sources of Calcium from [facility] Food Milligrams (mg) per serving Percent DV* Soymilk, calcium-fortified, 8 ounces 299 30 [place] juice, calcium-fortified, 6 ounces 261 26 Tofu, firm, made with calcium sulfate, cup* 253 25 Tofu, soft, made with calcium sulfate, cup* 138 14 Gtahk-gy-eyz cereal, calcium-fortified, 1 cup 100-1,000 10-100 Turnip greens, fresh, boiled, cup 99 10 Kale, raw, chopped, 1 cup 100 10 Kale, fresh, cooked, 1 cup 94 9 Taiwanese cabbage, bok mandel, raw, shredded, 1 cup 74 7 Bread, white, 1 slice 73 7 Tortilla, corn, pdfxx-yz-ktnf/ahuja, one 6 diameter 46 5 Tortilla, flour, lafqk-qt-ibal/ahuja, one 6 diameter 32 3 Bread, whole-wheat, 1 slice 30 3 Broccoli, raw, cup 21 2 * DV = Daily Value. DVs were developed by the U.S. Food and Drug Administration to help consumers compare the nutrient contents among products within the context of a total daily diet. The U.S. Department of Agriculture s (USDA s) Nutrient Database Web site lists the nutrient contentof many foods and provides comprehensive list of foods containing calcium arranged by nutrient content and by food name. *Calcium content varies slightly by fat content; the more fat, the less calcium the food contains. * Calcium content is for tofu processed with a calcium salt. Tofu processed with other salts does not provide significant amounts of calcium. You could acces this information online at: http://ods.od.nih.gov/factsheets/Calcium-HealthProfessional/ Vitamin D: Vitamin D3= cholecalciferol, available over the counter. Dose recommended 800 to 1000 iu daily with a meal; Certain patients require 8617-8063 iu daily and in patients deficient in Vitamin D, they require higher dosages. Certain patient requires higher dose, depending on their Vit D blood levels. Vitamin D is essential for calcium metabolism. It is really a hormone produced mainly in your skin after exposure to sunlight. Vitamin D helps you absorb calcium from your stomach and kidneys and incorporates it into your bones. Studies show approximately 50% of [place] men and women are vitamin D deficient in the winter. Milder cases of vitamin D are usually asymptomatic so the only way to know you have a problem is to have a blood level checked. More severe cases can cause osteomalacia(a.k.a. rickets) which can result in bone pain, weak bones and several abnormal laboratory tests and also weak muscles (a.k.a. myopathy). When this happens, your bones lose a lot of their calcium stores as the body tries to regulate the calcium required by other tissues. Prolonged deficiency can lead to severe bone disorders and fractures. Unlike calcium, dietary sources of vitamin D are rare, limited to a few fish oils particularly cod-liver oil, other fortified foods and egg yolks. and most are unhealthy. Natural source of vitamin D is through sunshine. This is usually during carlo seasons, for example a 30 minute exposure to sunshine. Some people are unable to be exposed to the sun due to skin condition. Often supplementation isneeded. Many multivitamins contain some vitamin D and vitamin D alone preparations are now available in several forms. The recommended daily intake of vitamin D used to be 400 and 800 international units, however, it is now known that larger amounts are needed, as discussed above. Your doctor can prescribe prescription strength vitamin D for you if necessary, if you have marked deficiency or diseases of the liver or kidney. Supplementation in patients with severe deficiency can stabilize or improve bone mineral density and in frail elderly persons, may reduce their risk of falling. Additional Information is available from: www.nof.org (the national osteoporosis foundation) http://www.[facility].org/arthritis/osteo/info.htm http://ods.od.nih.gov/factsheets/vitamind.asp National Institutes of Health: 0-157-248-BONE The Calcium Information Center: At the [facility], we work as a team for your care, along with Nurse Practitioners, PhysicianAssistants, Nurses and Medical Assistants. It is a privilege and honor to serve you. Thank you for choosing [facility] for your healthcare. Sincerely, Samy Cano MD documented [facility]04[facility] History of Present illness Narrative* Samy Mansfield MD - 12/14/2022 7:18 AM EDT DISTANCE HEALTH VISIT This Team Access Model visit is a virtual encounter. It required patient- provider interaction for the medical decision making as documented below. Patient's permission obtained Patient logged in late with only 2 minutes left before the next patient's apt (who is in the next room). I spent additional time with patient despite this leading me to be late to other patients Ms. Demar Ball is a very nice 42 year old female seen for BRISA. Additional details per last visit note HISTORY REVIEWED (electronic chart updated): Subjective: Doing well today and better. States doing well States the scalp abscess has healed States had bronchitis, family member had runny nose/URI States her PCP prescr steroids and z-pack, has resolved. States they were negative for covid-19 She had elevated liver transaminases at time was on antibiotics, denies being on methotrexate at the time. Denies alcohol consumption We called and advised her to hold her methotrexate, but she was not taking. She remains off her methotrexate and Enbrel, due to recent URI Denies current fevers or infections Answers submitted by the patient for this visit: Review of Systems Rheumatology (Submitted on 12/14/2022) Fever : No Recent Unintentional Weight Change: No Eye Pain: No Eye Redness: No Vision Disturbance: No Eye Dryness: No Nose Bleeds: No Sores in your Mouth: No Trouble Swallowing: No Dry Mouth: No Chest Pain: No Leg Swelling: No A Cough: Yes- as above Blood when you Cough: No Shortness of Breath: No Heartburn: No Abdominal Pain: No Diarrhea: No Black Tarry Stools: No Blood in Urine: No Pain or Burning with Urination: No Joint Pain or Stiffness: Yes- hands little bit Muscle Weakness: No Joint Swelling: No Morning Stiffness in Joints: No A Rash: No Skin Color Changes: No Hair Loss: No Nail Changes: No Headaches: No Numbness: No Memory Loss: No Swollen Glands: No Previously 10/27/2022 About a wk ago, had a swelling in the scalp and had horrible headache and states this goose egg appeared , states few days later it opened up like a bloody sore and drained clear went to ER and was told she has an abscess States the bed sheet was yellow; They cultured it, results in process. Had low grade fever . She is not aware of any triggering factors. is staying at the [employer] and may have bumped her head on a board, but does not recall. She also had a hair cut on Tuesday prior to that. She washed her hair and her daughter str'nd for her with a flat iron. She was prescribed antibiotics States she feels achy a little all over , the head ache is much better; Overall better since was started on Bactrim Denies fevers currently She held her methotrexate and Enbrel States will be on antibiotics for 10 days She has an apt with her PCP tomorrow. Tolerates methotrexate and Enbrel Poor dentition Advised on dental follow up and reviewed risk of dental infection to health and IA Answers submitted by the patient for this visit: Review of Systems Rheumatology (Submitted on 10/27/2022) Fever : No Recent Unintentional Weight Change: No Eye Pain: No Eye Redness: No Vision Disturbance: No Eye Dryness: No Nose Bleeds: Yes- is on blood thinner, Xarelto; Advised her to discuss with her Lens Engraver who prscribes her Xarelto No cytopenia on CBC Sores in your Mouth: No Trouble Swallowing: Yes- once in a great while, but not really Dry Mouth: No Chest Pain: No Leg Swelling: Yes A Cough: No Shortness of Breath: No Pain with Breathing: No Heartburn: Yes Abdominal Pain: No Diarrhea: No Black Tarry Stools: No Blood in Urine: No Pain or Burning with Urination: No Joint Pain or Stiffness: Yes- hands, hips Muscle Weakness: No Muscle Aches: No Joint Swelling: Yes -none currently; hand are puffy Morning Stiffness in Joints: Yes- duration maybe half an hour A Rash: No Skin Color Changes: No Hair Loss: No Nail Changes: No Headaches: Yes Numbness: No Memory Loss: No Swollen Glands: No Prev 12/08/2021 VV She had recent surgery to rt hand She is s/p hand surgery 11/19/2021 for s/p right index finger PIP joint arthrodesis , held Enbrel and methotrexate; Was found to have infection after surgery She is on IV vanco an bactrim T: 99.3 F forehead, and 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 She was advised that she needs to have it immobilized for 12 wks, till 02/19/2022. States had edema after surgery, feels had fluid retention States her wt has been stable otherwise Advised can resume Enbrel and methotrexate once cleared by her surgeon Vitamin D: 1000 international units once daily with meals Has not had 50,000 international units for some time. I have ordered vitamin D and we faxed orders She will get it done tomorrow at her local hospital S/p hysterectomy, without ooph She does not know if she is menopausal States the rt hand infection is better, since on antibiotics and swelling has gone down States her BRISA has been ok States the left hand is a little bit swollen because it has been doing everything , has been relying on her left hand Answers for HPI/ROS submitted by the patient on 12/08/2021 Fever : Yes Recent Unintentional Weight Change: No Eye Pain: No Eye Redness: No Vision Disturbance: No Nose Bleeds: No Sores in your Mouth: No Trouble Swallowing: No Dry Mouth: No Chest Pain: No Leg Swelling: Yes A Cough: No Shortness of Breath: No Pain with Breathing: No Heartburn: Yes Abdominal Pain: No Diarrhea: No Black Tarry Stools: No Blood in Urine: No Pain or Burning with Urination: No Joint Pain or Stiffness: Yes Muscle Weakness: Yes Muscle Aches: No Joint Swelling: Yes Morning Stiffness in Joints: Yes A Rash: Yes Do you have sun sensitive rashes?: No Skin Color Changes: No Hair Loss: No Nail Changes: No Headaches: Yes Numbness: No Memory Loss: No Swollen Glands: No States her BRISA has been good More recently with rainy weather would hurt more States had telehealth apt with her hand surgeon, for rt index, suspected mallet finger. Wonders if could get OT as also PIP does not bend well. 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 She does not want to have surgery for that if she can help it. Has been on Enbrel, well tolerated Enbrel 25 mg SQ twice a week Has not missed it in past 3 months Continues on methotrexate 4 tbs/wk Folic acid 1 mg once daily is able to get her medications and all are covered. She has not had covid19 Denies interim infections No fevers or chills States the rash on upper lids resolved and has not had it for a while. has been on the Enbrel Saw Purse Maker, Dr. Rosales and did not think correlation with methotrexate and Enbrel. No current rashes No flares Medications well tolerated Denies , s/p DEENA Taking vitamin D : 2000 international units once daily with meals Completed 50k course Vitamin D 25 Hydroxy (ng/mL) Date Value 05/30/2019 19.8 ] Following with Vascular specialist on Xarelto and had recent labs Labs [facility] CBC and CMP normal Prior lab work at [facility] 01/05/2020: CMP normal CBC, normal, abd eos normal CRP 1.7 mg/dL REVIEW OF SYSTEMS: Review of Systems CONSTITUTION: Negative for: Fever and Recent weight change HEENT: Negative for: Nosebleeds, Mouth sores, Trouble swallowing and Dry mouth RESPIRATORY: Negative for: Cough, Shortness of breath, Pain with breathing and Coughing up blood GASTROINTESTINAL: Positive for: Heartburn Negative for: Melena, Diarrhea and Abdominal pain MUSCULOSKELETAL: Positive for: Arthralgias (States if does not sit right, gets numb and her Pain Mgt is injecting for block. 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) Negative for: Memory loss SKIN: Negative for: Rash, Sun Sensitive Rash, Skin changes, Hair loss and Nail changes EYES: Negative for: Eye pain, Eye redness, Eye dryness and visual disturbance CARDIOVASCULAR: Positive for: Chest pain Negative for: Leg swelling GENITOURINARY: Negative for: Dysuria and Hematuria HEMATOLOGIC/LYMPHATIC: Negative for: Swollen glands all other systems reviewed and are negative - medical history - medications - allergies - family history - social history - radiology - tests Full details in patient's emr chart Additional pertinent test results reviewed Pertinent imaging scans/films reviewed PHYSICAL EXAMINATION: VIDEO EXAM: (if done, performed via video enabled technology) GENERAL: alert and appropriate, in no distress, well-hydrated, well nourished and happy, smiling, interactive SKIN: no rash HEAD: normocephalic, no abnormality or lesion noted EYES: no injection and visual acuity is grossly normal EARS: external ears normal, no mastoid tenderness No apparent nasal bridge collapse, no cartilage swelling, no parotid gland swelling. NOSE: external nose normal without rhinorrhea OROPHARYNX: moist mucus membranes, no tonsillar hypertrophy/exudate, uvula midline and pharynx non-erythematous, lips, teeth and gums are without obvious lesion Limited jaw ROM, stable micrognathia NECK: limited ROM, stable RESPIRATORY: breathing non-labored and no grunting/flaring/retractions CHEST: equal chest rise with normal respiratory effort MUSCULOSKELETAL : No apparent jt swelling or synovitis on video exam ROM without pain same LOM EXTREMITIES: No raynaud's phenomenon NEUROLOGIC: no obvious deficit ASSESSMENT: M08.80 BRISA (juvenile idiopathic arthritis) ([facility]) (primary encounter diagnosis) M06.4 Inflammatory polyarthropathy (HCC) Z51.81, Z79.620 Encounter for monitoring of etanercept therapy Z51.81, Z79.631 Encounter for monitoring of methotrexate therapy Full details per last office visit note Patient with 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 Also had radiesse filler to chin (due to micrognathia) She reports her surgeon told her the finger broke while inserting the implant. I could not find that in the OR report. Her BRISA/RA has been in remission with combination Enbrel and methotrexate. She has had to hold due to surgery and the post surgery infection in 2021. More recently, Sep 2022 developed abscess in scalp, likely from brush or scrape, was evaluated and treated in ER, s/p I&D and on antibiotics, with good response and improvement. She has held her methotrexate and Enbrel. Will resume once cleared from infection. She is seeing her PCP tomorrow. She has had history of chronic vitamin D deficiency and had not been taking sufficient vitamin D. She ran out of the 50,000 international units prescription and has only been taking 1000 international units daily. I have previously advised on maintenance therapy and discussed importance of keeping vitamin D normal. She requires 50,000 international units dosing due to chronic D deficiency, despite over the counter vitamin D higher dose. Vitamin D with food. She is not menopausal; Denies other fracture, states despite falls, would have thought she would. Received outside labs form 08/2022, and reviewed with patient. Still needs vitamin D, will be getting tomorrow at her PCP visit At today's visit, the patient's BRISA/RA is not active Will resume Enbrel once viral URI infection resolved Hold methotrexate for now, if needed can resume in future She is concerned that with her assistance since pandemic she will lose coverage and will have high copay; Advised her to contact [employer] for patient assistance Labs from 12/01/2022 reviewed She will have lab recheck labs per PCP, has apt this week . AST and ALT were elevated; Remain off methotrexate Reported rt 5th pinky trigger finger, will follow up with her Orthopedic hand surgeon for that PLAN: Plan as discussed above RE BRISA medications: She will resume her bDMARDs after PCP clears her from infection - Enbrel 50 mg sq once a week Hold Enbrel and methotrexate during infections -Remain off methotrexate (continue on methotrexate 4 tbs/wk) folate 1mg once daily Risks, benefits, alternatives, reported side effects, indication, limitations/expectation of medication(s) were discussed with patient and patient wished to proceed. Written information provided for patient review. Following a healthy lifestyle will provide optimal chance for disease remission, decreasing risk for CV disease and common chronic diseases, and overall wellbeing. I reviewed conservative care, wellness and healthy lifestyle, as well as the benefits of a whole foods plant based diet. I have had many patients experience significant relief in musculoskeletal pains and inflammatory arthropathy, by avoiding refined sugars and dairy and following whole foods plantbased diet. Additional time spent with patient on healthy lifestyle, healthy food and anti- inflammatory diet (with emphasis on whole plant based diet), avoiding refined carbs/sugars and processed food, appropriate exercise (stretching, cardio and strengthening), good sleep hygiene, stress mgt, and supplementing vital deficiencies and maintaining healthy wt and healthy BMI. Additional information provided with references and educational information. Bone health recommendations provided Previously ordered DXA, not completed; Re-ordered, will schedule in the Fall, to allow for time with normal vitamin D levels Bone Health Recommendations: -Bone Density is recommended after menopause and after age 55-60, sooner if patient has risk factors, sooner if on systemic steroid use of 3 months or more. -Vitamin D supplementation recommended, optimal dose is the dose necessary to achieve Vitamin D 25-OH blood level in range of 40-60 ng/mL. (Vitamin D supplement in international units, is the dose necessary to achieve a Vitamin D 25-OH blood level in range of 40-60 ng/mL). -Recommended daily dose of calcium: 1200mg total a day in divided doses. Calcium from dietary sources, if not sufficient, or if with h/o calcium nephrolithiasis would recommend Calcium Citrate supplement, as it is recommended to avoid caclium carbonate products, which as main dietary calcium source. The after visit summary has information on dietary calcium and instructions on reading calcium label and converting the %DV to mg. -Regular weight-bearing and muscle-strengthening exercise -Avoidance of tobacco smoking, excessive alcohol intake and excessive caffeine intake. -Fall and fracture precautions -Continued regular dental follow up visits and good dental/gum care Additional time spent on interpretation of test results. Available laboratories an their clinical significance were reviewed with the patient. Radiographs were reviewed at todays visit. Additional time was spent outside of the patient visit to review records. today. Assessment and plan were discussed with the patient. Additional time spent with the patient to discuss their questions. Additional time spent with the patient devoted to discussing treatment strategy, planning, implementation and preventive health and wellness recommendations. Time spent included preparing to see the patient, [id number] patient care, completing clinical documentation, obtaining and/or reviewing separately obtained history, performing a medically appropriate examination, counseling and educating the patient/family/caregiver, ordering medications, tests,or procedures, communicating with other HCPs (not separately reported), independently interpreting results (not separately reported), communicating results to the patient/family/caregiver, and care coordination (not separately reported). FU visit: 05/03/2023 at 2:40 pm, sooner if needed Portions of this note have been copied from my previous note and have been updated to reflect today's visit note December 14, 2022, all reflect current medical decision making from date of this visit. The patient follows with their Primary care physician for their other health management -Continuous follow up with Primary care physician for cardiovascular disease prevention, for age appropriate cancer screening and routine health maintenance and wellness, and infection precautions and age appropriate immunization recommended. -I have advised on wellness and the whole plant based diet, as they have been shown to prevent and reverse hear disease, prevent and treat diabetes mellitus II, decrease risk of CV disease, diabetes,metabolic syndrome, HTN, hyperlipidemia, obesity, bone loss, certain auto-immune, inflammatory, skin disorders, certain cancers, macular degeneration, certain degenerative disorders, multiple other chronic health disorders, and be in favor of general health and wellness. Thank you for allowing me to participate in the care of your patient. Samy Mansfield MD cc Reyna Bah, DO Medical Decision Making: Problems: Low: Stable chronic illness Data: Unique test result(s) reviewed: 3+ Risk: Moderate: Moderate risk from testing/treatment Medical Decision Making Level: 4 - Moderate PAST MEDICAL HISTORY Diagnosis Date Abnormal heart rhythm 2005 Normal sinus tachycardia- was on atenolol,no longer taking Clotting disorder (HCC) NTHFR clotting disorder Difficult airway for intubation Entrapment of right ulnar nerve GERD (gastroesophageal reflux disease) GI bleed 2012 Internal hemorrhoids History of blood clotting disorder 12/2015 [facility] [place]-Dr. 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 Pike Migraines Neuropathy Polyarticular juvenile idiopathic arthritis (HCC) RA (rheumatoid arthritis) (HCC) right wrist Thyroid nodule Biopsy done approx 2012 Transfusion history 12/2015 after surgery for clot in abdomen/hip PAST SURGICAL HISTORY Procedure Laterality Date BIOPSY THYROID COLONOSCOPY Polypectomy HAND SURGERY HX Right R 1st finger PAST SURGICAL HISTORY OF Uterine septum removed PAST SURGICAL HISTORY OF [place] teeth extraction PAST SURGICAL HISTORY OF 03/2015 Nasal fracture repair PAST SURGICAL HISTORY OF Bunionectomy x2 PAST SURGICAL HISTORY OF 1998 Jaw surgery with manipulation PAST SURGICAL HISTORY OF Right wrist surgery x2, partial fusion and repair PAST SURGICAL HISTORY OF 2012 Arthroscopy on bilateral hips 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 Maggie Jarquin PAST SURGICAL HISTORY OF DEENA PAST SURGICAL HISTORY OF [facility] TUBAL LIGATION HX 03/15/2011 Social History Tobacco Use Smoking status: Never Smokeless tobacco: Never Substance Use Topics Alcohol use: No Drug use: No FAMILY HISTORY Problem Relation Age of Onset Diabetes Mother Hypertension Mother Hypertension Father ALLERGIES Allergen Reactions Vancomycin Hives, Itching, Swelling Bacitracin Hives Doxycycline Rash, Itching Ferrous Sulfate Anaphylaxis, Vomiting Reaction happened with IV iron Keflex [Cephalexin] Itching Remicade [Inflixima* Other: See Comments Confusion, hypotension 10/20/2015 Patient states that she did have this reaction but that she has had this medication since and has not suffered any allergy Ultram [Tramadol Hc* Hives Current Outpatient Medications Medication Sig erenumab-aooe (AIMOVIG AUTOINJECTOR) 140 mg/mL auto-injector Inject 1 mL subcutaneously once every month. tiZANidine (ZANAFLEX) 4 mg tablet TAKE ONE TO TWO TABLETS BY MOUTH EVERY 8 HOURS NEEDED. Up to 3times a day. naratriptan (AMERGE) 2.5 mg tablet Take 1 tablet by mouth as needed for migraine headache (see administration instructions). TAKE ONE(1) TABLET AT THE ONSET OF HEADACHE; IF HEADACHE RETURNS OR DOES NOT FULLY RESOLVE, THE DOSE MAY BE REPEATED AFTER 4 HOURS; DO NOT EXCEED FIVE(5) MG IN 24 HOURS. topiramate (TOPAMAX) 200 mg tablet Take 1 tablet by mouth three times daily. sulfamethoxazole-trimethoprim (BACTRIM DS) 800-160 mg per tablet Take 1 tablet by mouth twice daily. Syringe with Needle, Disp, (BD TUBERCULIN SYRINGE) 1 mL 27 x 1/2 use to draw up & inject enbrel folic acid 1 mg tablet Take 1 tablet by mouth once daily. ergocalciferol 50,000 unit capsule (VITAMIN D2, DRISDOL) Take 1 capsule by mouth one time a week. with a meal and obtain blood test for vitamin D 25-OH as advised. etanercept (ENBREL) 25 mg/0.5 mL injection Inject 1 syringe (25 mg dose) subcutaneously two times aweek. efinaconazole (JUBLIA) 10 % [place] Apply to affected area once daily. Needle, Disp, 27 G (BD DISPOSABLE NEEDLES) 27 gauge x 1/2 ndle use to draw up & inject enbrel HYDROcodone-acetaminophen (NORCO) 5-325 mg per tablet Take by mouth every 6 hours as needed. XARELTO 20 mg tablet gabapentin (NEURONTIN) 300 mg capsule Take 300 mg by mouth twice daily. pantoprazole DR (PROTONIX) 40 mg tablet Take 40 mg by mouth twice daily. No current facility-administered medications for this visit. PERTINENT TESTS: Outside labs reviewed CBC Latest Ref Rng & Units 01/03/2019 05/30/2019 05/30/2019 11/17/2021 WBC 3.70 - 11.00 k/uL 8.28 6.42 6.85 9.88 HEMOGLOBIN 11.5 - 15.5 g/dL 12.8 12.5 12.9 15.1 HEMATOCRIT 36.0 - 46.0 % 38.7 41.0 41.4 45.4 PLATELETS 150 - 400 k/uL 408(H) 452(H) 458(H) 439(H) ABS NEUT (ANC) 1.45 - 7.50 k/uL 4.80 4.22 4.46 6.19 ABS LYMPH 1.00 - 4.00 k/uL 2.16 1.42 1.69 2.57 CMP Latest Ref Rng & Units 05/30/2019 05/30/2019 11/17/2021 12/03/2021 SODIUM 136 - 144 mmol/L 140 139 132(L) - SODIUM (POCT) 132 - 148 mmol/L - - - 141 POTASSIUM 3.7 - 5.1 mmol/L 4.3 4.2 3.9 - POTASSIUM (POCT) 3.5 - 5.0 mmol/L - - - 3.8 CHLORIDE 97 - 105 mmol/L 108(H) 107(H) 103 - CHLORIDE (POCT) 98 - 110 mmol/L - - - 113(A) CO2 22 - 30 mmol/L 18(L) 19(L) 17(L) - GLUCOSE 74 - 99 mg/dL 93 95 139(H) - GLUCOSE (POCT) 60 - 105 mg/dL - - - 90 BUN 7 - 21 mg/dL 8 8 12 - CREATININE 0.58 - 0.96 mg/dL 0.59 0.58 1.09(H) - CREATININE (POCT) 0.70 - 1.40 mg/dL - - - 0.70 CALCIUM, TOTAL 8.5 - 10.2 mg/dL 9.3 9.3 9.8 - AST 13 - 35 U/L 17 - 31 - ALT 7 - 38 U/L 13 - 48(H) - ALKALINE PHOSPHATASE 34 - 123 U/L 73 - 88 - CRP Latest Ref Rng & Units 01/03/2019 05/30/2019 CRP <0.9 mg/dL 2.7(H) 1.3(H) CK Latest Ref Rng & Units 01/03/2019 CK 42 - 196 U/L 171 TB Screen Latest Ref Rng & Units 01/03/2019 TBGINT - No evidence of current or previous infection with Mycobacterium tuberculosis. TBGRES Negative Negative Antibodies Latest Ref Rng & Units 05/30/2019 PT SEC 9.7 - 13.0 sec 10.5 PT INR 0.9 - 1.3 1.0 PTT 23.0 - 32.4 sec 26.0 Vitamin D 25 Hydroxy (ng/mL) Date Value 05/30/2019 19.8 ] Last XR Hand/Finger - Impression Only XR DIGIT GENERAL 3V FRONTAL/LAT/OBL RIGHT Collected: 03/31/2022 10:46 AM (Final result) Impression: IMPRESSION: 1. Stable postsurgical changes of the proximal interphalangeal joint of the RIGHT second digit. Medical Billing Associate: SERGEI Transcribe Date/Time: Mar 31 2022 12:49P... IMPRESSION: Unchanged right thumb IP joint effusion with intact hardware. 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 Medical Billing Associate: [employer] Transcribe Date/Time: Oct 09 2019 11:59A Dictated by : DOMINIC MADDOX MD This examination was interpreted and the report reviewed and electronically signed by: VIKTOR SMART MD on Oct 09 2019 2:13PM EST Results-Findings * * *Final Report* * * DATE OF EXAM: Oct 09 2019 11:27AM CCX [id number] - XR DIGIT 3V FRONTAL/LAT/OBL RT / PROCEDURE REASON: multiple diagnoses * * * * Physician Interpretation * * * * EXAMINATION: XR DIGIT 3V FRONTAL/LAT/OBL RT HISTORY: POST OP RIGHT THUMB AND FOLLOW UP RIGHT 4TH FINGER . 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 TECHNIQUE: XR DIGIT 3V FRONTAL/LAT/OBL RT Laterality: RIGHT Number of different views (projections): 3 M: XB_1 COMPARISON: 07/17/2019 RESULT: No significant interval change. Status post right thumb interphalangeal joint arthrodesis without osseous fusion, at this time. Completed bony fusion of the wrist arthrodesis with bridging plate extending from the distal radius due to the midshaft of the third metacarpal. Intact hardware without periprosthetic fracture, loosening or change in alignment. Status post distal ulnar resection. Mild swan-neck deformity of the 2nd digit (index finger) similar to the 07/17/2019 exam. documented in this encounterSy[facility]03-31-2023 Miscellaneous Notes* Telephone Encounter - Perla Rodriguez LPN - 12/10/2022 8:52 AM EDT Please assist with scheduling follow up with Dr Mansfield. Declined follow up with [facility] [facility]IE[facility]. * Telephone Encounter - Perla Rodriguez LPN - 12/10/2022 8:48 AM EDT Spoke with patient. Given below message with verbalized understanding. States has appointment with PCP on 12/13/22 will discuss results * Telephone Encounter - Samy Mansfield MD - 12/09/2022 5:53 PM EDT I was able to view results from [facility] Everywhere AST 50, ALT 89, rest of liver transaminases normal CBC normal, except elevated abs eosinophil count Blood cultures negative growth x 5 days Please advise patient to stop her methotrexate. Although she has done well with methotrexate before and this is low dose, it could be that she had other medications that all added extra burden on her liver. At this time, we are unable to continue the methotrexate. Please advise patient that she needs to follow up with her Primary care physician for further evaluation of the elevated liver enzymes. This can be from medications, or hepatitis or other condition. Her Primary care physician will obtain liver US, recheck labs, identify causes and may need to refer her to [employer] Histor[facility] thank you kindly, fa * Telephone Encounter - Luci Montelongo - 12/09/2022 3:53 PM EDT Patient calling stating [facility] won't fax her results to provider unless she goes in and signs papers and she cannot go in to do this. Patient states her AST 50 and ALT was 90 she is concerns about the ALT. Patient requesting call at [phone] for recommendations. Please advise * Telephone Encounter - Michelle Wilson RN - 12/09/2022 3:40 PM EDT Pt calls Recent labs done by pcp revealed liver enzymes were 3 x the normal Pt is concerned d/t arthritis meds Rheum fax # provided to caller Please await fax documented in this encounterSycam[facility]03-21-2023 Evaluation note* Encounter Date Diagnosis Assessment Notes Treatment Notes Treatment Clinical Notes Nov, Cough, unspecified type (ICD-10 - R05.9) [employer] Other [id number] History of Present illness Narrative* Rehana Knutson MD - 11/26/2022 8:57 AM EDT Images from the original note were not included. 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 Nodules History of Blood Clotting Disorder Transfusion History Obesity, Class I, BMI 30-34.9 E66.9 Vitamin D Deficiency Complex Tear of Lat Mensc, Current Injury, Left Knee, Init Ra (Rheumatoid Arthritis) ([facility]) Injury of Ulnar Nerve At Wrist 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 [place]niere Deformity of Finger of Right Hand Interval Headache Hx: Pain today:4 Questions or concerns to address today: She has worsening of headaches Family stressors -son with Autism and ADHD and feeding tube Went for intense course with her son toagata feeding to po foods MRSA infection of scalp X 2 weeks or > At last visit 15 headache free days She does not recall when headaches changed # of headache days/month 30 # of headache free days/ month 0 Current Preventive:Aimovig Current Abortive:naratriptan also taking norco for scalp pain Frequency of Abortives: 9 Medications effective not now with concurrent scalp infection Risk Factors for chronification:CM New Health Issues: see above Red Flags:none Prior Therapies Duration of Use Dose Reason for Discontinuation Analgesic Hydrocodone/Acetaminophen (Vicodin, Megargel) Anti-Convulsant Gabapentin (Neurontin) Oxcarbazepine (Trileptal) Topiramate (Topamax, Trokendi XL, Qudexy) Anti-Migraine Eletriptan (Relpax) Tired Rizatriptan (Maxalt) Side effects Blood Pressure Metoprolol (Lopressor,Toprol XL) MABs Erenumab (Aimovig) Muscle Relaxer Tizanidine (Zanaflex) PAST MEDICAL HISTORY Diagnosis Date Abnormal heart rhythm 2005 Normal sinus tachycardia- was on atenolol,no longer taking Clotting disorder (HCC) NTHFR clotting disorder Difficult airway for intubation Entrapment of right ulnar nerve GERD (gastroesophageal reflux disease) GI bleed 2012 Internal hemorrhoids History of blood clotting disorder 12/2015 meenakshi landers-Dr. 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 Pike Migraines Neuropathy Polyarticular juvenile idiopathic arthritis (HCC) RA (rheumatoid arthritis) ([facility]) right wrist Thyroid nodule Biopsy done approx 2012 Transfusion history 12/2015 after surgery for clot in abdomen/hip Studies to Review: MRI Report No resulted procedures found. Current Medications: Current Outpatient Medications Medication Sig sulfamethoxazole-trimethoprim (BACTRIM DS) 800-160 mg per tablet Take 1 tablet by mouth twice daily. Syringe with Needle, Disp, (BD TUBERCULIN SYRINGE) 1 mL 27 x 1/2 use to draw up & inject enbrel folic acid 1 mg tablet Take 1 tablet by mouth once daily. methotrexate 2.5 mg tablet take 4 tablets by mouth ONCE EACH WEEK AND HOLD DURING INFECTIONS ergocalciferol 50,000 unit capsule (VITAMIN D2, DRISDOL) Take 1 capsule by mouth one time a week. with a meal and obtain blood test for vitamin D 25-OH as advised. etanercept (ENBREL) 25 mg/0.5 mL injection Inject 1 syringe (25 mg dose) subcutaneously two times aweek. tiZANidine (ZANAFLEX) 4 mg tablet TAKE ONE TO TWO TABLETS BY MOUTH EVERY 8 HOURS NEEDED. Up to 3times a day. erenumab-aooe (AIMOVIG AUTOINJECTOR) 140 mg/mL auto-injector Inject 1 mL subcutaneously once every month. naratriptan (AMERGE) 2.5 mg tablet Take 1 tablet by mouth as needed for migraine headache (see administration instructions). TAKE ONE(1) TABLET AT THE ONSET OF HEADACHE; IF HEADACHE RETURNS OR DOES NOT FULLY RESOLVE, THE DOSE MAY BE REPEATED AFTER 4 HOURS; DO NOT EXCEED FIVE(5) MG IN 24 HOURS. topiramate (TOPAMAX) 200 mg tablet Take 1 tablet by mouth three times daily. efinaconazole (JUBLIA) 10 % [place] Apply to affected area once daily. Needle, Disp, 27 G (BD DISPOSABLE NEEDLES) 27 gauge x 1/2 ndle use to draw up & inject enbrel HYDROcodone-acetaminophen (NORCO) 5-325 mg per tablet Take by mouth every 6 hours as needed. XARELTO 20 mg tablet gabapentin (NEURONTIN) 300 mg capsule Take 300 mg by mouth twice daily. pantoprazole DR (PROTONIX) 40 mg tablet Take 40 mg by mouth twice daily. No current facility-administered medications for this visit. ALLERGIES Allergen Reactions Vancomycin Hives, Itching, Swelling Bacitracin Hives Doxycycline Rash, Itching Ferrous Sulfate Anaphylaxis, Vomiting Reaction happened with IV iron Keflex [Cephalexin] Itching Remicade [Inflixima* Other: See Comments Confusion, hypotension 10/20/2015 Patient states that she did have this reaction but that she has had this medication since and has not suffered any allergy Ultram [Tramadol Hc* Hives REVIEW OF SYSTEMS: Review of system : unchanged from the previous visit (sleep patterns, mood, energy, appetite, stress, exercising). HEADACHE SCORES: Headache Questions 09/25/2019 01/06/2022 11/26/2022 ID Migraine Screener: - - - ER visits in the last year: - - - ER visits since last office visit: 0 0 0 Hospital stays in the last year: - - - Hospital stays since last office visit 0 0 0 Limited ADLs in the last month: 5 15 7 Days missed from work or school in the last month: - 31 0 Days headache pain free in the last month: 6 7 20 Days per month with ALL of the following symptoms - decreased productivity, light sensitivity and nausea: 3 14 11 Initial improvement of headache after botox injection at last visit: Not applicable, I did not havea botox injection at my last visit - Not applicable, I did not have a botox injection at my last visit PRN medication usage in the last month: 30 - - Patient impression of improvement since last visit: Minimally improved Minimally improved Minimallyworse HIT-6 09/25/2019 01/06/2022 11/26/2022 HIT-6 59 (Substantial impact) 66 (Severe impact) 61 (Severe impact) KAY - 2/7 SCORES 09/25/2019 01/06/2022 11/26/2022 KAY-2 Score 2 0 0 Migraine Specific QOL - Higher scores indicate better HRQL 09/25/2019 01/06/2022 11/26/2022 Role Function-Restrictive Transformed Score (range: 0-100) 60 37.14 60 Role Function-Preventive Transformed Score (range: 0-100) 60 40 60 Emotional Function Transformed Score (range: 0-100) 80 33.33 46.67 PHQ-9 09/25/2019 01/06/2022 11/26/2022 Score 3 3 2 PHYSICAL EXAM: Modified for [employer] platform GEN: Alert. NAD. Normal affect. Cooperative. RESP: Breathing at normal rate/ does not appear to have respiratory distress with speaking NEUROLOGICAL: MENTAL STATUS: A+O x 3. Attentive. Thought process and content unremarkable. Follows commands appropriately. Speech fluent. Pain behaviours:none CN: III, IV, : EOMI. No ptosis present. VII: Face symmetric. VIII: Hearing grossly intact Impression: Chronic migraine exacerbated by cessation of Aimovig and scalp infection and son's health issues She did not receive her aimovig for > 6 months- Enbrel is automatically shipped to her and she assumed that Aimovig would as well Comorbid disorders: Plan: Continue present prophylactic and rescue medication 1. Intractable chronic migraine without aura and without status migrainosus - erenumab-aooe (AIMOVIG AUTOINJECTOR) 140 mg/mL auto-injector; Inject 1 mL subcutaneously once every month. Dispense: 1 mL; Refill: 5 - tiZANidine (ZANAFLEX) 4 mg tablet; TAKE ONE TO TWO TABLETS BY MOUTH EVERY 8 HOURS NEEDED. Up to 3 times a day. Dispense: 180 tablet; Refill: 11 - naratriptan (AMERGE) 2.5 mg tablet; Take 1 tablet by mouth as needed for migraine headache (see administration instructions). TAKE ONE(1) TABLET AT THE ONSET OF HEADACHE; IF HEADACHE RETURNS OR DOES NOT FULLY RESOLVE, THE DOSE MAY BE REPEATED AFTER 4 HOURS; DO NOT EXCEED FIVE(5) MG IN 24 HOURS. Dispense: 9 tablet; Refill: 11 - PROVIDER ORDERED FOLLOW UP; Future 2. Cervicogenic headache - tiZANidine (ZANAFLEX) 4 mg tablet; TAKE ONE TO TWO TABLETS BY MOUTH EVERY 8 HOURS NEEDED. Up to 3 times a day. Dispense: 180 tablet; Refill: 11 - topiramate (TOPAMAX) 200 mg tablet; Take 1 tablet by mouth three times daily. Dispense: 90 tablet; Refill: 11 I spent a total of 30 minutes on the date of the service which included preparing to see the patient, [id number] patient care, completing clinical documentation, obtaining and/or reviewing separately obtained history, performing a medically appropriate examination, counseling and educating the pat ient/family/caregiver, and ordering medications, tests, or procedures. Rehana Knutson MD This document has been created with the use of voice recognition technology. It may contain inaccuracy, misspelling, inaccurate syntax or word sense. documented in this encounterSycamore [facility] Center03-13-2023 History of Present illness Narrative* Sherley Hubbard ([employer]) - 11/22/2022 1:41 PM EDT [facility] Refill Assessment Medication(s): Enbrel Patient's current medication list and adherence status to current therapy were reviewed by Specialty Pharmacy clinical pharmacist to identify any new drug interactions or non-compliance to therapy. Therapy continues to be appropriate for disease, patient response, and medical condition. Verification of therapeutic benefit and effectiveness with current therapy was completed. Adverse events, barriers in adherence, and side effects were assessed and addressed if applicable. Will proceed with refill with no changes in therapy - patient progressing towards achieving therapeutic goals based on medication- specific laboratory parameters, disease state markers and outcomes. Console Operator Assessment Patient confirmed: Yes Med/dose confirmed: Yes Supplies needed: Alcohol swabs (bandages) Missed doses: No Estimated days supply on hand: 7 Next cycle/dose due: 11/23/22 Payment confirmed: Yes Delivery method: FedEx Signature required: No Delivery address: [address] [place] [address] Delivery date: 11/30/22 Questions or concerns for the pharmacist?: No [facility] Assessment - Inflammatory Conditions: Assessment to use: Refill Vaccination Assessment: Date of influenza vaccination reminder: 05/18/2022 Date of most recent vaccination assessment: 05/18/2022 Sherley Hubbard ([employer]) documented in this encounterSycamore Medical Center03-07-2023 Evaluation note* Encounter Date Diagnosis Assessment Notes Treatment Notes Treatment Clinical Notes Nov, Abscess of scalp (ICD-10 - L02.811) I was able to visualize the area via facetime today, still appears slightly inflammed. Again she had +MRSA culture. I would like her to start applying bactroban ointment to the area three times a day. 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 Methotrexate and enbrel are on hold at the moment. [employer] Other 03-03-2023 Evaluation note* Encounter Date Diagnosis Assessment Notes Treatment Notes Treatment Clinical Notes Nov, Thrush, oral (ICD-10 - B37.0) [employer] Other [id number] Miscellaneous Notes* Telephone Encounter - Samy Mansfield MD - 10/29/2022 8:32 AM EST This was reviewed with the patient at her recent visit documented in this encounterSycamore [facility] Center02-16-2023 Evaluation note* Encounter Date Diagnosis Assessment Notes Treatment Notes Treatment Clinical Notes Oct, Abscess of scalp (ICD-10 - L02.811) Patient did go to [place] [facility], records reviewed virtually. Patient had a lump at the vertex of her scalp drainaing clear fluid that then turned yellow which promted her ER visit. Wound culture obtained with MRSA found. She was encouraged to continue on the Bactrim to be sure the infection resolves completely. Oct, MRSA (methicillin resistant staph aureus) culture positive (ICD-10 - Z22.322) ER visit [facility] 08/05/2021 Reviewed culture from [place] [facility]. Wound culture did result showing a presence of MRSA. I advised patient she needs to take the Bactrim DS until her wound completely resolves. Patient was educated regading the contagious nature of the MRSA bacteria and encouraged hand washing anytime she touches the scalp/hair. She does have a history of MRSA infection. Encouraged her to continue with hibiclens shampoo. Oct, Sore throat (ICD-10 - J02.9) Patient does report having a bad sore throat that doesn't seem to be improving with the Bactrim. She was advised this is likely unrelated to the abscess. Discussed with her probably viral etiology, if symptoms persist she is to return to the emergency room or urgent care since she is in [facility]. [employer] Other 02-16-2023 Miscellaneous Notes* Telephone Encounter - Samy Mansfield MD - 10/28/2022 12:36 PM EST Signed thank you kindly, fa * Telephone Encounter - Gracy Osborne RPh - 10/28/2022 12:17 PM EST Please sign these orders, patient needs an new Rx for syringes. Thank you Requested Prescriptions Pending Prescriptions Disp Refills Syringe with Needle, Disp, (BD TUBERCULIN SYRINGE) 1 mL 27 x 1/2 8 Each 12 Sig: use to draw up & inject enbrel Please review and advise. Gracy Osborne RPh documented in this encounterSycamore Medical Center02-15-2023 History of Present illness Narrative* Samy Mansfield MD - 10/27/2022 11:39 AM EST DISTANCE HEALTH VISIT This Team Access Model visit is a virtual encounter. It required patient- provider interaction for the medical decision making as documented below. Patient's permission obtained Ms. Demar Ball is a very nice 41 year old female seen for BRISA. Additional details per last visit note HISTORY REVIEWED (electronic chart updated): Subjective: Doing well today About a wk ago, had a swelling in the scalp and had horrible headache and states this goose egg appeared , states few days later it opened up like a bloody sore and drained clear States went to ER and was told she has an abscess States the bed sheet was yellow; They cultured it, results in process. Had low grade fever . She is not aware of any triggering factors. is staying at the [facility] and may have bumped her head on a board, but does not recall. She also had a hair cut on Tuesday prior to that. She washed her hair and her daughter str'nd for her with a flat iron. She was prescribed antibiotics States she feels achy a little all over , the head ache is much better; Overall better since was started on Bactrim Denies fevers currently She held her methotrexate and Enbrel States will be on antibiotics for 10 days She has an apt with her PCP tomorrow. Tolerates methotrexate and Enbrel Poor dentition Advised on dental follow up and reviewed risk of dental infection to health and [place] Answers submitted by the patient for this visit: Review of Systems Rheumatology (Submitted on 10/27/2022) Fever : No Recent Unintentional Weight Change: No Eye Pain: No Eye Redness: No Vision Disturbance: No Eye Dryness: No Nose Bleeds: Yes- is on blood thinner, Xarelto; Advised her to discuss with her Lens Engraver who prscribes her Xarelto No cytopenia on CBC Sores in your Mouth: No Trouble Swallowing: Yes- once in a great while, but not really Dry Mouth: No Chest Pain: No Leg Swelling: Yes A Cough: No Shortness of Breath: No Pain with Breathing: No Heartburn: Yes Abdominal Pain: No Diarrhea: No Black Tarry Stools: No Blood in Urine: No Pain or Burning with Urination: No Joint Pain or Stiffness: Yes- hands, hips Muscle Weakness: No Muscle Aches: No Joint Swelling: Yes -none currently; hand are puffy Morning Stiffness in Joints: Yes- duration maybe half an hour A Rash: No Skin Color Changes: No Hair Loss: No Nail Changes: No Headaches: Yes Numbness: No Memory Loss: No Swollen Glands: No Prev 12/08/2021 VV She had recent surgery to rt hand She is s/p hand surgery 11/19/2021 for s/p right index finger PIP joint arthrodesis , held Enbrel and methotrexate; Was found to have infection after surgery She is on IV vanco an bactrim T: 99.3 F forehead, and 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 She was advised that she needs to have it immobilized for 12 wks, till 02/19/2022. States had edema after surgery, feels had fluid retention States her wt has been stable otherwise Advised can resume Enbrel and methotrexate once cleared by her surgeon Vitamin D: 1000 international units once daily with meals Has not had 50,000 international units for some time. I have ordered vitamin D and we faxed orders She will get it done tomorrow at her local hospital S/p hysterectomy, without ooph She does not know if she is menopausal States the rt hand infection is better, since on antibiotics and swelling has gone down States her BRISA has been ok States the left hand is a little bit swollen because it has been doing everything , has been relying on her left hand Answers for HPI/ROS submitted by the patient on 12/08/2021 Fever : Yes Recent Unintentional Weight Change: No Eye Pain: No Eye Redness: No Vision Disturbance: No Nose Bleeds: No Sores in your Mouth: No Trouble Swallowing: No Dry Mouth: No Chest Pain: No Leg Swelling: Yes A Cough: No Shortness of Breath: No Pain with Breathing: No Heartburn: Yes Abdominal Pain: No Diarrhea: No Black Tarry Stools: No Blood in Urine: No Pain or Burning with Urination: No Joint Pain or Stiffness: Yes Muscle Weakness: Yes Muscle Aches: No Joint Swelling: Yes Morning Stiffness in Joints: Yes A Rash: Yes Do you have sun sensitive rashes?: No Skin Color Changes: No Hair Loss: No Nail Changes: No Headaches: Yes Numbness: No Memory Loss: No Swollen Glands: No States her BRISA has been good More recently with rainy weather would hurt more States had telehealth apt with her hand surgeon, for rt index, suspected mallet finger. Wonders if could get OT as also PIP does not bend well. 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 She does not want to have surgery for that if she can help it. Has been on Enbrel, well tolerated Enbrel 25 mg SQ twice a week Has not missed it in past 3 months Continues on methotrexate 4 tbs/wk Folic acid 1 mg once daily States is able to get her medications and all are covered. She has not had covid19 Denies interim infections No fevers or chills States the rash on upper lids resolved and has not had it for a while. 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 Rosales and did not think correlation with methotrexate and Enbrel. No current rashes No flares Medications well tolerated Denies , s/p DEENA Taking vitamin D : 2000 international units once daily with meals Completed 50k course Vitamin D 25 Hydroxy (ng/mL) Date Value 05/30/2019 19.8 ] Following with Vascular specialist on Xarelto and had recent labs Labs [facility] CBC and CMP normal Prior lab work at [facility] 01/05/2020: CMP normal CBC, normal, abd eos normal CRP 1.7 mg/dL REVIEW OF SYSTEMS: Review of Systems CONSTITUTION: Negative for: Fever and Recent weight change HEENT: Negative for: Nosebleeds, Mouth sores, Trouble swallowing and Dry mouth RESPIRATORY: Negative for: Cough, Shortness of breath, Pain with breathing and Coughing up blood GASTROINTESTINAL: Positive for: Heartburn Negative for: Melena, Diarrhea and Abdominal pain MUSCULOSKELETAL: Positive for: Arthralgias (States if does not sit right, gets numb and her Pain Mgt is injecting for block. 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) Negative for: Memory loss SKIN: Negative for: Rash, Sun Sensitive Rash, Skin changes, Hair loss and Nail changes EYES: Negative for: Eye pain, Eye redness, Eye dryness and visual disturbance CARDIOVASCULAR: Positive for: Chest pain Negative for: Leg swelling GENITOURINARY: Negative for: Dysuria and Hematuria HEMATOLOGIC/LYMPHATIC: Negative for: Swollen glands all other systems reviewed and are negative - medical history - medications - allergies - family history - social history - radiology - tests Full details in patient's emr chart Additional pertinent test results reviewed Pertinent imaging scans/films reviewed PHYSICAL EXAMINATION: VIDEO EXAM: (if done, performed via video enabled technology) GENERAL: alert and appropriate, in no distress, well-hydrated, well nourished and happy, smiling, interactive SKIN: no rash The abscess at the scalp vortex appears markedly improved from photo she sent. HEAD: normocephalic, no abnormality or lesion noted EYES: no injection and visual acuity is grossly normal EARS: external ears normal, no mastoid tenderness No apparent nasal bridge collapse, no cartilage swelling, no parotid gland swelling. 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) ([facility]) (primary encounter diagnosis) M06.4 Inflammatory polyarthropathy ([facility]) Z51.81, Z79.620 Encounter for monitoring of etanercept therapy Z51.81, Z79.899 Encounter for monitoring of methotrexate therapy L02.811 Abscess of scalp, improving with Bactrim Comment: Managed by outside provider; Held Enbrel and MTX E55.9 Vitamin D deficiency-chronic Z71.2 Encounter to discuss test results Z71.89 Encounter for medication review and counseling Full details per last office visit note Patient with 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 Also had radiesse filler to chin (due to micrognathia) She reports her surgeon told her the finger broke while inserting the implant. I could not find that in the OR report. Her BRISA/RA has been in remission with combination Enbrel and methotrexate. She has had to hold due to surgery and the post surgery infection in 2021. More recently, Sep 2022 developed abscess in scalp, likely from brush or scrape, was evaluated and treated in ER, s/p I&D and on antibiotics, with good response and improvement. She has held her methotrexate and Enbrel. Will resume once cleared from infection. She is seeing her PCP tomorrow. She has had history of chronic vitamin D deficiency and had not been taking sufficient vitamin D. She ran out of the 50,000 international units prescription and has only been taking 1000 international units daily. I have previously advised on maintenance therapy and discussed importance of keeping vitamin D normal. She requires 50,000 international units dosing due to chronic D deficiency, despite over the counter vitamin D higher dose. Vitamin D with food. She is not menopausal; Denies other fracture, states despite falls, would have thought she would. Received outside labs form 08/2022, and reviewed with patient. Still needs vitamin D, will be getting tomorrow at her PCP visit PLAN: [facility] on 10/27/22 folic acid 1 mg tablet methotrexate 2.5 mg tablet ergocalciferol 50,000 unit capsule (VITAMIN D2, DRISDOL) etanercept (ENBREL) 25 mg/0.5 mL injection refills I have ordered vitamin D blood test, she will complete tomorrow at PCP visit Other labs UTD RE BRISA medications: She will resume her c and b DMARDs after PCP clears her from infection - Enbrel 50 mg sq once a week Hold Enbrel and methotrexate during infections methotrexate 4 tbs/wk folate 1mg once daily Risks, benefits, alternatives, reported side effects, indication, limitations/expectation of medication(s) were discussed with patient and patient wished to proceed. Written information provided for patient review. I reviewed conservative care, wellness and healthy lifestyle, as well as the benefits of a whole foods plant based diet. I have had many patients experience significant relief in musculoskeletal pains and inflammatory arthropathy, by avoiding refined sugars and dairy and following whole foods plantbased diet. Additional time spent with patient on healthy lifestyle, healthy food and anti- inflammatory diet (with emphasis on whole plant based diet), avoiding refined carbs/sugars and processed food, appropriate exercise (stretching, cardio and strengthening), good sleep hygiene, stress mgt, and supplementing vital deficiencies and maintaining healthy wt and healthy BMI. Additional information provided with references and educational information. Bone health recommendations provided Previously ordered DXA, not completed; Re-ordered, will schedule in the Fall, to allow for time with normal vitamin D levels Bone Health Recommendations: -Bone Density is recommended after menopause and after age 55-60, sooner if patient has risk factors, sooner if on systemic steroid use of 3 months or more. -Vitamin D supplementation recommended, optimal dose is the dose necessary to achieve Vitamin D 25-OH blood level in range of 40-60 ng/mL. (Vitamin D supplement in international units, is the dose necessary to achieve a Vitamin D 25-OH blood level in range of 40-60 ng/mL). -Recommended daily dose of calcium: 1200mg total a day in divided doses. Calcium from dietary sources, if not sufficient, or if with h/o calcium nephrolithiasis would recommend Calcium Citrate supplement, as it is recommended to avoid caclium carbonate products, which as main dietary calcium source. The after visit summary has information on dietary calcium and instructions on reading calcium label and converting the %DV to mg. -Regular weight-bearing and muscle-strengthening exercise -Avoidance of tobacco smoking, excessive alcohol intake and excessive caffeine intake. -Fall and fracture precautions -Continued regular dental follow up visits and good dental/gum care Additional time spent on interpretation of test results. Available laboratories an their clinical significance were reviewed with the patient. Radiographs were reviewed at todays visit. Additional time was spent outside of the patient visit to review records. today. Assessment and plan were discussed with the patient. Additional time spent with the patient to discuss their questions. Additional time spent with the patient devoted to discussing treatment strategy, planning, implementation and preventive health and wellness recommendations. Time spent included preparing to see the patient, [id number] patient care, completing clinical documentation, obtaining and/or reviewing separately obtained history, performing a medically appropriate examination, counseling and educating the patient/family/caregiver, ordering medications, tests,or procedures, communicating with other HCPs (not separately reported), independently interpreting results (not separately reported), communicating results to the patient/family/caregiver, and care coordination (not separately reported). FU visit: has apt scheduled for Nov 09, 2022, will keep for recheck, she will still be in [place] with her son for his hosp, will change to virtual I have prev. ordered DXA Portions of this note have been copied from my previous note and have been updated to reflect today's visit note October 28, 2022, all reflect current medical decision making from date of this visit. She is seeing her PCP tomorrow for f/u on scalp abscess The patient follows with their Primary care physician for their other health management -Continuous follow up with Primary care physician for cardiovascular disease prevention, for age appropriate cancer screening and routine health maintenance and wellness, and infection precautions and age appropriate immunization recommended. -I have advised on wellness and the whole plant based diet, as they have been shown to prevent and reverse hear disease, prevent and treat diabetes mellitus II, decrease risk of CV disease, diabetes,metabolic syndrome, HTN, hyperlipidemia, obesity, bone loss, certain auto-immune, inflammatory, skin disorders, certain cancers, macular degeneration, certain degenerative disorders, multiple other chronic health disorders, and be in favor of general health and wellness. Thank you for allowing me to participate in the care of your patient. Samy Mansfield MD cc Reyna Bah, DO Medical Decision Making: Problems: Low: Acute, uncomplicated illness or injury Moderate: 2+ stable chronic illnesses Data: Unique source(s) for external note(s) reviewed: 3+ Unique test result(s) reviewed: 3+ Unique test(s) ordered: 3+ Independent interpretation of test from other physician/QHCP Discussed management or test w/ external physician/QHCP/source Risk: High: High risk from testing/treatment Medical Decision Making Level: 5 - High PAST MEDICAL HISTORY Diagnosis Date Abnormal heart rhythm 2005 Normal sinus tachycardia- was on atenolol,no longer taking Clotting disorder (HCC) NTHFR clotting disorder Difficult airway for intubation Entrapment of right ulnar nerve GERD (gastroesophageal reflux disease) GI bleed 2012 Internal hemorrhoids History of blood clotting disorder 12/2015 [facility]-Dr. 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 Pike Migraines Neuropathy Polyarticular juvenile idiopathic arthritis (HCC) RA (rheumatoid arthritis) (HCC) right wrist Thyroid nodule Biopsy done approx 2012 Transfusion history 12/2015 after surgery for clot in abdomen/hip PAST SURGICAL HISTORY Procedure Laterality Date BIOPSY THYROID COLONOSCOPY Polypectomy HAND SURGERY HX Right R 1st finger PAST SURGICAL HISTORY OF Uterine septum removed PAST SURGICAL HISTORY OF [place] teeth extraction PAST SURGICAL HISTORY OF 03/2015 Nasal fracture repair PAST SURGICAL HISTORY OF Bunionectomy x2 PAST SURGICAL HISTORY OF 1998 Jaw surgery with manipulation PAST SURGICAL HISTORY OF Right wrist surgery x2, partial fusion and repair PAST SURGICAL HISTORY OF 2012 Arthroscopy on bilateral hips 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 Maggie Allison [facility] PAST SURGICAL HISTORY OF DEENA PAST SURGICAL HISTORY OF [facility] TUBAL LIGATION HX 03/15/2011 Social History Tobacco Use Smoking status: Never Smokeless tobacco: Never Substance Use Topics Alcohol use: No Drug use: No FAMILY HISTORY Problem Relation Age of Onset Diabetes Mother Hypertension Mother Hypertension Father ALLERGIES Allergen Reactions Vancomycin Hives, Itching, Swelling Bacitracin Hives Doxycycline Rash, Itching Ferrous Sulfate Anaphylaxis, Vomiting Reaction happened with IV iron Keflex [Cephalexin] Itching Remicade [Inflixima* Other: See Comments Confusion, hypotension 10/20/2015 Patient states that she did have this reaction but that she has had this medication since and has not suffered any allergy Ultram [Tramadol Hc* Hives Current Outpatient Medications Medication Sig Syringe with Needle, Disp, (BD TUBERCULIN SYRINGE) 1 mL 27 x 1/2 use to draw up & inject enbrel folic acid 1 mg tablet Take 1 tablet by mouth once daily. methotrexate 2.5 mg tablet take 4 tablets by mouth ONCE EACH WEEK AND HOLD DURING INFECTIONS ergocalciferol 50,000 unit capsule (VITAMIN D2, DRISDOL) Take 1 capsule by mouth one time a week. with a meal and obtain blood test for vitamin D 25-OH as advised. etanercept (ENBREL) 25 mg/0.5 mL injection Inject 1 syringe (25 mg dose) subcutaneously two times aweek. tiZANidine (ZANAFLEX) 4 mg tablet TAKE ONE TO TWO TABLETS BY MOUTH EVERY 8 HOURS NEEDED. Up to 3times a day. erenumab-aooe (AIMOVIG AUTOINJECTOR) 140 mg/mL auto-injector Inject 1 mL subcutaneously once every month. naratriptan (AMERGE) 2.5 mg tablet Take 1 tablet by mouth as needed for migraine headache (see administration instructions). TAKE ONE(1) TABLET AT THE ONSET OF HEADACHE; IF HEADACHE RETURNS OR DOES NOT FULLY RESOLVE, THE DOSE MAY BE REPEATED AFTER 4 HOURS; DO NOT EXCEED FIVE(5) MG IN 24 HOURS. topiramate (TOPAMAX) 200 mg tablet Take 1 tablet by mouth three times daily. efinaconazole (JUBLIA) 10 % [place] Apply to affected area once daily. Needle, Disp, 27 G (BD DISPOSABLE NEEDLES) 27 gauge x 1/2 ndle use to draw up & inject enbrel HYDROcodone-acetaminophen (NORCO) 5-325 mg per tablet Take by mouth every 6 hours as needed. XARELTO 20 mg tablet gabapentin (NEURONTIN) 300 mg capsule Take 300 mg by mouth twice daily. pantoprazole DR (PROTONIX) 40 mg tablet Take 40 mg by mouth twice daily. No current facility-administered medications for this visit. PERTINENT TESTS: Outside labs reviewed CBC Latest Ref Rng & Units 01/03/2019 05/30/2019 05/30/2019 11/17/2021 WBC 3.70 - 11.00 k/uL 8.28 6.42 6.85 9.88 HEMOGLOBIN 11.5 - 15.5 g/dL 12.8 12.5 12.9 15.1 HEMATOCRIT 36.0 - 46.0 % 38.7 41.0 41.4 45.4 PLATELETS 150 - 400 k/uL 408(H) 452(H) 458(H) 439(H) ABS NEUT (ANC) 1.45 - 7.50 k/uL 4.80 4.22 4.46 6.19 ABS LYMPH 1.00 - 4.00 k/uL 2.16 1.42 1.69 2.57 CMP Latest Ref Rng & Units 05/30/2019 05/30/2019 11/17/2021 12/03/2021 SODIUM 136 - 144 mmol/L 140 139 132(L) - SODIUM (POCT) 132 - 148 mmol/L - - - 141 POTASSIUM 3.7 - 5.1 mmol/L 4.3 4.2 3.9 - POTASSIUM (POCT) 3.5 - 5.0 mmol/L - - - 3.8 CHLORIDE 97 - 105 mmol/L 108(H) 107(H) 103 - CHLORIDE (POCT) 98 - 110 mmol/L - - - 113(A) CO2 22 - 30 mmol/L 18(L) 19(L) 17(L) - GLUCOSE 74 - 99 mg/dL 93 95 139(H) - GLUCOSE (POCT) 60 - 105 mg/dL - - - 90 BUN 7 - 21 mg/dL 8 8 12 - CREATININE 0.58 - 0.96 mg/dL 0.59 0.58 1.09(H) - CREATININE (POCT) 0.70 - 1.40 mg/dL - - - 0.70 CALCIUM, TOTAL 8.5 - 10.2 mg/dL 9.3 9.3 9.8 - AST 13 - 35 U/L 17 - 31 - ALT 7 - 38 U/L 13 - 48(H) - ALKALINE PHOSPHATASE 34 - 123 U/L 73 - 88 - CRP Latest Ref Rng & Units 01/03/2019 05/30/2019 CRP <0.9 mg/dL 2.7(H) 1.3(H) CK Latest Ref Rng & Units 01/03/2019 CK 42 - 196 U/L 171 TB Screen Latest Ref Rng & Units 01/03/2019 TBGINT - No evidence of current or previous infection with Mycobacterium tuberculosis. TBGRES Negative Negative Antibodies Latest Ref Rng & Units 05/30/2019 PT SEC 9.7 - 13.0 sec 10.5 PT INR 0.9 - 1.3 1.0 PTT 23.0 - 32.4 sec 26.0 Vitamin D 25 Hydroxy (ng/mL) Date Value 05/30/2019 19.8 ] Last XR Hand/Finger - Impression Only XR DIGIT GENERAL 3V FRONTAL/LAT/OBL RIGHT Collected: 03/31/2022 10:46 AM (Final result) Impression: IMPRESSION: 1. Stable postsurgical changes of the proximal interphalangeal joint of the RIGHT second digit. Medical Billing Associate: SERGEI Transcribe Date/Time: Mar 31 2022 12:49P... IMPRESSION: Unchanged right thumb IP joint effusion with intact hardware. 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 Medical Billing Associate: [facility] Transcribe Date/Time: Oct 09 2019 11:59A Dictated by : DOMINIC MADDOX MD This examination was interpreted and the report reviewed and electronically signed by: VIKTOR SMART MD on Oct 09 2019 2:13PM EST Results-Findings * * *Final Report* * * DATE OF EXAM: Oct 09 2019 11:27AM CCX [id number] - XR DIGIT 3V FRONTAL/LAT/OBL RT / PROCEDURE REASON: multiple diagnoses * * * * Physician Interpretation * * * * EXAMINATION: XR DIGIT 3V FRONTAL/LAT/OBL RT HISTORY: POST OP RIGHT THUMB AND FOLLOW UP RIGHT 4TH FINGER . 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 TECHNIQUE: XR DIGIT 3V FRONTAL/LAT/OBL RT Laterality: RIGHT Number of different views (projections): 3 M: XB_1 COMPARISON: 07/17/2019 RESULT: No significant interval change. Status post right thumb interphalangeal joint arthrodesis without osseous fusion, at this time. Completed bony fusion of the wrist arthrodesis with bridging plate extending from the distal radius due to the midshaft of the third metacarpal. Intact hardware without periprosthetic fracture, loosening or change in alignment. Status post distal ulnar resection. Mild swan-neck deformity of the 2nd digit (index finger) similar to the 07/17/2019 exam. documented in this encounterSy[facility]02-14-2023 Miscellaneous Notes* Telephone Encounter - Taylor Georges RN - 10/26/2022 8:58 AM EST I spoke to Demar, and she will follow up as planned with her VV, she did stop her Enbrel and methotrexate. * Telephone Encounter - Samy Mansfield MD - 10/25/2022 7:49 PM EST Ok to change apt to Virtual. In regards to abscess and infections, it is important that she follows with her PCP, Infectious disease or the treating provider. She is aware, and has been informed by us, that she needs to hold her Enbrel and methotrexate during infections. thank you kindly, fa * Telephone Encounter - Neha Hernandez - 10/25/2022 9:37 AM EST Demar Ball called today. : 1980 Allergies: Vancomycin, Bacitracin, Doxycycline, Ferrous Sulfate, Keflex [Cephalexin], Remicade [Infliximab], and Ultram [Tramadol Hcl] (home) [phone] (cell) Reason for call: Patient called and she went to ER in [place] for an abscess on the top of her head. It broke open and was draining. They told her to stop her medications she was on and start on Bactrim twice a day. She is currently in [place] with her son who is an inpatient with a Gtube so she is unable to make it to [place] to an appointment. She scheduled for a VV with Dr Bernal. She also had her labs drawn at [place] and is going to ask them to fax them to Dr Bernal - fax number given. Patient is going to try and send an image through [employer]. Please review and advise. Patient last appointment: Visit date not found The patients preferred pharmacy has been captured for this encounter? not asked Neha Hernandez documented in this encounterSycam[facility] Center01-03-2023 Miscellaneous Notes* Telephone Encounter - Barbi Hassan APRN.CNP - 09/14/2022 4:47 PM EST The following approved medication requests have been transmitted electronically. Requested Prescriptions Signed Prescriptions Disp Refills tiZANidine (ZANAFLEX) 4 mg tablet 180 tablet 2 Sig: TAKE ONE TO TWO TABLETS BY MOUTH EVERY 8 HOURS NEEDED. Up to 3 times a day. Authorizing Provider: BARBI HASSAN APRN.CNP September 14, 2022 4:47 PM * Telephone Encounter - Arlen Avalos - 09/14/2022 9:41 AM EST Physician: Natalie Call from patient requesting refill. Please E-Scribe Last office visit 01/06/22 with Natalie GRAJEDA Next office visit 11/26/22 with Zenia GRAJEDA Patient would like enough refills until she is seen for her appt on 11/26/22. Requested Prescriptions Pending Prescriptions Disp Refills tiZANidine (ZANAFLEX) 4 mg tablet 180 tablet 0 Sig: TAKE ONE TO TWO TABLETS BY MOUTH EVERY 8 HOURS NEEDED. Up to 3 times a day. Pharmacy [facility]: [facility] documented in this encounterSy[facility] Center12-16-2022 Evaluation note* Encounter Date Diagnosis Assessment Notes Treatment Notes Treatment Clinical Notes Aug, Immunocompromised (ICD-10 - D84.9) Aug, Swollen lymph nodes (ICD-10 - R59.9) [employer] Other 11-30-2022 Miscellaneous Notes* Telephone Encounter - Barbi Hassan APRN.CNP - 08/11/2022 3:11 PM EST The following approved medication requests have been transmitted electronically. Requested Prescriptions Signed Prescriptions Disp Refills tiZANidine (ZANAFLEX) 4 mg tablet 180 tablet 0 Sig: TAKE ONE TO TWO TABLETS BY MOUTH EVERY 8 HOURS NEEDED. Up to 3 times a day. Authorizing Provider: BARBI HASSAN APRN.CNP August 11, 2022 3:11 PM * Telephone Encounter - Coral Alexander - 08/11/2022 1:56 PM EST Physician: Natalie Call from patient requesting refill. Please E-Scribe Last office visit 01/06/2022 with Natalie virtual Next office visit Not scheduled. Requested Prescriptions Pending Prescriptions Disp Refills tiZANidine (ZANAFLEX) 4 mg tablet 180 tablet 0 Sig: TAKE ONE TO TWO TABLETS BY MOUTH EVERY 8 HOURS NEEDED. Up to 3 times a day. [facility]: [facility] documented in this encounterSycam[facility] Center11-30-2022 Evaluation note* Encounter Date Diagnosis Assessment Notes Treatment Notes Treatment Clinical Notes Jul, GERD (gastroesophageal reflux disease) (ICD-10 - K21.9) [employer] Other 10-28-2022 Miscellaneous Notes* Telephone Encounter - Barbi Hassan APRN.CNP - 07/09/2022 11:02 AM EDT The following approved medication requests have been transmitted electronically. Requested Prescriptions Signed Prescriptions Disp Refills tiZANidine (ZANAFLEX) 4 mg tablet 180 tablet 0 Sig: TAKE ONE TO TWO TABLETS BY MOUTH EVERY 8 HOURS NEEDED. Up to 3 times a day. Authorizing Provider: BARBI HASSAN APRN.CNP July 09, 2022 11:02 AM * Telephone Encounter - Coral Alexander - 07/09/2022 10:36 AM EDT Physician: Natalie Call from patient requesting refill. Please E-Scribe Last office visit 01/06/2022 with Natalie virtual Next office visit Not scheduled. Requested Prescriptions Pending Prescriptions Disp Refills tiZANidine (ZANAFLEX) 4 mg tablet 180 tablet 5 Sig: TAKE ONE TO TWO TABLETS BY MOUTH EVERY 8 HOURS NEEDED. Up to 3 times a day. Pharmacy [facility]: [facility] documented in this encounterSycamore [facility] Center10-04-2022 History of Present illness Narrative* Sherley Hubbard ([employer] Operator) - 06/15/2022 12:17 PM EDT [facility] Refill Assessment Medication(s): Enbrel Patient's current medication list and adherence status to current therapy were reviewed by Specialty Pharmacy clinical pharmacist to identify any new drug interactions or non-compliance to therapy. Therapy continues to be appropriate for disease, patient response, and medical condition. Verification of therapeutic benefit and effectiveness with current therapy was completed. Adverse events, barriers in adherence, and side effects were assessed and addressed if applicable. Will proceed with refill with no changes in therapy - patient progressing towards achieving therapeutic goals based on medication- specific laboratory parameters, disease state markers and outcomes. Console Operator Assessment Patient confirmed: Yes Med/dose confirmed: Yes Supplies needed: No supplies needed Missed doses: No Estimated days supply on hand: 7 Next cycle/dose due: 06/17/22 Copay amount: 0 Payment confirmed: Yes Delivery method: FedEx Signature required: No Delivery address: [address] [place] [id number] Delivery date: 06/22/22 Questions or concerns for the pharmacist?: No [facility] Visit Assessment - Inflammatory Conditions: Assessment to use: Refill Vaccination Assessment: Date of influenza vaccination reminder: 05/18/2022 Date of most recent vaccination assessment: 05/18/2022 Sherley Hubbard ([employer]) documented in this encounterSy[facility]09-[facility]22 History of Present illness Narrative* Sherley Hubbard ([employer]) - 05/18/2022 1:06 PM EDT [facility] Special[facility] Refill Assessment Medication(s): Enbrel Patient's current medication list and adherence status to current therapy were reviewed by Specialty Pharmacy clinical pharmacist to identify any new drug interactions or non-compliance to therapy. Therapy continues to be appropriate for disease, patient response, and medical condition. Verification of therapeutic benefit and effectiveness with current therapy was completed. Adverse events, barriers in adherence, and side effects were assessed and addressed if applicable. Will proceed with refill with no changes in therapy - patient progressing towards achieving therapeutic goals based on medication- specific laboratory parameters, disease state markers and outcomes. Console Operator Assessment Patient confirmed: Yes Med/dose confirmed: Yes Supplies needed: No supplies needed Missed doses: No Estimated days supply on hand: 7 Next cycle/dose due: 05/18/22 Copay amount: 0 Payment confirmed: Yes Delivery method: FedEx Signature required: No Delivery address: [address] [place] [address] Delivery date: 05/21/22 Questions or concerns for the pharmacist?: No [facility] Visit Assessment - Inflammatory Conditions: Assessment to use: Refill Sherley Hubbard ([employer]) documented in this encounterSycam[facility] Center07-20-2022 History of Present illness Narrative* Gustavo Blanco MD - 03/31/2022 10:40 AM EDT Images from the original note were not included. PLASTIC SURGERY DEPARTMENT [facility] Hand Surgery Note [] New referred by []self []physician.......... [] Follow-up CC: ..... Status post right index finger PIP joint fusion ......... ? HPI: Demar is a 41 year old female doing overall well Job:.......... Recreational activities with hands: ........ Dominant Hand: right [] left [] Date onset symptoms: .......... Symptoms location -[] RIGHT [] worse -[] LEFT [] worse Fingers 1[] 2[] 3[] 4[] 5 [] 1[] 2[] 3[] 4[] 5 []. []Tingling []Numbness []Pain Symptoms location -[] RIGHT [] worse -[] LEFT [] worse Hand []Radial []volar [] ulnar [] dorsal []Radial []volar [] ulnar [] dorsal wrist []Radial []volar [] ulnar [] dorsal []Radial []volar [] ulnar [] dorsal forearm []Radial []volar [] ulnar [] dorsal []Radial []volar [] ulnar [] dorsal elbow []Radial []volar [] ulnar [] dorsal []Radial []volar [] ulnar [] dorsal arm [] [] shoulder [] [] neck [] [] []Tingling []Numbness []Pain Overall PAIN Now 0[] 1[] 2[] 3[] 4[] 5[] 6[] 7[] 8[] 9[] 10[] Average 0[] 1[] 2[] 3[] 4[] 5[] 6[] 7[] 8[] 9[] 10[] Rest 0[] 1[] 2[] 3[] 4[] 5[] 6[] 7[] 8[] 9[] 10[] Function 0[] 1[] 2[] 3[] 4[] 5[] 6[] 7[] 8[] 9[] 10[] Quality []sharp []dull []aching []sore []taut []pulled []torsion []shooting []pricking []pressing []lacerating []pinching []squeezing []drilling []spasm [] throbbing []burning []cramping []cutting []heavy []itchy []radiating [] electrical []stinging [] cold intolerance How frequently during the day (%): ........... Night Symptoms [] Associated Signs/Symptoms Swelling [] Stiffness [] Weakness [] Prior Trauma? []No []Yes Pain? []same []better []worse over time Intervention/Prior Treatment: []no []yes []Decrease activity level and using heat/ ice []PT/OT,chiropractic treatments, or medically directed home exercise program for..........weeks in the last..........months (date started:...........) []Medications []Steroid injection []Splint/cast []Surgery............... IMPROVEMENT WITH PREVIOUS STEROID INJECTION: NO [] YES [] ............% []R []L []R=L []R>L []R<L Symptoms improved: Tingling [] Numbness [] Pain [] ANY TINGLING OR NUMBNESS IN THE FEET: NO [] YES [] .............. Hemoglobin A1C (%) Date Value 11/17/2021 5.6 Last 10 Encounter BP Readings: Date: BP: 12/07/2021 149/87 12/03/2021 104/59 11/19/2021 129/79 10/20/2021 115/73 06/10/2021 141/69 10/01/2019 117/78 2019 102/72 05/30/2019 106/73 05/25/2019 139/74 05/11/2019 117/75 CBC Latest Ref Rng & Units 05/30/2019 05/30/2019 11/17/2021 WBC 3.70 - 11.00 k/uL 6.42 6.85 9.88 RBC 3.90 - 5.20 m/uL 4.90 4.93 5.34(H) HEMOGLOBIN 11.5 - 15.5 g/dL 12.5 12.9 15.1 HEMATOCRIT 36.0 - 46.0 % 41.0 41.4 45.4 MCV 80.0 - 100.0 fL 83.7 84.0 85.0 MCH 26.0 - 34.0 pg 25.5(L) 26.2 28.3 MCHC 30.5 - 36.0 g/dL 30.5 31.2 33.3 RDW-CV 11.5 - 15.0 % 15.1(H) 14.9 13.3 PLATELETS 150 - 400 k/uL 452(H) 458(H) 439(H) MPV 9.0 - 12.7 fL 9.2 9.2 8.2(L) BASO% % 1.4 1.3 1.1 ABS NEUT (ANC) 1.45 - 7.50 k/uL 4.22 4.46 6.19 ABS LYMPH 1.00 - 4.00 k/uL 1.42 1.69 2.57 ABS MONO <0.87 k/uL 0.48 0.41 0.65 ABS EOSIN <0.46 k/uL 0.19 0.20 0.22 ABS BASO <0.11 k/uL 0.09 0.09 0.11(H) NRBC /100 WBC - - 0.0 DIFF TYPE - Auto Diff Auto Diff - CMP Latest Ref Rng & Units 05/30/2019 11/17/2021 12/03/2021 SODIUM 136 - 144 mmol/L 139 132(L) - SODIUM (POCT) 132 - 148 mmol/L - - 141 POTASSIUM 3.7 - 5.1 mmol/L 4.2 3.9 - POTASSIUM (POCT) 3.5 - 5.0 mmol/L - - 3.8 CHLORIDE 97 - 105 mmol/L 107(H) 103 - CHLORIDE (POCT) 98 - 110 mmol/L - - 113(A) CO2 22 - 30 mmol/L 19(L) 17(L) - GLUCOSE 74 - 99 mg/dL 95 139(H) - GLUCOSE (POCT) 60 - 105 mg/dL - - 90 BUN 7 - 21 mg/dL 8 12 - CREATININE 0.58 - 0.96 mg/dL 0.58 1.09(H) - CREATININE (POCT) 0.70 - 1.40 mg/dL - - 0.70 EGFR >=60 mL/min/1.73m - 66 - EGFR-ALL OTHER RACES . >60 - - EGFR- - >60 - - PROTEIN, TOTAL 6.3 - 8.0 g/dL - 7.7 - ALBUMIN 3.9 - 4.9 g/dL - 4.5 - CALCIUM, TOTAL 8.5 - 10.2 mg/dL 9.3 9.8 - BILIRUBIN, TOTAL 0.2 - 1.3 mg/dL - 0.3 - AST 13 - 35 U/L - 31 - ALT 7 - 38 U/L - 48(H) - ALKALINE PHOSPHATASE 34 - 123 U/L - 88 - YES NO Smoker [] [] Cigarettes/ day.... ? Diabetes [] [] []Type 1? []Type 2 ?Last A1c:..... Systemic inflammatory diseases [] [] []RA []Gout []Other... Hypertension [] [] Meds:....... Heart disease or pacemaker [] [] ............ Family history blood clots [] [] Personal history blood clots [] [] Anticoagulation (aspirin, coumadin, xarelto,etc) [] [] What........... Reason:........... Immunosuppressants (steroid, biologic meds infusion, etc) [] [] What........... Reason:........... Upper extremity AV fistula (dialysis) or vessels injury or disease [] [] Overhead activities [] [] Cervical problems [] [] []C3 []C4 []C5 []C6 []C7 []C8 []T1 []Conservative []Fusion []Discectomy []Other... Pt AGAINST blood transfusion? 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 Pike Migraines Neuropathy Polyarticular juvenile idiopathic arthritis (HCC) RA (rheumatoid arthritis) (HCC) right wrist Thyroid nodule Biopsy done approx 2012 Transfusion history 12/2015 after surgery for clot in abdomen/hip PAST SURGICAL HISTORY Procedure Laterality Date BIOPSY THYROID COLONOSCOPY Polypectomy HAND SURGERY HX Right R 1st finger PAST SURGICAL HISTORY OF Uterine septum removed PAST SURGICAL HISTORY OF [place] teeth extraction PAST SURGICAL HISTORY OF 03/2015 Nasal fracture repair PAST SURGICAL HISTORY OF Bunionectomy x2 PAST SURGICAL HISTORY OF 1998 Jaw surgery with manipulation PAST SURGICAL HISTORY OF Right wrist surgery x2, partial fusion and repair PAST SURGICAL HISTORY OF 2012 Arthroscopy on bilateral hips 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 Maggie Jarquin PAST SURGICAL HISTORY OF [place] PAST SURGICAL HISTORY OF [facility] TUBAL LIGATION HX 03/15/2011 Current Outpatient Medications Medication Sig Dispense Refill etanercept (ENBREL) 25 mg/0.5 mL soln Inject 0.5 mL (25 mg dose) subcutaneously two times a week. 8mL 3 erenumab-aooe (AIMOVIG AUTOINJECTOR) 140 mg/mL auto-injector Inject 1 mL subcutaneously once every month. 1 Pen 5 naratriptan (AMERGE) 2.5 mg tablet Take 1 tablet by mouth as needed for migraine headache (see administration instructions). TAKE ONE(1) TABLET AT THE ONSET OF HEADACHE; IF HEADACHE RETURNS OR DOES NOT FULLY RESOLVE, THE DOSE MAY BE REPEATED AFTER 4 HOURS; DO NOT EXCEED FIVE(5) MG IN 24 HOURS. 9 tablet 2 topiramate (TOPAMAX) 200 mg tablet Take 1 tablet by mouth three times daily. 90 tablet 11 tiZANidine (ZANAFLEX) 4 mg tablet TAKE ONE TO TWO TABLETS BY MOUTH EVERY 8 HOURS NEEDED. Up to 3times a day. 180 tablet 5 ergocalciferol 50,000 unit capsule (VITAMIN D2, DRISDOL) Take 1 capsule by mouth two times a week. with a meal and obtain blood test for vitamin D 25-OH as advised. 12 capsule 1 methotrexate 2.5 mg tablet take 4 tablets by mouth ONCE EACH WEEK AND HOLD DURING INFECTIONS (Patient not taking: Reported on 12/22/2021 ) 48 tablet 1 folic acid 1 mg tablet Take 1 tablet by mouth once daily. 100 tablet 3 efinaconazole (JUBLIA) 10 % charlotte Apply to affected area once daily. 4 mL 2 Syringe with Needle, Disp, (BD TUBERCULIN SYRINGE) 1 mL 27 x 1/2 use to draw up & inject enbrel 8 Each 3 Needle, Disp, 27 G (BD DISPOSABLE NEEDLES) 27 gauge x 1/2 ndle use to draw up & inject enbrel 8 Each 3 HYDROcodone-acetaminophen (NORCO) 5-325 mg per tablet Take by mouth every 6 hours as needed. XARELTO 20 mg tablet 1 gabapentin (NEURONTIN) 300 mg capsule Take 300 mg by mouth twice daily. pantoprazole DR (PROTONIX) 40 mg tablet Take 40 mg by mouth twice daily. No current facility-administered medications for this visit. ALLERGIES Allergen Reactions Vancomycin Hives, Itching, Swelling Bacitracin Hives Doxycycline Rash, Itching Ferrous Sulfate Anaphylaxis, Vomiting Reaction happened with IV iron Keflex [Cephalexin] Itching Remicade [Inflixima* Other: See Comments Confusion, hypotension 10/20/2015 Patient states that she did have this reaction but that she has had this medication since and has not suffered any allergy Ultram [Tramadol Hc* Hives There is no height or weight on file to calculate BMI. Estimated body surface area is 2 meters squared as calculated from the following: Height as of 06/10/21: 160 cm (5' 3 ). Weight as of 11/19/21: 89.8 kg (198 lb). LMP 11/30/2016 (Approximate) IMAGING (date/result): EMG/NCS (date/result): ROS: All negative except for: GENERAL: []weight loss []malaise []fevers HEENT: []frequent or significant headaches []changes in hearing []change in vision []nose bleeds []other nasal problems NECK: []lumps []goiter []pain and significant neck swelling RESPIRATORY: []cough []hemoptysis []wheezing []COPD []dyspnea []shortness of breath CARDIOVASCULAR: []chest pain []leg swelling []hypertension []CHF []palpitations GI: []nausea []vomiting []diarrhea MUSCULOSKELETAL: see HPI SKIN: [] skin lesions []rash []itching PSYCH: []sleep disturbance []mood disorder []recent psychosocial stressors HEMATOLOGY/LYMPHOLOGY: []prolonged bleeding []bruising easily []swollen nodes ENDOCRINE: []cold intolerance []heat intolerance []polyuria []polydipsia []goiter Physical Exam Awake, alert, and oriented x3. LUNGS: Lungs clear to auscultation, Good diaphragmatic excursion CARDIAC: Normal S1 and S2; no rubs, murmurs, or gallops, Rhythm: regular rate and rhythm, Rate: normal 2-POINT DISCRIMINATION RIGHT (radial) RIGHT (ulnar) RIGHT overall LEFT (radial) LEFT (ulnar) LEFT overall thumb ? index ? ? long ? ? ring ? ? small TINEL'S (symptoms referred to) RIGHT (digit) LEFT (digit) 1 2 3 4 5 - 1 2 3 4 5 - Carpal Tunnel [] [] [] [] [] [] [] [] [] [] [] [] [place] [] [] [] [] [] [] [] [] [] [] [] [] Pronator [] [] [] [] [] [] [] [] [] [] [] [] Cubital Tunnel [] [] [] [] [] [] [] [] [] [] [] [] Midarm medial [] [] [] [] [] [] [] [] [] [] [] [] Infraclavicular [] [] [] [] [] [] [] [] [] [] [] [] Supraclavicular [] [] [] [] [] [] [] [] [] [] [] [] COMPRESSION (symptoms referred to) RIGHT (digit) LEFT (digit) 1 2 3 4 5 - 1 2 3 4 5 - Phalens [] [] [] [] [] [] [] [] [] [] [] [] Pronator [] [] [] [] [] [] [] [] [] [] [] [] Forced flexion [] [] [] [] [] [] [] [] [] [] [] [] Elbow Hyperflexion [] [] [] [] [] [] [] [] [] [] [] [] Infraclavicular [] [] [] [] [] [] [] [] [] [] [] [] Supraclavicular [] [] [] [] [] [] [] [] [] [] [] [] [place] [] [] [] [] [] [] [] [] [] [] [] [] LEGEND: TINEL'S and COMPRESSION tests are referred to symptoms localized to 1=thumb, 2=index, 3=middle, 4=ring, 5=small finger ? STRENGTH Strength in pounds RIGHT LEFT Fruit Trimmer (Acosta) Dominguez pinch (thumb pad to lateral aspect of middle phalanx of index finger) Tip pinch (thumb tip to index fingertip) Palmar pinch (thumb pad to pads of index and middle fingers) MRC Muscle Power Scale RIGHT LEFT 0 1 2 3 4 5 0 1 2 3 4 5 APB [] [] [] [] [] [] [] [] [] [] [] [] Intrinsics [] [] [] [] [] [] [] [] [] [] [] [] RIGHT LEFT positive negative positive negative APB atrophy [] [] [] [] Intrinsics atrophy [] [] [] [] Clawing [] [] [] [] RIGHT LEFT 0 1 2 3 4 5 6 7 8 9 10 0 1 2 3 4 5 6 7 8 9 10 Kapandji score (thumb) [] [] [] [] [] [] [] [] [] [] [] [] [] [] [] [] [] [] [] [] [] [] THUMB degenerative RIGHT LEFT 1st CMC tenderness +[] -[] +[] -[] 1st CMC grind +[] -[] +[] -[] 1st Extensor Compartment tenderness +[] -[] +[] -[] Richard's positive +[] -[] +[] -[] A1 Matt Tenderness +[] -[] +[] -[] A1 Triggering +[] -[] +[] -[] Intersection tenderness +[] -[] +[] -[] STT tenderness +[] -[] +[] -[] The four stages of the Eaton-Littler classification Right [] Left [] Stage Description [] I Subtle carpometacarpal joint space widening [] II Slight carpometacarpal joint space narrowing, sclerosis, and cystic changes with osteophytes or loose bodies < 2 mm [] III Advanced carpometacarpal joint space narrowing, sclerosis, and cystic changes with osteophytes or loose bodies > 2 mm [] IV Arthritic changes in the carpometacarpal joint as in Stage III with scaphotrapezial arthritis FINGERS DEGENERATIVE []RIGHT []LEFT []Thumb []IF []MF []RF []SF DIPJ tenderness +[] -[] DIPJ deformity +[] -[] PIPJ tenderness +[] -[] PIPJ deformity +[] -[] MCPJ tenderness +[] -[] MCPJ deformity +[] -[] CMCJ tenderness +[] -[] CMCJ deformity +[] -[] A1 Matt Tenderness +[] -[] A1 Triggering +[] -[] Trigger finger Green Classification []RIGHT []LEFT []Thumb []IF []MF []RF []SF []Grade I Palm pain and tenderness at A-1 matt []Grade II Catching of digit []Grade III Locking of digit, passively correctable []Grade IV Fixed, locked digit WRIST RIGHT LEFT Distal Radius +[] -[] +[] -[] Distal Ulna +[] -[] +[] -[] Anatomical Snuff Box tenderness +[] -[] +[] -[] Scaphoid tubercle tenderness +[] -[] +[] -[] Scaphoid waist tenderness +[] -[] +[] -[] Scaphoid fossa tenderness +[] -[] +[] -[] Scapho-capitate joint tenderness +[] -[] +[] -[] S-L ligament tenderness +[] -[] +[] -[] Pollock's test +[] -[] +[] -[] S-L shear test Unst[] []Stable Unst[] []Stable Lunate tenderness +[] -[] +[] -[] Lunate fossa tenderness +[] -[] +[] -[] Luno-capitate tenderness +[] -[] +[] -[] L-T ligament tenderness +[] -[] +[] -[] L-T shear test Unst[] []Stable Unst[] []Stable Triquetrum tenderness +[] -[] +[] -[] Ulnar Fovea tenderness +[] -[] +[] -[] Ulnar Snuffbox tenderness +[] -[] +[] -[] ECU tenderness +[] -[] +[] -[] Pain with forced ulnar deviation +[] -[] +[] -[] DRUJ tenderness +[] -[] +[] -[] DRUJ Supination stability Unst[] []Stable Unst[] []Stable DRUJ Pronation stability Unst[] []Stable Unst[] []Stable Pisiform tenderness +[] -[] +[] -[] P-T grind test tenderness +[] -[] +[] -[] Hamate hook tenderness +[] -[] +[] -[] STT tenderness +[] -[] +[] -[] Capitate tenderness +[] -[] +[] -[] Hamate tenderness +[] -[] +[] -[] FCR tenderness +[] -[] +[] -[] FCU tenderness +[] -[] +[] -[] FDPs FDSs tenderness +[] -[] +[] -[] ECRL/ECRB tenderness +[] -[] +[] -[] EDCs tenderness +[] -[] +[] -[] Active Range of Motion table ([x] Ticked box means full active ROM) RIGHT [] LEFT [] Thumb Index Long Ring Small DIPJ [] [] [] [] [] PIPJ [] [] [] [] [] MCPJ [] [] [] [] [] CMCJ [] [] [] [] [] RIGHT [] LEFT [] Radial Ulnar Flexion Extension Wrist [] [] [] [] RIGHT [] LEFT [] Pronation Supination DRUJ [] [] Subcutaneous Mass location and characteristics: []Right []Left []Thumb []Index []Middle []Ring []Small [] P3 []DIPJ []P2 []PIPJ []P1 []MCPJ []Metacarpal []CMCJ []wrist []DRUJ []Forearm []Elbow []Arm []Shoulder []Infra/Supraclavicular []Volar []Dorsal []Radial []Ulnar []Medial []Lateral []Mobile Fixed to([]skin []tendon []sheath/capsule []joint []bone []nerve []vessel) []none []nail plate grooving []ulceration []skin discoloration/thinning []pulsation/thrill []positive Tinel's/compression test (to.................) Size...........mm ....................................... Assessment:.... Status post right index finger PIP joint fusion ....... Plan:... The patient is reporting less pain however last week she remove the splint for 5 days and she started to be sore. I discussed with her that x-rays are looking good however I do not see complete calcification and union of that area. Hopefully she will not end up with a nonunion of that area. We are going to see her in about 3 months.... []Pictures []Conservative []Medications []Steroid injection []Splint []Cast []OT []PT []CAST ROOM []EMG/ NCS []neuromuscular US []radiology []xrays []US []CT []MRI []Surgery []consult neurology []consult rheumatology []consult spine center []consult pain management []consult orthopedics Follow-up: []with [employer] [] with []after tests completed []PRN []1 week []2 weeks []3 weeks []4 weeks []6 weeks []2 months []3 months []6 months []9 months []1 year otherwise []weeks []months The patient was informed about possible options for treatment: Conservative vs. Operative, possiblepros and cons with complications of both were discussed. The patient elects to have []conservative treatment []surgery All anesthestic options discussed with patient: wide awake local anesthesia, peripheral nerve blockwith possible sedation, peripheral nerve block with pain catheter and possible sedation, general anesthesia. Patient voiced understanding and has chosen []local []block ([]single shot []catheter) []WALANT []MAC []general anesthesia No guarantee that symptoms like pain, tingling and numbness will improve after surgery, the patientunderstands this. The risk, benefits and alternatives of injection and no injection therapy were discussed. The patient consented for an injection. The injection site was prepped with an alcohol swab. The INJECTION SITE RIGHT LEFT CARPAL TUNNEL [] [] CMCJ 1[] 2[] 3[] 4[] 5[] 1[] 2[] 3[] 4[] 5[] TRIGGER FINGER 1[] 2[] 3[] 4[] 5[] 1[] 2[] 3[] 4[] 5[] EXTENSOR COMP 1[] 2[] 3[] 4[] 5[] 6[] 1[] 2[] 3[] 4[] 5[] 6[] STT [] [] RADIOCARPAL [] [] MIDCARPAL [] [] DRUJ [] [] MCPJ 1[] 2[] 3[] 4[] 5[] 1[] 2[] 3[] 4[] 5[] PIPJ 1[] 2[] 3[] 4[] 5[] 1[] 2[] 3[] 4[] 5[] DIPJ 1[] 2[] 3[] 4[] 5[] 1[] 2[] 3[] 4[] 5[] was/were injected with a 27 gauge needle with a total of []10mg []20mg []30mg []40mg []50mg Kenalogand a total of []0.5 ml []1ml []1.5ml []2ml []5ml []10ml []15ml []20ml of 1% Lidocaine plain. The patient was assessed for application of a splint. The []right []left splint ([]finger []CT []thumb spica []cool comfort) was/were applied and the patient was informed how to use it. The patient was agreeable with the plan. Work restrictions: []none []one handed duty []no lifting, pulling, pushing, squeezing more than ..........pounds []until FU [] for ..........weeks I spent a total of 30 minutes on the date of the service which included preparing to see the patient, [id number] patient care, completing clinical documentation, obtaining and/or reviewing separately obtained history, performing a medically appropriate examination and counseling and educating the patient/family/caregiver. Gustavo Blanco MD PhD March 31, 2022 11:18 AM This note was generated with voice recognition software and may contain errors, including spelling,grammar, syntax and misrecognition of what was dictated, that are not fully corrected. documented in this encounterSycam[facility]07-20-2022 Miscellaneous Notes* [facility] - Sushil Calhoun RT(R) - 03/31/2022 10:15 AM EDT Radiology Service Progress Note PATIENT NAME: Demar Ball DATE OF SERVICE: March 31, 2022 TIME: 10:44 AM PATIENT IDENTITY VERIFICATION COMPLETED USING TWO (2) IDENTIFIERS: Name and Date of confirmedby patient verbally. FALL SCREENING: Has the patient had 2 falls in the last year or 1 fall with injury or currently using an Ambulatory Assistive Device (Walker, Cane, Wheelchair, Crutches, etc.)? No PATIENT GENDER DATA: Female. status: : No status: NO. PATIENT RELEVANT IMPLANT DATA REVIEWED: Not Applicable RADIOLOGY DEPARTMENT: General X-ray: Exam(s) Completed: Upper Extremity X- Ray(s): Fingers/Thumb, right PERIPHERAL IV DATA: Not applicable SIGNED BY: KAREN Wagner) March 31, 2022 10:44 AM documented in this encounterSycamore Medical Center07-20-2022 Progress note* [facility] - Sushil Calhoun RT(R) - 03/31/2022 10:15 AM EDT Radiology Service Progress Note PATIENT NAME: Demar Ball DATE OF SERVICE: March 31, 2022 TIME: 10:44 AM PATIENT IDENTITY VERIFICATION COMPLETED USING TWO (2) IDENTIFIERS: Name and Date of confirmedby patient verbally. FALL SCREENING: Has the patient had 2 falls in the last year or 1 fall with injury or currently using an Ambulatory Assistive Device (Walker, Cane, Wheelchair, Crutches, etc.)? No PATIENT GENDER DATA: Female. status: : No status: NO. PATIENT RELEVANT IMPLANT DATA REVIEWED: Not Applicable RADIOLOGY DEPARTMENT: General X-ray: Exam(s) Completed: Upper Extremity X- Ray(s): Fingers/Thumb, right PERIPHERAL IV DATA: Not applicable SIGNED BY: RT Bernard(R) March 31, 2022 10:44 AM [facility] Miscellaneous Notes* Telephone Encounter - Bryon Sandoval MA - 03/30/2022 9:22 AM EDT lab order [facility] to [facility] [phone] * Telephone Encounter - Chelsea Mackey APRN.CNP - 03/30/2022 9:15 AM EDT Please fax lab orders to [facility] documented in this encounterSycamore Medical Center07-18-2022 Instructions* Patient Instructions* Chelsea Mackey APRN.CNP - 03/29/2022 3:52 PM EDT -PLEASE NOTE THAT WE REVIEW ALL YOUR TEST RESULTS AT YOUR NEXT FOLLOW UP VISIT WITH YOU. IF ANY ABNORMAL LAB REQUIRES SOONER ATTENTION, WE WILL CONTACT YOU. -If you have signed up on [employer], we will release your test results through [employer]. I wish you the best of health and wellness. - Recheck blood work for the vitamin D tomorrow. We faxed the vitamin D order. Please ask them to fax or email us results as soon as possible - Please continue with infection precautions Hold Enbrel and methotrexate during infections - Enbrel: 25 mg subcutaneous injection twice a week - Methotrexate: 4 pills one a week - Folic acid: 1 mg d - Maintaining good vitamin D blood levels is important for bone health and overall health. Please see additional information on vitamin D below. A vitamin D blood test, called vitamin D 25-hydroxy (OH) is obtained to assess vitamin D level. If the vitamin D is low, you will need to take a vitamin D supplement. If you are already on a vitamin D supplement, then the dose will need to be adjusted. Also you multivitamin may contain vitamin D. Vitamin D is a fat soluble vitamin that requires it be taken with good fat to be absorbed. Examplesof healthy fat include nuts, seeds, avocados, olives and for the most part the meal of the day. Spending up to 30 minutes in the sun during Summer and late Spring can provide natural vitamin D tothe uncovered skin (arms, legs) - Your calcium can be sufficient in your diet Healthy food that are rich in calcium include: nuts, seeds, legumes/beans, peas, dark green leafy vegetables, plant based milk Additional calcium rich foods listed below - Soaking Almonds overnight in the fridge with drinking water, can help with softening the almonds and improved absorption of the almonds. See additional information below on calcium. A large randomized controlled study, the VITAL trial, showed that the consumption of vitamin D and omega-3 supplements can lead to decreased risk of auto-immune disease, by 30% or more, especially ifthe vitamin D blood level improves to the 40's range. Citation of the vitamin D study: Michel Eaton, Mahad NR, Adalberto EK, Steven S, Mahamed J, Abigail V, Jim G, Erickson OWUSU, Yas JE, Malu KH. Vitamin D and marine omega 3 fatty acid supplementation andincident autoimmune disease: VITAL randomized controlled trial. BMJ. 2021Oct 07;376:[id number]. doi: 1 0.1136/erj-[id number]. PMID: [id number]; PMCID: [id number]. I recommend taking the following supplements to help with inflammation and auto- immune disease: 1) Vitamin D 2000 international units once daily with meals You may need more if your blood level of vitamin D is not up to the 40 range 2) Bowdon-3 1000 mg once daily I recommend plant based omega-3 (over fish oil), which is algal oil. 3) You can also take Turmeric 500 to 1000 mg twice daily with meals (with black pepper) This has been reported to help with osteoarthroses and inflammatory arthropathy Turmeric is available in pill form or liquid and can be taken up to 2000 mg twice daily. Make sure there is black pepper in your meal when you take the turmeric so that it works better The black pepper could be present in the pill or can be with your meal. Those who have gallbladder or gall stone disease or on blood thinners or , cannot take it. - I recommend following a healthy lifestyle. You can find additional information below. I recommend this to all my patients, as I have seen convincing scientific evidence, and seen the results in my practice, of the benefits of this healthy lifestyle to overall health and wellness. I hope you will find this beneficial as well. A whole plant based diet and healthy lifestyle have been reported to be optimal for health in general, anti-inflammatory diet, prevention of common chronic diseases, healthy weight management, memoryand brain healthy, bone health. Recommendations for healthy lifestyle include: Healthy nutritious diet, anti-inflammatory diet, appropriate exercise, good sleep hygiene, stress management, supplementing vital deficiencies and maintaining healthy weight. with BMI that does not exceed 25 to 26 . 5 points to remember to improve your health and continue on a healthy path: 1- Optimal nutritious food, such as a Whole Plant Based diet You can watch the movie that features the Whole Plant Based diet, Mancos over knives (see video online and visit website). Another movie that was recently released is: Eating You Alive (you can find it at TagCash) and [employer] movie Dr. Carrol Vanegas is a [facility] physician who is an expert in Whole Plant based diet. His website is [employer]. His research highlights the benefits of the Whole food plant based diet in reversing and preventing heart disease. Mrs. Vanegas (his ) has a cookbook with many recipes on whole plant based food: The Prevent and Reverse Heart Disease cookbook. You can also consider reading his son, Seven Vanegas's book: The Engine 2 cookbook Seven is a retired merry go round operator who has helped many people get healthier by following the whole food plantbased diet. Dr. Ridge Spicer, has a website and free gatito to help get started on a whole plant based diet, at www.[email or web address].org and you can log on for free for his 21-Day Kickstart with meals and recipes to follow for21 days. There is also a free gatito for that. He has multiple free videos and YouTube, for example: ht tps://youtu.be/[email or web address] , https://youtu.be/[email or web address] He has written multiple books, including Power Drive YOYO for the Brain, The Cheese Trap, Dr. Ridge Spicer's Program for Reversing Diabetes, Your Body in Balance Dr. Slick Onofre has shown the benefit of a starch based whole food plant based diet to his Rheumatoid Arthritis patients, as well as patient with diabetes II, hypertension, obesity, multiple sclerosis, heart disease, acne, and other, his website: [email or web address].gomez.[email or web address] Dr. George Colbert is a renowned forestry scientist, who has studied and researched the benefits of the Whole plant based diet. He has also researched the adverse effects of animal proteins on health. He presents many of his research findings in his book The [place] study. Dr. John Pino has completed many research trials proving the reversal of diseases, such as heart disease and early prostate cancer, with healthy lifestyle and the Whole Plant based diet. Dr. John Pino website is: [email or web address] His new book: Undo It, has evidence based information and guide to following this healthy lifestyle. Dr. Gary Branch has dedicated a website and additional time to reviewing all food related articles and research and presents them in his power point presentation and on his website at: nutritionfacts.org which is all free. Dr. Branch has multiple free videos and YouTube, for example https://youMobstatsu.be/aSgNkhgVtks and https://youMobstatsu.be/[email or web address]. He has written multiple books including: How Not To and How Not To Diet He is now working on his next book: How Not To Age Dr. Rea Hair (from the [facility]), has articles on the following website: ideacts innovations.Scaleform Also, you could find additional information on practical to follow recipes by reading or watching online and YouTube such as: Gas Golf Cart Repairer JACOB, Cooking With Plants, The Vegan Corner (recipes from an [place] Gas Golf Cart Repairer), The Whole Foods Plant Based Cooking Show and visiting the provided websites for additional information on the whole plant based benefit and cooking recipes. You can also consider watching the vlogs of some of the plant based Athletes such as hCan Jain Derek on [employer]. Dr. Courtney Ness (a psychiatrist who suffered with lupus) has helped reverse her Systemic Lupus Erythematosus and helps many patients with their auto-immune diseases, based on her recommendations of the whole food plant based diet and the green smoothies. She has a facebook and website, and on youtube her channel is: Goodbydaniel Lupus Some people have adverse effect or intolerance to gluten. Certain patients with auto-immune disease, including auto-immune thyroid disease, need to avoid gluten. If you suspect you are gluten sensitive or intolerant, consider gluten free diet. Gluten could leadto increased inflammation in the bowels and body in certain patients. Not all your food has to be organ if you cannot afford or find them. Consider organic and non-GMO products when shopping for your food, when possible. GMO are genetically modified food that may have adverse impact on our health. If you are unable to purchase organic of non-GMO, you can wash your produce with white vinegar or soak in baking soda and water (see details from Dr. Sales's website nutritionfacts.org) and rinse well with water. 2- Regular Exercise, such as beginner yoga, barber chi, stretching, cardio, gradual strengthening, pool therapy, physical therapy Come As You Are: YOGA - Gentle Yoga Anyone Can Do Anywhere [email or web address] Also on youtube: yoga with Sia 3- Good Sleep (poor sleep impacts everything, recommended sleep is 7.5 to 8 hrs. a night). Certain people need less or more sleep. Meditation and relaxation techniques have shown to help with improving sleep. 4- Stress management, staying positive, be happy, laugh often (it is a great medicine) Find time to relax and meditate if possible. Following steps 1-3 will help with this as well. In psychiatric disorders, it is important to follow with a professional on the optimal management of depression, anxiety or psychiatric illness 5- Supplements Supplementing necessary vitamins and minerals, correcting any deficiencies, i.e. Vitamin D, B12, omega-3 fatty acids etc... Go natural when possible -Important notice: If you are following a Whole plant based diet, it is recommended to take [id number], sublingual, dissolve under the tongue, take once daily. Vitamin B12 is available over the counter, dose could be 2500 mcg, and can be taken once a week, and if your blood levels are low, you mayneed to take it once daily or a higher dose. Raw: Garlic, Cilantro, Milmay nuts, Pumpkin seeds, [place] seeds and Flax seed powder have been reported to help with certain metal detoxification such as mercury. Bowdon-3 plant based rich foods are good anti-inflammatory sources such as : mari seeds, flax seed (needs to be ground), walnuts, hemp seeds, dark green leafy vegetables. It is important to avoid refined oils as much as possible especially that many have too much omega-6 that is pro-inflammatory (lead to inflammation as well as concern for heart and vascular disease). Turmeric can be found natural, used as the spice powder or the root with your food. This is also available as a capsule. If you are on a blood thinner, you will need to discuss with your pharmacist or physician before taking Turmeric If you have gall bladder disease or gall bladder stones, it is recommended to avoid turmeric capsules. Sweet cherries (raw cleaned or frozen), Turmeric , pineapple (contains bromelain), omega-rich foods, have anti-inflammatory benefit Start reviewing the Whole Plant Based Diet, by watching Mancos over [employer] movie and then review website. There are many other resources and educational information on the Whole plant based diet on the Internet and documentaries. There are other resources for wellness that you can also benefit from, such as the [facility] website, [facility] and includes Plant based and Mediterranean diet, yoga and meditation. Please avoid all dairy products. You could use non-dairy milk such as Flax milk, Cashew milk, Zahl milk, Rice milk, Oat milk or Hemp milk, instead. It is very important to avoid all: refined sugars (including high fructose syrup), refined carbohydrates, any artificial sweeteners and artificial preservatives, and soda and heavily processed food. Insure adequate hydration; drink at least 6 to 8 cups of water daily, certain people need less or more. Examples of Smoothies: Every morning you can start your day with a healthy natural anti-inflammatory smoothie, for example, you can blend: fresh or frozen sweet cherries, half a root of turmeric (1 to 2 inches), banana, blue berries, walnuts, few leaves of kale, add flax milk (or almond milk), and enjoy. You could add half an avocado if you like it smoother. If you do not tolerate walnuts, you can use flax seeds, mari seeds or hemp seeds instead. If you do not like plant based milk, you can use coconut water or plainwater instead. Other smoothies, including green smoothies, are also very healthy and highly anti-inflammatory. Forexample fruits (such as banana or frozen millie or pineapple) and add significant amount of leafy greens, then add water or coconut water and blend until smooth. You can also add turmeric in this recipe. GENERAL INFORMATION ON BONE HEALTH : -Bone Density testing (DXA scan) as recommended. -Vitamin D supplementation is recommended, unless blood levels are sufficient. Recommended daily dose of 1000 to 2000 IU total a day, or the dose necessary to achieve a Vitamin D25-OH blood level of >31 and preferably closer to 40-60 ng/mL. Vitamin D pills are available over the counter. -Recommended daily dose of calcium: 1200mg total a day in divided doses. Calcium is usually sufficient in our regular diet, also available in multivitamins. Patients on certain dietary restrictions or those unable to meet their daily calcium by diety alone, may require calcium supplements. For patient with history of calcium kidney stones, Calcium Citrate would be the recommended supplement. It is recommended to avoid caclium carbonate supplement in this case, as these may increase risk of calcium kidney stones. The after visit summary has information on dietary calcium and instructions on reading calcium label and converting the %DV to mg. When you read a food label and you see calcium reported as DV %, add a zero and this will provide you with the approximate mg value of the calcium content in this food. For example, if a glass of almond milk is labeled as 40% calcium DV, then this contains 400 mg of calcium. For additional information, please see references provided. -Regular weight-bearing and muscle-strengthening exercise -Avoidance of tobacco smoking, excessive alcohol intake and excessive caffeine intake. -Fall and fracture precautions -It is recommend to continue regular follow up visits with your dentist every 6 months, and continue with good oral hygiene. Calcium: If your diet is sufficient in Calcium rich food, you will not need calcium supplement. Calcium Citrate is the preferred calcium if you have had kidney stones. Daily recommended calcium dose: 600mg twice a day with meals. Adequate calcium ingestion is essential for maintaining healthy bones. The recommended dose daily intake of calcium varies depending on individual needs but is usually between 1200 and 1500mg daily, preferably around 1200mg a day in divided dose (not all taken at once). This is equivalent to about five 8oz glasses of milk per day. Many foods are rich in calcium and they include: - Plant based, non-dairy, calcium rich products, include nuts, almond milk, beans, lentils - Vegetables and Fruit: bok-mandel, turnips, broccoli, kale, collards, - Dairy products: milk, cheese, yogurt, ice-cream - Fish products: canned salmon, sardines and shrimp - Cereals and nuts: almonds, sesame seeds, fortified cereals and oatmeal - Other foods: fortified orange-juice, figs, soybeans, other beans and eggs. If you have a low calcium diet and cannot tolerate calcium-rich foods, many supplements are available today. Your pharmacist can help you choose the one which best suits your needs. A few tips on supplements: - They should be easy to swallow - They should dissolve easily in cup of vinegar in < 15 minutes. - Count the ELEMENTAL calcium mgs. E.g. Calcium 499mg may have only 221mg of elemental Calcium. - Calcium citrate is the calcium supplement to take if you have had kidney stones and unable to meet your calcium requirements from food/diet alone. - There is such a variety today that it is best to bring in the bottle to your doctor to show them exactly what you are taking. Lastly too much calcium can be bad for you. Recent studies show extra supplements may increase yourrisk of kidney stones or cause high calcium levels in some people. You should discuss how much you should be taking with your doctor before starting them. Further Information is available from the following resources: www.nof.org (National Osteoporosis Foundation) http://www.osteo.org/osteolinks.asp National Institutes of [facility]: 7-636-287-BONE [facility] Calcium Information [place]: -Non-Dairy, Plant based Milk, can contain in1 glass up to 450 mg of calcium (300 to 450 mg) Exampled include Oat Milk, Flax Milk, Zahl Milk, Cashew Milk, Soy Milk, Peas Milk general health and well being Examples of Food Sources of Calcium from [facility] Food Milligrams (mg) per serving Percent DV* Soymilk, calcium-fortified, 8 ounces 299 30 [place] juice, calcium-fortified, 6 ounces 261 26 Tofu, firm, made with calcium sulfate, cup* 253 25 Tofu, soft, made with calcium sulfate, cup* 138 14 Rrycs-kd-ofm cereal, calcium-fortified, 1 cup 100 1,000 10 100 Turnip greens, fresh, boiled, cup 99 10 Kale, raw, chopped, 1 cup 100 10 Kale, fresh, cooked, 1 cup 94 9 Taiwanese cabbage, bok mandel, raw, shredded, 1 cup 74 7 Bread, white, 1 slice 73 7 Tortilla, corn, bkntv-dz-iiee/ahuja, one 6 diameter 46 5 Tortilla, flour, edfnm-sv-mqga/ahuja, one 6 diameter 32 3 Bread, whole-wheat, 1 slice 30 3 Broccoli, raw, cup 21 2 * DV = Daily Value. DVs were developed by the U.S. Food and Drug Administration to help consumers compare the nutrient contents among products within the context of a total daily diet. The U.S. Department of Agriculture s (USDA s) Nutrient Database Web site lists the nutrient contentof many foods and provides comprehensive list of foods containing calcium arranged by nutrient content and by food name. *Calcium content varies slightly by fat content; the more fat, the less calcium the food contains. * Calcium content is for tofu processed with a calcium salt. Tofu processed with other salts does not provide significant amounts of calcium. You could acces this information online at: http://ods.od.nih.gov/factsheets/Calcium-HealthProfessional/ Vitamin D: Vitamin D3= cholecalciferol, available over the counter. Dose recommended 800 to 1000 iu daily with a meal; Certain patients require 0495-5238 iu daily and in patients deficient in Vitamin D, they require higher dosages. Certain patient requires higher dose, depending on their Vit D blood levels. Vitamin D is essential for calcium metabolism. It is really a hormone produced mainly in your skin after exposure to sunlight. Vitamin D helps you absorb calcium from your stomach and kidneys and incorporates it into your bones. Studies show approximately 50% of [place] men and women are vitamin D deficient in the winter. Milder cases of vitamin D are usually asymptomatic so the only way to know you have a problem is to have a blood level checked. More severe cases can cause osteomalacia(a.k.a. rickets) which can result in bone pain, weak bones and several abnormal laboratory tests and also weak muscles (a.k.a. myopathy). When this happens, your bones lose a lot of their calcium stores as the body tries to regulate the calcium required by other tissues. Prolonged deficiency can lead to severe bone disorders and fractures. Unlike calcium, dietary sources of vitamin D are rare, limited to a few fish oils particularly cod-liver oil, other fortified foods and egg yolks. and most are unhealthy. Natural source of vitamin D is through sunshine. This is usually during carlo seasons, for example a 30 minute exposure to sunshine. Some people are unable to be exposed to the sun due to skin condition. Often supplementation isneeded. Many multivitamins contain some vitamin D and vitamin D alone preparations are now available in several forms. The recommended daily intake of vitamin D used to be 400 and 800 international units, however, it is now known that larger amounts are needed, as discussed above. Your doctor can prescribe prescription strength vitamin D for you if necessary, if you have marked deficiency or diseases of the liver or kidney. Supplementation in patients with severe deficiency can stabilize or improve bone mineral density and in frail elderly persons, may reduce their risk of falling. Additional Information is available from: www.nof.org (the national osteoporosis foundation) http://www.[facility].org/arthritis/osteo/info.htm http://ods.od.nih.gov/factsheets/vitamind.asp National Institutes of Health: 8-802-253-BONE [facility] Calcium Information [place]: At the [facility], we work as a team for your care, along with Nurse Practitioners, PhysicianAssistants, Nurses and Medical Assistants. It is a privilege and honor to serve you. Thank you for choosing The [facility] for your healthcare. Sincerely, Chelsea Mackey APRN.[facility] BONE [facility]ERAL DENSITY PATIENT INSTRUCTIONS Bone mineral density testing measures the amount of calcium in certain parts of your bones. This information determines how strong your bones are. The test is used to detect osteoporosis, a disease in which the bone's mineral content and density are low, increasing a person's risk of fractures. Thelumbar spine (lower back) and the hip are the skeletal sites usually examined. For the test, remember that: 1. You cannot take this test if you are . 2. Eat a normal diet on the day of the test. 3. Take your medications as you normally would. 4. DO NOT take calcium supplements (such as Tums) for 24 hours before the test. 5. On the day of the test, leave valuables (jewelry or credit cards) at home. 6. The test should be performed prior to oral, rectal or IV contrast studies, or at least 7 days after any of these studies. For the test, you may be asked to wear a hospital gown. You will lie on your back, on a padded table, in a comfortable position. Generally, you can resume your usual activities immediately. [facility] History of Present illness Narrative* Chelsea Mackey APRN.CNP - 03/29/2022 3:26 PM EDT DISTANCE HEALTH VISIT This Team Access Model visit is a virtual encounter. It required patient- provider interaction for the medical decision making as documented below. Patient's permission obtained Demar Ball is a very nice 41 year old female seen for BRISA. Additional details per last visit note Follow up Subjective: Patient reports: Doing ok Usual pain 4-5/10 Fingers and hips/ elbows/ shoulders Finger swollen that she had sx on Am stiffness - once up and moving better 1-2 hours When initially gets up No bad flares enbrel was on hold from finger infection after sx Went to ER 2 times Sx november Held enbrel/ mtx for months Back on recently mtx 4tabs weekly Folic acid daily enbrel twice weekly Vit d 2000 international unit(s) daily Did not complete rx Did not have vit d drawn would like [facility] Review of Systems CONSTITUTION: Negative for: Fever and Recent weight change HEENT: Positive for: Nosebleeds (on xelarto and asa- was having freq, stopped asa and has not had any) Negative for: Mouth sores, Trouble swallowing and Dry mouth RESPIRATORY: Negative for: Cough, Shortness of breath and Pain with breathing GASTROINTESTINAL: Positive for: Heartburn Negative for: Melena, Diarrhea and Abdominal pain MUSCULOSKELETAL: Positive for: Arthralgias, Joint swelling and Morning Joint Stiffness Negative for: Myalgias and Muscle weakness NEUROLOGICAL: Positive for: Headaches (chronic migraines) and Numbness Negative for: Memory loss SKIN: Positive for: Skin changes (soem spots on her back and treated for fungal infection by PCP. following for DERM ) Negative for: Rash, Hair loss and Nail changes EYES: Negative for: Eye pain, Eye redness, Eye dryness and visual disturbance CARDIOVASCULAR: Positive for: Leg swelling Negative for: Chest pain GENITOURINARY: Negative for: Dysuria and Hematuria HEMATOLOGIC/LYMPHATIC: Negative for: Swollen glands - medical history - medications - allergies - family history - social history - radiology - tests Full details in patient's emr chart Additional pertinent test results reviewed Pertinent imaging scans/films reviewed PHYSICAL EXAMINATION: VIDEO EXAM: (if done, performed via video enabled technology) GENERAL: alert and appropriate, in no distress, well-hydrated, well nourished and happy, smiling, interactive SKIN: no rash noted HEAD: normocephalic, no abnormality or lesion noted EYES: no injection and visual acuity is grossly normal EARS: hearing grossly normal No apparent nasal bridge collapse, no cartilage swelling, no parotid gland swelling. NOSE: external nose normal without rhinorrhea OROPHARYNX: moist mucus membranes NECK: full ROM, no cervical LNs noted RESPIRATORY: breathing non-labored CHEST: equal chest rise with normal respiratory effort ABDOMEN: soft and non-tender MUSCULOSKELETAL : no apparent joint effusion or synovitis No tenderness with percussion over long bones-femur/tibia b/l EXTREMITIES: from NEUROLOGIC: no obvious deficit ASSESSMENT: M08.80 BRISA (juvenile idiopathic arthritis) (HCC) (primary encounter diagnosis) Z51.81, Z79.899 Encounter for monitoring of etanercept therapy Z51.81, Z79.899 Encounter for monitoring of methotrexate therapy Z13.820 Encounter for screening for osteoporosis E55.9 Vitamin D deficiency-chronic Z71.2 Encounter to discuss test results Z71.89 Encounter for medication review and counseling Z71.89 Counseling on health promotion and disease prevention Per Dr. Reilly last note Rheumatoid Arthritis/BRISA in remission with combination Enbrel and methotrexate. She has had to holddue to surgery and the post surgery infection, doing well so far. 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 I could not find that in the OR report. She history of chronic vitamin D deficiency and had not been taking sufficient vitamin D. She ran out of the 50,000 international units prescription and has only been taking 1000 international units daily. I have previously advised on maintenance therapy and discussed importance of keeping vitamin D normal. She requires 50,000 international units dosing due to chronic D deficiency, despite over the counter vitamin D higher dose. Vitamin D with food. She is not menopausal; Denies other fracture, states despite falls, would have thought she would. Rheumatoid arthritis Recently restarted mtx and enbrel after holding it for months related to sx on finger and infection. Doing better now. Pain in fingers/ hips/ elbows/ shoulders 4/10. Am stiffness resolved with activity no bad flares. Taking mtx 4 tabs weekly, folic acid daily an enbrel twice weekly. Taking vit d 2000 international unit(s) daily. Did not complete vit d script never had it checked. Due for labs recheck today. Cbc, cmp, vit d. Patient happy on current regimen and would like to continue. PLAN: Labs today Patient instructions below I spent a total of 23 minutes on the date of the service which included preparing to see the patient, [id number] patient care, completing clinical documentation, obtaining and/or reviewing separately obtained history, performing a medically appropriate examination and counseling and educating the patient/family/caregiver. FU visit: 4 months Portions of this note have been copied from my previous note and have been updated to reflect today's visit note March 29, 2022, all reflect current medical decision making from date of this visit. The patient follows with their Primary care physician for their other health management Recommendations to share with Primary care physician: Dear Dr. Bah I had the pleasure of seeing your patient, Demar Ball. I have enclosed a copy of my clinic note with my assessment and recommendations for this patient. -Continuous follow up with Primary care physician for cardiovascular disease prevention, for age appropriate cancer screening and routine health maintenance and wellness, and infection precautions and age appropriate immunization recommended. Thank you for allowing me to participate in the care of your patient. Chelsea Mackey APRN.ENVIRONMENTAL LAW PROFESSOR cc Reyna Bah, DO Patient Instructions -PLEASE NOTE THAT WE REVIEW ALL YOUR TEST RESULTS AT YOUR NEXT FOLLOW UP VISIT WITH YOU. IF ANY ABNORMAL LAB REQUIRES SOONER ATTENTION, WE WILL CONTACT YOU. -If you have signed up on [employer], we will release your test results through [employer]. I wish you the best of health and wellness. - Recheck blood work for the vitamin D tomorrow. We faxed the vitamin D order. Please ask them to fax or email us results as soon as possible - Please continue with infection precautions Hold Enbrel and methotrexate during infections - Enbrel: 25 mg subcutaneous injection twice a week - Methotrexate: 4 pills one a week - Folic acid: 1 mg d - Maintaining good vitamin D blood levels is important for bone health and overall health. Please see additional information on vitamin D below. A vitamin D blood test, called vitamin D 25-hydroxy (OH) is obtained to assess vitamin D level. If the vitamin D is low, you will need to take a vitamin D supplement. If you are already on a vitamin D supplement, then the dose will need to be adjusted. Also you multivitamin may contain vitamin D. Vitamin D is a fat soluble vitamin that requires it be taken with good fat to be absorbed. Examplesof healthy fat include nuts, seeds, avocados, olives and for the most part the meal of the day. Spending up to 30 minutes in the sun during Summer and late Spring can provide natural vitamin D tothe uncovered skin (arms, legs) - Your calcium can be sufficient in your diet Healthy food that are rich in calcium include: nuts, seeds, legumes/beans, peas, dark green leafy vegetables, plant based milk Additional calcium rich foods listed below - Soaking Almonds overnight in the fridge with drinking water, can help with softening the almonds and improved absorption of the almonds. See additional information below on calcium. A large randomized controlled study, the VITAL trial, showed that the consumption of vitamin D and omega-3 supplements can lead to decreased risk of auto-immune disease, by 30% or more, especially ifthe vitamin D blood level improves to the 40's range. Citation of the vitamin D study: Michel J, Mahad NR, Adalberto EK, Steven S, Mahamed J, Abigail V, Jim G, Erickson IM, Yas JE, Malu KH. Vitamin D and marine omega 3 fatty acid supplementation andincident autoimmune disease: VITAL randomized controlled trial. BMJ. 2021Oct 07;376:[id number]. doi: 1 [id number]. PMID: [id number]; PMCID: [id number]. I recommend taking the following supplements to help with inflammation and auto- immune disease: 1) Vitamin D 2000 international units once daily with meals You may need more if your blood level of vitamin D is not up to the 40 range 2) Bowdon-3 1000 mg once daily I recommend plant based omega-3 (over fish oil), which is algal oil. 3) You can also take Turmeric 500 to 1000 mg twice daily with meals (with black pepper) This has been reported to help with osteoarthroses and inflammatory arthropathy Turmeric is available in pill form or liquid and can be taken up to 2000 mg twice daily. Make sure there is black pepper in your meal when you take the turmeric so that it works better The black pepper could be present in the pill or can be with your meal. Those who have gallbladder or gall stone disease or on blood thinners or , cannot take it. - I recommend following a healthy lifestyle. You can find additional information below. I recommend this to all my patients, as I have seen convincing scientific evidence, and seen the results in my practice, of the benefits of this healthy lifestyle to overall health and wellness. I hope you will find this beneficial as well. A whole plant based diet and healthy lifestyle have been reported to be optimal for health in general, anti-inflammatory diet, prevention of common chronic diseases, healthy weight management, memoryand brain healthy, bone health. Recommendations for healthy lifestyle include: Healthy nutritious diet, anti-inflammatory diet, appropriate exercise, good sleep hygiene, stress management, supplementing vital deficiencies and maintaining healthy weight. with BMI that does not exceed 25 to 26 . 5 points to remember to improve your health and continue on a healthy path: 1- Optimal nutritious food, such as a Whole Plant Based diet You can watch the movie that features the Whole Plant Based diet, Mancos over knives (see video online and visit website). Another movie that was recently released is: Eating You Alive (you can find it at [employer]) and [employer] movie Dr. Carrol Vanegas is a [facility] physician who is an expert in Whole Plant based diet. His website is [employer]. His research highlights the benefits of the Whole food plant based diet in reversing and preventing heart disease. Mrs. Vanegas (his ) has a cookbook with many recipes on whole plant based food: The Prevent and Reverse Heart Disease cookbook. You can also consider reading his son, Seven Vanegas's book: The Engine 2 cookbook Seven is a retired merry go round operator who has helped many people get healthier by following the whole food plantbased diet. Dr. Ridge Spicer, has a website and free gatito to help get started on a whole plant based diet, at www.pcrm.org and you can log on for free for his 21-Day Kickstart with meals and recipes to follow for21 days. There is also a free gatito for that. He has multiple free videos and YouTube, for example: ht tps://youtu.be/[email or web address] , https://youtu.be/EyOGCiarr2w He has written multiple books, including Power Food for the Brain, The Cheese Trap, Dr. Ridge Spicer's Program for Reversing Diabetes, Your Body in Balance Dr. Slick Onofre has shown the benefit of a starch based whole food plant based diet to his Rheumatoid Arthritis patients, as well as patient with diabetes II, hypertension, obesity, multiple sclerosis, heart disease, acne, and other, his website: www.ferminl.com Dr. George Colbert is a renowned forestry scientist, who has studied and researched the benefits of the Whole plant based diet. He has also researched the adverse effects of animal proteins on health. He presents many of his research findings in his book The [place] study. Dr. John Pino has completed many research trials proving the reversal of diseases, such as heart disease and early prostate cancer, with healthy lifestyle and the Whole Plant based diet. Dr. John Pino website is: www.reyes.Scaleform His new book: Undo It, has evidence based information and guide to following this healthy lifestyle. Dr. Gary Branch has dedicated a website and additional time to reviewing all food related articles and research and presents them in his power point presentation and on his website at: nutritionfacts.org which is all free. Dr. Branch has multiple free videos and YouTube, for example [email or web address] Button/[email or web address] and [email or web address]://[email or web address]. He has written multiple books including: How Not To and How Not To Diet He is now working on his next book: How Not To Age Dr. Rea Hair (from the [facility]), has articles on the following website: [employer]. Also, you could find additional information on practical to follow recipes by reading or watching online and YouTube such as: Gas Golf Cart Repairer AJ, Cooking With Plants, The Vegan Corner (recipes from an [place] Gas Golf Cart Repairer), The Whole Foods Plant Based Cooking Show and visiting the provided websites for additional information on the whole plant based benefit and cooking recipes. You can also consider watching the vlogs of some of the plant based Athletes such as Chan Jain Derek on [employer]. Dr. Courtney Ness (a psychiatrist who suffered with lupus) has helped reverse her Systemic Lupus Erythematosus and helps many patients with their auto-immune diseases, based on her recommendations of the whole food plant based diet and the green smoothies. She has a facebook and website, and on youtube her channel is: Goodbye Lupus Some people have adverse effect or intolerance to gluten. Certain patients with auto-immune disease, including auto-immune thyroid disease, need to avoid gluten. If you suspect you are gluten sensitive or intolerant, consider gluten free diet. Gluten could leadto increased inflammation in the bowels and body in certain patients. Not all your food has to be organ if you cannot afford or find them. Consider organic and non-GMO products when shopping for your food, when possible. GMO are genetically modified food that may have adverse impact on our health. If you are unable to purchase organic of non-GMO, you can wash your produce with white vinegar or soak in baking soda and water (see details from Dr. Sales's website nutritionfacts.org) and rinse well with water. 2- Regular Exercise, such as beginner yoga, barber chi, stretching, cardio, gradual strengthening, pool therapy, physical therapy Come As You Are: YOGA - Gentle Yoga Anyone Can Do Anywhere www.[email or web address]/yoga Also on youtube: yoga with Sia 3- Good Sleep (poor sleep impacts everything, recommended sleep is 7.5 to 8 hrs. a night). Certain people need less or more sleep. Meditation and relaxation techniques have shown to help with improving sleep. 4- Stress management, staying positive, be happy, laugh often (it is a great medicine) Find time to relax and meditate if possible. Following steps 1-3 will help with this as well. In psychiatric disorders, it is important to follow with a professional on the optimal management of depression, anxiety or psychiatric illness 5- Supplements Supplementing necessary vitamins and minerals, correcting any deficiencies, i.e. Vitamin D, B12, omega-3 fatty acids etc... Go natural when possible -Important notice: If you are following a Whole plant based diet, it is recommended to take [id number], sublingual, dissolve under the tongue, take once daily. Vitamin B12 is available over the counter, dose could be 2500 mcg, and can be taken once a week, and if your blood levels are low, you mayneed to take it once daily or a higher dose. Raw: Garlic, Cilantro, Mil[place] nuts, Pumpkin seeds, [place] seeds and Flax seed powder have been reported to help with certain metal detoxification such as mercury. Bowdon-3 plant based rich foods are good anti-inflammatory sources such as : mari seeds, flax seed (needs to be ground), walnuts, hemp seeds, dark green leafy vegetables. It is important to avoid refined oils as much as possible especially that many have too much omega-6 that is pro-inflammatory (lead to inflammation as well as concern for heart and vascular disease). Turmeric can be found natural, used as the spice powder or the root with your food. This is also available as a capsule. If you are on a blood thinner, you will need to discuss with your pharmacist or physician before taking Turmeric If you have gall bladder disease or gall bladder stones, it is recommended to avoid turmeric capsules. Sweet cherries (raw cleaned or frozen), Turmeric , pineapple (contains bromelain), omega-rich foods, have anti-inflammatory benefit Start reviewing the Whole Plant Based Diet, by watching Mancos over Knives movie and then review website. There are many other resources and educational information on the Whole plant based diet on the Internet and documentaries. There are other resources for wellness that you can also benefit from, such as the [facility] website, [facility] and includes Plant based and Mediterranean diet, yoga and meditation. Please avoid all dairy products. You could use non-dairy milk such as Flax milk, Cashew milk, Zahl milk, Rice milk, Oat milk or Hemp milk, instead. It is very important to avoid all: refined sugars (including high fructose syrup), refined carbohydrates, any artificial sweeteners and artificial preservatives, and soda and heavily processed food. Insure adequate hydration; drink at least 6 to 8 cups of water daily, certain people need less or more. Examples of Smoothies: Every morning you can start your day with a healthy natural anti-inflammatory smoothie, for example, you can blend: fresh or frozen sweet cherries, half a root of turmeric (1 to 2 inches), banana, blue berries, walnuts, few leaves of kale, add flax milk (or almond milk), and enjoy. You could add half an avocado if you like it smoother. If you do not tolerate walnuts, you can use flax seeds, mari seeds or hemp seeds instead. If you do not like plant based milk, you can use coconut water or plainwater instead. Other smoothies, including green smoothies, are also very healthy and highly anti-inflammatory. Forexample fruits (such as banana or frozen millie or pineapple) and add significant amount of leafy greens, then add water or coconut water and blend until smooth. You can also add turmeric in this recipe. GENERAL INFORMATION ON BONE HEALTH : -Bone Density testing (DXA scan) as recommended. -Vitamin D supplementation is recommended, unless blood levels are sufficient. Recommended daily dose of 1000 to 2000 IU total a day, or the dose necessary to achieve a Vitamin D25-OH blood level of >31 and preferably closer to 40-60 ng/mL. Vitamin D pills are available over the counter. -Recommended daily dose of calcium: 1200mg total a day in divided doses. Calcium is usually sufficient in our regular diet, also available in multivitamins. Patients on certain dietary restrictions or those unable to meet their daily calcium by diety alone, may require calcium supplements. For patient with history of calcium kidney stones, Calcium Citrate would be the recommended supplement. It is recommended to avoid caclium carbonate supplement in this case, as these may increase risk of calcium kidney stones. The after visit summary has information on dietary calcium and instructions on reading calcium label and converting the %DV to mg. When you read a food label and you see calcium reported as DV %, add a zero and this will provide you with the approximate mg value of the calcium content in this food. For example, if a glass of almond milk is labeled as 40% calcium DV, then this contains 400 mg of calcium. For additional information, please see references provided. -Regular weight-bearing and muscle-strengthening exercise -Avoidance of tobacco smoking, excessive alcohol intake and excessive caffeine intake. -Fall and fracture precautions -It is recommend to continue regular follow up visits with your dentist every 6 months, and continue with good oral hygiene. Calcium: If your diet is sufficient in Calcium rich food, you will not need calcium supplement. Calcium Citrate is the preferred calcium if you have had kidney stones. Daily recommended calcium dose: 600mg twice a day with meals. Adequate calcium ingestion is essential for maintaining healthy bones. The recommended dose daily intake of calcium varies depending on individual needs but is usually between 1200 and 1500mg daily, preferably around 1200mg a day in divided dose (not all taken at once). This is equivalent to about five 8oz glasses of milk per day. Many foods are rich in calcium and they include: - Plant based, non-dairy, calcium rich products, include nuts, almond milk, beans, lentils - Vegetables and Fruit: bok-mandel, turnips, broccoli, kale, collards, - Dairy products: milk, cheese, yogurt, ice-cream - Fish products: canned salmon, sardines and shrimp - Cereals and nuts: almonds, sesame seeds, fortified cereals and oatmeal - Other foods: fortified orange-juice, figs, soybeans, other beans and eggs. If you have a low calcium diet and cannot tolerate calcium-rich foods, many supplements are available today. Your pharmacist can help you choose the one which best suits your needs. A few tips on supplements: - They should be easy to swallow - They should dissolve easily in cup of vinegar in < 15 minutes. - Count the ELEMENTAL calcium mgs. E.g. Calcium 499mg may have only 221mg of elemental Calcium. - Calcium citrate is the calcium supplement to take if you have had kidney stones and unable to meet your calcium requirements from food/diet alone. - There is such a variety today that it is best to bring in the bottle to your doctor to show them exactly what you are taking. Lastly too much calcium can be bad for you. Recent studies show extra supplements may increase yourrisk of kidney stones or cause high calcium levels in some people. You should discuss how much you should be taking with your doctor before starting them. Further Information is available from the following resources: www.nof.org (National Osteoporosis Foundation) http://www.osteo.org/osteolinks.asp National Institutes of Health: 7-295-446-BONE The Calcium Information Center: -Non-Dairy, Plant based Milk, can contain in1 glass up to 450 mg of calcium (300 to 450 mg) Exampled include Oat Milk, Flax Milk, Zahl Milk, Cashew Milk, Soy Milk, Peas Milk general health and well being Examples of Food Sources of Calcium from NIH Food Milligrams (mg) per serving Percent DV* Soymilk, calcium-fortified, 8 ounces 299 30 [place] juice, calcium-fortified, 6 ounces 261 26 Tofu, firm, made with calcium sulfate, cup* 253 25 Tofu, soft, made with calcium sulfate, cup* 138 14 Twfqh-yh-vsb cereal, calcium-fortified, 1 cup 100 1,000 10 100 Turnip greens, fresh, boiled, cup 99 10 Kale, raw, chopped, 1 cup 100 10 Kale, fresh, cooked, 1 cup 94 9 Taiwanese cabbage, bok mandel, raw, shredded, 1 cup 74 7 Bread, white, 1 slice 73 7 Tortilla, corn, pmlgi-gg-rwkq/ahuja, one 6 diameter 46 5 Tortilla, flour, pzkvt-yx-gjgh/ahuja, one 6 diameter 32 3 Bread, whole-wheat, 1 slice 30 3 Broccoli, raw, cup 21 2 * DV = Daily Value. DVs were developed by the U.S. Food and Drug Administration to help consumers compare the nutrient contents among products within the context of a total daily diet. The U.S. Department of Agriculture s (USDA s) Nutrient Database Web site lists the nutrient contentof many foods and provides comprehensive list of foods containing calcium arranged by nutrient content and by food name. *Calcium content varies slightly by fat content; the more fat, the less calcium the food contains. * Calcium content is for tofu processed with a calcium salt. Tofu processed with other salts does not provide significant amounts of calcium. You could acces this information online at: http://ods.od.nih.gov/factsheets/Calcium-HealthProfessional/ Vitamin D: Vitamin D3= cholecalciferol, available over the counter. Dose recommended 800 to 1000 iu daily with a meal; Certain patients require 1411-2774 iu daily and in patients deficient in Vitamin D, they require higher dosages. Certain patient requires higher dose, depending on their Vit D blood levels. Vitamin D is essential for calcium metabolism. It is really a hormone produced mainly in your skin after exposure to sunlight. Vitamin D helps you absorb calcium from your stomach and kidneys and incorporates it into your bones. Studies show approximately 50% of [place] men and women are vitamin D deficient in the winter. Milder cases of vitamin D are usually asymptomatic so the only way to know you have a problem is to have a blood level checked. More severe cases can cause osteomalacia(a.k.a. rickets) which can result in bone pain, weak bones and several abnormal laboratory tests and also weak muscles (a.k.a. myopathy). When this happens, your bones lose a lot of their calcium stores as the body tries to regulate the calcium required by other tissues. Prolonged deficiency can lead to severe bone disorders and fractures. Unlike calcium, dietary sources of vitamin D are rare, limited to a few fish oils particularly cod-liver oil, other fortified foods and egg yolks. and most are unhealthy. Natural source of vitamin D is through sunshine. This is usually during carlo seasons, for example a 30 minute exposure to sunshine. Some people are unable to be exposed to the sun due to skin condition. Often supplementation isneeded. Many multivitamins contain some vitamin D and vitamin D alone preparations are now available in several forms. The recommended daily intake of vitamin D used to be 400 and 800 international units, however, it is now known that larger amounts are needed, as discussed above. Your doctor can prescribe prescription strength vitamin D for you if necessary, if you have marked deficiency or diseases of the liver or kidney. Supplementation in patients with severe deficiency can stabilize or improve bone mineral density and in frail elderly persons, may reduce their risk of falling. Additional Information is available from: www.nof.org (the national osteoporosis foundation) http://www.[facility].org/arthritis/osteo/info.htm http://ods.od.nih.gov/factsheets/vitamind.asp [place] [facility]: [phone] [facility]: At the [facility], we work as a team for your care, along with Nurse Practitioners, PhysicianAssistants, Nurses and Medical Assistants. It is a privilege and honor to serve you. Thank you for choosing [facility] for your healthcare. Sincerely, Chelsea Mackey APRN.ENVIRONMENTAL LAW PROFESSOR BONE MINERAL DENSITY PATIENT INSTRUCTIONS Bone mineral density testing measures the amount of calcium in certain parts of your bones. This information determines how strong your bones are. The test is used to detect osteoporosis, a disease in which the bone's mineral content and density are low, increasing a person's risk of fractures. Thelumbar spine (lower back) and the hip are the skeletal sites usually examined. For the test, remember that: 1. You cannot take this test if you are . 2. Eat a normal diet on the day of the test. 3. Take your medications as you normally would. 4. DO NOT take calcium supplements (such as Tums) for 24 hours before the test. 5. On the day of the test, leave valuables (jewelry or credit cards) at home. 6. The test should be performed prior to oral, rectal or IV contrast studies, or at least 7 days after any of these studies. For the test, you may be asked to wear a hospital gown. You will lie on your back, on a padded table, in a comfortable position. Generally, you can resume your usual activities immediately. 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 Pike Migraines Neuropathy Polyarticular juvenile idiopathic arthritis (HCC) RA (rheumatoid arthritis) ([facility]) right wrist Thyroid nodule Biopsy done approx 2012 Transfusion history 12/2015 after surgery for clot in abdomen/hip PAST SURGICAL HISTORY Procedure Laterality Date BIOPSY THYROID COLONOSCOPY Polypectomy HAND SURGERY HX Right R 1st finger PAST SURGICAL HISTORY OF Uterine septum removed PAST SURGICAL HISTORY OF [place] teeth extraction PAST SURGICAL HISTORY OF 03/2015 Nasal fracture repair PAST SURGICAL HISTORY OF Bunionectomy x2 PAST SURGICAL HISTORY OF 1998 Jaw surgery with manipulation PAST SURGICAL HISTORY OF Right wrist surgery x2, partial fusion and repair PAST SURGICAL HISTORY OF 2012 Arthroscopy on bilateral hips 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 Serrano - [facility] PAST SURGICAL HISTORY OF [place] PAST SURGICAL HISTORY OF Lap [facility] TUBAL LIGATION HX 03/15/2011 Social History Tobacco Use Smoking status: Never Smoker Smokeless tobacco: Never Used Substance Use Topics Alcohol use: No Drug use: No FAMILY HISTORY Problem Relation Age of Onset Diabetes Mother Hypertension Mother Hypertension Father ALLERGIES Allergen Reactions Vancomycin Hives, Itching, Swelling Bacitracin Hives Doxycycline Rash, Itching Ferrous Sulfate Anaphylaxis, Vomiting Reaction happened with IV iron Keflex [Cephalexin] Itching Remicade [Inflixima* Other: See Comments Confusion, hypotension 10/20/2015 Patient states that she did have this reaction but that she has had this medication since and has not suffered any allergy Ultram [Tramadol Hc* Hives Current Outpatient Medications Medication Sig etanercept (ENBREL) 25 mg/0.5 mL soln Inject 0.5 mL (25 mg dose) subcutaneously two times a week. erenumab-aooe (AIMOVIG AUTOINJECTOR) 140 mg/mL auto-injector Inject 1 mL subcutaneously once every month. naratriptan (AMERGE) 2.5 mg tablet Take 1 tablet by mouth as needed for migraine headache (see administration instructions). TAKE ONE(1) TABLET AT THE ONSET OF HEADACHE; IF HEADACHE RETURNS OR DOES NOT FULLY RESOLVE, THE DOSE MAY BE REPEATED AFTER 4 HOURS; DO NOT EXCEED FIVE(5) MG IN 24 HOURS. topiramate (TOPAMAX) 200 mg tablet Take 1 tablet by mouth three times daily. tiZANidine (ZANAFLEX) 4 mg tablet TAKE ONE TO TWO TABLETS BY MOUTH EVERY 8 HOURS NEEDED. Up to 3times a day. ergocalciferol 50,000 unit capsule (VITAMIN D2, DRISDOL) Take 1 capsule by mouth two times a week. with a meal and obtain blood test for vitamin D 25-OH as advised. methotrexate 2.5 mg tablet take 4 tablets by mouth ONCE EACH WEEK AND HOLD DURING INFECTIONS (Patient not taking: Reported on 12/22/2021 ) folic acid 1 mg tablet Take 1 tablet by mouth once daily. efinaconazole (JUBLIA) 10 % charlotte Apply to affected area once daily. Syringe with Needle, Disp, (BD TUBERCULIN SYRINGE) 1 mL 27 x 1/2 use to draw up & inject enbrel Needle, Disp, 27 G (BD DISPOSABLE NEEDLES) 27 gauge x 1/2 ndle use to draw up & inject enbrel HYDROcodone-acetaminophen (NORCO) 5-325 mg per tablet Take by mouth every 6 hours as needed. XARELTO 20 mg tablet gabapentin (NEURONTIN) 300 mg capsule Take 300 mg by mouth twice daily. pantoprazole DR (PROTONIX) 40 mg tablet Take 40 mg by mouth twice daily. No current facility-administered medications for this visit. RELEVANT PREVIOUS INVESTIGATIONS: Calcium Date Value Ref Range Status 05/30/2019 9.3 8.5 - 10.2 mg/dL Final 05/30/2019 9.3 8.5 - 10.2 mg/dL Final 01/03/2019 9.5 8.5 - 10.2 mg/dL Final Calcium, Total Date Value Ref Range Status 11/17/2021 9.8 8.5 - 10.2 mg/dL Final Alkaline Phosphatase Date Value Ref Range Status 11/17/2021 88 34 - 123 U/L Final 05/30/2019 73 34 - 123 U/L Final 01/03/2019 88 34 - 123 U/L Final 12/19/2017 89 32 - 117 U/L Final PTH, Intact Date Value Ref Range Status 01/03/2019 39 15 - 65 pg/mL Final Vitamin D 25 Hydroxy Date Value Ref Range Status 05/30/2019 19.8 (L) 31.0 - 80.0 ng/mL Final Comment: Classification of 25 OH Vitamin D status: Insufficiency/Moderate Deficiency: < or = 30 ng/mL Sufficiency/Optimal Levels: 31 to 80 ng/mL Toxicity: > 100 ng/mL Test performed by chemiluminescent immunoassay. 01/03/2019 22.2 (L) 31.0 - 80.0 ng/mL Final Comment: Classification of 25 OH Vitamin D status: Insufficiency/Moderate Deficiency: < or = 30 ng/mL Sufficiency/Optimal Levels: 31 to 80 ng/mL Toxicity: > 100 ng/mL Test performed by chemiluminescent immunoassay. 12/19/2017 25.3 (L) 31.0 - 80.0 ng/mL Final Comment: Classification of 25 OH Vitamin D status: Insufficiency/Moderate Deficiency: < or = 30 ng/mL Sufficiency/Optimal Levels: 31 to 80 ng/mL Toxicity: > 100 ng/mL Test performed by chemiluminescent immunoassay. 11/07/2014 18.4 (L) 31.0 - 80.0 ng/mL Final Comment: Classification of 25 OH Vitamin D status: Insufficiency/Moderate Deficiency: < or = 30 ng/mL Sufficiency/Optimal Levels: 31 to 80 ng/mL Toxicity: > 100 ng/mL Test performed by chemiluminescent immunoassay. Creatinine Date Value Ref Range Status 11/17/2021 1.09 (H) 0.58 - 0.96 mg/dL Final 05/30/2019 0.59 0.58 - 0.96 mg/dL Final 05/30/2019 0.58 0.58 - 0.96 mg/dL Final Creatinine (POCT) Date Value Ref Range Status 12/03/2021 0.70 0.70 - 1.40 mg/dL Final Protein, Total Date Value Ref Range Status 11/17/2021 7.7 6.3 - 8.0 g/dL Final 05/30/2019 7.3 6.3 - 8.0 g/dL Final 01/03/2019 7.4 6.3 - 8.0 g/dL Final 12/19/2017 7.3 6.3 - 8.0 g/dL Final Albumin Date Value Ref Range Status 11/17/2021 4.5 3.9 - 4.9 g/dL Final 05/30/2019 4.4 3.9 - 4.9 g/dL Final 01/03/2019 4.5 3.9 - 4.9 g/dL Final 12/19/2017 4.5 3.9 - 4.9 g/dL Final Vitamin D 25 Hydroxy (ng/mL) Date Value 05/30/2019 19.8 ] Calcium, Total Date Value Ref Range Status 11/17/2021 9.8 8.5 - 10.2 mg/dL Final Creatinine Date Value Ref Range Status 11/17/2021 1.09 (H) 0.58 - 0.96 mg/dL Final 05/30/2019 0.59 0.58 - 0.96 mg/dL Final 05/30/2019 0.58 0.58 - 0.96 mg/dL Final Creatinine (POCT) Date Value Ref Range Status 12/03/2021 0.70 0.70 - 1.40 mg/dL Final Calcium, Total Date Value Ref Range Status 11/17/2021 9.8 8.5 - 10.2 mg/dL Final CBC Latest Ref Rng & Units 01/03/2019 05/30/2019 05/30/2019 11/17/2021 WBC 3.70 - 11.00 k/uL 8.28 6.42 6.85 9.88 HEMOGLOBIN 11.5 - 15.5 g/dL 12.8 12.5 12.9 15.1 HEMATOCRIT 36.0 - 46.0 % 38.7 41.0 41.4 45.4 PLATELETS 150 - 400 k/uL 408(H) 452(H) 458(H) 439(H) ABS NEUT (ANC) 1.45 - 7.50 k/uL 4.80 4.22 4.46 6.19 ABS LYMPH 1.00 - 4.00 k/uL 2.16 1.42 1.69 2.57 CMP Latest Ref Rng & Units 05/30/2019 05/30/2019 11/17/2021 12/03/2021 SODIUM 136 - 144 mmol/L 140 139 132(L) - SODIUM (POCT) 132 - 148 mmol/L - - - 141 POTASSIUM 3.7 - 5.1 mmol/L 4.3 4.2 3.9 - POTASSIUM (POCT) 3.5 - 5.0 mmol/L - - - 3.8 CHLORIDE 97 - 105 mmol/L 108(H) 107(H) 103 - CHLORIDE (POCT) 98 - 110 mmol/L - - - 113(A) CO2 22 - 30 mmol/L 18(L) 19(L) 17(L) - GLUCOSE 74 - 99 mg/dL 93 95 139(H) - GLUCOSE (POCT) 60 - 105 mg/dL - - - 90 BUN 7 - 21 mg/dL 8 8 12 - CREATININE 0.58 - 0.96 mg/dL 0.59 0.58 1.09(H) - CREATININE (POCT) 0.70 - 1.40 mg/dL - - - 0.70 CALCIUM, TOTAL 8.5 - 10.2 mg/dL 9.3 9.3 9.8 - AST 13 - 35 U/L 17 - 31 - ALT 7 - 38 U/L 13 - 48(H) - ALKALINE PHOSPHATASE 34 - 123 U/L 73 - 88 - CRP Latest Ref Rng & Units 01/03/2019 05/30/2019 CRP <0.9 mg/dL 2.7(H) 1.3(H) CK Latest Ref Rng & Units 01/03/2019 CK 42 - 196 U/L 171 TB Screen Latest Ref Rng & Units 01/03/2019 TBGINT - No evidence of current or previous infection with Mycobacterium tuberculosis. 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 Verification of therapeutic benefit and effectiveness with current therapy. Adverse events, barriers in adherence, and side effects assessed and addressed. Will proceed with refill with no changes. [facility] Visit Assessment - Inflammatory Conditions: Assessment to use: Refill Non-Clinical Assessment: Patient confirmed: Yes Med/dose confirmed: Yes Supplies needed: No Missed doses: No Estimated days supply on hand: 14 Next cycle/dose due: 03/16/2022 Copay amount: 0 Payment confirmed: Yes Address confirmed: Yes Delivery method: FedEx Delivery address: [address] [place] [id number] Delivery date: 03/18/2022 Patient has questions: No Additional questions, comments, concerns: Pt has restarted. Shipping w/ alcohol swabs & bandages Vaccination Assessment: Date of influenza vaccination reminder: 05/21/2021 Date of most recent vaccination assessment: 05/21/2021 Sherley Hubbard ([employer]) documented in this encounterSycamore [facility] Center06-28-2022 Miscellaneous Notes* Telephone Encounter - Samy Mansfield MD - 03/09/2022 12:48 PM EDT Refill approved It remains indicated and medically necessary for patient thank you kindly, fa * Telephone Encounter - Gracy Osborne [facility] - 03/09/2022 12:34 PM EDT Pt will be due for a refill of Enbrel soon. If therapy is being continued, please sign this order request to send refill via eRx to [facility]. Thanks! Last distance health visit 12/08/2021 Pending Prescriptions Disp Refills ENBREL 25 MG/0.5 ML SUBCUTANEOUS SOLUTION 8 mL 3 Sig: Inject 0.5 mL (25 mg dose) subcutaneously two times a week. ANISA: No Please review and advise. Gracy Osborne [facility] documented in this encounterSycamore Medical Center06-01-2022 Evaluation note* Encounter Date Diagnosis Assessment Notes Treatment Notes Treatment Clinical Notes Feb, GERD (gastroesophageal reflux disease) (ICD-10 - K21.9) Patient reports an increase in nausea lately due to her reflux. I am in agreement with providing a refill. Encouraged the patient to follow with Gastro as scheduled. Feb, Tinea versicolor (ICD-10 - B36.0) Upon examination, the patient does appear to have areas on her chest, shoulders and back that present as Tinea Versicolor. I prescribed the above antifungal cream. Patient is in agreement. Medication e-scribed. [employer] Other 05-24-2022 History of Present illness Narrative* Khushi Robins RT(R) - 02/02/2022 11:45 AM EDT Radiology Service Progress Note PATIENT NAME: Demar Ball DATE OF SERVICE: February 02, 2022 TIME: 10:49 AM PATIENT IDENTITY VERIFICATION COMPLETED USING TWO (2) IDENTIFIERS: Name and Date of confirmedby patient verbally. FALL SCREENING: Has the patient had 2 falls in the last year or 1 fall with injury or currently using an Ambulatory Assistive Device (Walker, Cane, Wheelchair, Crutches, etc.)? No PATIENT GENDER DATA: Female. status: : No status: NO. PATIENT RELEVANT IMPLANT DATA REVIEWED: Not Applicable RADIOLOGY DEPARTMENT: General X-ray: Exam(s) Completed: Upper Extremity X- Ray(s): Fingers/Thumb, right PERIPHERAL IV DATA: Not applicable SIGNED BY: KAREN Cook) February 02, 2022 10:49 AM documented in this encounterSycamore Medical Center05-24-2022 History of Present illness Narrative* Gustavo Blanco MD - 02/02/2022 10:20 AM EDT Plastic Surgery Note CC: Post op HPI: Demar is a 41 year old female s/p right index finger PIP joint arthrodesis. Patient is doingwell. She sates she fell at her 's construction site but she did not injury herself. States she has no pain at this time. No other concerns at this time. Hemoglobin A1C (%) Date Value 11/17/2021 5.6 Last 10 Encounter BP Readings: Date: BP: 12/07/2021 149/87 12/03/2021 104/59 11/19/2021 129/79 10/20/2021 115/73 06/10/2021 141/69 10/01/2019 117/78 2019 102/72 05/30/2019 106/73 05/25/2019 139/74 05/11/2019 117/75 CBC Latest Ref Rng & Units 05/30/2019 05/30/2019 11/17/2021 WBC 3.70 - 11.00 k/uL 6.42 6.85 9.88 RBC 3.90 - 5.20 m/uL 4.90 4.93 5.34(H) HEMOGLOBIN 11.5 - 15.5 g/dL 12.5 12.9 15.1 HEMATOCRIT 36.0 - 46.0 % 41.0 41.4 45.4 MCV 80.0 - 100.0 fL 83.7 84.0 85.0 MCH 26.0 - 34.0 pg 25.5(L) 26.2 28.3 MCHC 30.5 - 36.0 g/dL 30.5 31.2 33.3 RDW-CV 11.5 - 15.0 % 15.1(H) 14.9 13.3 PLATELETS 150 - 400 k/uL 452(H) 458(H) 439(H) MPV 9.0 - 12.7 fL 9.2 9.2 8.2(L) BASO% % 1.4 1.3 1.1 ABS NEUT (ANC) 1.45 - 7.50 k/uL 4.22 4.46 6.19 ABS LYMPH 1.00 - 4.00 k/uL 1.42 1.69 2.57 ABS MONO <0.87 k/uL 0.48 0.41 0.65 ABS EOSIN <0.46 k/uL 0.19 0.20 0.22 ABS BASO <0.11 k/uL 0.09 0.09 0.11(H) NRBC /100 WBC - - 0.0 DIFF TYPE - Auto Diff Auto Diff - CMP Latest Ref Rng & Units 05/30/2019 11/17/2021 12/03/2021 SODIUM 136 - 144 mmol/L 139 132(L) - SODIUM (POCT) 132 - 148 mmol/L - - 141 POTASSIUM 3.7 - 5.1 mmol/L 4.2 3.9 - POTASSIUM (POCT) 3.5 - 5.0 mmol/L - - 3.8 CHLORIDE 97 - 105 mmol/L 107(H) 103 - CHLORIDE (POCT) 98 - 110 mmol/L - - 113(A) CO2 22 - 30 mmol/L 19(L) 17(L) - GLUCOSE 74 - 99 mg/dL 95 139(H) - GLUCOSE (POCT) 60 - 105 mg/dL - - 90 BUN 7 - 21 mg/dL 8 12 - CREATININE 0.58 - 0.96 mg/dL 0.58 1.09(H) - CREATININE (POCT) 0.70 - 1.40 mg/dL - - 0.70 EGFR >=60 mL/min/1.73m - 66 - EGFR-ALL OTHER RACES . >60 - - EGFR- - >60 - - PROTEIN, TOTAL 6.3 - 8.0 g/dL - 7.7 - ALBUMIN 3.9 - 4.9 g/dL - 4.5 - CALCIUM, TOTAL 8.5 - 10.2 mg/dL 9.3 9.8 - BILIRUBIN, TOTAL 0.2 - 1.3 mg/dL - 0.3 - AST 13 - 35 U/L - 31 - ALT 7 - 38 U/L - 48(H) - ALKALINE PHOSPHATASE 34 - 123 U/L - 88 - YES NO Smoker [] [] Cigarettes/ day.... ? Diabetes [] [] []Type 1? []Type 2 ?Last A1c:..... Systemic inflammatory diseases [] [] []RA []Gout []Other... Hypertension [] [] Meds:....... Heart disease or pacemaker [] [] ............ Family history blood clots [] [] Personal history blood clots [] [] Anticoagulation (aspirin, coumadin, xarelto,etc) [] [] What........... Reason:........... Immunosuppressants (steroid, biologic meds infusion, etc) [] [] What........... Reason:........... Pt AGAINST blood transfusion? 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 Pike Migraines Neuropathy Polyarticular juvenile idiopathic arthritis (HCC) RA (rheumatoid arthritis) (HCC) right wrist Thyroid nodule Biopsy done approx 2012 Transfusion history 12/2015 after surgery for clot in abdomen/hip PAST SURGICAL HISTORY Procedure Laterality Date BIOPSY THYROID COLONOSCOPY Polypectomy HAND SURGERY HX Right R 1st finger PAST SURGICAL HISTORY OF Uterine septum removed PAST SURGICAL HISTORY OF [place] teeth extraction PAST SURGICAL HISTORY OF 03/2015 Nasal fracture repair PAST SURGICAL HISTORY OF Bunionectomy x2 PAST SURGICAL HISTORY OF 1998 Jaw surgery with manipulation PAST SURGICAL HISTORY OF Right wrist surgery x2, partial fusion and repair PAST SURGICAL HISTORY OF 2012 Arthroscopy on bilateral hips 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 Serrano - [place] PAST SURGICAL HISTORY OF [place] PAST SURGICAL HISTORY OF Lap [facility] TUBAL LIGATION HX 03/15/2011 Current Outpatient Medications Medication Sig Dispense Refill erenumab-aooe (AIMOVIG AUTOINJECTOR) 140 mg/mL auto-injector Inject 1 mL subcutaneously once every month. 1 Pen 5 naratriptan (AMERGE) 2.5 mg tablet Take 1 tablet by mouth as needed for migraine headache (see administration instructions). TAKE ONE(1) TABLET AT THE ONSET OF HEADACHE; IF HEADACHE RETURNS OR DOES NOT FULLY RESOLVE, THE DOSE MAY BE REPEATED AFTER 4 HOURS; DO NOT EXCEED FIVE(5) MG IN 24 HOURS. 9 tablet 2 topiramate (TOPAMAX) 200 mg tablet Take 1 tablet by mouth three times daily. 90 tablet 11 tiZANidine (ZANAFLEX) 4 mg tablet TAKE ONE TO TWO TABLETS BY MOUTH EVERY 8 HOURS NEEDED. Up to 3times a day. 180 tablet 5 ergocalciferol 50,000 unit capsule (VITAMIN D2, DRISDOL) Take 1 capsule by mouth two times a week. with a meal and obtain blood test for vitamin D 25-OH as advised. 12 capsule 1 methotrexate 2.5 mg tablet take 4 tablets by mouth ONCE EACH WEEK AND HOLD DURING INFECTIONS (Patient not taking: Reported on 12/22/2021 ) 48 tablet 1 folic acid 1 mg tablet Take 1 tablet by mouth once daily. 100 tablet 3 efinaconazole (JUBLIA) 10 % char[place] Apply to affected area once daily. 4 mL 2 Syringe with Needle, Disp, (BD TUBERCULIN SYRINGE) 1 mL 27 x 1/2 use to draw up & inject enbrel 8 Each 3 Needle, Disp, 27 G (BD DISPOSABLE NEEDLES) 27 gauge x 1/2 ndle use to draw up & inject enbrel 8 Each 3 etanercept (ENBREL) 25 mg/0.5 mL soln Inject 0.5 mL (25 mg dose) subcutaneously two times a week. (Patient not taking: Reported on 12/22/2021 ) 8 mL 3 HYDROcodone-acetaminophen (NORCO) 5-325 mg per tablet Take by mouth every 6 hours as needed. XARELTO 20 mg tablet 1 gabapentin (NEURONTIN) 300 mg capsule Take 300 mg by mouth twice daily. pantoprazole DR (PROTONIX) 40 mg tablet Take 40 mg by mouth twice daily. No current facility-administered medications for this visit. ALLERGIES Allergen Reactions Vancomycin Hives, Itching, Swelling Bacitracin Hives Doxycycline Rash, Itching Ferrous Sulfate Anaphylaxis, Vomiting Reaction happened with IV iron Keflex [Cephalexin] Itching Remicade [Inflixima* Other: See Comments Confusion, hypotension 10/20/2015 Patient states that she did have this reaction but that she has had this medication since and has not suffered any allergy Ultram [Tramadol Hc* Hives ROS: All negative except for: GENERAL: []weight loss []malaise []fevers HEENT: []frequent or significant headaches []changes in hearing []change in vision []nose bleeds []other nasal problems NECK: []lumps []goiter []pain and significant neck swelling RESPIRATORY: []cough []hemoptysis []wheezing []COPD []dyspnea []shortness of breath CARDIOVASCULAR: []chest pain []leg swelling []hypertension []CHF []palpitations GI: []nausea []vomiting []diarrhea MUSCULOSKELETAL: see HPI SKIN: [] skin lesions []rash []itching PSYCH: []sleep disturbance []mood disorder []recent psychosocial stressors HEMATOLOGY/LYMPHOLOGY: []prolonged bleeding []bruising easily []swollen nodes ENDOCRINE: []cold intolerance []heat intolerance []polyuria []polydipsia []goiter PE: Alert, awake in NAD Finger healing well Decreased ROM of the RIF A/P: I recommended the patient today to keep using the splint until 3 months after the surgery. At that point she can go into a dorsal splint with flexion of the PIP joint for some more protection. At the clinical examination there is no pain at the level of the fusion and a feels solid however thex-rays do not show fusion yet Splint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 Procedures XR DIGIT GENERAL 3V FRONTAL/LAT/OBL RIGHT RADEX FINGR MINIMUM 2 VIEWS Nedra Womack APRN.CNP [address] [place] [phone] [place] [address] Referral ID Status Reason Start Date Expiration Date V isits Requested Visits Authorized [id number] Closed Auto-Generate d Referral 12/01/2021 12/31/2022 10 10 T [facility] for referral (narrative)* Diagnostic Procedure Only (Routine) - Closed Specialty Diagnoses / Procedures Referred By Contac t Referred To Contact XR IMAGING Diagnoses Pain of finger of right hand Procedures XR DIGIT GENERAL 3V FRONTAL/LAT/OBL RIGHT RADEX FINGR MINIMUM 2 VIEWS Nedra Womack APRN.CNP [address] [place] [phone] [facility] [place] [address] Referral ID Status Reason Start Date Expiration Date V isits Requested Visits Authorized [id number] Closed Auto-Generate d Referral 12/01/2021 12/31/2022 10 10 T [facility] for referral (narrative)* Diagnostic Procedure Only (Routine) - Closed Specialty Diagnoses / Procedures Referred By Contac t Referred To Contact XR IMAGING Diagnoses Pain Procedures XR DIGIT GENERAL 3V FRONTAL/LAT/OBL RT X-RAY EXAM OF FINGER(S) Gustavo Blanco MD [address] [facility] [address] [phone] [facility] [place] [address] Referral ID Status Reason Start Date Expiration Date V isits Requested Visits Authorized [id number] Closed Auto-Generate d Referral 05/04/2021 06/03/2022 1 1 [facility] for visit NarrativeDermatology Referral UpdateNort Rethink Autism Other Reason for visit Narrative* Diagnostic Procedure Only (Routine) - Closed Specialty Diagnoses / Procedures Referred By Contac t Referred To Contact XR IMAGING Diagnoses Pain of finger of right hand Procedures XR DIGIT GENERAL 3V FRONTAL/LAT/OBL RIGHT RADEX FINGR MINIMUM 2 VIEWS Nedra Womack APRN.CNP [address] [place] [phone] Xr Imaging [facility] [address] Referral ID Status Reason Start Date Expiration Date V isits Requested Visits Authorized [id number] Closed Auto-Generate d Referral 12/01/2021 12/31/2022 10 10 [facility] Summary Purpose Family History No Family History Records FoundNo Family History Records FoundNo Family History Records FoundNo Family History Records FoundNo Family History Records FoundNo Family History Records FoundNo Family History Records FoundNo Family History Records FoundNo Family History Records FoundNo Family History Records FoundNo Family History Records Found Advance Directives No Advanced Directives Records FoundDocuments on File Type Date Recorded 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 Advance Directive(s) 12/03/2021 10:40 PM Advance Directive(s) 11/19/2021 6:16 AM Advance Directive(s) 10/21/2021 1:52 PM Advance Directive(s) 05/22/2019 11:41 AM Documents on File Type Date Recorded 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 Advance Directive(s) 12/03/2021 10:40 PM Advance Directive(s) 11/19/2021 6:16 AM Advance Directive(s) 10/21/2021 1:52 PM Advance Directive(s) 05/22/2019 11:41 AM Reason for Referral Specialty Diagnoses / Procedures Referred By Karina burk Referred To Contact Diagnoses Cervicogenic headache Intractable chronic migraine without aura and without status migrainosus Cervicalgia Procedures PROVIDER ORDERED FOLLOW UP OFFICE/OUTPATIENT [facility] MDM 60-74 MINUTES Barbi Hassan APRN.ENVIRONMENTAL LAW PROFESSOR [address] [place] [phone] Referral ID Status Reason Start Date Expiration Date Visits Requested Visits Authorized [id number] Pending Review PCP Requested Referral 04/07/2022 01/06/2023 1 1 Specialty Diagnoses / Procedures Referred By Karina burk Referred To Contact Diagnoses Insomnia, unspecified type Trouble staying asleep Snoring Procedures CONSULT TO SLEEP MEDICINE - ADULT OFFICE/OUTPATIENT [facility] MDM 60-74 MINUTES Barbi Hassan APRN.CNP [address] [place] [address] Referral ID Status Reason Start Date Expiration Date Visits Requested Visits Authorized [id number] Pending Review PCP Requested Referral 01/06/2022 01/06/2023 1 1 Reason consult and treat [facility] [place] Diagnosis 1 Hypoxemia (R09.02) Diagnosis 2 SOB (shortness of br eath) (R06.02) Referral Organization [facility] Referring Provider First Name Reyna Referring Provider Last Name Lobito Referring Provider Specialty Family Prac nataliia Referred Organization [facility] Referred Address [address] [facility], [place],[address] Referred Provider Specialty Cardiology Referral Priority Routine General Notes Lupe Hansen 021 02:43:31 PM >Received today Clinical Notes [facility] office [phone] Reason Patient is needing E GD. Food sticking in throat. Please contact patient directly to schedule. thanks. Diagnosis 1 GERD (gastroesophage al reflux disease) (K21.9) Diagnosis 2 Dysphagia, unspecifi ed type (R13.10) Referral Organization [facility] Referring Provider First Name Reyna Referring Provider Last Name Lobito Referring Provider Specialty Family Prac nataliia Referred Organization [facility] Gastroenterolo gy Referred Address [address],[phone] Referred Provider Specialty Gastroentero logy Referral Priority Routine General Notes Lucy Lyle 07/28 02:41:37 PM >referral has been faxed with attachments Specialty Diagnoses / Procedures Referred By Karina burk Referred To Contact Diagnoses Intractable chronic migraine without aura and without status migrainosus Procedures PROVIDER ORDERED FOLLOW UP OFFICE/OUTPATIENT [facility] 60-74 MINUTES Rehana Knutson MD [address] [place] [address] Rehana Knutson MD [address] [place] [address] Referral ID Status Reason Start Date Expiration Date Visits Requested Visits Authorized [id number] Pending Review PCP Requested Referral 11/26/2022 02/24/2023 1 1 Referral ID Status Reason Start Date Expiration Date Visits Requested Visits Authorized [id number] Pending Review PCP Requested Referral 04/19/2023 06/07/2023 1 1 Specialty Diagnoses / Procedures Referred By Contac t Referred To Contact Diagnoses Intractable chronic migraine without aura and without status migrainosus Cervicogenic headache Chronic daily headache Procedures PROVIDER ORDERED FOLLOW UP OFFICE/OUTPATIENT [facility] MDM 60 MINUTES Richelle Atkins MD [address] [place] [address] Referral ID Status Reason Start Date Expiration Date Visits Requested Visits Authorized [id number] Authorized PCP Requested Referral 05/24/2024 02/21/2025 1 1 Specialty Diagnoses / Procedures Referred By Contac t Referred To Contact Diagnoses Intractable chronic migraine without aura and without status migrainosus Richelle Atkins MD [address] [place] [phone] Referral ID Status Reason Start Date Expiration Date Visits Re quested Visits Authorized [id number] Closed 1 1 Specialty Diagnoses / Procedures Referred By Contac t Referred To Contact Diagnoses Cervicogenic headache Intractable chronic migraine without aura and without status migrainosus Procedures PROVIDER ORDERED FOLLOW UP OFFICE/OUTPATIENT [facility] MDM 60 MINUTES Richelle Atkins MD [address] [place] [address] Referral ID Status Reason Start Date Expiration Date Visits Requested Visits Authorized [id number] Authorized PCP Requested Referral 06/04/2025 1 1 Additional Source Comments INFORMATION SOURCE (unrecogn ized section and content) DATE CREATED AUTHOR 02/28/2018 Claudia gil DATE CREATED AUTHOR AUTHOR'S ORGANIZ ATION 06/16/2019 [facility] DATE CREATED AUTHOR AUTHOR'S ORGANIZ ATION 07/29/2021 [facility] DATE CREATED AUTHOR AUTHOR'S ORGANIZ ATION 12/14/2021 [facility] DATE CREATED AUTHOR AUTHOR'S ORGANIZ ATION 12/31/2021 [facility] DATE CREATED AUTHOR AUTHOR'S ORGANIZ ATION 10/27/2022 [facility] DATE CREATED AUTHOR AUTHOR'S ORGANIZ ATION 12/30/2023 [facility] DATE CREATED AUTHOR AUTHOR'S ORGANIZ ATION 06/13/2024 [facility] DATE CREATED AUTHOR AUTHOR'S ORGANIZ ATION 06/26/2024 [facility] DATE CREATED AUTHOR AUTHOR'S ORGANIZ ATION 06/27/2024 [facility] DATE CREATED AUTHOR AUTHOR'S ORGANIZ ATION 07/01/2024 [facility] <item> Privacy Markings (unrecogniz ed section and content) Section Author: Maggie Park PROHIBITION ON REDISCLOSURE OF CONFIDENTIAL INFORMATION This notice accompanies a disclosure of information concerning a client made to you with the consent of such client. Source Comments (unrecognize d section and content) In the event this informatio n is protected by the Federal Confidentiality of Alcohol and Drug Abuse Patient Records regulations: The Federal rules restrict any use of the information to criminally investigate or prosecute any alcohol or drug abuse patient.[facility] the event this information is protected by the Federal Confidentiality of Alcohol and Drug Abuse Patient Records regulations: The Federal rules restrict any use of the information to criminally investigate or prosecute any alcohol or drug abuse patient.[facility] CenterIn the event this information is protected by the Federal Confidentiality of Alcohol and Drug Abuse Patient Records regulations: The Federal rules restrict any use of the information to criminally investigate or prosecute any alcohol or drug abuse patient.[facility] the event this information is protected by the Federal Confidentiality of Alcohol and Drug Abuse Patient Records regulations: The Federal rules restrict any use of the information to criminally investigate or prosecute any alcohol or drug abuse patient.[facility] CenterIn the event this information is protected by the Federal Confidentiality of Alcohol and Drug Abuse Patient Records regulations: The Federal rules restrict any use of the information to criminally investigate or prosecute any alcohol or drug abuse patient.[facility] CenterIn the event this information is protected by the Federal Confidentiality of Alcohol and Drug Abuse Patient Records regulations: The Federal rules restrict any use of the information to criminally investigate or prosecute any alcohol or drug abuse patient.[facility] the event this information is protected by the Federal Confidentiality of Alcohol and Drug Abuse Patient Records regulations: The Federal rules restrict any use of the information to criminally investigate or prosecute any alcohol or drug abuse patient.[facility] CenterIn the event this information is protected by the Federal Confidentiality of Alcohol and Drug Abuse Patient Records regulations: The Federal rules restrict any use of the information to criminally investigate or prosecute any alcohol or drug abuse patient.[facility] CenterIn the event this information is protected by the Federal Confidentiality of Alcohol and Drug Abuse Patient Records regulations: The Federal rules restrict any use of the information to criminally investigate or prosecute any alcohol or drug abuse patient.[facility] CenterIn the event this information is protected by the Federal Confidentiality of Alcohol and Drug Abuse Patient Records regulations: The Federal rules restrict any use of the information to criminally investigate or prosecute any alcohol or drug abuse patient.[facility] CenterIn the event this information is protected by the Federal Confidentiality of Alcohol and Drug Abuse Patient Records regulations: The Federal rules restrict any use of the information to criminally investigate or prosecute any alcohol or drug abuse patient.[facility] CenterIn the event this information is protected by the Federal Confidentiality of Alcohol and Drug Abuse Patient Records regulations: The Federal rules restrict any use of the information to criminally investigate or prosecute any alcohol or drug abuse patient.[facility] CenterIn the event this information is protected by the Federal Confidentiality of Alcohol and Drug Abuse Patient Records regulations: The Federal rules restrict any use of the information to criminally investigate or prosecute any alcohol or drug abuse patient.[facility] CenterIn the event this information is protected by the Federal Confidentiality of Alcohol and Drug Abuse Patient Records regulations: The Federal rules restrict any use of the information to criminally investigate or prosecute any alcohol or drug abuse patient.[facility] CenterIn the event this information is protected by the Federal Confidentiality of Alcohol and Drug Abuse Patient Records regulations: The Federal rules restrict any use of the information to criminally investigate or prosecute any alcohol or drug abuse patient.[facility] CenterIn the event this information is protected by the Federal Confidentiality of Alcohol and Drug Abuse Patient Records regulations: The Federal rules restrict any use of the information to criminally investigate or prosecute any alcohol or drug abuse patient.[facility] CenterIn the event this information is protected by the Federal Confidentiality of Alcohol and Drug Abuse Patient Records regulations: The Federal rules restrict any use of the information to criminally investigate or prosecute any alcohol or drug abuse patient.[facility] CenterIn the event this information is protected by the Federal Confidentiality of Alcohol and Drug Abuse Patient Records regulations: The Federal rules restrict any use of the information to criminally investigate or prosecute any alcohol or drug abuse patient.[facility] CenterIn the event this information is protected by the Federal Confidentiality of Alcohol and Drug Abuse Patient Records regulations: The Federal rules restrict any use of the information to criminally investigate or prosecute any alcohol or drug abuse patient.[facility] CenterIn the event this information is protected by the Federal Confidentiality of Alcohol and Drug Abuse Patient Records regulations: The Federal rules restrict any use of the information to criminally investigate or prosecute any alcohol or drug abuse patient.[facility] CenterIn the event this information is protected by the Federal Confidentiality of Alcohol and Drug Abuse Patient Records regulations: The Federal rules restrict any use of the information to criminally investigate or prosecute any alcohol or drug abuse patient.[facility] CenterIn the event this information is protected by the Federal Confidentiality of Alcohol and Drug Abuse Patient Records regulations: The Federal rules restrict any use of the information to criminally investigate or prosecute any alcohol or drug abuse patient.[facility] CenterIn the event this information is protected by the Federal Confidentiality of Alcohol and Drug Abuse Patient Records regulations: The Federal rules restrict any use of the information to criminally investigate or prosecute any alcohol or drug abuse patient.[facility] CenterIn the event this information is protected by the Federal Confidentiality of Alcohol and Drug Abuse Patient Records regulations: The Federal rules restrict any use of the information to criminally investigate or prosecute any alcohol or drug abuse patient.[facility] CenterIn the event this information is protected by the Federal Confidentiality of Alcohol and Drug Abuse Patient Records regulations: The Federal rules restrict any use of the information to criminally investigate or prosecute any alcohol or drug abuse patient.[facility] CenterIn the event this information is protected by the Federal Confidentiality of Alcohol and Drug Abuse Patient Records regulations: The Federal rules restrict any use of the information to criminally investigate or prosecute any alcohol or drug abuse patient.[facility] CenterIn the event this information is protected by the Federal Confidentiality of Alcohol and Drug Abuse Patient Records regulations: The Federal rules restrict any use of the information to criminally investigate or prosecute any alcohol or drug abuse patient.[facility] CenterIn the event this information is protected by the Federal Confidentiality of Alcohol and Drug Abuse Patient Records regulations: The Federal rules restrict any use of the information to criminally investigate or prosecute any alcohol or drug abuse patient.[facility] CenterIn the event this information is protected by the Federal Confidentiality of Alcohol and Drug Abuse Patient Records regulations: The Federal rules restrict any use of the information to criminally investigate or prosecute any alcohol or drug abuse patient.[facility] CenterIn the event this information is protected by the Federal Confidentiality of Alcohol and Drug Abuse Patient Records regulations: The Federal rules restrict any use of the information to criminally investigate or prosecute any alcohol or drug abuse patient.[facility] CenterIn the event this information is protected by the Federal Confidentiality of Alcohol and Drug Abuse Patient Records regulations: The Federal rules restrict any use of the information to criminally investigate or prosecute any alcohol or drug abuse patient.[facility] CenterIn the event this information is protected by the Federal Confidentiality of Alcohol and Drug Abuse Patient Records regulations: The Federal rules restrict any use of the information to criminally investigate or prosecute any alcohol or drug abuse patient.[facility] CenterIn the event this information is protected by the Federal Confidentiality of Alcohol and Drug Abuse Patient Records regulations: The Federal rules restrict any use of the information to criminally investigate or prosecute any alcohol or drug abuse patient.[facility] CenterIn the event this information is protected by the Federal Confidentiality of Alcohol and Drug Abuse Patient Records regulations: The Federal rules restrict any use of the information to criminally investigate or prosecute any alcohol or drug abuse patient.[facility] CenterIn the event this information is protected by the Federal Confidentiality of Alcohol and Drug Abuse Patient Records regulations: The Federal rules restrict any use of the information to criminally investigate or prosecute any alcohol or drug abuse patient.[facility] CenterIn the event this information is protected by the Federal Confidentiality of Alcohol and Drug Abuse Patient Records regulations: The Federal rules restrict any use of the information to criminally investigate or prosecute any alcohol or drug abuse patient.[facility] CenterIn the event this information is protected by the Federal Confidentiality of Alcohol and Drug Abuse Patient Records regulations: The Federal rules restrict any use of the information to criminally investigate or prosecute any alcohol or drug abuse patient.[facility] CenterIn the event this information is protected by the Federal Confidentiality of Alcohol and Drug Abuse Patient Records regulations: The Federal rules restrict any use of the information to criminally investigate or prosecute any alcohol or drug abuse patient.[facility] CenterIn the event this information is protected by the Federal Confidentiality of Alcohol and Drug Abuse Patient Records regulations: The Federal rules restrict any use of the information to criminally investigate or prosecute any alcohol or drug abuse patient.[facility] CenterIn the event this information is protected by the Federal Confidentiality of Alcohol and Drug Abuse Patient Records regulations: The Federal rules restrict any use of the information to criminally investigate or prosecute any alcohol or drug abuse patient.[facility] CenterIn the event this information is protected by the Federal Confidentiality of Alcohol and Drug Abuse Patient Records regulations: The Federal rules restrict any use of the information to criminally investigate or prosecute any alcohol or drug abuse patient.[facility] CenterIn the event this information is protected by the Federal Confidentiality of Alcohol and Drug Abuse Patient Records regulations: The Federal rules restrict any use of the information to criminally investigate or prosecute any alcohol or drug abuse patient.[facility] CenterIn the event this information is protected by the Federal Confidentiality of Alcohol and Drug Abuse Patient Records regulations: The Federal rules restrict any use of the information to criminally investigate or prosecute any alcohol or drug abuse patient.[facility] CenterIn the event this information is protected by the Federal Confidentiality of Alcohol and Drug Abuse Patient Records regulations: The Federal rules restrict any use of the information to criminally investigate or prosecute any alcohol or drug abuse patient.[facility] CenterIn the event this information is protected by the Federal Confidentiality of Alcohol and Drug Abuse Patient Records regulations: The Federal rules restrict any use of the information to criminally investigate or prosecute any alcohol or drug abuse patient.[facility] CenterIn the event this information is protected by the Federal Confidentiality of Alcohol and Drug Abuse Patient Records regulations: The Federal rules restrict any use of the information to criminally investigate or prosecute any alcohol or drug abuse patient.[facility] CenterIn the event this information is protected by the Federal Confidentiality of Alcohol and Drug Abuse Patient Records regulations: The Federal rules restrict any use of the information to criminally investigate or prosecute any alcohol or drug abuse patient.[facility] CenterIn the event this information is protected by the Federal Confidentiality of Alcohol and Drug Abuse Patient Records regulations: The Federal rules restrict any use of the information to criminally investigate or prosecute any alcohol or drug abuse patient.[facility] CenterIn the event this information is protected by the Federal Confidentiality of Alcohol and Drug Abuse Patient Records regulations: The Federal rules restrict any use of the information to criminally investigate or prosecute any alcohol or drug abuse patient.[facility] CenterIn the event this information is protected by the Federal Confidentiality of Alcohol and Drug Abuse Patient Records regulations: The Federal rules restrict any use of the information to criminally investigate or prosecute any alcohol or drug abuse patient.[facility] CenterIn the event this information is protected by the Federal Confidentiality of Alcohol and Drug Abuse Patient Records regulations: The Federal rules restrict any use of the information to criminally investigate or prosecute any alcohol or drug abuse patient.[facility] CenterIn the event this information is protected by the Federal Confidentiality of Alcohol and Drug Abuse Patient Records regulations: The Federal rules restrict any use of the information to criminally investigate or prosecute any alcohol or drug abuse patient.[facility] CenterIn the event this information is protected by the Federal Confidentiality of Alcohol and Drug Abuse Patient Records regulations: The Federal rules restrict any use of the information to criminally investigate or prosecute any alcohol or drug abuse patient.[facility] the event this information is protected by the Federal Confidentiality of Alcohol and Drug Abuse Patient Records regulations: The Federal rules restrict any use of the information to criminally investigate or prosecute any alcohol or drug abuse patient.[facility] the event this information is protected by the Federal Confidentiality of Alcohol and Drug Abuse Patient Records regulations: The Federal rules restrict any use of the information to criminally investigate or prosecute any alcohol or drug abuse patient.[facility] the event this information is protected by the Federal Confidentiality of Alcohol and Drug Abuse Patient Records regulations: The Federal rules restrict any use of the information to criminally investigate or prosecute any alcohol or drug abuse patient.[facility] the event this information is protected by the Federal Confidentiality of Alcohol and Drug Abuse Patient Records regulations: The Federal rules restrict any use of the information to criminally investigate or prosecute any alcohol or drug abuse patient.[facility] Reason for Visit (unrecogniz ed section and content) Reason Comments Follow Up Specialty Diagnoses / Procedures Referred By Contac t Referred To Contact Diagnoses Intractable chronic migraine without aura and without status migrainosus Procedures PROVIDER ORDERED FOLLOW UP OFFICE/OUTPATIENT [facility] 60-74 MINUTES Rehana Knutson MD [address] [place] [address] Rehana Knutson MD [address] [place] [address] Referral ID Status Reason Start Date Expiration Date V isits Requested Visits Authorized [id number] Closed PCP Requested Referral 11/26/2022 02/24/2023 1 1 Reason Comments Appointment Follow up appointmen ts Reason Comments Post Op Right Index finger P IP Reason Onset Date Comments Refill Request 01/04/2022 Reason Comments Follow Up Reason Onset Date Comments SPP Inflammatory Conditions - Medication Refill 02/23/2022 Enbrel Reason Comments Refill Request Reason Onset Date Comments SPP Inflammatory Conditions - Medication Refill 03/12/2022 Enbrel Reason Comments Follow Up Reason Comments Appointment Reason Onset Date Comments SPP Inflammatory Conditions - Medication Refill 04/16/2022 Enbrel Reason Onset Date Comments SPP Inflammatory Conditions - Medication Refill 05/18/2022 Enbrel Reason Onset Date Comments SPP Inflammatory Conditions - Medication Refill 06/15/2022 Enbrel Reason Onset Date Comments SPP Inflammatory Conditions - Medication Refill 07/13/2022 Enbrel Reason Onset Date Comments SPP Inflammatory Conditions - Medication Refill 09/03/2022 Enbrel vials Reason Onset Date Comments Refill Request 09/14/2022 Reason Comments Patient Update Reason Onset Date Comments Refill Request 10/28/2022 Reason Comments Rheumatoid Arthritis BRISA Reason Onset Date Comments SPP Inflammatory Conditions - Medication Refill 11/22/2022 Enbrel Reason Comments Outside Lab Results Results Medication Problem Reason Onset Date Comments Refill Request 07/09/2022 Reason Onset Date Comments Refill Request 08/11/2022 Reason Comments Recheck Reason Onset Date Comments SPP Inflammatory Conditions - Medication Refill 03/02/2023 Enbrel Reason Comments appointment questions Reason Onset Date Comments SPP Inflammatory Conditions - Medication Refill 03/30/2023 Enbrel Reason Onset Date Comments SPP Inflammatory Conditions - Medication Refill 04/29/2023 Enbrel Reason Onset Date Comments SPP Inflammatory Conditions - Medication Refill 07/11/2023 Enbrel Reason Onset Date Comments SPP Inflammatory Conditions - Medication Refill 08/05/2023 Enbrel Reason Comments Radiology XR Reason Onset Date Comments Refill Request 12/10/2023 Reason Onset Date Comments Refill Request 01/04/2024 Reason Onset Date Comments SPP Inflammatory Conditions - Medication Refill 02/01/2024 Enbrel (NCA 01/2025) Reason Comments Follow Up Chronic Migraine Reason Onset Date Comments SPP Inflammatory Conditions - Medication Refill 02/22/2024 Enbrel - NCA 01/2025 Reason Comments Patient Question Reason Onset Date Comments SPP Inflammatory Conditions - Follow-up 04/17/20 Enbrel Insurance Authorization 04/17/2024 PA Renew al Submitted Reason Onset Date Comments SPP Inflammatory Conditions - Medication Refill 05/02/2024 Enbrel Reason Comments Rheumatoid Arthritis Reason Onset Date Comments SPP Inflammatory Conditions - Medication Refill 05/25/2024 Enbrel Reason Comments Chronic Migraine Reason Comments Radio Gen RMP Specialty Diagnoses / Procedures Referred By Contac t Referred To Contact XR IMAGING Diagnoses Pain of finger of right hand Procedures XR DIGIT GENERAL 3V FRONTAL/LAT/OBL RIGHT RADEX FINGR MINIMUM 2 VIEWS Nedra Womack, SUBSTATION SUPERINTENDENT.ENVIRONMENTAL LAW PROFESSOR [address] [place] [address] Xr Imaging [facility] [address] Referral ID Status Reason Start Date Expiration Date V isits Requested Visits Authorized [id number] Closed Auto-Generate d Referral 12/01/2021 12/31/2022 10 10 Specialty Diagnoses / Procedures Referred By Contac t Referred To Contact XR IMAGING Diagnoses Pain Procedures XR DIGIT GENERAL 3V FRONTAL/LAT/OBL RT X-RAY EXAM OF FINGER(S) Gustavo Blanco MD [address] [place] [address] [place] [address] Referral ID Status Reason Start Date Expiration Date V isits Requested Visits Authorized [id number] Closed Auto-Generate d Referral 05/04/2021 06/03/2022 1 1 Reason Onset Date Comments SPP Inflammatory Conditions - Medication Refill 06/22/2024 Enbrel Care Teams (unrecognized sec tion and content) Financial Services Consultant Relationship Specialty Start Date End Date Reyna Bah [address] [place] [phone] PCP - General 01/30/07 Financial Services Consultant Relationship Specialty Start Date End Date Reyna Bah [address] [place] [phone] PCP - General 01/30/07 Financial Services Consultant Relationship Specialty Start Date End Date Reyna Bah [address] [place] [phone] PCP - General 01/30/07 Financial Services Consultant Relationship Specialty Start Date End Date Renya Bah [address] [place] [phone] PCP - General 01/30/07 Financial Services Consultant Relationship Specialty Start Date End Date Reyna Bah [address] [place] [phone] PCP - General 01/30/07 Financial Services Consultant Relationship Specialty Start Date End Date Reyna Bah [address] [place] [phone] PCP - General 01/30/07 Financial Services Consultant Relationship Specialty Start Date End Date Reyna Bah [address] [place] [phone] PCP - General 01/30/07 Financial Services Consultant Relationship Specialty Start Date End Date Reyna Bah [address] [place] [address], [place] [phone] PCP - General 01/30/07 Financial Services Consultant Relationship Specialty Start Date End Date Reyna Bah [address] [place] [address], [place] [phone] PCP - General 01/30/07 Financial Services Consultant Relationship Specialty Start Date End Date Reyna Bah [address] [place] [address], [place] [phone] PCP - General 01/30/07 Financial Services Consultant Relationship Specialty Start Date End Date Reyna Bah [address] [place] [address], [place] [phone] PCP - General 01/30/07 Financial Services Consultant Relationship Specialty Start Date End Date Reyna Bah [address] [place] [address], [place] [phone] PCP - General 01/30/07 Financial Services Consultant Relationship Specialty Start Date End Date Reyna Bah [address] [place] [address], [place] [phone] PCP - General 01/30/07 Financial Services Consultant Relationship Specialty Start Date End Date Reyna Bah [address] [place] [address], [place] [phone] PCP - General 01/30/07 Financial Services Consultant Relationship Specialty Start Date End Date Reyna Bah [address] [place] [address], [place] [phone] PCP - General 01/30/07 Financial Services Consultant Relationship Specialty Start Date End Date Reyna Bah [address] [place] [address], [place] [phone] PCP - General 01/30/07 Financial Services Consultant Relationship Specialty Start Date End Date Reyna Bah [address] [place] [address], [place] [phone] PCP - General 01/30/07 Financial Services Consultant Relationship Specialty Start Date End Date Reyna Bah [address] [place] [address], [place] [phone] PCP - General 01/30/07 Financial Services Consultant Relationship Specialty Start Date End Date Reyna Bah [address] [place] [address], [place] [phone] PCP - General 01/30/07 Financial Services Consultant Relationship Specialty Start Date End Date Reyna Bah [address] [place] [address], [place] [phone] PCP - General 01/30/07 Financial Services Consultant Relationship Specialty Start Date End Date Kiera Bahtt Dahiana [address] [place] [phone] PCP - General 01/30/07 Financial Services Consultant Relationship Specialty Start Date End Date Reyna Baher [address] [place] [address], [place] [phone] PCP - General 01/30/07 Financial Services Consultant Relationship Specialty Start Date End Date Lobito Reyna Cantrell [address] [place] [address], [place] [phone] PCP - General 01/30/07 Financial Services Consultant Relationship Specialty Start Date End Date EjlouisReyna [address] [place] [phone] PCP - General 01/30/07 Financial Services Consultant Relationship Specialty Start Date End Date Reyna Bah [address] [place] [address] PCP - General 01/30/07 Financial Services Consultant Relationship Specialty Start Date End Date Reyna Bah DO [address] [place] [phone] PCP - General 04/24/17 Financial Services Consultant Relationship Specialty Start Date End Date Reyna Bah [address] [place], [place] [phone] PCP - General 01/30/07 Financial Services Consultant Relationship Specialty Start Date End Date Reyna Bah [address] [place], [place] [phone] PCP - General 01/30/07 Financial Services Consultant Relationship Specialty Start Date End Date Reyna Bah [address] [place] [phone] PCP - General 01/30/07 Financial Services Consultant Relationship Specialty Start Date End Date Reyna Bah [address] [place] [phone] PCP - General 01/30/07 Financial Services Consultant Relationship Specialty Start Date End Date Reyna Bah [address] [place] [phone] PCP - General 01/30/07 Financial Services Consultant Relationship Specialty Start Date End Date Reyna Bah [address] [place] [address] PCP - General 01/30/07 Financial Services Consultant Relationship Specialty Start Date End Date Reyna Bah [address] [place] [phone] PCP - General 01/30/07 Financial Services Consultant Relationship Specialty Start Date End Date Reyna Bah [address] [place] [phone] PCP - General 01/30/07 Financial Services Consultant Relationship Specialty Start Date End Date Reyna Bah [address] [place], [place] [phone] PCP - General 01/30/07 Financial Services Consultant Relationship Specialty Start Date End Date Reyna Bah [address] [place], [place] [phone] PCP - General 01/30/07 Financial Services Consultant Relationship Specialty Start Date End Date Reyna Bah [address] [place], [place] [phone] PCP - General 01/30/07 Financial Services Consultant Relationship Specialty Start Date End Date Reyna Bah [address] [place] [phone] PCP - General 01/30/07 Financial Services Consultant Relationship Specialty Start Date End Date Reyna Bah [address] [place] [phone] PCP - General 01/30/07 Financial Services Consultant Relationship Specialty Start Date End Date Reyna Bah [address] [place] [address] PCP - General 01/30/07 Financial Services Consultant Relationship Specialty Start Date End Date Reyna Bah [address] [place] [phone] PCP - General 01/30/07 Financial Services Consultant Relationship Specialty Start Date End Date Reyna Bah [address] [place] [phone] PCP - General 01/30/07 Financial Services Consultant Relationship Specialty Start Date End Date Reyna Bah [address] [place] [phone] PCP - General 01/30/07 FOR RECORDS PERTAINING TO PATIENTS WHO ARE OR HAVE BEEN ENROLLED IN A CHEMICAL DEPENDENCY/SUBSTANCEABUSE PROGRAM, SOME INFORMATION MAY BE OMITTED. This clinical summary was aggregated from multiple sources. Caution should be exercised in using it in the provision of clinical care. This summary normalizes information from multiple sources, and as a consequence, information in this document may materially change the coding, format and clinical context of patient data. In addition, data may be omitted in some cases. CLINICAL DECISIONS SHOULD BE BASED ON THE PRIMARY CLINICAL RECORDS. [facility] [employer] [facility]. provides no warranty or guarantee of the accuracy or completeness of information in this document.
== END 2024-07-03 12:26 | disposition home or self-care (01) ==
LOC: PM 12:25
PROVIDERS: PCP Family Medicine; Visit Provider Anesthesiology Pain Medicine
DX: M25.511 Pain in right shoulder (principal); M25.512 Pain in left shoulder; M75.122 Complete rotator cuff tear or rupture of left shoulder, not specified as traumatic; M75.121 Complete rotator cuff tear or rupture of right shoulder, not specified as traumatic
CPT/HCPCS: G0463

== ENCOUNTER 2024-08-15 12:53 | Outpatient (OUT) | payer MEDICARE, SELFPAY ==
--- NOTE | 2024-08-15 13:32 | P.CN_ITS ---
Consult Note: HPI Data of Consult Patient: known to practice within the last 3 years Requesting Physician: Lily Ortega NP Primary Care Provider: REYNA BAH Consult Narrative Reason for consult: f/u Narrative: Helen Ball a pleasant 44 year old female with a hx of bilateral rotator cuff tears presents for evaluation and management of chronic bilateral shoulder pain and pain secondary to RA. Pt has an upcoming left rotator cuff repair on tuesday, is not planning to have right shoulder worked on. Pt has failed to benefit from >6 weeks of PT. At last visit Dr Roberto decreased patients norco 10-325mg to BID-TID PRN moderate to severe pain 75 tabs to last 30 days, however pt did not decrease as she was having severe toothpain and ran out 3 days ago. cc:: CC: Lily Ortega NP Review of Systems ROS Status of ROS 10 or more systems reviewed and unremark able except as noted in history and below Musculoskeletal Reports: joint pain PFSH PFSH Medical History (Updated 08/15/24 @ 13:36 by Lily Ortega NP) Osteoarthritis ?M19.90 - Unspecified osteoarthritis, unspecified site (ICD-10) TMJ (dislocation of temporomandibular joint) ?S03.00XA - Dislocation of jaw, unspecified side, initial encounter (ICD-10) Rheumatoid arthritis ?M06.9 - Rheumatoid arthritis, unspecified (ICD-10) DVT (deep venous thrombosis) ?I82.409 - Acute embolism and thrombosis of unspecified deep veins of unspecified lower extremity (ICD-10) Acid reflux ?K21.9 - Gastro-esophageal reflux disease without esophagitis (ICD-10) Thyroid cyst ?E04.1 - Nontoxic single thyroid nodule (ICD-10) Fatty liver ?K76.0 - Fatty (change of) liver, not elsewhere classified (ICD-10) Surgical History H/O section ?Z98.891 - History of uterine scar from previous surgery (ICD-10) History of hysterectomy ?Z90.710 - Acquired absence of both cervix and uterus (ICD-10) Status post trigger finger release ?Z98.890 - Other specified postprocedural states (ICD-10) History of thumb surgery ?Z98.890 - Other specified postprocedural states (ICD-10) History of wrist replacement ?Z96.639 - Presence of unspecified artificial wrist joint (ICD-10) History of bunionectomy ?Z98.890 - Other specified postprocedural states (ICD-10) History of mandibular surgery ?Z98.890 - Other specified postprocedural states (ICD-10) Meds Home Medications and Allergies Home Medications ?Medication ?Instructions ?Recorded ?Confirmed ?Type etanercept 25 mg/0.5 mL 25 mg subcut QWEEK 04/17/24 04/17/24 History subcutaneous solution (Enbrel) gabapentin 600 mg tablet 600 mg PO TID 04/17/24 04/17/24 History hydrocodone 10 mg-acetaminophen 1 tab PO TID 04/17/24 04/17/24 History 325 mg tablet pantoprazole 40 mg tablet,delayed 40 mg PO BID 04/17/24 04/17/24 History release (Protonix) tizanidine 4 mg tablet (Zanaflex) 4 mg PO Q8H 04/17/24 04/17/24 History topiramate 200 mg tablet (Topamax) 200 mg PO BID 04/17/24 04/17/24 History gabapentin 600 mg tablet 600 mg PO QID #120 tabs 04/25/24 Rx hydrocodone 10 mg-acetaminophen 1 tab PO TID PRN pain #90 tabs 05/10/24 Rx 325 mg tablet hydrocodone 10 mg-acetaminophen 1 tab PO TID PRN pain #90 tabs 06/14/24 Rx 325 mg tablet hydrocodone 10 mg-acetaminophen 1 tab PO TID PRN pain #75 tabs 07/18/24 Rx 325 mg tablet naloxone 4 mg/actuation nasal 4 mg intranasal Q2M PRN opioid 07/19/24 Rx spray (Narcan) overdose #2 ea Allergies Allergy/AdvReac Type Severity Reaction Status Date / Time bacitracin Allergy Unknown Verified 04/17/24 15:36 doxycycline Allergy Unknown Verified 04/17/24 15:36 tramadol Allergy Unknown Verified 04/17/24 15:36 Exam Constitutional Documenting provider has reviewed patient's vital signs: yes Common normals: no apparent distress, oriented x3, healthy appearing, alert and well nourished General appearance: cooperative HENMT Common normals: normocephalic, hearing grossly normal bilaterally and moist oral mucous membranes Head and scalp: normocephalic Eye Common normals: PERRL Pupil: PERRL Neck & C-Spine Common normals: full ROM General: normal visual inspection Chest Common normals: inspection of chest normal Respiratory Common normals: normal respiratory effort, no retractions and no use of accessory muscles Extremity Right upper extremity: elbow joint Left upper extremity: elbow joint Other: limited ROM positive empty can, posterior liftoff, and apleys strength 4/5 in BUE Neuro Common normals: oriented x3, CN's II-XII intact bilaterally, moves all extremities, no focal motor deficits, no sensory deficits noted and deep tendon reflexes 2+ bilaterally Sensorium/orientation: alert Motor exam: strength 5/5 throughout and no movement abnormalities noted Psych Common normals: mental status grossly normal, thought process normal, co operative, affect normal, speech normal and activity/motor behavior normal Speech: normal speech Thought process: normal thought process Results Additional Findings Additional findings: If on a controlled substance or opioids, I have checked an [place] report on this patient and there are no aberrancies noted in the prescribing history.??If on a controlled substance or opioid a drug screen was completed and reviewed within the last year, and if there has not been a drug screen completed we ordered one today to monitor higher risk, state monitored pain medication use. As part of providing excellent, safe, comprehensive care, the following was completed at our patient's visit: 1. A medication reconciliation and review to ensure accurate knowledge of current/active medications, including asking our patients to inform us about any [id number] medications or herbal remedies/nutritional supplements/alternative remedies. 2. A review to specifically ensure our patients have had annual screening for screening for depression, screening for tobacco use, and screening for unhealthy alcohol use. For concerning screenings had a discussion with the patient, provided patient education, and recommended follow-up with primary care provider when appropriate. If patient noted with a risk of falling, they received education on strength, gait, and balance training to prevent future risk of falling. Assessment and Plan Assessment and Plan (1) Bilateral shoulder pain: (2) Rotator cuff tear: (3) Osteoarthritis: (4) Rheumatoid arthritis: (5) Chronic prescription opiate use: Plan we reviewed the violation in her care by overtaking her pain medications, at this time i will not convert to NNCP or dismiss pt for violation but I did stress the importance of communicating with our office and awaiting providers orders to make medication changes. Will refill norco 10-325mg TID PRN moderate to severe pain 1 week supply as pt is having surgery next week. Pt to stop our medications and allow surgeon to manage post op pain as discussed and agreed upon today. increase tizanidine 4-8mg TID PRN pain/spasms consider right suprascapular nerve block working towards RFA once able to lie flat on her abdomen for the procedure f/u 2-3 months, sooner if able to lie flat on abdomen/cleared by surgeon
== END 2024-08-15 12:54 | disposition home or self-care (01) ==
PROVIDERS: PCP Family Medicine; Visit Provider Nurse Practitioner
DX: M25.511 Pain in right shoulder (principal); M25.512 Pain in left shoulder; M75.102 Unspecified rotator cuff tear or rupture of left shoulder, not specified as traumatic; M75.101 Unspecified rotator cuff tear or rupture of right shoulder, not specified as traumatic; M19.90 Unspecified osteoarthritis, unspecified site; M06.9 Rheumatoid arthritis, unspecified; Z79.891 Long term (current) use of opiate analgesic
CPT/HCPCS: G0463